=== PATIENT | female | born 1955 | race Caucasian/White ===

== ENCOUNTER 2019-03-31 16:06 | Inpatient (IN) | payer MEDICARE, MEDICAID, SELFPAY | END 2019-04-03 17:00 | disposition home or self-care (01) | DRG 65 | PROVIDERS: Admitting Provider Internal Medicine; Emergency Provider Emergency Medicine; PCP Family Medicine; Visit Provider Internal Medicine | DX: I63.50 Cerebral infarction due to unspecified occlusion or stenosis of unspecified cerebral artery (principal); I69.354 Hemiplegia and hemiparesis following cerebral infarction affecting left non-dominant side; Z91.81 History of falling; G51.0 Bell's palsy; Z79.82 Long term (current) use of aspirin; Z79.02 Long term (current) use of antithrombotics/antiplatelets; E11.42 Type 2 diabetes mellitus with diabetic polyneuropathy; I25.10 Atherosclerotic heart disease of native coronary artery without angina pectoris; I12.9 Hypertensive chronic kidney disease with stage 1 through stage 4 chronic kidney disease, or unspecified chronic kidney disease; K21.9 Gastro-esophageal reflux disease without esophagitis; N18.3 Chronic kidney disease, stage 3 (moderate); Z79.4 Long term (current) use of insulin; E89.0 Postprocedural hypothyroidism; F41.8 Other specified anxiety disorders; Z91.5 Personal history of self-harm; Z90.710 Acquired absence of both cervix and uterus; Z90.49 Acquired absence of other specified parts of digestive tract; R26.89 Other abnormalities of gait and mobility; G47.00 Insomnia, unspecified; E11.65 Type 2 diabetes mellitus with hyperglycemia; R09.89 Other specified symptoms and signs involving the circulatory and respiratory systems | CPT/HCPCS: 36415; 51701; 70450; 70551; 80048; 80053; 80061; 81001; 82085; 82550; 82607; 82746; 83874; 83918; 85025; 85652; 93005; 93880; 97110; 97116; 97162; 97165; 99283; 99284; 99285; A9270; C8929; G0378; J1815 ==

== ENCOUNTER 2019-12-19 16:38 | Emergency (ER) | payer MEDICARE, OTHER, SELFPAY ==
--- NOTE | ~2019-12-19 | XR_ITS ---
XR wrist LT min 3V 12/19/2019 19:02 INDICATION: Left wrist pain after fall PROCEDURE: 4 views left wrist COMPARISON: No prior studies for comparison. FINDINGS: Fracture, dislocation or subluxation is not identified. There is mild osteoarthritis of the triscaphe joint. The soft tissues appear within normal limits. No foreign bodies are identified. IMPRESSION: 1: NO ACUTE BONE OR JOINT ABNORMALITY IDENTIFIED. Reviewed, dictated and finalized at location A. AND PHYSICS INSTRUCTOR
--- NOTE | ~2019-12-19 | XR_ITS ---
XR shoulder LT min 2V 12/19/2019 19:02 INDICATION: Left shoulder pain after fall PROCEDURE: 4 views left shoulder COMPARISON: No prior studies for comparison. FINDINGS: Fracture, dislocation or subluxation is not identified. The soft tissues appear within norm al limits. No foreign bodies are identified. IMPRESSION: 1: NO ACUTE BONE OR JOINT ABNORMALITY IDENTIFIED. Reviewed, dictated and finalized at Location A. Reviewed, dictated and finalized at location A. R ENTRY TECHNICIAN
--- NOTE | ~2019-12-19 | XR_ITS ---
XR knee LT 3V 12/19/2019 19:02 Indication: Left knee pain after fall Procedure: 3 views left knee Comparison: No prior studies for comparison. Findings: No fracture, subluxation or dislocation. No significant joint space narrowing. No joint eff usion. No radiopaque foreign bodies. Impression: 1: No acute fracture. Reviewed, dictated and finalized at location A. IC ADMINISTRATION TEACHER Impression: 1: No acute fracture.
[2019-12-19 17:11] VITALS: BP 116/63; PULSE 74; RESP 20; TEMP 36.1; O2SAT 100
--- NOTE | 2019-12-19 18:37 | ED.FALL ---
HPI - Fall General Chief Complaint: Fall Stated Complaint: FALL L SIDED BODY PAIN Time Seen by Provider: 12/19/19 18:06 Source: patient and RN notes reviewed Mode of arrival: ambulatory Limitations: no limitations History of Present Illness HPI Narrative: Pt is a 64 y/o female who presents to the ED with c/o fall happening this evening. She notes that she was walking through a [employer], when she accidentally tripped and fell into several shelves. Pt states that she used her lt arm to brace her fall, and notes that she believes she struck her head during the fall. She denies any LOC. Pt reports lt shoulder pain, lt forearm pain, lt hip pain, lt knee pain, and abrasions on her lt coffey, lt hand, and rt fourth digit s/p the fall. She currently denies any dizziness. Pt states that she chronically takes Tramadol, and notes that she hasn't taken any further pain medications for her symptoms. MD complaint: fall Fall from: standing Place fall occurred: other (gas station) Loss of consciousness: none Symptoms prior to fall: none Context: tripped/slipped Location of injury: head Location of injury - extremities: Left: shoulder, forearm, thigh (lt hip) and knee Associated symptoms (after fall): other (abrasions on lt coffey, lt hand, and rt 4th digit) Related Data Allergies Allergy/AdvReac Type Severity Reaction Status Date / Time latex Allergy Unknown Verified 11/08/14 13:08 No Known Allergies Allergy Unverified 03/31/19 17:14 Review of Systems Review of Systems: All systems reviewed & are unremarkable except as noted in HPI and below Musculoskeletal: Musculoskeletal: Reports arthralgias (lt shoulder pain; lt hip pain; lt knee pain) and Reports other (lt forearm pain) Integumentary/Breasts: Skin/Breast: Reports wounds (abrasions on lt coffey, lt hand, and rt 4th digit) Neurologic: Denies dizziness and Reports other (Reports: head injury. Denies: LOC) [facility] Past Medical History Medical History Anxiety Arthritis CAD (coronary artery disease) CVA (cerebral vascular accident) Depression Diabetes type 2, controlled Gastric ulcer GERD (gastroesophageal reflux disease) Goiter Heart attack History of angina HLD (hyperlipidemia) HTN (hypertension) Hypothyroidism Peripheral neuropathy Renal disease TIA (transient ischemic attack) Surgical History Surgical History History of partial thyroidectomy Hx of cardiac catheterization with cardiac stent placement Hx of section Hx of cholecystectomy Family History Family History (Updated 05/30/16 @ 23:19 by DOCTOR UNKNOWN) Sibling Family history of malignant neoplasm Family history of kidney disease Family history of lung cancer Patient's sister is Mother Family history of diabetes mellitus in first degree relative Patient's mother is Father Family history of lung cancer Patient's father is Social History Social History Smoking status: Former smoker Alcohol intake: never Comments PCP is Dr. Kirkland. Exam Const: General: healthy appearing, no acute distress and other (elderly) HENMT: Head: normocephalic and atraumatic Resp: Effort & Inspection: normal respiratory effort Auscultation: clear to auscultation bilaterally Cardio: Rate: regular rate Rhythm: regular rhythm Heart sounds: no murmurs Peripheral pulses: Peripheral pulses 2+ throughout GI: GI Palp: Yes Soft to palpation and No Tenderness to palpation present (GI) Auscultation: normal bowel sounds Back/Spine/Pelvis: Back: other (Full ROM) Skin: General skin exam: normal color, dry skin and other (warm) Neuro: General: patient oriented x3 (alert) Cranial nerves: Yes Other cranial nerve findings present (rt sided facial droop (appears chronic)) Speech: normal speech Sensory Exam: n
== END 2019-12-19 20:24 | disposition home or self-care (01) ==
PROVIDERS: Emergency Provider Emergency Medicine; PCP Family Medicine
DX: S61.304A Unspecified open wound of right ring finger with damage to nail, initial encounter (principal); S40.022A Contusion of left upper arm, initial encounter; S50.12XA Contusion of left forearm, initial encounter; W01.198A Fall on same level from slipping, tripping and stumbling with subsequent striking against other object, initial encounter; S80.812A Abrasion, left lower leg, initial encounter; I25.10 Atherosclerotic heart disease of native coronary artery without angina pectoris; Z86.73 Personal history of transient ischemic attack (TIA), and cerebral infarction without residual deficits; E11.9 Type 2 diabetes mellitus without complications; K21.9 Gastro-esophageal reflux disease without esophagitis; I25.2 Old myocardial infarction; E78.5 Hyperlipidemia, unspecified; I10 Essential (primary) hypertension; E89.0 Postprocedural hypothyroidism; Z95.5 Presence of coronary angioplasty implant and graft; M19.032 Primary osteoarthritis, left wrist
CPT/HCPCS: 73030; 73110; 73562; 99284

== ENCOUNTER 2020-04-19 10:11 | Outpatient (CLI) | payer MEDICARE, MEDICAID, SELFPAY | END 2020-04-19 10:12 | disposition home or self-care (01) | LOC: ANHAUDIO 10:12 | PROVIDERS: PCP Family Medicine; Visit Provider Otolaryngology | DX: H90.3 Sensorineural hearing loss, bilateral (principal) | CPT/HCPCS: 92557; 92567 ==

== ENCOUNTER 2020-05-16 12:51 | Outpatient (RCR) | payer MEDICAID, SELFPAY | END 2020-05-16 23:59 | disposition home or self-care (01) | LOC: ANHAUDIO 12:51 | PROVIDERS: PCP Family Medicine; Visit Provider Family Medicine | DX: Z46.1 Encounter for fitting and adjustment of hearing aid (principal) | CPT/HCPCS: V5160; V5261 ==

== ENCOUNTER 2020-08-02 17:19 | Emergency (ER) | payer MEDICARE, MEDICAID, SELFPAY ==
[2020-08-02 18:03] VITALS: BP 98/60; PULSE 60; RESP 16; TEMP 35.8; O2SAT 100
[2020-08-02 18:24] VITALS: BP 128/73; PULSE 71; RESP 18; O2SAT 100
[2020-08-02 18:42] LABS: Basophils Absolute Auto 0.1 K/mm3 (0.0-0.1); Basophils Percent Auto 0.7 % (0.2-1.2); Eosinophils Absolute Auto 0.1 K/mm3 (0-0.3); Eosinophils Percent Auto 1.1 % (0-4.4); Hematocrit 36.7 % (37.0-47.0); Hemoglobin 12.3 g/dL (12.0-15.0); Immature Granulocyte Absolute 0.02 K/mm3 (0.00-0.031); Immature Granulocyte Percent A 0.2 % (0-0.5); Lymphocytes Absolute Auto 3.02 K/mm3 (0.9-3.2); Mean Corpuscular HGB Conc 33.5 g/dl (32-36); Mean Corpuscular Hemoglobin 30.1 pg (26-34); Mean Corpuscular Volume 89.7 fl (80-100); Mean Platelet Volume 9.8 fl (7.4-10.4); Monocytes Absolute Auto 0.6 K/mm3 (0.1-0.6); Monocytes Percent Auto 6.7 % (2.6-8.5); Neutrophils Absolute Auto 4.4 K/mm3 (1.3-6.7); Neutrophils Percent Auto 54.3 % (45.5-73.1); Platelet Count Result 243 k/mm3 (150-375); Red Blood Count 4.09 M/mm3 (4.2-5.4); Red Cell Distribution Width 13.3 % (11.5-14.5); White Blood Count 8.2 K/mm3 (4.5-10.0)
[2020-08-02 18:50] LABS: Alanine Aminotransferase 22 U/L (4-35); Albumin Level 4.5 g/dL (3.5-5.1); Alkaline Phosphatase 70 U/L (38-126); Anion Gap 7 mmol/L (8-16); Aspartate Amino Transferase 32 U/L (14-36); Bilirubin,Total 0.3 mg/dL (0.2-1.3); Blood Urea Nitrogen 29 mg/dL (7-17); Calcium 10.1 mg/dL (8.4-10.2); Carbon Dioxide 29 mmol/L (22-30); Chloride 102 mmol/L (98-107); Estimated CRCL calculation 40 ml/min; Estimated Glomerular Filt Rate 45; Glucose 66 mg/dL (65-105); Potassium 4.1 mmol/L (3.4-5.0); Sodium 138 mmol/L (137-145)
[2020-08-02 19:02] LABS: Troponin I < 0.012 ng/mL (0.000-0.034)
[2020-08-02 19:21] VITALS: BP 95/54; PULSE 61; RESP 18; O2SAT 99
[2020-08-02] MEDS: SODIUM CHLORIDE 0.9% IV 1,000 ML 999 ML IV CONT (19:49)
[2020-08-02 20:00] VITALS: BP 115/60; PULSE 60; RESP 18; O2SAT 100
--- NOTE | 2020-08-02 20:02 | ED.BACK ---
HPI - Back Pain/Injury General Chief Complaint: Back Pain/Injury Stated Complaint: top of back to mid back pain Time Seen by Provider: 08/02/20 19:03 History of Present Illness HPI Narrative: Patient is a 65-year-old female who presents ER with back pain. Began today. It goes from her upper thoracic region down to her lumbar back. It sharp. It comes in waves. It is worse with bending and twisting. No relief with [id number] medications. Denies fevers or chills or sweats. No known trauma. No lower extremity numbness or tingling. No difficulty with urination or defecation. No lower extremity weakness. Related Data Home Medications Medication Instructions Recorded Confirmed aspirin 81 mg tablet,delayed 81 mg PO DAILY 04/16/20 release cholecalciferol (vitamin D3) 50 50 mcg PO DAILY 04/16/20 mcg (2,000 unit) capsule glipizide 10 mg tablet 10 mg PO DAILY 04/16/20 metformin 500 mg tablet 500 mg PO BID 04/16/20 atorvastatin 80 mg tablet 80 mg PO DAILY 06/04/20 clopidogrel 75 mg tablet 75 mg PO DAILY 06/04/20 escitalopram oxalate 20 mg tablet 20 mg PO DAILY 06/04/20 ezetimibe 10 mg tablet 10 mg PO DAILY 06/04/20 gabapentin 600 mg tablet 600 mg PO TID 06/04/20 losartan 50 mg tablet 50 mg PO DAILY 06/04/20 panobinostat 10 mg capsule 10 mg PO ONCE 06/04/20 pantoprazole 20 mg tablet,delayed 20 mg PO QAM 06/04/20 release Allergies Allergy/AdvReac Type Severity Reaction Status Date / Time latex Allergy Unknown Hives Verified 08/02/20 18:06 Review of Systems Constitutional: Constitutional: Denies chills, Denies fever(s) and Denies weakness Cardiovascular: Cardiovascular: Denies chest pain Respiratory: Respiratory: Denies cough, Denies dyspnea and Denies wheezing Musculoskeletal: Musculoskeletal: Reports back pain, Denies arthralgias and Reports muscle cramps Neurologic: Denies focal weakness and Denies numbness PMFSH Social History Social History Smoking status: Former smoker Alcohol intake: never Exam Narrative: Exam Narrative: GENERAL: Well-appearing, well-nourished, and in no acute distress. HEAD: Normocephalic, atraumatic. CHEST: Clear to auscultation. No respiratory distress. HEART: Regular rate and rhythm. Normal peripheral pulses. EXTREMITIES: Normal range of motion. No edema. Back: No midline tenderness of thoracic or lumbar spine. There is bilateral paraspinal muscular tenderness mid thoracic region down to the upper lumbar region. No visual evidence of trauma. NEURO: Alert and oriented x3. PSYCH: Normal mood and affect. Course Course Emergency Course: Patient may be a little dry. She is receiving 1 L IV fluid. Will discharge with low-dose anti-inflammatories and some muscle relaxers. Follow-up with PCP. Vital Signs Vital signs: Vital Signs Temperature 96.5 F L 08/02/20 18:03 Pulse Rate 60 08/02/20 18:03 Respiratory Rate 16 08/02/20 18:03 Blood Pressure 98/60 L 08/02/20 18:03 Pulse Oximetry 100 08/02/20 18:03 Temperature 96.5 F L 08/02/20 18:03 Pulse Rate 61 08/02/20 19:21 Respiratory Rate 18 08/02/20 19:21 Blood Pressure 95/54 L 08/02/20 19:21 Pulse Oximetry 99 08/02/20 19:21 MDM - Back Pain/Injury Lab Data Result diagrams: 08/02/20 18:29 08/02/20 18:29 Labs: Lab Results 08/02/20 08/02/20 08/02/20 Range/Units 18:29 18:29 18:29 WBC 8.2 (4.5-10.0) K/mm3 RBC 4.09 L (4.2-5.4) M/mm3 Hgb 12.3 (12.0-15.0) g/dL Hct 36.7 L (37.0-47.0) % MCV 89.7 (80-100) fl MCH 30.1 (26-34) pg MCHC 33.5 (32-36) g/dl RDW 13.3 (11.5-14.5) % Plt Count 243 (150-375) k/mm3 MPV 9.8 (7.4-10.4) fl Immature Gran % (Auto) 0.2 (0-0.5) % Neut % (Auto) 54.3 (45.5-73.1) % Lymph % (Auto) 37.0 (18.3-44.2) % [place] % (Auto) 6.7 (2.6-8.5) % Eos % (Auto) 1.1 (0-4.4) % Baso % (Auto) 0.7 (0.2-1.2) % Lym
== END 2020-08-02 20:35 | disposition home or self-care (01) ==
PROVIDERS: Physician Assistant; Emergency Provider Emergency Medicine; PCP Family Medicine
DX: M62.830 Muscle spasm of back (principal); E11.42 Type 2 diabetes mellitus with diabetic polyneuropathy; I25.10 Atherosclerotic heart disease of native coronary artery without angina pectoris; Z86.73 Personal history of transient ischemic attack (TIA), and cerebral infarction without residual deficits; M19.90 Unspecified osteoarthritis, unspecified site; I21.9 Acute myocardial infarction, unspecified; I25.2 Old myocardial infarction; E78.5 Hyperlipidemia, unspecified; E89.0 Postprocedural hypothyroidism; Z79.82 Long term (current) use of aspirin; Z79.84 Long term (current) use of oral hypoglycemic drugs; Z87.891 Personal history of nicotine dependence
CPT/HCPCS: 36415; 80053; 84484; 85025; 96360; 99284; J7030

== ENCOUNTER 2021-06-03 10:03 | Outpatient (RCR) | payer MEDICARE, MEDICAID, SELFPAY | END 2021-06-03 23:59 | disposition home or self-care (01) | LOC: ANHAUDIO 10:03 | PROVIDERS: PCP Family Medicine; Visit Provider Family Medicine | DX: Z46.1 Encounter for fitting and adjustment of hearing aid (principal) | CPT/HCPCS: 99199 ==

== ENCOUNTER 2021-08-03 17:57 | Observation (INO) | payer MEDICARE, MEDICAID, SELFPAY ==
--- NOTE | ~2021-08-03 | XR_ITS ---
EXAMINATION: XR chest 2V 08/04/2021 09:01 INDICATION: TIA PROCEDURE: PA and lateral views of the chest COMPARISON: 08/22/2019 FINDINGS: The lungs are clear. The cardiomediastinal silhouette is within normal limits. There are no pleural effusions. There is no pneumothorax suspected. There are cholecystectomy clips. IMPRESSION: 1: NO ACUTE CARDIOPULMONARY DISEASE. Reviewed, dictated and finalized at location A.
--- NOTE | ~2021-08-03 | US_ITS ---
EXAMINATION: US carotid duplex BI DATE: 08/04/2021 11:53 INDICATION: TIA TECHNIQUE: Grayscale, color Doppler, and pulsed Doppler images of the cervical carotid arteries were obtained. The degree of vessel stenosis is placed in one of the following categories: normal, <50%, 5 0-69%, >=70% but less than near-occlusion, near-occlusion, or total occlusion. Note that percent sten osis relative to normal distal artery lumen diameter is indirectly measured from velocity measurement s as described by Louie, et al. Radiology 2003; 229:340-346. Notes: Normal: Peak systolic velocity <125 centimeters/sec and no plaque <50%. Peak systolic velocity <125 ( EDV <40; ICA/CCA PSV ratio <2.0; used these factors only a tandem lesions or low cardiac output or co ntralateral disease) 50-69 %: PSV 125-230 (EDV 40-100; ratio 2-4) >= 70% but less than near occlusion: PSV greater than 230 (EDV > 100; ratio> 4.0) Near Occlusion: PSV that is variable; markedly narrowed lumen Occlusion: Absent flow on color/spectral Doppler and no lumen on chacon scale. COMPARISON: None. FINDINGS: RIGHT: The right common carotid artery (CCA) peak systolic velocity (PSV) is 63 cm/s. The right internal car otid artery (ICA) PSV is 180 cm/s. The right ICA end-diastolic velocity (EDV) is 57 cm/s. The right I CA/CCA PSV ratio is 2.8. The external carotid artery (ECA) PSV is 92 cm/s. There is antegrade flow in the right vertebral artery. LEFT: The left CCA PSV is 83 cm/s. The left ICA PSV is 108 cm/s. The left ICA EDV is 38 cm/s. The left ICA/ CCA PSV ratio is 1.3. The ECA PSV is 88 cm/s. There is antegrade flow in the left vertebral artery. IMPRESSION: 1. 50-69% stenosis in the right internal carotid artery by sonographic criteria. 2. Less than 50% stenosis in the left internal carotid artery by sonographic criteria. Reviewed, dictated and finalized at location A. IMPRESSION: 1. 50-69% stenosis in the right internal carotid artery by sonographic criteria . 2. Less than 50% stenosis in the left internal carotid artery by sonographic cr iteria.
--- NOTE | ~2021-08-03 | CT_ITS ---
EXAMINATION: CT brain wo con DATE: 08/04/2021 03:30 INDICATION: Stroke. TECHNIQUE: Computed tomography (CT) of the head was performed without intravenous contrast. The dose- length product was 605.33 mGy-cm. Automated exposure control and iterative reconstruction technique w ere employed. COMPARISON: CT dated 08/22/2019 FINDINGS: There is a chronic right frontal lobe infarction with encephalomalacia. There are scattered mild periventricular and subcortical white matter changes, most likely related to small vessel ische fariha disease (microangiopathy). No ventriculomegaly or midline shift. There is a 1.3 cm calcified extr a-axial mass, consistent with meningioma. No significant mass effect. Basilar cisterns are patent. No acute intracranial hemorrhage, infarction, mass or mass effect. IMPRESSION: 1. No acute intracranial abnormality. 2: Partially calcified 1.3 cm extra-axial mass left parietal vertex, consistent with meningioma. 3: Chronic right frontal lobe infarction. Reviewed, dictated and finalized at location A.
[2021-08-03 18:29] VITALS: BP 118/70; PULSE 94; RESP 20; TEMP 36.2; O2SAT 100
[2021-08-03 18:45] LABS: Basophils Absolute Auto 0.1 K/mm3 (0.0-0.1); Basophils Percent Auto 0.7 % (0.2-1.2); Eosinophils Absolute Auto 0.1 K/mm3 (0-0.3); Eosinophils Percent Auto 1.2 % (0-4.4); Hematocrit 34.4 % (37.0-47.0); Hemoglobin 11.5 g/dL (12.0-15.0); Immature Granulocyte Absolute 0.03 K/mm3 (0.00-0.031); Immature Granulocyte Percent A 0.4 % (0-0.5); Lymphocytes Absolute Auto 2.67 K/mm3 (0.9-3.2); Lymphocytes Percent Auto 34.9 % (18.3-44.2); Mean Corpuscular HGB Conc 33.4 g/dl (32-36); Mean Corpuscular Hemoglobin 29.6 pg (26-34); Mean Corpuscular Volume 88.4 fl (80-100); Mean Platelet Volume 8.9 fl (7.4-10.4); Monocytes Absolute Auto 0.6 K/mm3 (0.1-0.6); Monocytes Percent Auto 7.7 % (2.6-8.5); Neutrophils Absolute Auto 4.2 K/mm3 (1.3-6.7); Neutrophils Percent Auto 55.1 % (45.5-73.1); Platelet Count Result 231 k/mm3 (150-375); Red Blood Count 3.89 M/mm3 (4.2-5.4); Red Cell Distribution Width 14.6 % (11.5-14.5); White Blood Count 7.6 K/mm3 (4.5-10.0)
[2021-08-03 18:55] LABS: Anion Gap 12 mmol/L (8-16); Blood Urea Nitrogen 31 mg/dL (7-17); Calcium 8.5 mg/dL (8.4-10.2); Carbon Dioxide 22 mmol/L (22-30); Chloride 98 mmol/L (98-107); Estimated CRCL calculation 35 ml/min; Estimated Glomerular Filt Rate 41; Glucose 220 mg/dL (65-110); Potassium 3.8 mmol/L (3.4-5.0); Sodium 132 mmol/L (137-145)
[2021-08-03 20:31] VITALS: BP 102/52; PULSE 56; RESP 18; TEMP 36.1; O2SAT 95
[2021-08-03 22:28] VITALS: BP 141/78; PULSE 66; RESP 14; O2SAT 100
[2021-08-03 23:30] LABS: Add Urine Microscopic? YES; Appearance Urine Clear (Clear); Bilirubin Urine Negative (Negative); Blood Urine Negative (Negative); Color Urine Straw (Yellow); Glucose Urine UA 3+ mg/dL (Negative); Ketones Urine Negative (Negative); Leukocyte Esterase Ur Negative LEU/UL (Negative); Nitrate Urine Negative (Negative); Protein Urine Negative (Negative); RBC Urine 0-2 /hpf (0-2); Urobilinogen Urine Negative mg/dL (<2.0)
[2021-08-04] VITALS (20 sets, daily range): BP systolic 97–140; BP diastolic 66–79; PULSE 61–96; RESP 13–20; TEMP 35.7–37; O2SAT 92–100; BMI 28.1
--- NOTE | 2021-08-04 00:34 | ED.GENADULT ---
HPI - General Adult General Chief complaint: Abdominal Pain Stated complaint: R sided pain, increased confusion x weeks Time Seen by Provider: 08/03/21 22:13 History of Present Illness HPI narrative: Patient is a 66-year-old female who presents ER with multiple complaints. She initially told triage that she had flank pain and back pain. At this time she reports mild low back pain. She has been seen previously for recurrent falls and muscle spasms. On my encounter with her she reports that she was playing cards with some friends tonight and did not know what the cards were or where they went in due to this confusion she was sent in here. Patient has history of multiple strokes. 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 She has no additional complaints at this time and feels like she is not as confused as she had been. Related Data Allergies Allergy/AdvReac Type Severity Reaction Status Date / Time No Known Allergies Allergy Verified 08/03/21 23:01 Review of Systems Review of Systems: All systems reviewed & are unremarkable except as noted in HPI and below Constitutional: Constitutional: Denies chills and Denies fever(s) ENT: Denies nasal congestion and Denies sore throat Gastrointestinal: Gastrointestinal: Denies abdominal pain, Denies nausea and Denies vomiting Musculoskeletal: Musculoskeletal: Reports back pain and Reports muscle cramps Neurologic: Reports confusion, Denies focal weakness, Denies numbness and Reports weakness PMFSH Past Medical History Medical History (Updated 08/04/21 @ 05:19 by Martin Dangelo MD) Anxiety CAD (coronary atherosclerotic disease) Cerebrovascular accident Depression Diabetes GERD (gastroesophageal reflux disease) History of left heart catheterization Hyperlipidemia Hypertension Hypothyroidism Surgical History Surgical History (Updated 08/04/21 @ 05:15 by Martin Dangelo MD) History of section History of cholecystectomy History of percutaneous coronary intervention History of thyroidectomy Social History Social History (Updated 08/04/21 @ 05:15 by Martin Dangelo MD) Smoking status: Former smoker Exam Narrative: GENERAL: Well-appearing, well-nourished, and in no acute distress. HEAD: Normocephalic, atraumatic. EYES: PERRL and EOMI. ENT: Mucous membranes moist. CHEST: Clear to auscultation. No respiratory distress. HEART: Regular rate and rhythm. Normal peripheral pulses. ABDOMEN: Soft, nontender, nondistendeds. EXTREMITIES: Normal range of motion. No edema. SKIN: Warm, dry, no rash. NEURO: Chronic right-sided facial droop. Unable to ambulate safely. No upper or lower extremity drift. Difficulty with finger-nose testing r left upper extremity. Patient with lipsmacking and occasional spasms of the upper and lower extremities. Alert and oriented x3. Course Course Emergency Course: Admit to hospitalist service. Observation. Patient has some polypharmacy is causing difficulty with ambulation and her spasm-like movements. Vital Signs Vital signs: Vital Signs Temperature 97.2 F L 08/03/21 18:29 Pulse Rate 94 08/03/21 18:29 Respiratory Rate 20 08/03/21 18:29 Blood Pressure 118/70 08/03/21 18:29 Pulse Oximetry 100 08/03/21 18:29 Temperature 97.0 F L 08/03/21 20:31 Pulse Rate 88 08/04/21 00:44 Respiratory Rate 13 08/04/21 00:43 Blood Pressure 136/76 08/04/21 00:44 Pulse Oximetry 96 08/04/21 00:43 Medical Decision Making Vital Signs Vital Signs: Vital Signs Temperature 97.2 F L 08/03/21 18:29 Pulse Rate 94 08/03/21 18:29 Respiratory Rate 20 08/03/21 18:29 Blood Pressure 118/70 08/03/21 18:29 Pulse Oximetry 100 08/03/21 18:29 Temperature 97.0 F L 08/03/21 20:31 Pulse Rate 88 08/04/21 00:44 Respiratory Rate 13 08/04/21 00:43 Blood Pressure 136/76 08/04/21 00:44 Pulse Oximetry 96 08/04/21 00:43 Lab Data Result diagrams: 08/03/21 18:37
[2021-08-04 03:19] LABS: Ethanol < 10 mg/dL (<10)
--- NOTE | 2021-08-04 06:58 | ADMGEN ---
This patient, Leeann Cochran, was admitted to 3 [facility] Surg Room 332-01 at 615. Patient/family oriented to hospital policies and general routines including ID bracelet, bed and alarms, visiting hours, pain management, procedures, bathroom and other care routines, personal items, smoking policy, room service/diet, and visiting hours. Information on how to activate the Rapid Response Team has been discussed. Patient/Family are encouraged to report perceived risks to care and to ask questions if they do not understand what they are told or what they should do.
--- NOTE | 2021-08-04 08:48 | PM.IMHP ---
H&P: HPI History of Present Illness Date/Time: 08/04/21 08:48 Chief Complaint: Dysarthria PMFSH Past Medical History Medical History Anxiety CAD (coronary atherosclerotic disease) Cerebrovascular accident Depression Diabetes GERD (gastroesophageal reflux disease) History of left heart catheterization Hyperlipidemia Hypertension Hypothyroidism Surgical History Surgical History (Updated 08/04/21 @ 05:15 by Martin Dangelo MD) History of section History of cholecystectomy History of percutaneous coronary intervention History of thyroidectomy Family History Family History (Updated 08/04/21 @ 07:04 by Delicia Hall RN) Mother Cerebrovascular accident Father Lung cancer Sibling Lung cancer Leukemia Sibling Kidney disease Social History Social History (Updated 08/04/21 @ 05:15 by Martin Dangelo MD) Smoking status: Never smoker Alcohol intake: never Substance use: never Spiritual care concerns: No Meds Home Medications and Allergies Home Medications Medication Instructions Recorded Confirmed Type atorvastatin 80 mg PO HS 08/04/21 08/04/21 History clopidogrel 75 mg PO DAILY 08/04/21 08/04/21 History cyclobenzaprine 5 mg PO TID PRN 08/04/21 08/04/21 History dapagliflozin [Farxiga] 10 mg PO DAILY 08/04/21 08/04/21 History escitalopram oxalate 20 mg PO DAILY PRN 08/04/21 08/04/21 History ezetimibe 10 mg PO DAILY 08/04/21 08/04/21 History gabapentin 900 mg PO TID 08/04/21 08/04/21 History glipizide 10 mg PO BID 08/04/21 08/04/21 History hydrocodone-acetaminophen 1 tablet PO Q6H PRN 08/04/21 08/04/21 History insulin glargine [Lantus U-100 30 unit SUBCUT DAILY 08/04/21 08/04/21 History Insulin] losartan 50 mg PO DAILY 08/04/21 08/04/21 History melatonin 20 mg PO HS 08/04/21 08/04/21 History metformin 500 mg PO BID 08/04/21 08/04/21 History metoprolol succinate 100 mg PO DAILY 08/04/21 08/04/21 History nitroglycerin 0.4 mg SUBLINGUAL Q5M PRN 08/04/21 08/04/21 History pantoprazole 20 mg PO QAM 08/04/21 08/04/21 History phentermine 37.5 mg PO DAILY 08/04/21 08/04/21 History Allergies Allergy/AdvReac Type Severity Reaction Status Date / Time No Known Allergies Allergy Verified 08/04/21 05:41 Vital Signs Vital Signs - 24 hr 08/03/21 18:29 08/03/21 20:31 08/03/21 22:28 Temperature 97.2 F L 97.0 F L Pulse Rate 94 56 L 66 Respiratory Rate 20 18 14 Blood Pressure 118/70 102/52 L 141/78 H Pulse Oximetry 100 95 100 08/04/21 00:08 08/04/21 00:35 08/04/21 00:40 Temperature Pulse Rate 67 96 69 Respiratory Rate 18 Blood Pressure 140/70 129/79 132/75 Pulse Oximetry 100 08/04/21 00:43 08/04/21 00:44 08/04/21 00:45 Temperature Pulse Rate 70 69 70 Respiratory Rate 13 16 13 Blood Pressure 132/75 132/75 Pulse Oximetry 96 99 96 08/04/21 01:00 08/04/21 01:01 08/04/21 01:23 Temperature Pulse Rate 70 69 70 Respiratory Rate 19 16 18 Blood Pressure 120/72 Pulse Oximetry 96 92 94 08/04/21 01:32 08/04/21 01:45 08/04/21 02:01 Temperature Pulse Rate 70 70 70 Respiratory Rate 20 20 20 Blood Pressure 122/72 Pulse Oximetry 97 96 08/04/21 02:15 08/04/21 02:30 08/04/21 02:55 Temperature Pulse Rate 61 61 Respiratory Rate 19 17 13 Blood Pressure 124/70 126/78 Pulse Oximetry 08/04/21 06:57 Temperature 98.6 F Pulse Rate 61 Respiratory Rate 20 Blood Pressure 97/67 L Pulse Oximetry 98 H&P: Results Labs Labs: Short CBC 08/03/21 Range/Units 18:37 WBC 7.6 (4.5-10.0) K/mm3 Hgb 11.5 L (12.0-15.0) g/dL Hct 34.4 L (37.0-47.0) % Plt Count 231 (150-375) k/mm3 BMP 08/03/21 18:37 Sodium 132 L Potassium 3.8 Chloride 98 Carbon Dioxide 22 BUN 31 H Creatinine 1.30 H Glucose 220 H Calcium 8.5 Urine 08/03/21 Range/Units 23:05 Urine Color Straw (Yellow) Urine Appearance Clear (Clear) Urine pH 6.0 (5.0-9.0)
[2021-08-04] MEDS: SODIUM CHLORIDE 0.9% IV 1,000 ML 75 ML IV CONT ×2 (08:56→22:52)
[2021-08-04 09:21] LABS: Glucose Point of Care 207 mg/dl (65-105)
[2021-08-04 10:18] LABS: Magnesium 1.9 mg/dL (1.6-2.3)
[2021-08-04 10:32] LABS: Troponin I < 0.012 ng/mL (0.000-0.034)
[2021-08-04] MEDS: ATORVASTATIN 40 MG TABLET 80 MG PO (10:35)
[2021-08-04 10:41] LABS: Iron 87 ug/dL (37-170)
[2021-08-04 10:51] LABS: Thyroid Stimulating Hormone 0.634 uIU/mL (0.465-4.680)
[2021-08-04 10:54] LABS: Percent Iron Saturation 28 % (20-50)
[2021-08-04 11:27] LABS: Folic Acid > 20.0 ng/mL (2.76->20)
[2021-08-04 11:56] LABS: Glucose Point of Care 233 mg/dl (65-105)
[2021-08-04] MEDS: INSULIN ASPART (*BKC) 100 UNITS/ML SUB-Q ×2 (12:11→17:23)
[2021-08-04 15:28] LABS: Troponin I < 0.012 ng/mL (0.000-0.034)
[2021-08-04 17:04] LABS: Glucose Point of Care 219 mg/dl (65-105)
[2021-08-04 21:13] LABS: Glucose Point of Care 185 mg/dl (65-105)
[2021-08-04 21:32] LABS: Troponin I < 0.012 ng/mL (0.000-0.034)
[2021-08-04] MEDS: HYDROcodone/acetaminophen (*CRX) 5-325 MG TABLET 1 TAB PO (22:54)
--- NOTE | 2021-08-05 | ECHO_ITS ---
Patient Info Name: Leeann Cochran Age: 66 years : 1955 Gender: Female Ht: 62 in Wt: 153 lbs BSA: 1.76 m2 HR: 75 bpm BP: 111 / 56 mmHg Heart Rhythm: Sinus Rhythm Technical Quality: Fair Exam Date: 08/05/2021 10:26 AM Exam Location: [facility] Pulmonary Exam Room: [facility] Patient Status: Outpatient Admit Date: 08/04/2021 Staff Ordering Physician: Isaiah Morrison DO Associate Of Science In Nursing: Jane Delgado RDCS Attending Provider: Alberto Martini MD Referring Physician: Prince BONILLA; Exam Type: CA echo doppler color flow Study Info Indications - TIA Complete two-dimensional, color flow and Doppler transthoracic echocardiogram is performed. Summary 1. Complete two-dimensional, color flow and Doppler transthoracic echocardiogram is performed. 2. Left ventricular chamber dimension is mildly enlarged. 3. Left ventricular systolic function is normal, estimated at 65-70%. 4. There is mildly increased left ventricular wall thickness. 5. The left ventricular diastolic function is grade II diastolic dysfunction. 6. Left atrial chamber dimension is mildly enlarged. 7. There is mild aortic valve stenosis with a peak velocity of 183 cm/s, mean gradient of 7 mmHg, and aortic valve area of 2.0 cm2. 8. There is moderate aortic valve calcification. 9. There is mild mitral valve regurgitation. 10. The mitral valve annulus is moderately calcified. 11. There is mild tricuspid valve regurgitation. 12. Mild pulmonary hypertension, estimated pulmonary arterial systolic pressure is 37 mmHg. Left Ventricle Left ventricular chamber dimension is mildly enlarged. Left ventricular systolic function is normal, estimated at 65-70%. There is mildly increased left ventricular wall thickness. The left ventricular diastolic function is grade II diastolic dysfunction. Right Ventricle Right ventricular chamber dimension is normal. Right ventricular systolic function is normal. Left Atria Left atrial chamber dimension is mildly enlarged. Right Atria Right atrial chamber dimension is normal. Atrial Septum Intact interatrial septum visualized by color flow imaging. Aortic Valve The aortic valve is trileaflet. There is mild aortic valve stenosis with a peak velocity of 183 cm/s, mean gradient of 7 mmHg, and aortic valve area of 2.0 cm2. There is trace aortic valve regurgitation. There is moderate aortic valve calcification. Pulmonic Valve The pulmonic valve is normal. There is no pulmonic valve stenosis. There is trace pulmonic regurgitation. Mitral Valve The mitral valve has thickened leaflets. There is no mitral valve stenosis. There is mild mitral valve regurgitation. The mitral valve annulus is moderately calcified. Tricuspid Valve The tricuspid valve leaflets are normal. There is no significant tricuspid valve stenosis. There is mild tricuspid valve regurgitation. Mild pulmonary hypertension, estimated pulmonary arterial systolic pressure is 37 mmHg. Pericardium/Pleural The pericardium appears normal. There is trivial pericardial effusion. Inferior Vena Cava Normal inferior vena cava with >50% collapse upon inspiration consistent with normal right atrial pressure, 10 mmHg. Aorta The aortic root size at the sinus of Valsalva is normal. The prox ascending aorta size is normal. There is mild aortic atherosclerosis. Left Ventricular Outflow Tract Name
[2021-08-05] MEDS: ATORVASTATIN 40 MG TABLET 80 MG PO (00:32)
[2021-08-05] MEDS: MELATONIN 5 MG TABLET 20 MG PO (00:32)
[2021-08-05] MEDS: GABAPENTIN 300 MG CAPSULE 900 MG PO ×3 (00:32→13:36)
--- NOTE | 2021-08-05 05:00 | ECG_ITS ---
Measurements Intervals [place] Rate: 68 P: 62 MA: 160 QRS: 52 QRSD: 94 T: 57 QT: 382 QTc: 409 Interpretive Statements SINUS RHYTHM BASELINE ARTIFACT- V5 NORMAL ECG Electronically Signed On 08-05-2021 11:48:32 CDT by Nasir Diehl D.O.
[2021-08-05 06:00] VITALS: BP 111/56; PULSE 75; RESP 18; TEMP 36.7; O2SAT 98
[2021-08-05 06:31] LABS: Alanine Aminotransferase 20 U/L (4-35); Albumin Level 3.6 g/dL (3.5-5.1); Alkaline Phosphatase 85 U/L (38-126); Anion Gap 6 mmol/L (8-16); Aspartate Amino Transferase 21 U/L (14-36); Bilirubin,Total 0.6 mg/dL (0.2-1.3); Blood Urea Nitrogen 20 mg/dL (7-17); Carbon Dioxide 25 mmol/L (22-30); Chloride 106 mmol/L (98-107); Cholesterol 214 mg/dL (0-200); Estimated CRCL calculation 55 ml/min; Estimated Glomerular Filt Rate > 60; Glucose 161 mg/dL (65-110); HDL Direct 70 mg/dL; Potassium 3.6 mmol/L (3.4-5.0); Sodium 137 mmol/L (137-145); Triglycerides 191 mg/dL (<150)
[2021-08-05 06:36] LABS: LDL Cholesterol Direct 98 mg/dL
--- NOTE | 2021-08-05 07:46 | PM.IMPN ---
Progress Note: A&P Additional Plan START OF DOCTOR MAY?S PROGRESS NOTE Subjective: Overnight the patient denies diplopia, blurry vision, dysphagia, dysphagia, paresis/anesthesia/minus significant part of body. Overnight she has fever, rigors, nausea, vomiting, cough, wheeze, abdominal pain, chest pain, lightheadedness, dizziness, headache, palpitations, sensory rapid heartbeat, since your heart beat. I have explained to the patient her current medical condition plan of care and answered all her questions. I had a long discussion with her regarding her reported use of narcotics of which was in denial Objective: General: -Alert -No acute distress -No dyspnea -No tachypnea Heart: -Regular rate -Regular rhythm -No murmurs -No gallops -No rubs Lungs: -No wheeze -No rhonchi -No rales Abdomen: -Normal bowel sounds in all four quadrants -No rebound -No guarding -No tenderness Extremities: -2/4 pulse in all four extremities -No clubbing -No cyanosis -No edema Additional Details / Additional Findings / Exceptions / Miscellaneous: Cranial nerves 2-12 are intact. Eyes: Pupils equally round and reactive to light and accommodation. Extraocular muscles are intact Patient has 5/5 bilateral are symmetric. Toes are bilateral upper lower extremities are equal and intact Pertinent Laboratory Results / Pertinent Radiology Results / Pertinent Diagnostic Results / Pertinent Vital Signs: Vital signs stable Assessment / Plan: TIA. Monitor patient telemetry and check serial cardiac enzymes and check TSH, free T4, B12, folate, magnesium all. In the morning will check fasting lipid panel and recheck EKG. Urinalysis unremarkable. Neuro checks q.[address] of the brain negative for acute process. Bilateral carotid Doppler demonstrates no clinically significant abnormalities r, echocardiogram, chest [id number]. Physical therapy consult. Occupational therapy consult. Aspirin 81 mg p.o. daily plus Plavix 75 mg p.o. daily plus Lipitor 80 mg p.o. q.h.s. post IV nor 7 senna 5 mL/hour Report narcotic abuse. Patient will need to be referred to narcotics anonymous upon discharge History of CVA. Aspirin 81 mg p.o. daily plus Plavix 75 mg p.o. daily Lipitor 40 mg p.o. q.h.s. Hyponatremia. Monitor sodium levels intermittently. IV normal saline 75 mL/hour History of thyroidectomy for goiter, with subsequent hypothyroidism. Check TSH, free T4 Depression. Lexapro 20 mg p.o. daily Anxiety History of seizure Acute renal insufficiency. Monitor creatinine intermittently. IV nor sounds and a 500 mL/hour Nathan's palsy Anemia. Monitor hemoglobin intermittently. Check serum ferritin, iron panel, fecal occult blood Coronary artery disease, status post LA, status post stent. Aspirin 81 mg p.o. daily plus Plavix and 5 mg p.o. daily plus Lipitor 80 mg p.o. q.h.s. plus metoprolol XL 100 mg p.o. daily Diabetes. Will check fingerstick glucose q.a.c. and HS and provide insulin sliding scale plus insulin glargine 30 units subcutaneously daily plus metformin 500 mg p.o. b.i.d. GERD. Protonix 20 mg p.o. daily Hyperlipidemia. Lipitor 80 mg p.o. q.h.s.. Check fasting lipid panel Hypertension. Cozaar 50 mg p.o. daily plus metoprolol XL 100 mg p.o. daily Hypertriglyceridemia. Tricor 145 mg p.o. daily Muscle spasm Neuropathy. Gabapentin 900 mg p.o. t.i.d. The patient takes phentermine 37.5 mg p.o. daily. I will attempt to ascertain the reason as to why DVT prophylaxis. [facility] Disposition: The patient is medically stable for discharge on this day August 05, 2021 pending results of echocardiogram END OF DOCTOR MAY?S PROGRESS NOTE Subjective Date/time seen: 08/05/21 07:46 Objective Data Vital Signs Vital Signs: Vital Signs - 24 hr 08/04/21 08:00 08/04/21 14:00 08/04/21 20:00 Temperature 96.3 F L Pulse Rate 72 82 Respiratory Rate 20 20 Blood Pressu
[2021-08-05 08:00] VITALS: O2SAT 98
[2021-08-05 08:55] VITALS: PULSE 74
[2021-08-05] MEDS: LOSARTAN POTASSIUM 50 MG TABLET PO (08:55)
[2021-08-05] MEDS: CLOPIDOGREL BISULFATE 75 MG TABLET PO (08:55)
[2021-08-05] MEDS: METOPROLOL SUCCINATE EXT REL 100 MG TABCR PO (08:55)
[2021-08-05] MEDS: metFORMIN HCL 500 MG TABLET PO (08:55)
[2021-08-05] MEDS: PANTOPRAZOLE SOD SESQUIHYDRATE 20 MG TAB PO (08:55)
[2021-08-05] MEDS: ASPIRIN 81 MG CHEWABLE TABLET PO (08:56)
[2021-08-05] MEDS: INSULIN GLARGINE (*BKC) 100 UNITS/ML 30 UNITS SUB-Q (08:58)
[2021-08-05 09:00] LABS: Glucose Point of Care 151 mg/dl (65-105)
[2021-08-05] MEDS: ACETAMINOPHEN 325 MG TABLET 650 MG PO (09:47)
[2021-08-05] MEDS: ESCITALOPRAM OXALATE 10 MG TABLET 20 MG PO (09:48)
[2021-08-05] MEDS: FENOFIBRATE NANOCRYSTALLIZED 145 MG TABLET PO (09:48)
[2021-08-05] MEDS: SODIUM CHLORIDE 0.9% IV 1,000 ML 75 ML IV CONT (11:48)
[2021-08-05 13:06] LABS: Glucose Point of Care 199 mg/dl (65-105)
[2021-08-05 14:00] VITALS: BP 137/70; PULSE 67; RESP 16; TEMP 37.3; O2SAT 100
--- NOTE | 2021-08-05 14:05 | PM.DS ---
DS: Admitting Diagnosis Discharge Date 4:08 p.m. on August 05, 2021 Admitting Diagnosis What was believed to be TIA however this may have been narcotic overdose DS: Summary Hospital Course Hospital Course: See discharge summary below Time Spent with Patient Time attestation: Total time spent providing and/or coordinating discharge services: START OF DOCTOR MAY?S DISCHARGE SUMMARY Date of Admission: August 04, 2021 Date of Discharge: 2:05 p.m. on August 05, 2021 Primary Diagnosis: TIA, ruled out. Upon further procurement of information, it is believed that the patient may have overdosed on narcotics Secondary Diagnosis: Reported history of narcotic abuse History of CVA Hyponatremia, resolved History of thyroidectomy for goiter, with subsequent hypothyroidism Depression Anxiety History of seizure Acute renal insufficiency, resolved Nathan's palsy Anemia Coronary artery disease, status post IN, status post stent Diabetes GERD Hyperlipidemia Hypertension Muscle spasm Neuropathy Consultations: None Disposition: The patient will be advised follow up with her primary care physician 7-10 days post discharge for post hospitalization evaluation The patient's will require a referral to narcotics anonymous for reported history of narcotic abuse Discharge Medications: Farxiga 10 mg p.o. daily Zetia 10 mg p.o. daily Glipizide 10 mg p.o. b.i.d. Phentermine 37.5 mg p.o. daily Lipitor 80 mg p.o. q.h.s. Plavix 75 mg p.o. daily Lexapro 20 mg p.o. daily Gabapentin 900 mg p.o. t.i.d. Lantus 30 units subcutaneously daily Cozaar 50 mg p.o. daily Melatonin 20 mg p.o. q.h.s. Metformin 500 mg p.o. b.i.d. Metoprolol XL 100 mg p.o. daily Nitroglycerin 0.4 mg sublingually Q 5 minutes p.r.n. chest pain. She is to call 911 if there is no resolution of chest pain after 3rd dose Protonix 20 mg p.o. daily Tricor 145 mg p.o. daily END OF DOCTOR MAY?S DISCHARGE SUMMARY DS: Data Data Completed and Pending Labs on day of discharge: Labs from last 24 hours 08/05/21 08/05/21 08/05/21 13:04 08:55 05:51 Sodium 137 Potassium 3.6 Chloride 106 Carbon Dioxide 25 Anion Gap 6 L BUN 20 H D Creatinine 0.80 Estim Creat Clear Calc 55 Estimated GFR > 60 Glucose 161 H POC Capillary Glucose 199 H 151 H Calcium 9.0 Total Bilirubin 0.6 AST 21 ALT 20 Alkaline Phosphatase 85 Troponin I Total Protein 6.0 L Albumin 3.6 Triglycerides 191 H Cholesterol 214 H LDL Cholesterol Direct 98 HDL Direct 70 08/04/21 08/04/21 08/04/21 21:11 20:50 16:53 Sodium Potassium Chloride Carbon Dioxide Anion Gap BUN Creatinine Estim Creat Clear Calc Estimated GFR Glucose POC Capillary Glucose 185 H 219 H Calcium Total Bilirubin AST ALT Alkaline Phosphatase Troponin I < 0.012 Total Protein Albumin Triglycerides Cholesterol LDL Cholesterol Direct HDL Direct 08/04/21 14:52 Sodium Potassium Chloride Carbon Dioxide Anion Gap BUN Creatinine Estim Creat Clear Calc Estimated GFR Glucose POC Capillary Glucose Calcium Total Bilirubin AST ALT Alkaline Phosphatase Troponin I < 0.012 Total Protein Albumin Triglycerides Cholesterol LDL Cholesterol Direct HDL Direct Discharge Plan Discharge Discharging Clinician: Dr. Morrison Patient Disposition: Home, Self-Care Activity: as tolerated Diet: heart healthy, low sodium, low cholesterol and low fat Discharge Instructions: The patient is advised follow-up with her primary care physician 7-10 days post discharge for post hospitalization evaluation. Patient will require referral to narcotics anonymous Patient Instructions: Antibiotic Form, Heparin (By injection), Deep Vein Thrombosis (DC) S
[2021-08-05 19:42] LABS: IFOB Positive Control Positive; Immunochemical Fecal Occult Bl Positive (N)
--- NOTE | 2021-08-14 06:45 | PM.IMHP ---
H&P: HPI History of Present Illness Date/Time: 08/04/21 06:45 Chief Complaint: Dysarthria [facility] Past Medical History Medical History (Updated 08/09/21 @ 11:17 by Kelly Reyes) Anxiety Anxiety Arthritis CAD (coronary artery disease) CAD (coronary atherosclerotic disease) Cerebrovascular accident CVA (cerebral vascular accident) Depression Depression Diabetes Diabetes type 2, controlled Gastric ulcer GERD (gastroesophageal reflux disease) GERD (gastroesophageal reflux disease) Goiter Heart attack History of angina History of left heart catheterization HLD (hyperlipidemia) HTN (hypertension) Hyperlipidemia Hypertension Hypothyroidism Hypothyroidism Peripheral neuropathy Renal disease TIA (transient ischemic attack) Surgical History Surgical History (Updated 08/09/21 @ 11:17 by Kelly Reyes) History of section History of cholecystectomy History of partial thyroidectomy History of percutaneous coronary intervention History of thyroidectomy Hx of cardiac catheterization with cardiac stent placement Hx of section Hx of cholecystectomy Family History Family History (System 08/09/21 @ 11:17 by Kelly Reyes) Mother Cerebrovascular accident Father Lung cancer Sibling Lung cancer Leukemia Sibling Kidney disease Sibling Family history of malignant neoplasm Family history of kidney disease Family history of lung cancer Patient's sister is Mother Family history of diabetes mellitus in first degree relative Patient's mother is Father Family history of lung cancer Patient's father is Social History Social History (System 08/09/21 @ 11:17 by Kelly Reyes) Smoking status: Never smoker Alcohol intake: never Substance use: never Spiritual care concerns: No Meds Home Medications and Allergies Home Medications Medication Instructions Recorded Confirmed Type aspirin 81 mg tablet,delayed 81 mg PO DAILY 04/16/20 History release cholecalciferol (vitamin D3) 50 50 mcg PO DAILY 04/16/20 History mcg (2,000 unit) capsule glipizide 10 mg tablet 10 mg PO DAILY 04/16/20 History metformin 500 mg tablet 500 mg PO BID 04/16/20 History atorvastatin 80 mg tablet 80 mg PO DAILY 06/04/20 History clopidogrel 75 mg tablet 75 mg PO DAILY 06/04/20 History escitalopram oxalate 20 mg tablet 20 mg PO DAILY 06/04/20 History ezetimibe 10 mg tablet 10 mg PO DAILY 06/04/20 History gabapentin 600 mg tablet 600 mg PO TID 06/04/20 History losartan 50 mg tablet 50 mg PO DAILY 06/04/20 History panobinostat 10 mg capsule 10 mg PO ONCE 06/04/20 History pantoprazole 20 mg tablet,delayed 20 mg PO QAM 06/04/20 History release cyclobenzaprine 10 mg PO TID PRN #10 tablet 08/02/20 Rx Farxiga 10 mg PO DAILY 08/04/21 08/04/21 History Lantus U-100 Insulin 30 unit SUBCUT DAILY 08/04/21 08/04/21 History atorvastatin 80 mg PO HS 08/04/21 08/04/21 History clopidogrel 75 mg PO DAILY 08/04/21 08/04/21 History escitalopram oxalate 20 mg PO DAILY 08/04/21 08/04/21 History ezetimibe 10 mg PO DAILY 08/04/21 08/04/21 History gabapentin 900 mg PO TID 08/04/21 08/04/21 History glipizide 10 mg PO BID 08/04/21 08/04/21 History losartan 50 mg PO DAILY 08/04/21 08/04/21 History melatonin 20 mg PO HS 08/04/21 08/04/21 History metformin 500 mg PO BID 08/04/21 08/04/21 History metoprolol succinate 100 mg PO DAILY 08/04/21 08/04/21 History nitroglycerin 0.4 mg SUBLINGUAL Q5M PRN 08/04/21 08/04/21 History pantoprazole 20 mg PO QAM 08/04/21 08/04/21 History phentermine 37.5 mg PO DAILY 08/04/21 08/04/21 History fenofibrate nanocrystallized 145 mg PO QAM #30 tablet 08/05/21 Rx Allergies Allergy/AdvReac Type Severity Reaction Status Date / Time latex Allergy Unknown Hives Verified 08/09/21 11:17 Assessment and Plan Additional Plan START OF DOCTOR MAY?S HISTORY AND PHYSICAL / CONSULTATION NOTE C
== END 2021-08-05 16:30 | disposition home or self-care (01) ==
LOC: ANHED 08-04 05:19 → ANH3MEDSUR 08-04 19:46
PROVIDERS: Emergency Medicine; Admitting Provider Internal Medicine; Emergency Provider Emergency Medicine; PCP Family Medicine; Visit Provider Internal Medicine
DX: R47.1 Dysarthria and anarthria (principal); F11.10 Opioid abuse, uncomplicated; I10 Essential (primary) hypertension; E78.5 Hyperlipidemia, unspecified; E03.9 Hypothyroidism, unspecified; E11.42 Type 2 diabetes mellitus with diabetic polyneuropathy; F41.8 Other specified anxiety disorders; G51.0 Bell's palsy; I25.10 Atherosclerotic heart disease of native coronary artery without angina pectoris; I25.2 Old myocardial infarction; K21.9 Gastro-esophageal reflux disease without esophagitis; N28.9 Disorder of kidney and ureter, unspecified; Z79.84 Long term (current) use of oral hypoglycemic drugs; Z95.5 Presence of coronary angioplasty implant and graft; Z79.02 Long term (current) use of antithrombotics/antiplatelets; Z79.4 Long term (current) use of insulin; Z86.73 Personal history of transient ischemic attack (TIA), and cerebral infarction without residual deficits; Z87.891 Personal history of nicotine dependence; Z79.899 Other long term (current) drug therapy
CPT/HCPCS: 36415; 51701; 70450; 71046; 80048; 80053; 80061; 80307; 81001; 82274; 82607; 82728; 82746; 82948; 83540; 83550; 83735; 84439; 84443; 84484; 85025; 93005; 93306; 93880; 96360; 96361; 97110; 97161; 97165; 99285; A9270; G0378; J1815; J7030

== ENCOUNTER 2021-08-17 10:35 | Emergency (ER) | payer MEDICARE, MEDICAID, SELFPAY ==
[2021-08-17 10:38] VITALS: BP 139/89; PULSE 100; RESP 16; TEMP 36.9; O2SAT 100
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
== END 2021-08-17 11:44 | disposition home or self-care (01) ==
LOC: ANHED 11:28
PROVIDERS: Emergency Provider Emergency Medicine; PCP Family Medicine
DX: L03.114 Cellulitis of left upper limb (principal); I25.10 Atherosclerotic heart disease of native coronary artery without angina pectoris; K21.9 Gastro-esophageal reflux disease without esophagitis; I25.2 Old myocardial infarction; E78.5 Hyperlipidemia, unspecified; I10 Essential (primary) hypertension; E11.42 Type 2 diabetes mellitus with diabetic polyneuropathy; F32.A Depression, unspecified; F41.9 Anxiety disorder, unspecified; E89.0 Postprocedural hypothyroidism; Z86.73 Personal history of transient ischemic attack (TIA), and cerebral infarction without residual deficits; Z79.4 Long term (current) use of insulin; Z79.84 Long term (current) use of oral hypoglycemic drugs; Z79.82 Long term (current) use of aspirin; Z95.5 Presence of coronary angioplasty implant and graft
CPT/HCPCS: 99283

== ENCOUNTER 2021-10-20 19:29 | Inpatient (IN) | payer MEDICARE, MEDICAID, SELFPAY ==
[2021-10-20] VITALS (10 sets, daily range): BP systolic 137–155; BP diastolic 75–89; PULSE 123–133; RESP 17–24; TEMP 36.4; O2SAT 98–100; BMI 27.3
--- NOTE | ~2021-10-20 | CT_ITS ---
EXAMINATION: CTA chest PE protocol DATE: 10/21/2021 00:33 INDICATION: Chest pain. TECHNIQUE: Computed tomography angiography (CTA) of the chest was performed with 100 mL Omnipaque-350 intravenous contrast timed to evaluate the pulmonary arteries. Coronal maximum intensity projection 3D-reconstructions were created by the technologist. Automated exposure control and iterative reconst ruction technique were employed. The dose-length product was 479.05 mGy-cm. COMPARISON: Chest CT 06/07/2014 FINDINGS: There are 3 mm and 4 mm nodules in right lung lower lobe, likely benign. There are peripher al airspace and groundglass opacities in left upper lobe, consistent with infarct. There is mild atel ectasis bilaterally. No pleural effusion. There are changes of left hemithyroidectomy. There is a chr onic multinodular goiter involving right thyroid lobe with the largest nodule measuring 1.8 cm. The h eart demonstrates right ventricular enlargement, consistent with right heart strain. No pericardial e ffusion. There are acute pulmonary emboli involving all lobes including emboli in the main right and left pulmonary arteries. There are changes of cholecystectomy. There is cortical thinning of the kidn eys. There is mild thoracic spondylosis. There are chronic compression fractures of T4 and T5. IMPRESSION: 1. Extensive acute pulmonary emboli with right heart strain. 2. Small infarct in left lung upper lobe. Reviewed, dictated and finalized at location A. 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
--- NOTE | ~2021-10-20 | US_ITS ---
EXAMINATION: US venous doppler [facility] DATE: 10/21/2021 14:09 INDICATION: Acute pulmonary emboli. TECHNIQUE: Grayscale ultrasound images without and with compression and Doppler ultrasound images of the bilateral lower extremity veins were obtained. COMPARISON: None. FINDINGS: The visualized portions of right common femoral vein, profunda (deep) femoral vein, femoral vein, per wlaker veins, and greater saphenous vein outflow are patent. There is thrombus in right popliteal and posterior tibial veins. The visualized portions of left common femoral vein, profunda femoral vein, femoral vein, popliteal v ein, peroneal veins, posterior tibial veins, and greater saphenous vein outflow are patent. IMPRESSION: 1. Deep vein thrombosis involving right popliteal and posterior tibial veins. Reviewed, dictated and finalized at location A. 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
--- NOTE | ~2021-10-20 | XR_ITS ---
EXAMINATION: XR chest 1V portable 10/20/2021 20:09 INDICATION: Chest pressure and shortness of breath PROCEDURE: AP portable chest COMPARISON: Comparison to multiple prior studies sequentially, with oldest reviewed study dated 06/29. FINDINGS: The lungs are clear. The cardiomediastinal silhouette is within normal limits. There are no pleural effusions. There is no pneumothorax suspected. IMPRESSION: 1: NO ACUTE CARDIOPULMONARY DISEASE. Reviewed, dictated and finalized at location A. RAM MANAGEMENT SPECIALIST
--- NOTE | 2021-10-20 19:34 | ECG_ITS ---
Measurements Intervals [place] Rate: 122 P: 64 IN: 145 QRS: -56 QRSD: 84 T: 69 QT: 337 QTc: 481 Interpretive Statements SINUS TACHYCARDIA LEFT AXIS DEVIATION DELAYED PRECORDIAL R/S TRANSITION CONSIDER INFERIOR INFARCT, AGE INDETERMINATE BORDERLINE ST-T WAVE ABNORMALITY- ANTEROLAT/HIGH LAT LEADS BASELINE ARTIFACT- I, II, III ABNORMAL ECG Electronically Signed On 10-20-2021 20:28:18 [employer] by Nasir Diehl D.O.
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
[2021-10-20] MEDS: ALBUTEROL SULFATE NEB 2.5 MG/0.5 ML INH 5 MG INHALATION (19:56)
[2021-10-20] MEDS: IPRATROPIUM BR 0.02% INH SOLN 0.5 MG/2.5 ML VIAL INHALATION (19:57)
--- NOTE | 2021-10-20 20:01 | PCRCNOTE ---
pt is clear of wheezing despite shortness of breath.
[2021-10-20 20:04] LABS: Basophils Absolute Auto 0.1 K/mm3 (0.0-0.1); Basophils Percent Auto 0.6 % (0.2-1.2); Eosinophils Absolute Auto 0.1 K/mm3 (0-0.3); Eosinophils Percent Auto 0.6 % (0-4.4); Hematocrit 46.3 % (37.0-47.0); Hemoglobin 15.5 g/dL (12.0-15.0); Immature Granulocyte Absolute 0.04 K/mm3 (0.00-0.031); Immature Granulocyte Percent A 0.4 % (0-0.5); Lymphocytes Absolute Auto 2.15 K/mm3 (0.9-3.2); Lymphocytes Percent Auto 21.5 % (18.3-44.2); Mean Corpuscular HGB Conc 33.5 g/dl (32-36); Mean Corpuscular Hemoglobin 29.4 pg (26-34); Mean Corpuscular Volume 87.9 fl (80-100); Mean Platelet Volume 9.8 fl (7.4-10.4); Monocytes Absolute Auto 0.8 K/mm3 (0.1-0.6); Neutrophils Absolute Auto 6.9 K/mm3 (1.3-6.7); Neutrophils Percent Auto 68.9 % (45.5-73.1); Platelet Count Result 248 k/mm3 (150-375); Red Blood Count 5.27 M/mm3 (4.2-5.4); Red Cell Distribution Width 13.2 % (11.5-14.5)
[2021-10-20 20:15] LABS: INR 0.9; Prothrombin Time 12.5 Seconds (11.1-14.7)
[2021-10-20 20:18] LABS: Alanine Aminotransferase 20 U/L (4-35); Albumin Level 4.5 g/dL (3.5-5.1); Alkaline Phosphatase 105 U/L (38-126); Anion Gap 13 mmol/L (8-16); Aspartate Amino Transferase 28 U/L (14-36); Bilirubin,Total 0.5 mg/dL (0.2-1.3); Blood Urea Nitrogen 29 mg/dL (7-17); Calcium 10.1 mg/dL (8.4-10.2); Carbon Dioxide 19 mmol/L (22-30); Chloride 98 mmol/L (98-107); Estimated CRCL calculation 40 ml/min; Estimated Glomerular Filt Rate 50; Glucose 435 mg/dL (65-110); Lipase 144 U/L (23-300); Potassium 3.9 mmol/L (3.4-5.0); Sodium 130 mmol/L (137-145)
[2021-10-20 20:27] LABS: NT Pro B Type Natriuretic Pept 6000 pg/mL (5-100)
[2021-10-20] MEDS: ENOXAPARIN 80 MG/0.8 ML SYRINGE 73 MG SUB-Q (21:29)
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
[2021-10-20] MEDS: MORPHINE SULFATE (*CRX) 4 MG/ML INJ IV PUSH (23:31)
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
[2021-10-21] VITALS (14 sets, daily range): BP systolic 95–153; BP diastolic 50–89; PULSE 85–123; RESP 16–20; TEMP 36.1–37.2; O2SAT 95–100
--- NOTE | 2021-10-21 | ECHO_ITS ---
Patient Info Name: Leeann Cochran Age: 66 years : 1955 Gender: Female Ht: 62 in Wt: 149 lbs BSA: 1.74 m2 HR: 83 bpm BP: 95 / 56 mmHg Heart Rhythm: Sinus Rhythm Exam Date: 10/21/2021 10:01 AM Exam Location: [facility] Pulmonary Patient Status: Inpatient Admit Date: 10/21/2021 Staff Ordering Physician: Mamadou James MD Range Technician: Juve Srivastava, HANK, RT Attending Provider: Mamadou James MD Exam Type: CA echo doppler color flow Study Info Indications I26.99 - Other pulmonary embolism without acute cor pulmonale Complete two-dimensional, color flow and Doppler transthoracic echocardiogram is performed. Strain analysis performed. Summary 1. Complete two-dimensional, color flow and Doppler transthoracic echocardiogram is performed. 2. Left ventricular systolic function is normal, estimated at 65-70%. 3. The left ventricular diastolic function is grade I diastolic dysfunction. 4. Right ventricular chamber dimension is severely enlarged. 5. There is mild aortic valve stenosis with a peak velocity of 175 cm/s, mean gradient of 5 mmHg, and aortic valve area of 1.9 cm2. 6. There is mild tricuspid valve regurgitation. 7. Severe pulmonary hypertension, estimated pulmonary arterial systolic pressure is 80 mmHg. 8. Compared with prior exam from August, RV is now dilated and PA pressures are severely elevated. Left Ventricle Left ventricular systolic function is normal, estimated at 65-70%. The left ventricular diastolic function is grade I diastolic dysfunction. Right Ventricle Right ventricular chamber dimension is severely enlarged. RV systolic function is reduced. Left Atria Left atrial chamber dimension is mildly enlarged. Right Atria Right atrial chamber dimension is mildly enlarged. Aortic Valve The aortic valve is trileaflet. There is mild aortic valve sclerosis. There is mild aortic valve stenosis with a peak velocity of 175 cm/s, mean gradient of 5 mmHg, and aortic valve area of 1.9 cm2. Pulmonic Valve The pulmonic valve is not well visualized. Mitral Valve The mitral valve has normal leaflets. Tricuspid Valve The tricuspid valve leaflets are normal. There is mild tricuspid valve regurgitation. Severe pulmonary hypertension, estimated pulmonary arterial systolic pressure is 80 mmHg. Pericardium/Pleural The pericardium appears normal. Aorta The aortic root size at the sinus of Valsalva is normal. Left Ventricular Outflow Tract Name Value Normal LVOT 2D LVOT Diameter 2.0 cm LVOT Doppler LVOT Peak Gradient 4 mmHg LVOT Mean Gradient 2 mmHg LVOT VTI 14 cm LVOT VTI/AV VTI Ratio 0.6 LVOT Stroke Volume 44 ml LVOT CO 4.1 l/min LVOT CI 2.4 l/min/m2 Mitral Valve Name Value Normal M
[2021-10-21 00:03] LABS: Troponin I 0.354 ng/mL (0.000-0.034)
[2021-10-21] MEDS: EZETIMIBE 10 MG TABLET PO ×2 (01:50→20:11)
[2021-10-21] MEDS: MELATONIN 5 MG TABLET 20 MG PO ×2 (01:50→20:11)
[2021-10-21] MEDS: METOPROLOL SUCCINATE EXT REL 100 MG TABCR PO (01:50)
[2021-10-21 02:16] LABS: Troponin I 0.346 ng/mL (0.000-0.034)
[2021-10-21 02:26] LABS: Hemoglobin A1C 9.7 % (<5.7)
--- NOTE | 2021-10-21 08:18 | PM.IMPN ---
Progress Note: A&P Assessment and Plan (1) Pulmonary emboli: Code(s): I26.99 - Other pulmonary embolism without acute cor pulmonale Status: Acute Assessment and Plan: Patient presents with bilateral pulmonary emboli as evidence by CT angiogram describing acute pulmonary emboli involving all lobes including emboli in the main right and left pulmonary arteries:. Although patient is relatively asymptomatic rest, she experienced significant exertional dyspnea reflecting right heart strain. Echocardiogram has been ordered and is pending at the time this dictation. Appreciate Cardiology recommendation. (2) Non-ST elevation [place] (NSTEMI): Code(s): I21.4 - Non-ST elevation (NSTEMI) myocardial infarction Status: Acute Assessment and Plan: Initially it presentation with chest pain and shortness of breath was concerning for NSTEMI. Mild troponin elevation likely reflecting cardiac strain due to pulmonary emboli. Continue to trend troponin, which elevation may portend a worse prognosis in this clinical context. (3) Renal disease: Code(s): N28.9 - Disorder of kidney and ureter, unspecified Status: Acute Assessment and Plan: Unknown baseline kidney function. Needed creatinine was 0.8 on 08/05/2021. Patient has experience some fluctuations of creatinine within the 0.8-1.9 range. Patient care several risk factors for kidneys function including hypertension and diabetes. CT scan reveals staining cortical thinning of both kidneys. Avoid additional nephrotoxic medication. Please renally dose medications. Patient risk for contrast induced nephropathy. Monitor kidney function over the next 4872 hours. Continue to hold metformin and this setting. (4) Hypothyroidism: Code(s): E03.9 - Hypothyroidism, unspecified Status: Acute Assessment and Plan: History of thyroidectomy. Hypothyroidism was supplemented. TSH is (5) Peripheral neuropathy: Code(s): G62.9 - Polyneuropathy, unspecified Status: Acute Assessment and Plan: Likely long-term consequences of uncontrolled diabetes. Continue gabapentin. (6) Goiter: Code(s): E04.9 - Nontoxic goiter, unspecified Status: Acute Assessment and Plan: Status post resection. (7) CVA (cerebral vascular accident): Code(s): I63.9 - Cerebral infarction, unspecified Status: Acute Assessment and Plan: Previously on cardioprotective regimen with aspirin and Plavix. Given current indication for therapeutic anticoagulation for at least 6 months and possibly lifelong anticoagulation, we may consider to switch to Plavix only. Will defer this decision to Cardiology. (8) CAD (coronary artery disease): Code(s): I25.10 - Atherosclerotic heart disease of [place] coronary artery without angina pectoris Status: Acute Assessment and Plan: Patient initially presented with chest pain, currently asymptomatic. Elevation of troponin reflecting right her strain. Continue cardioprotective regimen. Currently losartan and metoprolol on hold due to relative hypotension. (9) Stroke-like symptom: Code(s): R29.90 - Unspecified symptoms and signs involving the nervous system Status: Acute (10) Ambulatory dysfunction: Code(s): R26.2 - Difficulty in walking, not elsewhere classified Status: Acute Assessment and Plan: Likely reflecting stress on the circulatory system secondary to diffuse bilateral pulmonary involvement. Start physical therapy when patient stabilizes. Additional Plan # chest pain shortness of breath EKG with sinus tachycardia elevated troponin suggestive of non ST-elevation MN. chest pain relieved with nitroglycerin. Aspirin 325 given in route by EMS. Already on aspirin and Plavix at home which will be resumed. With sinus tachycardia would also like to rule out PE will order CTA PE protocol. Cardiology will be consulted in the morning and troponins w
[2021-10-21 09:13] LABS: Glucose Point of Care 319 mg/dl (65-105)
[2021-10-21] MEDS: CHOLECALCIFEROL 1,000 UNITS TABLET 2000 UNITS PO (09:28)
[2021-10-21] MEDS: ENOXAPARIN 80 MG/0.8 ML SYRINGE 70 MG SUB-Q ×2 (09:28→20:11)
[2021-10-21] MEDS: CLOPIDOGREL BISULFATE 75 MG TABLET PO (09:28)
[2021-10-21] MEDS: GABAPENTIN 300 MG CAPSULE 600 MG PO ×3 (09:28→17:06)
[2021-10-21] MEDS: ESCITALOPRAM OXALATE 10 MG TABLET 20 MG PO (09:28)
[2021-10-21] MEDS: PANTOPRAZOLE SOD SESQUIHYDRATE 20 MG TAB PO (09:28)
[2021-10-21] MEDS: ATORVASTATIN 40 MG TABLET 80 MG PO (09:28)
[2021-10-21] MEDS: ASPIRIN 81 MG CHEWABLE TABLET PO (09:28)
[2021-10-21] MEDS: FENOFIBRATE NANOCRYSTALLIZED 145 MG TABLET PO (09:28)
[2021-10-21] MEDS: MORPHINE SULFATE (*CRX) 4 MG/ML INJ IV PUSH (09:29)
[2021-10-21] MEDS: INSULIN GLARGINE (*BKC) 100 UNITS/ML 30 UNITS SUB-Q (09:29)
[2021-10-21] MEDS: INSULIN ASPART (*BKC) 100 UNITS/ML SUB-Q ×3 (09:29→17:06)
--- NOTE | 2021-10-21 10:57 | PM.CNCAR ---
Assessment and Plan Additional Plan 66-year-old lady with history of coronary disease percutaneous revascularization as detailed above. She presents to the hospital now with shortness of breath and some chest pain off and on for couple of weeks I believe the principal problem here is pulmonary embolism. She has probably been throwing clots for a few weeks but according to her history. Very concerned that she has extensive bilateral clot burden according to the radiologist and evidence of some right heart dysfunction. Her echocardiogram is pending. For the moment her vital signs are relatively stable and she is oxygenating well. She is systemically anticoagulated with Lovenox. Agree that she does not need anticoagulation along with dual anti-platelet therapy am going to stop her aspirin at this time. After IC her echocardiogram findings we will have to determine if she would benefit from more aggressive treatment in terms of removal of some of her clot burden. This will also be complicated by the fact that all of the tertiary care hospitals in the area where this is available are undoubtedly full with coronavirus pandemic surge and very limited if any bed availability at all. Sarkis Izquierdo MD [facility] History of Present Illness History of Present Illness Consult date/time: 10/21/21 10:57 Consult reason: chest pain Reason For Visit: NSTEMI, Chest Pain Narrative: This is a 66-year-old lady that I am seeing this morning at the request of the hospitalist because of chest pain and elevated troponin levels. She is in IMU in hospitalized since yesterday. I she is unknown to me prior to this encounter but apparently has coronary disease and follows with my partner in the office Dr. Garcia. The patient states that she was doing relatively well until about 2-3 weeks ago when she started to notice the onset of exertional shortness of breath. The shortness of breath was not a new complaint the office notes indicate she has been reporting symptoms like this for a while but this seemed worse than she has had in the past. In addition to this she has had intermittent episodes of chest pain which seem to come and go in an unpredictable fashion. She states about a week ago things were getting better and she thought it would resolve on its own and then last couple of days but became markedly worse and yesterday she decided to come into the hospital for evaluation. In the hospital her she was found to be in sinus tachycardia. There are no acute injury changes on her ECG. She has troponin levels done that are elevated but flat at 0.2-0.3. Unfortunately chest to recur CTA was done which demonstrates extensive bilateral pulmonary emboli. The radiologist also makes the comment in the report that there is more evidence of right heart strain. In this setting I am seeing her in consultation. In the room now she is reporting shortness of breath with modest activity but other than that appears to be in no distress. She is breathing room air and saturating at 97-98%. She has a heart rate of approximately 100-110 at does have respiratory rate of 24 breaths per minute. Echocardiogram has been ordered by the hospitalist team has actually been done but has not yet been downloaded to the reading station so I am unable to look at the images at the time of this dictation. The patient has a history of coronary artery disease and underwent percutaneous revascularization of the LAD with stenting in 2016 at [facility]. She was seen by Dr. Maisha art and had recurrent symptomatic ischemia and underwent angioplasty and stenting of the high-grade lesion in the posterior descending artery in 2018. At that time there was mild restenosis in the stented segment of the LAD but it was felt to be a relatively small caliber vessel as well. She has been followed in the office since then and has not had any additional cardiac problems that I am aware of. She is being maintained on dual
[2021-10-21 11:49] LABS: Glucose Point of Care 273 mg/dl (65-105)
[2021-10-21 16:12] LABS: Glucose Point of Care 326 mg/dl (65-105)
[2021-10-21] MEDS: HYDROcodone/acetaminophen (*CRX) 5-325 MG TABLET 1 TAB PO (17:47)
[2021-10-21 20:40] LABS: Glucose Point of Care 386 mg/dl (65-105)
[2021-10-22] VITALS (13 sets, daily range): BP systolic 98–126; BP diastolic 57–78; PULSE 76–108; RESP 16–20; TEMP 36.4–36.8; O2SAT 95–99
[2021-10-22 01:58] LABS: Glucose Point of Care 288 mg/dl (65-105)
[2021-10-22 08:55] LABS: Glucose Point of Care 268 mg/dl (65-105)
[2021-10-22] MEDS: ATORVASTATIN 40 MG TABLET 80 MG PO (09:09)
[2021-10-22] MEDS: FENOFIBRATE NANOCRYSTALLIZED 145 MG TABLET PO (09:09)
[2021-10-22] MEDS: CLOPIDOGREL BISULFATE 75 MG TABLET PO (09:09)
[2021-10-22] MEDS: ESCITALOPRAM OXALATE 10 MG TABLET 20 MG PO (09:10)
[2021-10-22] MEDS: CHOLECALCIFEROL 1,000 UNITS TABLET 2000 UNITS PO (09:10)
[2021-10-22] MEDS: ENOXAPARIN 80 MG/0.8 ML SYRINGE 70 MG SUB-Q ×2 (09:11→21:03)
[2021-10-22] MEDS: glipiZIDE 5 MG TABLET 10 MG PO (09:12)
[2021-10-22] MEDS: PANTOPRAZOLE SOD SESQUIHYDRATE 20 MG TAB PO (09:12)
[2021-10-22] MEDS: GABAPENTIN 300 MG CAPSULE 600 MG PO ×3 (09:12→16:58)
[2021-10-22] MEDS: INSULIN GLARGINE (*BKC) 100 UNITS/ML 30 UNITS SUB-Q (09:13)
[2021-10-22] MEDS: INSULIN ASPART (*BKC) 100 UNITS/ML SUB-Q ×2 (09:14→12:01)
--- NOTE | 2021-10-22 09:21 | PM.IMPN ---
Progress Note: A&P Assessment and Plan (1) Pulmonary emboli: Code(s): I26.99 - Other pulmonary embolism without acute cor pulmonale Status: Acute Assessment and Plan: Patient presents with significant bilateral pulmonary emboli as evidence by CT angiogram describing acute pulmonary emboli involving all lobes including emboli in the main right and left pulmonary arteries. Patient remains relatively asymptomatic rest, but experienced significant exertional dyspnea reflecting right heart strain. Echocardiogram confirms severe pulmonary hypertension and right ventricular dysfunction. Continue anticoagulation; there are no other therapeutic avenues per Cardiology. The service was contacted at [facility]; patient is not a candidate for any intervention. (2) Non-ST elevation [place] (NSTEMI): Code(s): I21.4 - Non-ST elevation (NSTEMI) myocardial infarction Status: Acute Assessment and Plan: Initially it presentation with chest pain and shortness of breath was concerning for NSTEMI. Patient has been having recurrent episode of shortness of breath for weeks, concerning for angina. Modest troponin elevation likely reflecting cardiac strain due to pulmonary emboli. PE service contacted [facility]; patient is not a candidate for embolectomy. (3) Renal disease: Code(s): N28.9 - Disorder of kidney and ureter, unspecified Status: Acute Assessment and Plan: Unknown baseline kidney function. Mayito creatinine was 0.8 on 08/05/2021. Patient has experience some fluctuations of creatinine within the 0.8-1.9 range. Patient carries several risk factors for kidney dysfunction including hypertension and diabetes. CT scan reveals staining cortical thinning of both kidneys. Avoid additional nephrotoxic medication. Please renally dose medications. Patient risk for contrast induced nephropathy. Monitor kidney function over the next 48-72 hours. Continue to hold metformin and this setting. (4) Hypothyroidism: Code(s): E03.9 - Hypothyroidism, unspecified Status: Acute Assessment and Plan: History of thyroidectomy. Hypothyroidism was supplemented. Follow up TSH level. (5) Peripheral neuropathy: Code(s): G62.9 - Polyneuropathy, unspecified Status: Acute Assessment and Plan: Likely long-term consequences of uncontrolled diabetes. Continue gabapentin. (6) Goiter: Code(s): E04.9 - Nontoxic goiter, unspecified Status: Acute Assessment and Plan: Status post resection. (7) CVA (cerebral vascular accident): Code(s): I63.9 - Cerebral infarction, unspecified Status: Acute Assessment and Plan: Previously on cardioprotective regimen with aspirin and Plavix. Given current indication for therapeutic anticoagulation for at least 6 months and possibly lifelong anticoagulation, we may consider to switch to Plavix only. Will defer this decision to Cardiology. (8) CAD (coronary artery disease): Code(s): I25.10 - Atherosclerotic heart disease of [place] coronary artery without angina pectoris Status: Acute Assessment and Plan: Patient initially presented with chest pain, currently asymptomatic. Elevation of troponin reflecting right her strain. Continue cardioprotective regimen. Currently losartan and metoprolol on hold due to relative hypotension. (9) Stroke-like symptom: Code(s): R29.90 - Unspecified symptoms and signs involving the nervous system Status: Acute (10) Ambulatory dysfunction: Code(s): R26.2 - Difficulty in walking, not elsewhere classified Status: Acute Assessment and Plan: Likely reflecting stress on the circulatory system secondary to diffuse bilateral pulmonary involvement. Start physical therapy when patient stabilizes. (11) Diabetes type 2, controlled: Code(s): E11.9 - Type 2 diabetes mellitus without complications Status: Acute Assessment and Plan: D
[2021-10-22] MEDS: HYDROcodone/acetaminophen (*CRX) 5-325 MG TABLET 1 TAB PO ×2 (09:22→21:18)
--- NOTE | 2021-10-22 09:39 | PC.NURSE ---
Cardiopulmonary Rehab Services flyer was given to patient in cardiac admission folder.
[2021-10-22] MEDS: INSULIN ASPART (*BKC) 100 UNITS/ML 10 UNITS SUB-Q ×2 (10:25)
--- NOTE | 2021-10-22 10:54 | PM.PNCARD ---
Progress Note: A&P Assessment and Plan (1) Pulmonary emboli: Code(s): I26.99 - Other pulmonary embolism without acute cor pulmonale Status: Acute Assessment and Plan: Presented with shortness of breath and chest pain. Chest CTA showing extensive acute pulmonary emboli with right heart strain. Currently, she is essentially asymptomatic. She is breathing comfortably room air, no shortness of breath. She has not have any chest pain. Echocardiogram showed elevated right ventricular systolic pressure (80mmHg), and severe RV enlargement. An attempt was made to transfer her to a higher level of care for possible thrombectomy. However, due to her stable condition she was not considered a candidate. Recommendation was for anticoagulation to be continued. (2) CAD (coronary artery disease): Code(s): I25.10 - Atherosclerotic heart disease of [place] coronary artery without angina pectoris Status: Acute Assessment and Plan: History of coronary disease, followed by Dr. Garcia. Underwent PCI in 2016 at [facility] (stenting to the LAD), then another intervention to the PDA in 2018. Her CAD has been stable since that time. She is maintained on DAPT with ASA and plavix. Also on atorvastatin and Zetia. ASA has been discontinued at this time as she is being anticoagulated for PE. (3) Non-ST elevation [place] (NSTEMI): Code(s): I21.4 - Non-ST elevation (NSTEMI) myocardial infarction Status: Acute Assessment and Plan: Chest pain and troponin elevation related to pulmonary emoboli not ACS. (4) DVT (deep venous thrombosis): Code(s): I82.409 - Acute embolism and thrombosis of unspecified deep veins of unspecified lower extremity Status: Acute Assessment and Plan: Lower extremity Dopplers revealed deep vein thrombosis involving right popliteal and posterior tibial veins. Continue anticoagulation. Subjective Date/time seen: 10/22/21 10:54 Interval history: Cardiology follow up for chest pain and elevated troponin Date of service 10/22/2021: Feels well today. Denies chest pain, shortness of breath. Only complaining of being fatigued. Breathing comfortably on room air. Review of Systems Constitutional: Constitutional: Reports no additional constitutional complaints Eyes: Eyes: Reports no additional eye complaints ENT: Reports system reviewed and no additional complaints, except as documented Cardiovascular: Cardiovascular: Reports as per HPI, Reports chest pain and Reports dyspnea Respiratory: Respiratory: Reports dyspnea Musculoskeletal: Musculoskeletal: Reports no additional musculoskeletal complaints Neurologic: Reports system reviewed and no additional complaints, except as documented Endocrine: Endocrine: Reports no additional endocrine complaints Hematologic/Lymphatic: Hematologic/Lymphatic: Reports no additional hematologic/lymphatic complaints Allergic/Immunologic: Allergic/Immunologic: Reports no additional allergic/immunologic complaints Exam Const: General: no acute distress Other: Well-developed older lady lying in bed. Alert and oriented. HENMT: Mouth: Yes moist mucous membranes Eyes: Sclera: sclerae normal Pupils: Equal, round and reactive pupils present Neck: Neck: no JVD Resp: Effort & Inspection: normal respiratory effort Auscultation: clear to auscultation bilaterally, no crackles and no rales Cardio: Rate: regular rate Rhythm: regular rhythm Heart sounds: Murmur heart sound present systolic I/, II/ and at the right sternal border Peripheral pulses: Peripheral pulses 2+ throughout GI: Auscultation: normal bowel sounds Skin: General skin exam: normal color Neuro: Cranial nerves: Yes Equal, round and reactive pupils present Cognition (Neuro): normal cognition Extrem: General: normal to inspection Objective Data Vital Signs Vital Signs: Vital Signs - 24 hr 10/21/21 12:00 10/21/21 14:00
[2021-10-22 10:56] LABS: EDCOVIDSCREEN Negative (Negative)
[2021-10-22 11:14] LABS: Hematocrit 37.4 % (37.0-47.0); Hemoglobin 12.6 g/dL (12.0-15.0); Mean Corpuscular HGB Conc 33.7 g/dl (32-36); Mean Corpuscular Hemoglobin 29.6 pg (26-34); Mean Corpuscular Volume 87.8 fl (80-100); Mean Platelet Volume 10.1 fl (7.4-10.4); Platelet Count Result 192 k/mm3 (150-375); Red Blood Count 4.26 M/mm3 (4.2-5.4); Red Cell Distribution Width 12.6 % (11.5-14.5); White Blood Count 5.9 K/mm3 (4.5-10.0)
[2021-10-22 11:27] LABS: Alanine Aminotransferase 19 U/L (4-35); Albumin Level 3.5 g/dL (3.5-5.1); Alkaline Phosphatase 81 U/L (38-126); Anion Gap 11 mmol/L (8-16); Aspartate Amino Transferase 25 U/L (14-36); Bilirubin,Total 0.4 mg/dL (0.2-1.3); Blood Urea Nitrogen 33 mg/dL (7-17); Calcium 9.2 mg/dL (8.4-10.2); Carbon Dioxide 20 mmol/L (22-30); Chloride 97 mmol/L (98-107); Estimated CRCL calculation 37 ml/min; Estimated Glomerular Filt Rate 45; Glucose 369 mg/dL (65-110); Potassium 3.4 mmol/L (3.4-5.0); Sodium 128 mmol/L (137-145)
[2021-10-22 11:45] LABS: Iron 52 ug/dL (37-170)
[2021-10-22 11:56] LABS: Percent Iron Saturation 17 % (20-50)
[2021-10-22 13:23] LABS: CRP 5.2 mg/dL (<1.0); Lactate Dehydrogenase 437 U/L (313-618)
[2021-10-22 13:27] LABS: Transferrin 239 mg/dL (206-381)
[2021-10-22 13:52] LABS: Thyroid Stimulating Hormone 0.229 uIU/mL (0.465-4.680)
[2021-10-22 18:21] LABS: Glucose Point of Care 147 mg/dl (65-105)
[2021-10-22 20:22] LABS: Glucose Point of Care 249 mg/dl (65-105)
[2021-10-22] MEDS: MELATONIN 5 MG TABLET 20 MG PO (21:03)
[2021-10-22] MEDS: EZETIMIBE 10 MG TABLET PO (21:03)
[2021-10-22] MEDS: INSULIN GLARGINE (*BKC) 100 UNITS/ML 15 UNITS SUB-Q (21:18)
[2021-10-23] VITALS (11 sets, daily range): BP systolic 123–160; BP diastolic 57–81; PULSE 77–105; RESP 16–20; TEMP 35.9–36.6; O2SAT 94–98
[2021-10-23 07:54] LABS: Thyroid Stimulating Hormone 0.153 uIU/mL (0.465-4.680)
[2021-10-23 08:39] LABS: Glucose Point of Care 219 mg/dl (65-105)
[2021-10-23] MEDS: GABAPENTIN 300 MG CAPSULE 600 MG PO ×3 (08:52→16:49)
[2021-10-23] MEDS: CHOLECALCIFEROL 1,000 UNITS TABLET 2000 UNITS PO (08:53)
[2021-10-23] MEDS: ESCITALOPRAM OXALATE 10 MG TABLET 20 MG PO (08:54)
[2021-10-23] MEDS: CLOPIDOGREL BISULFATE 75 MG TABLET PO (08:54)
[2021-10-23] MEDS: glipiZIDE 5 MG TABLET 10 MG PO (08:54)
[2021-10-23] MEDS: PANTOPRAZOLE SOD SESQUIHYDRATE 20 MG TAB PO (08:55)
[2021-10-23] MEDS: FENOFIBRATE NANOCRYSTALLIZED 145 MG TABLET PO (08:55)
[2021-10-23] MEDS: ATORVASTATIN 40 MG TABLET 80 MG PO (08:55)
[2021-10-23] MEDS: INSULIN ASPART (*BKC) 100 UNITS/ML SUB-Q ×2 (08:58→12:49)
[2021-10-23] MEDS: INSULIN GLARGINE (*BKC) 100 UNITS/ML 40 UNITS SUB-Q (08:59)
[2021-10-23] MEDS: APIXABAN 5 MG TABLET 10 MG PO (09:05)
[2021-10-23] MEDS: HYDROcodone/acetaminophen (*CRX) 5-325 MG TABLET 1 TAB PO ×3 (09:21→23:59)
[2021-10-23 09:48] LABS: Anion Gap 8 mmol/L (8-16); Blood Urea Nitrogen 27 mg/dL (7-17); Calcium 9.2 mg/dL (8.4-10.2); Carbon Dioxide 23 mmol/L (22-30); Chloride 102 mmol/L (98-107); Estimated CRCL calculation 44 ml/min; Estimated Glomerular Filt Rate 55; Glucose 228 mg/dL (65-110); Potassium 3.6 mmol/L (3.4-5.0); Sodium 133 mmol/L (137-145)
--- NOTE | 2021-10-23 11:28 | PM.IMPN ---
Progress Note: A&P Assessment and Plan (1) Pulmonary emboli: Code(s): I26.99 - Other pulmonary embolism without acute cor pulmonale Status: Acute Assessment and Plan: Patient presents with significant bilateral pulmonary emboli as evidence by CT angiogram describing acute pulmonary emboli involving all lobes including emboli in the main right and left pulmonary arteries. Patient remains relatively asymptomatic rest, but experienced significant exertional dyspnea reflecting right heart strain. Echocardiogram confirms severe pulmonary hypertension and right ventricular dysfunction. Continue anticoagulation; there are no other therapeutic avenues per Cardiology. The service was contacted at [facility]; patient is not a candidate for any intervention. Patient will be discharged on p.o. anticoagulation. Patient cannot afford NOAC due to her high deductible. We are resuming a therapeutic dose of Lovenox until Coumadin is therapeutic. In She will be started on Coumadin. Will discharge the patient on Coumadin when INR is therapeutic for 48 hours. (2) Non-ST elevation [place] (NSTEMI): Code(s): I21.4 - Non-ST elevation (NSTEMI) myocardial infarction Status: Acute Assessment and Plan: Initially it presentation with chest pain and shortness of breath was concerning for NSTEMI. Patient has been having recurrent episode of shortness of breath for weeks, concerning for angina. Modest troponin elevation likely reflecting cardiac strain due to pulmonary emboli. PE service contacted at [facility]; patient is not a candidate for embolectomy. Start continue anticoagulation with Coumadin. Monitor daily INR. (3) Renal disease: Code(s): N28.9 - Disorder of kidney and ureter, unspecified Status: Acute Assessment and Plan: Unknown baseline kidney function. Creatinine stable at 1 today. Mayito creatinine was 0.8 on 08/05/2021. Patient has experience some fluctuations of creatinine within the 0.8-1.9 range. Patient carries several risk factors for kidney dysfunction including hypertension and diabetes. CT scan reveals staining cortical thinning of both kidneys. Avoid additional nephrotoxic medication. Please renally dose medications. Patient risk for contrast induced nephropathy. Monitor kidney function over the next 48-72 hours. Continue to hold metformin and this setting. (4) Hypothyroidism: Code(s): E03.9 - Hypothyroidism, unspecified Status: Acute Assessment and Plan: History of thyroidectomy. Hypothyroidism was supplemented. Follow up TSH level. (5) Peripheral neuropathy: Code(s): G62.9 - Polyneuropathy, unspecified Status: Acute Assessment and Plan: Likely long-term consequences of uncontrolled diabetes. Continue gabapentin. (6) Goiter: Code(s): E04.9 - Nontoxic goiter, unspecified Status: Acute Assessment and Plan: Status post resection. (7) CVA (cerebral vascular accident): Code(s): I63.9 - Cerebral infarction, unspecified Status: Acute Assessment and Plan: Previously on cardioprotective regimen with aspirin and Plavix. Given current indication for therapeutic anticoagulation for at least 6 months and possibly lifelong anticoagulation, we may consider to switch to Plavix only. Will defer this decision to Cardiology. (8) CAD (coronary artery disease): Code(s): I25.10 - Atherosclerotic heart disease of [place] coronary artery without angina pectoris Status: Acute Assessment and Plan: Patient initially presented with chest pain, currently asymptomatic. Elevation of troponin reflecting right her strain. Continue cardioprotective regimen. Currently losartan and metoprolol on hold due to relative hypotension. (9) Stroke-like symptom: Code(s): R29.90 - Unspecified symptoms and signs involving the nervous system Status: Acute (10) Ambulatory dysfunction: Code(s): R26.2 - Difficulty in wa
[2021-10-23 12:42] LABS: Glucose Point of Care 276 mg/dl (65-105)
[2021-10-23 16:33] LABS: Glucose Point of Care 168 mg/dl (65-105)
[2021-10-23 16:39] LABS: INR 1.2; Prothrombin Time 14.6 Seconds (11.1-14.7)
[2021-10-23] MEDS: WARFARIN (*PBKC) 5 MG TABLET PO (16:49)
[2021-10-23 20:11] LABS: Glucose Point of Care 267 mg/dl (65-105)
[2021-10-23] MEDS: EZETIMIBE 10 MG TABLET PO (20:23)
[2021-10-23] MEDS: ENOXAPARIN 80 MG/0.8 ML SYRINGE 70 MG SUB-Q (20:23)
[2021-10-23] MEDS: INSULIN GLARGINE (*BKC) 100 UNITS/ML 15 UNITS SUB-Q (20:23)
[2021-10-23] MEDS: MELATONIN 5 MG TABLET 20 MG PO (20:23)
--- NOTE | 2021-10-23 22:10 | PC.NURSE ---
This patient, Leeann Cochran, was transferred to [facility] on 10/23/21 at 2210. Personal belongings sent with patient. Report given to OVIDIO Beltran . Appropriate documentation sent with patient.
[2021-10-24 06:00] VITALS: BP 128/60; PULSE 99; RESP 18; TEMP 36.1; O2SAT 97
[2021-10-24 06:53] LABS: Anion Gap 9 mmol/L (8-16); Blood Urea Nitrogen 22 mg/dL (7-17); Calcium 8.5 mg/dL (8.4-10.2); Carbon Dioxide 23 mmol/L (22-30); Chloride 103 mmol/L (98-107); Estimated CRCL calculation 34 ml/min; Estimated Glomerular Filt Rate 41; Glucose 288 mg/dL (65-110); Potassium 3.9 mmol/L (3.4-5.0); Sodium 135 mmol/L (137-145)
[2021-10-24 08:00] VITALS: BP 138/72; PULSE 101; RESP 18; TEMP 35.7; O2SAT 97
[2021-10-24 08:14] LABS: Glucose Point of Care 212 mg/dl (65-105)
[2021-10-24] MEDS: ESCITALOPRAM OXALATE 10 MG TABLET 20 MG PO (09:17)
[2021-10-24] MEDS: FENOFIBRATE NANOCRYSTALLIZED 145 MG TABLET PO (09:17)
[2021-10-24] MEDS: CHOLECALCIFEROL 1,000 UNITS TABLET 2000 UNITS PO (09:17)
[2021-10-24] MEDS: HYDROcodone/acetaminophen (*CRX) 5-325 MG TABLET 1 TAB PO ×2 (09:17→15:45)
[2021-10-24] MEDS: CLOPIDOGREL BISULFATE 75 MG TABLET PO (09:17)
[2021-10-24] MEDS: ATORVASTATIN 40 MG TABLET 80 MG PO (09:18)
[2021-10-24] MEDS: GABAPENTIN 300 MG CAPSULE 600 MG PO ×2 (09:18→12:32)
[2021-10-24] MEDS: glipiZIDE 5 MG TABLET 10 MG PO (09:18)
[2021-10-24] MEDS: INSULIN GLARGINE (*BKC) 100 UNITS/ML 40 UNITS SUB-Q (09:18)
[2021-10-24] MEDS: ENOXAPARIN 80 MG/0.8 ML SYRINGE 70 MG SUB-Q (09:18)
[2021-10-24] MEDS: PANTOPRAZOLE SOD SESQUIHYDRATE 20 MG TAB PO (09:18)
[2021-10-24] MEDS: INSULIN ASPART (*BKC) 100 UNITS/ML SUB-Q (09:20)
[2021-10-24 11:42] LABS: Glucose Point of Care 241 mg/dl (65-105)
--- NOTE | 2021-10-24 13:38 | PM.IMPN ---
Progress Note: A&P Assessment and Plan (1) Pulmonary emboli: Code(s): I26.99 - Other pulmonary embolism without acute cor pulmonale Status: Acute Assessment and Plan: Patient presents with significant bilateral pulmonary emboli as evidence by CT angiogram describing acute pulmonary emboli involving all lobes including emboli in the main right and left pulmonary arteries. Patient remains relatively asymptomatic rest, but experienced significant exertional dyspnea reflecting right heart strain. Echocardiogram confirms severe pulmonary hypertension and right ventricular dysfunction. Continue anticoagulation; there are no other therapeutic avenues per Cardiology. The service was contacted at [facility]; patient is not a candidate for any intervention. Patient will be discharged on p.o. anticoagulation. Patient insurance approve NOAC without co-pay and she will be discharged home today. (2) Non-ST elevation [place] (NSTEMI): Code(s): I21.4 - Non-ST elevation (NSTEMI) myocardial infarction Status: Acute Assessment and Plan: Initially it presentation with chest pain and shortness of breath was concerning for NSTEMI. Patient has been having recurrent episode of shortness of breath for weeks, concerning for angina. Modest troponin elevation likely reflecting cardiac strain due to pulmonary emboli. PE service contacted at [facility]; patient is not a candidate for embolectomy. Resume [employer]. Discharge on NOAC. (3) Renal disease: Code(s): N28.9 - Disorder of kidney and ureter, unspecified Status: Acute Assessment and Plan: Unknown baseline kidney function. Creatinine stable at 1 today. Mayito creatinine was 0.8 on 08/05/2021. Patient has experience some fluctuations of creatinine within the 0.8-1.9 range. Patient carries several risk factors for kidney dysfunction including hypertension and diabetes. CT scan reveals staining cortical thinning of both kidneys. Avoid additional nephrotoxic medication. Please renally dose medications. Patient risk for contrast induced nephropathy. Monitor kidney function over the next 48-72 hours. Continue to hold metformin and this setting. Patient will be discharged home on [employer]. (4) Hypothyroidism: Code(s): E03.9 - Hypothyroidism, unspecified Status: Acute Assessment and Plan: History of thyroidectomy. Hypothyroidism was supplemented. Follow up TSH level. (5) Peripheral neuropathy: Code(s): G62.9 - Polyneuropathy, unspecified Status: Acute Assessment and Plan: Likely long-term consequences of uncontrolled diabetes. Continue gabapentin. (6) Goiter: Code(s): E04.9 - Nontoxic goiter, unspecified Status: Acute Assessment and Plan: Status post resection. (7) CVA (cerebral vascular accident): Code(s): I63.9 - Cerebral infarction, unspecified Status: Acute Assessment and Plan: Previously on cardioprotective regimen with aspirin and Plavix. Given current indication for therapeutic anticoagulation for at least 6 months and possibly lifelong anticoagulation, we may consider to switch to Plavix only. Will defer this decision to Cardiology. (8) CAD (coronary artery disease): Code(s): I25.10 - Atherosclerotic heart disease of [place] coronary artery without angina pectoris Status: Acute Assessment and Plan: Patient initially presented with chest pain, currently asymptomatic. Elevation of troponin reflecting right her strain. Continue cardioprotective regimen. Currently losartan and metoprolol on hold due to relative hypotension. (9) Stroke-like symptom: Code(s): R29.90 - Unspecified symptoms and signs involving the nervous system Status: Acute (10) Ambulatory dysfunction: Code(s): R26.2 - Difficulty in walking, not elsewhere classified Status: Acute Assessment and Plan: Likely reflecting stress on the circulatory system secondary to diffuse
[2021-10-24 15:35] VITALS: O2SAT 95
[2021-10-24 15:45] VITALS: O2SAT 98
--- NOTE | 2021-10-24 15:45 | HOMEO2EVAL ---
Evaluation was performed at [facility] Home Oxygen Evaluation RC: Home Oxygen (O2) Evaluation Start: 10/23/21 09:29 Freq: ONCE Status: Active Protocol: RPE Activity Type Activity Date Activity User E-Sign Co-Sign Detail Recorded Client Recorded Date Recorded By Document 10/24/21 15:35 APOORVA [id number] 10/24/21 15:45 APOORVA Document 10/24/21 15:45 APOORVA [id number] 10/24/21 15:45 APOORVA 10/24/21 10/24/21 15:35 15:45 Home O2 Evaluation Test Phase Exercise Resting Oxygen Delivery Room Air Room Air Pulse Oximetry (90-100 %) 95 98 Home Oxygen Evaluation Comments NO HOME O2 NEEDED.
--- NOTE | 2021-10-24 15:46 | PCRCNOTE ---
HOME O2 EVAL DONE, NO HOME O2 NEEDED.
[2021-10-24 15:49] VITALS: BP 156/79; PULSE 104; RESP 18; TEMP 35.8; O2SAT 96
--- NOTE | 2021-10-24 18:44 | PM.DS ---
DS: Admitting Diagnosis Discharge Date 10/24/21 Admitting Diagnosis (1) Non-ST elevation [place] (NSTEMI): (2) Renal disease: (3) Hypothyroidism: (4) Peripheral neuropathy: (5) Goiter: (6) CVA (cerebral vascular accident): (7) CAD (coronary artery disease): (8) Stroke-like symptom: (9) Ambulatory dysfunction: DS: Discharge Diagnosis Discharge Diagnosis (1) Pulmonary emboli: Code(s): I26.99 - Other pulmonary embolism without acute cor pulmonale Status: Acute Assessment and Plan: Patient presents with significant bilateral pulmonary emboli as evidence by CT angiogram describing acute pulmonary emboli involving all lobes including emboli in the main right and left pulmonary arteries. Patient remains relatively asymptomatic rest, but experienced significant exertional dyspnea reflecting right heart strain. Echocardiogram confirms severe pulmonary hypertension and right ventricular dysfunction. Continue anticoagulation; there are no other therapeutic avenues per Cardiology. The service was contacted at [facility]; patient is not a candidate for any intervention. Patient will be discharged on p.o. anticoagulation. Patient insurance approve NOAC without co-pay and she will be discharged home today. (2) Non-ST elevation [place] (NSTEMI): Code(s): I21.4 - Non-ST elevation (NSTEMI) myocardial infarction Status: Acute Assessment and Plan: Initially it presentation with chest pain and shortness of breath was concerning for NSTEMI. Patient has been having recurrent episode of shortness of breath for weeks, concerning for angina. Modest troponin elevation likely reflecting cardiac strain due to pulmonary emboli. PE service contacted at [facility]; patient is not a candidate for embolectomy. Resume [employer]. Discharge on NOAC. (3) Renal disease: Code(s): N28.9 - Disorder of kidney and ureter, unspecified Status: Acute Assessment and Plan: Unknown baseline kidney function. Creatinine stable at 1 today. Mayito creatinine was 0.8 on 08/05/2021. Patient has experience some fluctuations of creatinine within the 0.8-1.9 range. Patient carries several risk factors for kidney dysfunction including hypertension and diabetes. CT scan reveals staining cortical thinning of both kidneys. Avoid additional nephrotoxic medication. Please renally dose medications. Patient risk for contrast induced nephropathy. Monitor kidney function over the next 48-72 hours. Continue to hold metformin and this setting. Patient will be discharged home on [employer]. (4) Hypothyroidism: Code(s): E03.9 - Hypothyroidism, unspecified Status: Acute Assessment and Plan: History of thyroidectomy. Hypothyroidism was supplemented. Follow up TSH level. (5) Peripheral neuropathy: Code(s): G62.9 - Polyneuropathy, unspecified Status: Acute Assessment and Plan: Likely long-term consequences of uncontrolled diabetes. Continue gabapentin. (6) Goiter: Code(s): E04.9 - Nontoxic goiter, unspecified Status: Acute Assessment and Plan: Status post resection. (7) CVA (cerebral vascular accident): Code(s): I63.9 - Cerebral infarction, unspecified Status: Acute Assessment and Plan: Previously on cardioprotective regimen with aspirin and Plavix. Given current indication for therapeutic anticoagulation for at least 6 months and possibly lifelong anticoagulation, we may consider to switch to Plavix only. Will defer this decision to Cardiology. (8) CAD (coronary artery disease): Code(s): I25.10 - Atherosclerotic heart disease of [place] coronary artery without angina pectoris Status: Acute Assessment and Plan: Patient initially presented with chest pain, currently asymptomatic. Elevation of troponin reflecting right her strain. Continue cardioprotective regimen. Currently losartan and metoprolol on hold due to relative hypotension. (9) Stroke-like symptom:
== END 2021-10-24 16:15 | disposition home or self-care (01) | DRG 176 ==
LOC: ANHED 21:14 → ANHIMU 22:13 → ANH3MEDSUR 10-23 22:52
PROVIDERS: Internal Medicine; Admitting Provider Internal Medicine; Emergency Provider Emergency Medicine; PCP Family Medicine; Visit Provider Internal Medicine
DX: I26.99 Other pulmonary embolism without acute cor pulmonale (principal); E87.1 Hypo-osmolality and hyponatremia; I82.431 Acute embolism and thrombosis of right popliteal vein; I82.441 Acute embolism and thrombosis of right tibial vein; I27.20 Pulmonary hypertension, unspecified; Z20.822 Contact with and (suspected) exposure to COVID-19; E11.42 Type 2 diabetes mellitus with diabetic polyneuropathy; E11.22 Type 2 diabetes mellitus with diabetic chronic kidney disease; I12.9 Hypertensive chronic kidney disease with stage 1 through stage 4 chronic kidney disease, or unspecified chronic kidney disease; N18.30 Chronic kidney disease, stage 3 unspecified; I25.10 Atherosclerotic heart disease of native coronary artery without angina pectoris; R26.2 Difficulty in walking, not elsewhere classified; R29.90 Unspecified symptoms and signs involving the nervous system; E78.5 Hyperlipidemia, unspecified; E89.0 Postprocedural hypothyroidism; K21.9 Gastro-esophageal reflux disease without esophagitis; F41.9 Anxiety disorder, unspecified; F32.A Depression, unspecified; Z28.21 Immunization not carried out because of patient refusal; Z79.02 Long term (current) use of antithrombotics/antiplatelets; Z79.4 Long term (current) use of insulin; Z79.82 Long term (current) use of aspirin; Z79.84 Long term (current) use of oral hypoglycemic drugs; Z79.899 Other long term (current) drug therapy; Z86.73 Personal history of transient ischemic attack (TIA), and cerebral infarction without residual deficits; Z87.891 Personal history of nicotine dependence; Z95.5 Presence of coronary angioplasty implant and graft
CPT/HCPCS: 36415; 71045; 71275; 80048; 80053; 82728; 82948; 83036; 83540; 83550; 83615; 83690; 83880; 84443; 84466; 84484; 85025; 85027; 85610; 85730; 86140; 87426; 93005; 93306; 93970; 94618; 94640; 96372; 96374; 96376; 97161; 99285; A9270; C9803; G0378; J1650; J1815; J2270; Q9967

== ENCOUNTER 2021-11-05 05:07 | Inpatient (IN) | payer MEDICARE, MEDICAID, SELFPAY ==
[2021-11-05] VITALS (24 sets, daily range): BP systolic 108–136; BP diastolic 45–76; PULSE 75–87; RESP 11–24; TEMP 36.6–37.2; O2SAT 92–98; BMI 29.4
--- NOTE | ~2021-11-05 | CT_ITS ---
EXAMINATION: CTA chest PE protocol DATE: 11/05/2021 08:12 INDICATION: Left-sided chest pain TECHNIQUE: Computed tomography angiography (CTA) of the chest was performed with 100 mL Omnipaque-350 intravenous contrast timed to evaluate the pulmonary arteries. Coronal maximum intensity projection 3D-reconstructions were created by the technologist. Automated exposure control and iterative reconst ruction technique were employed. Exam dose: 463.53 mGy-cm total exam DLP. COMPARISON: 11/05/2021 portable AP chest FINDINGS: There are prominent bilateral main right and main left pulmonary artery emboli and bilatera l saddle emboli. There are bilateral upper and lower lobe pulmonary emboli. There is limited improvem ent of bilateral pulmonary emboli 10/21/2021 There is patchy infiltrate in the anterior aspect of the mid left upper lobe. There is mild patchy infiltrate and/atelectasis in the left lower lobe and lesser dependent right low er lobe atelectasis. Normal heart size. No pericardial effusion. No pleural effusion. No pneumothorax. Status post cholecystectomy. Small sliding hiatal hernia. Heterogeneous density and calcification as well as enlargement of the right lobe of the thyroid gland suggesting thyroid goiter. No hilar or mediastinal mass lesion or lymphadenopathy. Mild anterior wedge compression fracture deformities of T4 and T5. Diffuse osteopenia. IMPRESSION: Extensive persistent bilateral pulmonary emboli including main left and right pulmonary arteries and bilateral saddle emboli, bilateral upper and lower pulmonary emboli, with limited improvement since 1 12/22/20 Mildly increased left upper lobe infiltrate since 10/21/2021 Dr. Mercedes telephoned the report of persistent extensive bilateral pulmonary emboli on 11/05/2021 at 0830 hours to emergency room physician Dr. Dangelo. Reviewed, dictated and finalized at [facility]. Reviewed, dictated and finalized at [facility] EL TECHNICIAN IMPRESSION: Extensive persistent bilateral pulmonary emboli including main left and right p ulmonary arteries and bilateral saddle emboli, bilateral upper and lower pulmon radha emboli, with limited improvement since 10/21/21 Mildly increased left upper lobe infiltrate since 10/21/2021 Dr. Mercedes telephoned the report of persistent extensive bilateral pulmonary embo li on 11/05/2021 at 0830 hours to emergency room physician Dr. Dangelo.
--- NOTE | ~2021-11-05 | XR_ITS ---
EXAMINATION: XR chest 1V portable DATE: 11/05/2021 06:15 INDICATION: Chest pain. TECHNIQUE: A single frontal view of the chest was obtained. COMPARISON: Chest single view 10/20/2021, chest CT 10/21/2021 FINDINGS: There are mild airspace opacities in left mid and lower lung zones. No pleural effusion or pneumothorax. The heart size is normal. Surgical clips in the right upper quadrant are likely from ch olecystectomy. IMPRESSION: 1. Mild airspace opacities in left mid and lower lung zones, consistent with atelectasis versus pneum onia versus infarct. Reviewed, dictated and finalized at location A. R RETORT IMPRESSION: 1. Mild airspace opacities in left mid and lower lung zones, consistent with at electasis versus pneumonia versus infarct.
--- NOTE | 2021-11-05 05:16 | ECG_ITS ---
Measurements Intervals [place] Rate: 77 P: 51 AL: 142 QRS: 56 QRSD: 88 T: 58 QT: 376 QTc: 426 Interpretive Statements SINUS RHYTHM BORDERLINE T WAVE ABNORMALITY- ANTERIOR LEADS BASELINE ARTIFACT- I, II, III, AVR, AVL, AVF, V1, V3-V6 BORDERLINE ECG Electronically Signed On 11-05-2021 6:26:18 DIPLOMATIC INTERPRETER/TRANSLATOR by Nasir Diehl D.O.
[2021-11-05 05:30] LABS: Basophils Absolute Auto 0.1 K/mm3 (0.0-0.1); Basophils Percent Auto 0.3 % (0.2-1.2); Eosinophils Absolute Auto 0.1 K/mm3 (0-0.3); Eosinophils Percent Auto 0.8 % (0-4.4); Hematocrit 39.3 % (37.0-47.0); Hemoglobin 12.1 g/dL (12.0-15.0); Immature Granulocyte Absolute 0.06 K/mm3 (0.00-0.031); Immature Granulocyte Percent A 0.4 % (0-0.5); Lymphocytes Absolute Auto 2.93 K/mm3 (0.9-3.2); Lymphocytes Percent Auto 20.3 % (18.3-44.2); Mean Corpuscular HGB Conc 30.8 g/dl (32-36); Mean Corpuscular Hemoglobin 30.5 pg (26-34); Mean Platelet Volume 9.1 fl (7.4-10.4); Monocytes Absolute Auto 0.6 K/mm3 (0.1-0.6); Monocytes Percent Auto 3.9 % (2.6-8.5); Neutrophils Absolute Auto 10.7 K/mm3 (1.3-6.7); Neutrophils Percent Auto 74.3 % (45.5-73.1); Platelet Count Result 251 k/mm3 (150-375); Red Blood Count 3.97 M/mm3 (4.2-5.4); Red Cell Distribution Width 13.5 % (11.5-14.5); White Blood Count 14.4 K/mm3 (4.5-10.0)
[2021-11-05 05:40] LABS: INR 1.1; Prothrombin Time 14.4 Seconds (11.1-14.7)
[2021-11-05 05:41] LABS: Partial Thromboplastin Time 23.3 SECONDS (22.3-36.8)
[2021-11-05 05:44] LABS: Alanine Aminotransferase 14 U/L (4-35); Albumin Level 4.1 g/dL (3.5-5.1); Alkaline Phosphatase 64 U/L (38-126); Anion Gap 11 mmol/L (8-16); Aspartate Amino Transferase 26 U/L (14-36); Bilirubin,Total 0.4 mg/dL (0.2-1.3); Blood Urea Nitrogen 28 mg/dL (7-17); Calcium 9.9 mg/dL (8.4-10.2); Carbon Dioxide 24 mmol/L (22-30); Chloride 99 mmol/L (98-107); Estimated Glomerular Filt Rate 41; Glucose 236 mg/dL (65-110); Lipase 67 U/L (23-300); Sodium 134 mmol/L (137-145)
[2021-11-05 05:56] LABS: Troponin I < 0.012 ng/mL (0.000-0.034)
--- NOTE | 2021-11-05 07:49 | ED.GENADULT ---
HPI - General Adult General Chief complaint: Chest Pain Stated complaint: LEFT SIDED CP, HERE 2 WEEKS AGO WITH BLOOD CLOTS Time Seen by Provider: 11/05/21 07:01 History of Present Illness HPI narrative: Patient is a 66-year-old female who presents ER with left-sided chest pain. Began at 2:30 AM. Worse with movement and deep breath and cough. Recent diagnosis of pulmonary embolism 2 weeks ago. She has been compliant with her anticoagulation. No fevers or chills or sweats. No productive cough. No known trauma. She has tried no pain medication for her discomfort. Related Data Home Medications Medication Instructions Recorded Confirmed glipizide 10 mg tablet 10 mg PO DAILY 04/16/20 11/05/21 metformin 500 mg tablet 500 mg PO BID 04/16/20 11/05/21 atorvastatin 80 mg tablet 80 mg PO DAILY 06/04/20 11/05/21 clopidogrel 75 mg tablet 75 mg PO DAILY 06/04/20 11/05/21 ezetimibe 10 mg tablet 10 mg PO HS 06/04/20 11/05/21 gabapentin 600 mg tablet 600 mg PO TID 06/04/20 11/05/21 losartan 50 mg tablet 50 mg PO DAILY 06/04/20 11/05/21 pantoprazole 20 mg tablet,delayed 20 mg PO QAM 06/04/20 11/05/21 release Lantus U-100 Insulin 30 unit SUBCUT DAILY 08/04/21 11/05/21 escitalopram oxalate 20 mg PO DAILY 08/04/21 11/05/21 melatonin 20 mg PO HS 08/04/21 11/05/21 metoprolol succinate 100 mg PO DAILY 08/04/21 11/05/21 nitroglycerin 0.4 mg SUBLINGUAL Q5M PRN 08/04/21 11/05/21 diclofenac sodium 1 ea TOPICAL DIRECTED PRN 10/20/21 11/05/21 hydrocodone-acetaminophen 1 tablet PO QID PRN 10/20/21 11/05/21 apixaban [Eliquis] 5 mg PO BID 11/05/21 11/05/21 Allergies Allergy/AdvReac Type Severity Reaction Status Date / Time latex Allergy Unknown Hives Verified 10/20/21 19:38 Review of Systems Review of Systems: All systems reviewed & are unremarkable except as noted in HPI and below Constitutional: Constitutional: Denies chills, Denies fever(s) and Denies weakness ENT: Denies nasal congestion and Denies sore throat Cardiovascular: Cardiovascular: Reports chest pain, Denies rapid heart rate and Denies radiating jaw, neck or arm pain Respiratory: Respiratory: Denies cough, Denies dyspnea and Denies wheezing Gastrointestinal: Gastrointestinal: Denies abdominal pain, Denies nausea and Denies vomiting Musculoskeletal: Musculoskeletal: Denies back pain and Denies muscle cramps PMFSH Past Medical History Medical History (Updated 11/05/21 @ 17:19 by Martin Dangelo MD) Anxiety Anxiety Arthritis CAD (coronary artery disease) CAD (coronary atherosclerotic disease) Cerebrovascular accident CVA (cerebral vascular accident) Depression Depression Diabetes Diabetes type 2, controlled Gastric ulcer GERD (gastroesophageal reflux disease) GERD (gastroesophageal reflux disease) Goiter Heart attack History of angina History of left heart catheterization HLD (hyperlipidemia) HTN (hypertension) Hyperlipidemia Hypertension Hypothyroidism Hypothyroidism Peripheral neuropathy Renal disease TIA (transient ischemic attack) Surgical History Surgical History (Updated 10/21/21 @ 00:09 by Mamadou James MD) History of section History of cholecystectomy History of partial thyroidectomy History of percutaneous coronary intervention History of thyroidectomy Hx of cardiac catheterization with cardiac stent placement Hx of section Hx of cholecystectomy Family History Family History Mother Cerebrovascular accident Father Lung cancer Sibling Lung cancer Leukemia Sibling Kidney disease Sibling Family history of malignant neoplasm Family history of kidney disease Family history of lung cancer Patient's sister is Mother Family history of diabetes mellitus in first degree relative Patient's mother is Father Family history of lung cancer Patient's father is Social History Social His
[2021-11-05] MEDS: MORPHINE SULFATE (*CRX) 4 MG/ML INJ IV PUSH ×2 (07:53→16:12)
[2021-11-05 08:56] LABS: NT Pro B Type Natriuretic Pept 822 pg/mL (5-100)
[2021-11-05] MEDS: HEPARIN SOD/D5W 100 UNITS/ML 25,000 UNITS/250 ML BAG 11 UNITS IV CONT (10:03)
[2021-11-05] MEDS: HEPARIN SODIUM 5,000 UNITS/ML VIAL 5000 UNITS IV PUSH ×2 (10:03→22:22)
[2021-11-05 12:12] LABS: Partial Thromboplastin Time > 200.0 SECONDS (22.3-36.8)
--- NOTE | 2021-11-05 12:43 | PC.NURSE ---
Dr. Gay contacted regarding patient's APTT>200. Dr. Gay notified that APTT was drawn 30 minutes following heparin bolus and the initiation of the heparin drip instead of being drawn [address] Gay states continue drip at current rate and do not titrate. Dr. Gay also states per verbal order read-back to check PTT in an hour to monitor trend. Teodora from pharmacy also contacted regarding elevated PTT that was drawn following heparin bolus.
--- NOTE | 2021-11-05 13:55 | ADMGEN ---
This patient, Leeann Cochran, was admitted to IMU Room 200-01. Patient/family oriented to hospital policies and general routines including ID bracelet, bed and alarms, visiting hours, pain management, procedures, bathroom and other care routines, personal items, smoking policy, room service/diet, and visiting hours. Information on how to activate the Rapid Response Team has been discussed. Patient/Family are encouraged to report perceived risks to care and to ask questions if they do not understand what they are told or what they should do.
[2021-11-05 14:01] LABS: Partial Thromboplastin Time 74.2 SECONDS (22.3-36.8)
--- NOTE | 2021-11-05 16:05 | PM.IMHP ---
H&P: HPI History of Present Illness Date/Time: 11/05/21 16:05 cc: left sided chest pain. HPI: This is a 66-year-old lady with a past medical history including but not limited to recently diagnosed bilateral pulmonary embolism who presents ER with left-sided chest pain. The patient was in her usual state of health until 2:30 AM. She reports sudden onset left-sided chest pain, worse with movement and deep breath and cough. There is no alleviating factor. After being recently diagnosed with pulmonary embolism 2 weeks ago, she has been compliant with her anticoagulation. She denies fevers, chills or sweats. There is no productive cough. There is no known trauma. She has tried no pain medication for her discomfort. during her recent admission, she was diagnosed on 10/21 with significant bilateral pulmonary emboli as evidence by CT angiogram describing acute pulmonary emboli involving all lobes including emboli in the main right and left pulmonary arteries. The inpatient course was relatively uneventful. Patient remains relatively asymptomatic rest, but experienced significant exertional dyspnea and tachycardia reflecting right heart strain. Echocardiogram confirms severe pulmonary hypertension and right ventricular dysfunction.She was managed with IV heparin drip and discharged on Eliquis. The pulmonary embolism service was contacted at [place]; patient was not a candidate for any intervention.On arrival the patient was stable and afebrile with a temperature of 98.6F, pulse rate 79, BP 132/76, and a pulse oximetry of 97%. Chief Complaint: Chest Prieb Review of Systems Review of Systems: All systems reviewed & are unremarkable except as noted in HPI and below Constitutional: Constitutional: Reports as per HPI, Reports no additional constitutional complaints, Denies fatigue, Denies lethargy and Denies weakness Eyes: Eyes: Reports as per HPI and Denies blurry vision ENT: Reports system reviewed and no additional complaints, except as documented, Reports as per HPI and Denies epistaxis Cardiovascular: Cardiovascular: Reports as per HPI, Reports chest pain, Denies diaphoresis, Denies pedal edema, Denies leg edema, Denies lightheadedness and Denies palpitations Respiratory: Respiratory: Reports as per HPI, Denies cough and Denies dyspnea Gastrointestinal: Gastrointestinal: Reports as per HPI, Denies abdominal pain, Denies diarrhea, Denies nausea, Denies vomiting and Denies hematemesis Genitourinary: Genitourinary: Reports no additional female genitourinary complaints and Reports as per HPI Musculoskeletal: Musculoskeletal: Reports no additional musculoskeletal complaints and Reports as per HPI Integumentary/Breasts: Skin/Breast: Reports system reviewed and no additional complaints, except as docu, Reports as per HPI and Denies rash Neurologic: Reports system reviewed and no additional complaints, except as documented and Reports as per HPI Psychiatric: Psychiatric: Reports no additional psychiatric complaints and Reports as per HPI [facility] Past Medical History Medical History Anxiety Anxiety Arthritis CAD (coronary artery disease) CAD (coronary atherosclerotic disease) Cerebrovascular accident CVA (cerebral vascular accident) Depression Depression Diabetes Diabetes type 2, controlled Gastric ulcer GERD (gastroesophageal reflux disease) GERD (gastroesophageal reflux disease) Goiter Heart attack History of angina History of left heart catheterization HLD (hyperlipidemia) HTN (hypertension) Hyperlipidemia Hypertension Hypothyroidism Hypothyroidism Peripheral neuropathy Renal disease TIA (transient ischemic attack) Surgical History Surgical History History of section History of cholecystectomy History of partial thyroidectomy History of percutaneous coronary intervention History of thyroidectomy Hx of cardiac catheteri
[2021-11-05 20:20] LABS: Partial Thromboplastin Time 37.4 SECONDS (22.3-36.8)
[2021-11-05] MEDS: HYDROcodone/acetaminophen (*CRX) 5-325 MG TABLET 1 TAB PO (20:57)
[2021-11-06] VITALS (10 sets, daily range): BP systolic 100–148; BP diastolic 44–72; PULSE 68–102; RESP 16–20; TEMP 35.6–36.8; O2SAT 95–100
[2021-11-06] MEDS: HYDROcodone/acetaminophen (*CRX) 5-325 MG TABLET 1 TAB PO ×2 (01:19→05:56)
[2021-11-06 01:32] LABS: Prothrombin Time 13.3 Seconds (11.1-14.7)
[2021-11-06 01:33] LABS: Partial Thromboplastin Time 27.3 SECONDS (22.3-36.8)
[2021-11-06] MEDS: ENOXAPARIN 80 MG/0.8 ML SYRINGE 75 MG SUB-Q (02:02)
[2021-11-06] MEDS: GABAPENTIN 300 MG CAPSULE 600 MG PO ×3 (02:03→23:12)
[2021-11-06] MEDS: MELATONIN 5 MG TABLET PO (02:03)
[2021-11-06 05:09] LABS: Basophils Percent Auto 0.3 % (0.2-1.2); Eosinophils Absolute Auto 0.1 K/mm3 (0-0.3); Eosinophils Percent Auto 1.6 % (0-4.4); Hematocrit 33.6 % (37.0-47.0); Hemoglobin 10.9 g/dL (12.0-15.0); Immature Granulocyte Absolute 0.04 K/mm3 (0.00-0.031); Immature Granulocyte Percent A 0.6 % (0-0.5); Lymphocytes Percent Auto 28.7 % (18.3-44.2); Mean Corpuscular HGB Conc 32.4 g/dl (32-36); Mean Corpuscular Hemoglobin 29.1 pg (26-34); Mean Corpuscular Volume 89.6 fl (80-100); Mean Platelet Volume 9.4 fl (7.4-10.4); Monocytes Absolute Auto 0.4 K/mm3 (0.1-0.6); Monocytes Percent Auto 6.2 % (2.6-8.5); Neutrophils Absolute Auto 4.4 K/mm3 (1.3-6.7); Neutrophils Percent Auto 62.6 % (45.5-73.1); Platelet Count Result 284 k/mm3 (150-375); Red Blood Count 3.75 M/mm3 (4.2-5.4); Red Cell Distribution Width 12.8 % (11.5-14.5)
--- NOTE | 2021-11-06 08:29 | PM.IMPN ---
Progress Note: A&P Assessment and Plan (1) Pulmonary emboli: Code(s): I26.99 - Other pulmonary embolism without acute cor pulmonale Status: Acute Assessment and Plan: Patient presented with symptomatic bilateral pulmonary emboli with chest pain. She was appropriately started on IV heparin drip. Currently she is improving symptomatically. On repeat CT angiogram therapy is extensive persistent bilateral pulmonary emboli including [place] (recommend are there is and bilateral saddle emboli, bilateral upper and lower pulmonary emboli with limited improvement since October. Patient will be treated with heparin drip while a PTT will be monitored. (2) DVT (deep venous thrombosis): Code(s): I82.409 - Acute embolism and thrombosis of unspecified deep veins of unspecified lower extremity Status: Acute Assessment and Plan: Deep vein thrombosis involving right popliteal and posterior tibial veins. Continue management with heparin drip as above. (3) HTN (hypertension): Code(s): I10 - Essential (primary) hypertension Status: Acute Assessment and Plan: Patient carries a diagnosis of chronic hypertension. She was previously on metoprolol and losartan, which have been held during last admission in view of relative hypotension. Blood pressure is stable at 136/68 Continue to hold losartan, given recent DARLEEN episode. Resume metoprolol . Hold losartan until next primary care physician visit. (4) Diabetes type 2, controlled: Code(s): E11.9 - Type 2 diabetes mellitus without complications Status: Acute Assessment and Plan: Continue Lantus and sliding scale coverage. Monitor Accu-Chek (5) Renal disease: Code(s): N28.9 - Disorder of kidney and ureter, unspecified Status: Acute Assessment and Plan: Recovered acute kidney injury. Monitor creatinine closely. Avoid nephrotoxic medication (6) Hypothyroidism: Code(s): E03.9 - Hypothyroidism, unspecified Status: Acute Assessment and Plan: Levothyroxine supplementation Subjective Date/time seen: 11/06/21 13:14 S: Patient was seen examined at the bedside chest pain is improving. She is in good spirits. Review of Systems Review of Systems: All systems reviewed & are unremarkable except as noted in HPI and below Constitutional: Constitutional: Reports as per HPI, Reports no additional constitutional complaints, Denies fatigue, Denies lethargy and Denies weakness Eyes: Eyes: Reports as per HPI and Denies blurry vision ENT: Reports system reviewed and no additional complaints, except as documented, Reports as per HPI and Denies epistaxis Cardiovascular: Cardiovascular: Reports as per HPI, Reports chest pain, Denies diaphoresis, Denies pedal edema, Denies leg edema, Denies lightheadedness, Denies palpitations and Denies dyspnea Respiratory: Respiratory: Reports as per HPI, Denies cough and Denies dyspnea Gastrointestinal: Gastrointestinal: Reports as per HPI, Denies abdominal pain, Denies diarrhea, Denies nausea, Denies vomiting and Denies hematemesis Genitourinary: Genitourinary: Reports no additional female genitourinary complaints and Reports as per HPI Musculoskeletal: Musculoskeletal: Reports no additional musculoskeletal complaints and Reports as per HPI Integumentary/Breasts: Skin/Breast: Reports system reviewed and no additional complaints, except as docu, Reports as per HPI and Denies rash Neurologic: Reports system reviewed and no additional complaints, except as documented, Reports as per HPI and Denies weakness Psychiatric: Psychiatric: Reports no additional psychiatric complaints and Reports as per HPI Endocrine: Endocrine: Denies fatigue and Denies palpitations Exam Const: General: comfortable (Patient reports chest pain) and no acute distress HENMT: Mouth: Yes moist mucous membranes Eyes: Pupils: Equal, round and reactive pupils present EOM: EOMs intact bilat
[2021-11-06 09:02] LABS: Basophils Percent Auto 0.3 % (0.2-1.2); Eosinophils Absolute Auto 0.1 K/mm3 (0-0.3); Eosinophils Percent Auto 1.8 % (0-4.4); Hematocrit 34.7 % (37.0-47.0); Hemoglobin 11.1 g/dL (12.0-15.0); Immature Granulocyte Absolute 0.03 K/mm3 (0.00-0.031); Immature Granulocyte Percent A 0.5 % (0-0.5); Lymphocytes Percent Auto 26.1 % (18.3-44.2); Mean Corpuscular Hemoglobin 28.8 pg (26-34); Mean Corpuscular Volume 90.1 fl (80-100); Mean Platelet Volume 9.6 fl (7.4-10.4); Monocytes Absolute Auto 0.4 K/mm3 (0.1-0.6); Monocytes Percent Auto 6.5 % (2.6-8.5); Neutrophils Absolute Auto 4.2 K/mm3 (1.3-6.7); Neutrophils Percent Auto 64.8 % (45.5-73.1); Platelet Count Result 291 k/mm3 (150-375); Red Blood Count 3.85 M/mm3 (4.2-5.4); Red Cell Distribution Width 12.9 % (11.5-14.5); White Blood Count 6.5 K/mm3 (4.5-10.0)
[2021-11-06 09:14] LABS: Anion Gap 11 mmol/L (8-16); Blood Urea Nitrogen 24 mg/dL (7-17); Calcium 9.2 mg/dL (8.4-10.2); Carbon Dioxide 25 mmol/L (22-30); Chloride 100 mmol/L (98-107); Estimated CRCL calculation 38 ml/min; Estimated Glomerular Filt Rate 45; Glucose 201 mg/dL (65-110); Potassium 3.7 mmol/L (3.4-5.0); Sodium 136 mmol/L (137-145)
[2021-11-06 09:27] LABS: Troponin I < 0.012 ng/mL (0.000-0.034)
[2021-11-06 12:10] LABS: Basophils Percent Auto 0.3 % (0.2-1.2); Eosinophils Absolute Auto 0.1 K/mm3 (0-0.3); Eosinophils Percent Auto 2.1 % (0-4.4); Hematocrit 32.2 % (37.0-47.0); Hemoglobin 10.5 g/dL (12.0-15.0); Immature Granulocyte Absolute 0.02 K/mm3 (0.00-0.031); Immature Granulocyte Percent A 0.3 % (0-0.5); Lymphocytes Absolute Auto 1.46 K/mm3 (0.9-3.2); Lymphocytes Percent Auto 23.7 % (18.3-44.2); Mean Corpuscular HGB Conc 32.6 g/dl (32-36); Mean Corpuscular Hemoglobin 29.1 pg (26-34); Mean Corpuscular Volume 89.2 fl (80-100); Mean Platelet Volume 8.9 fl (7.4-10.4); Monocytes Absolute Auto 0.4 K/mm3 (0.1-0.6); Neutrophils Absolute Auto 4.2 K/mm3 (1.3-6.7); Neutrophils Percent Auto 67.6 % (45.5-73.1); Platelet Count Result 247 k/mm3 (150-375); Red Blood Count 3.61 M/mm3 (4.2-5.4); Red Cell Distribution Width 12.9 % (11.5-14.5); White Blood Count 6.2 K/mm3 (4.5-10.0)
[2021-11-06 12:26] LABS: INR 1.1
[2021-11-06 12:28] LABS: Partial Thromboplastin Time 47.8 SECONDS (22.3-36.8)
[2021-11-06] MEDS: HYDROcodone/acetaminophen (*CRX) 7.5-325 MG TABLET 1 TAB PO (14:16)
[2021-11-06] MEDS: HEPARIN SOD/D5W 100 UNITS/ML 25,000 UNITS/250 ML BAG 11 UNITS IV CONT (14:26)
[2021-11-06] MEDS: MORPHINE SULFATE (*CRX) 4 MG/ML INJ IV PUSH ×2 (15:56→22:55)
[2021-11-06 16:55] LABS: Glucose Point of Care 290 mg/dl (65-105)
[2021-11-06] MEDS: INSULIN ASPART (*BKC) 100 UNITS/ML SUB-Q (18:12)
[2021-11-06] MEDS: METOPROLOL SUCCINATE EXT REL 100 MG TABCR PO (18:13)
[2021-11-06 20:51] LABS: Glucose Point of Care 223 mg/dl (65-105)
[2021-11-06 21:02] LABS: Partial Thromboplastin Time 64.3 SECONDS (22.3-36.8)
[2021-11-06] MEDS: HEPARIN SODIUM 5,000 UNITS/ML VIAL 2500 UNITS IV PUSH (21:20)
[2021-11-06] MEDS: EZETIMIBE 10 MG TABLET PO (22:53)
[2021-11-06] MEDS: MELATONIN 5 MG TABLET 20 MG PO (22:53)
[2021-11-07 03:35] VITALS: BP 134/66; PULSE 58; RESP 18; TEMP 36.4; O2SAT 96
[2021-11-07 03:44] LABS: Basophils Percent Auto 0.5 % (0.2-1.2); Eosinophils Absolute Auto 0.1 K/mm3 (0-0.3); Eosinophils Percent Auto 2.2 % (0-4.4); Hematocrit 32.9 % (37.0-47.0); Hemoglobin 10.5 g/dL (12.0-15.0); Immature Granulocyte Absolute 0.03 K/mm3 (0.00-0.031); Immature Granulocyte Percent A 0.5 % (0-0.5); Lymphocytes Absolute Auto 2.09 K/mm3 (0.9-3.2); Lymphocytes Percent Auto 35.5 % (18.3-44.2); Mean Corpuscular HGB Conc 31.9 g/dl (32-36); Mean Corpuscular Hemoglobin 28.8 pg (26-34); Mean Corpuscular Volume 90.4 fl (80-100); Mean Platelet Volume 9.5 fl (7.4-10.4); Monocytes Absolute Auto 0.4 K/mm3 (0.1-0.6); Monocytes Percent Auto 7.5 % (2.6-8.5); Neutrophils Absolute Auto 3.2 K/mm3 (1.3-6.7); Neutrophils Percent Auto 53.8 % (45.5-73.1); Platelet Count Result 281 k/mm3 (150-375); Red Blood Count 3.64 M/mm3 (4.2-5.4); Red Cell Distribution Width 12.8 % (11.5-14.5); White Blood Count 5.9 K/mm3 (4.5-10.0)
[2021-11-07] MEDS: MORPHINE SULFATE (*CRX) 4 MG/ML INJ IV PUSH ×2 (07:30→21:18)
[2021-11-07 07:44] LABS: Glucose Point of Care 165 mg/dl (65-105)
[2021-11-07 08:00] VITALS: O2SAT 96
--- NOTE | 2021-11-07 08:11 | PM.IMPN ---
Progress Note: A&P Assessment and Plan (1) Pulmonary emboli: Code(s): I26.99 - Other pulmonary embolism without acute cor pulmonale Status: Acute Assessment and Plan: Patient presented with symptomatic bilateral pulmonary emboli with chest pain. She was appropriately started on IV heparin drip. Currently she is improving symptomatically. On repeat CT angiogram therapy is extensive persistent bilateral pulmonary emboli including main left and right pulmonary arteries and bilateral saddle emboli, bilateral upper and lower pulmonary emboli, with limited improvement since 10/21/21 Patient Has been treated with heparin drip while a PTT he is being monitored, without improvement of her chest pain. (2) DVT (deep venous thrombosis): Code(s): I82.409 - Acute embolism and thrombosis of unspecified deep veins of unspecified lower extremity Status: Acute Assessment and Plan: Deep vein thrombosis involving right popliteal and posterior tibial veins. Continue management with heparin drip as above. (3) HTN (hypertension): Code(s): I10 - Essential (primary) hypertension Status: Acute Assessment and Plan: Patient carries a diagnosis of chronic hypertension. She was previously on metoprolol and losartan, which had been held during last admission in view of relative hypotension. Blood pressure is stable at 136/68 Continue to hold losartan, given recent DARLEEN episode. Continue metoprolol . Hold losartan until next primary care physician visit. (4) Diabetes type 2, controlled: Code(s): E11.9 - Type 2 diabetes mellitus without complications Status: Acute Assessment and Plan: Continue Lantus and sliding scale coverage. Monitor Accu-Chek; 165 this morning. (5) Renal disease: Code(s): N28.9 - Disorder of kidney and ureter, unspecified Status: Acute Assessment and Plan: Recovered acute kidney injury. Monitor creatinine closely. Avoid nephrotoxic medication (6) Hypothyroidism: Code(s): E03.9 - Hypothyroidism, unspecified Status: Acute Assessment and Plan: Levothyroxine supplementation Subjective Date/time seen: 11/07/21 08:22 S: patient was seen examined at the bedside. He complains of left-sided chest pain. This is improving after administration of morphine. Review of Systems Review of Systems: All systems reviewed & are unremarkable except as noted in HPI and below Constitutional: Constitutional: Reports as per HPI, Reports no additional constitutional complaints, Denies fatigue, Denies lethargy and Denies weakness Eyes: Eyes: Reports as per HPI and Denies blurry vision ENT: Reports system reviewed and no additional complaints, except as documented, Reports as per HPI and Denies epistaxis Cardiovascular: Cardiovascular: Reports as per HPI, Reports chest pain, Denies diaphoresis, Denies pedal edema, Denies leg edema, Denies lightheadedness, Denies palpitations and Denies dyspnea Respiratory: Respiratory: Reports as per HPI, Denies cough and Denies dyspnea Gastrointestinal: Gastrointestinal: Reports as per HPI, Denies abdominal pain, Denies diarrhea, Denies nausea, Denies vomiting and Denies hematemesis Genitourinary: Genitourinary: Reports no additional female genitourinary complaints and Reports as per HPI Musculoskeletal: Musculoskeletal: Reports no additional musculoskeletal complaints and Reports as per HPI Integumentary/Breasts: Skin/Breast: Reports system reviewed and no additional complaints, except as docu, Reports as per HPI and Denies rash Neurologic: Reports system reviewed and no additional complaints, except as documented, Reports as per HPI and Denies weakness Psychiatric: Psychiatric: Reports no additional psychiatric complaints and Reports as per HPI Endocrine: Endocrine: Denies fatigue and Denies palpitations Exam Const: General: comfortable (Patient reports chest pain) and no acute distress HENMT:
[2021-11-07] MEDS: ATORVASTATIN 40 MG TABLET 80 MG PO (08:12)
[2021-11-07 08:13] VITALS: PULSE 70
[2021-11-07] MEDS: PANTOPRAZOLE SOD SESQUIHYDRATE 20 MG TAB PO (08:13)
[2021-11-07] MEDS: glipiZIDE 5 MG TABLET 10 MG PO (08:13)
[2021-11-07] MEDS: CLOPIDOGREL BISULFATE 75 MG TABLET PO (08:13)
[2021-11-07] MEDS: GABAPENTIN 300 MG CAPSULE 600 MG PO ×3 (08:13→16:49)
[2021-11-07] MEDS: ESCITALOPRAM OXALATE 10 MG TABLET 20 MG PO (08:13)
[2021-11-07] MEDS: METOPROLOL SUCCINATE EXT REL 100 MG TABCR PO (08:13)
[2021-11-07] MEDS: INSULIN GLARGINE (*BKC) 100 UNITS/ML 30 UNITS SUB-Q (08:15)
--- NOTE | 2021-11-07 08:23 | ECG_ITS ---
Measurements Intervals [place] Rate: 76 P: 45 HI: 166 QRS: 40 QRSD: 87 T: 9 QT: 398 QTc: 448 Interpretive Statements SINUS RHYTHM LOW QRS VOLTAGE IN PRECORDIAL LEADS BORDERLINE T WAVE ABNORMALITY- ANT/INF LEADS BASELINE ARTIFACT- I, II, III, V5 BORDERLINE ECG Electronically Signed On 11-07-2021 9:50:06 BLUE LINE OPERATOR by Nasir Diehl D.O.
[2021-11-07 08:54] LABS: Troponin I < 0.012 ng/mL (0.000-0.034)
[2021-11-07 10:47] LABS: Partial Thromboplastin Time 65.1 SECONDS (22.3-36.8)
[2021-11-07] MEDS: NITROGLYCERIN 0.1 MG/HR PATCH 1 PATCH TRANSDERM (11:03)
[2021-11-07] MEDS: HEPARIN SODIUM 5,000 UNITS/ML VIAL 2500 UNITS IV PUSH (11:06)
[2021-11-07] MEDS: HYDROcodone/acetaminophen (*CRX) 7.5-325 MG TABLET 1 TAB PO (11:08)
[2021-11-07 11:33] LABS: Glucose Point of Care 282 mg/dl (65-105)
[2021-11-07] MEDS: INSULIN ASPART (*BKC) 100 UNITS/ML SUB-Q ×2 (11:52→16:47)
[2021-11-07] MEDS: HEPARIN SOD/D5W 100 UNITS/ML 25,000 UNITS/250 ML BAG 12 UNITS IV CONT (11:53)
[2021-11-07 14:30] VITALS: BP 111/56; PULSE 62; RESP 14; TEMP 36.8; O2SAT 96
[2021-11-07 16:31] LABS: Glucose Point of Care 233 mg/dl (65-105)
[2021-11-07 18:42] LABS: Partial Thromboplastin Time 95.3 SECONDS (22.3-36.8)
[2021-11-07 19:46] VITALS: BP 92/52; PULSE 66; RESP 20; TEMP 36.8; O2SAT 95
[2021-11-07] MEDS: MELATONIN 5 MG TABLET 20 MG PO (21:35)
[2021-11-07] MEDS: EZETIMIBE 10 MG TABLET PO (21:35)
[2021-11-07 22:37] LABS: Glucose Point of Care 241 mg/dl (65-105)
[2021-11-08] VITALS (7 sets, daily range): BP systolic 118–140; BP diastolic 50–67; PULSE 63–78; RESP 18–22; TEMP 35.8–36.9; O2SAT 94–100
[2021-11-08 00:12] LABS: Partial Thromboplastin Time 82.5 SECONDS (22.3-36.8)
[2021-11-08 06:06] LABS: Partial Thromboplastin Time 76.8 SECONDS (22.3-36.8)
[2021-11-08 07:59] LABS: Glucose Point of Care 159 mg/dl (65-105)
[2021-11-08] MEDS: glipiZIDE 5 MG TABLET 10 MG PO (08:52)
[2021-11-08] MEDS: CLOPIDOGREL BISULFATE 75 MG TABLET PO (08:52)
[2021-11-08] MEDS: ATORVASTATIN 40 MG TABLET 80 MG PO (08:53)
[2021-11-08] MEDS: ESCITALOPRAM OXALATE 10 MG TABLET 20 MG PO (08:53)
[2021-11-08] MEDS: NITROGLYCERIN 0.1 MG/HR PATCH 1 PATCH TRANSDERM (08:54)
[2021-11-08] MEDS: PANTOPRAZOLE SOD SESQUIHYDRATE 20 MG TAB PO (08:54)
[2021-11-08] MEDS: METOPROLOL SUCCINATE EXT REL 100 MG TABCR PO (08:54)
[2021-11-08] MEDS: GABAPENTIN 300 MG CAPSULE 600 MG PO ×3 (08:54→17:00)
[2021-11-08] MEDS: HYDROcodone/acetaminophen (*CRX) 7.5-325 MG TABLET 1 TAB PO (08:54)
[2021-11-08] MEDS: HEPARIN SOD/D5W 100 UNITS/ML 25,000 UNITS/250 ML BAG 12 UNITS IV CONT (09:05)
[2021-11-08] MEDS: INSULIN GLARGINE (*BKC) 100 UNITS/ML 30 UNITS SUB-Q (09:05)
[2021-11-08 11:50] LABS: Glucose Point of Care 240 mg/dl (65-105)
[2021-11-08] MEDS: INSULIN ASPART (*BKC) 100 UNITS/ML SUB-Q (12:08)
--- NOTE | 2021-11-08 13:18 | PM.IMPN ---
Progress Note: A&P Assessment and Plan (1) Pulmonary emboli: Code(s): I26.99 - Other pulmonary embolism without acute cor pulmonale Status: Acute Assessment and Plan: Patient presented with symptomatic bilateral pulmonary emboli with chest pain. She was appropriately started on IV heparin drip. Currently she is improving symptomatically. On repeat CT angiogram therapy is extensive persistent bilateral pulmonary emboli including main left and right pulmonary arteries and bilateral saddle emboli, bilateral upper and lower pulmonary emboli, with limited improvement since 10/21/21 Patient Has been treated with heparin drip while a PTT he is being monitored, without improvement of her chest pain. Will transition back to the [facility]. Patient is not a for able to afford the daughter jamilah. She will be started on Coumadin by her primary care provider after her current medications are used. (2) DVT (deep venous thrombosis): Code(s): I82.409 - Acute embolism and thrombosis of unspecified deep veins of unspecified lower extremity Status: Acute Assessment and Plan: Deep vein thrombosis involving right popliteal and posterior tibial veins. Continue management with heparin drip as above. Transition to the [place] today. (3) HTN (hypertension): Code(s): I10 - Essential (primary) hypertension Status: Acute Assessment and Plan: Patient carries a diagnosis of chronic hypertension. She was previously on metoprolol and losartan, which had been held during last admission in view of relative hypotension. Blood pressure is stable at 118/61. Continue to hold losartan, given recent DARLEEN episode. Continue metoprolol . Hold losartan until next primary care physician visit. (4) Diabetes type 2, controlled: Code(s): E11.9 - Type 2 diabetes mellitus without complications Status: Acute Assessment and Plan: Continue Lantus and sliding scale coverage. Monitor Accu-Chek; 128-240 this morning. (5) Renal disease: Code(s): N28.9 - Disorder of kidney and ureter, unspecified Status: Acute Assessment and Plan: Recovered acute kidney injury. Monitor creatinine closely. Avoid nephrotoxic medication (6) Hypothyroidism: Code(s): E03.9 - Hypothyroidism, unspecified Status: Acute Assessment and Plan: Levothyroxine supplementation Subjective Date/time seen: 11/08/21 13:18 S: Patient is examined at the bedside; chest pain is improved. She is feeling a lot better. Review of Systems Review of Systems: All systems reviewed & are unremarkable except as noted in HPI and below Constitutional: Constitutional: Reports as per HPI, Reports no additional constitutional complaints, Denies fatigue, Denies lethargy and Denies weakness Eyes: Eyes: Reports as per HPI and Denies blurry vision ENT: Reports system reviewed and no additional complaints, except as documented, Reports as per HPI and Denies epistaxis Cardiovascular: Cardiovascular: Reports as per HPI, Reports chest pain, Denies diaphoresis, Denies pedal edema, Denies leg edema, Denies lightheadedness, Denies palpitations and Denies dyspnea Respiratory: Respiratory: Reports as per HPI, Denies cough and Denies dyspnea Gastrointestinal: Gastrointestinal: Reports as per HPI, Denies abdominal pain, Denies diarrhea, Denies nausea, Denies vomiting and Denies hematemesis Genitourinary: Genitourinary: Reports no additional female genitourinary complaints and Reports as per HPI Musculoskeletal: Musculoskeletal: Reports no additional musculoskeletal complaints and Reports as per HPI Integumentary/Breasts: Skin/Breast: Reports system reviewed and no additional complaints, except as docu, Reports as per HPI and Denies rash Neurologic: Reports system reviewed and no additional complaints, except as documented, Reports as per HPI and Denies weakness Psychiatric: Psychiatric: Reports no additional psychiatric complaints
[2021-11-08 16:45] LABS: Glucose Point of Care 128 mg/dl (65-105)
[2021-11-08 21:35] LABS: Glucose Point of Care 229 mg/dl (65-105)
[2021-11-08] MEDS: APIXABAN 5 MG TABLET 10 MG PO (22:03)
[2021-11-08] MEDS: EZETIMIBE 10 MG TABLET PO (22:04)
[2021-11-08] MEDS: MELATONIN 5 MG TABLET 20 MG PO (22:04)
[2021-11-09 03:25] VITALS: BP 98/57; PULSE 62; RESP 18; TEMP 36.3; O2SAT 97
[2021-11-09 05:58] LABS: Hemoglobin 11.4 g/dL (12.0-15.0); Mean Corpuscular HGB Conc 31.7 g/dl (32-36); Mean Corpuscular Hemoglobin 28.8 pg (26-34); Mean Corpuscular Volume 90.9 fl (80-100); Mean Platelet Volume 9.3 fl (7.4-10.4); Platelet Count Result 324 k/mm3 (150-375); Red Blood Count 3.96 M/mm3 (4.2-5.4); Red Cell Distribution Width 12.6 % (11.5-14.5); White Blood Count 5.7 K/mm3 (4.5-10.0)
[2021-11-09 06:19] LABS: Anion Gap 9 mmol/L (8-16); Blood Urea Nitrogen 32 mg/dL (7-17); Calcium 9.5 mg/dL (8.4-10.2); Carbon Dioxide 29 mmol/L (22-30); Chloride 96 mmol/L (98-107); Estimated CRCL calculation 39 ml/min; Estimated Glomerular Filt Rate 45; Glucose 221 mg/dL (65-110); Partial Thromboplastin Time 24.8 SECONDS (22.3-36.8); Potassium 4.7 mmol/L (3.4-5.0); Sodium 134 mmol/L (137-145)
[2021-11-09 07:55] LABS: Glucose Point of Care 144 mg/dl (65-105)
[2021-11-09] MEDS: PANTOPRAZOLE SOD SESQUIHYDRATE 20 MG TAB PO (08:43)
[2021-11-09] MEDS: glipiZIDE 5 MG TABLET 10 MG PO (08:43)
[2021-11-09] MEDS: APIXABAN 5 MG TABLET 10 MG PO (08:43)
[2021-11-09] MEDS: ATORVASTATIN 40 MG TABLET 80 MG PO (08:43)
[2021-11-09] MEDS: ESCITALOPRAM OXALATE 10 MG TABLET 20 MG PO (08:43)
[2021-11-09 08:44] VITALS: PULSE 62
[2021-11-09] MEDS: GABAPENTIN 300 MG CAPSULE 600 MG PO (08:44)
[2021-11-09] MEDS: METOPROLOL SUCCINATE EXT REL 100 MG TABCR PO (08:44)
[2021-11-09] MEDS: CLOPIDOGREL BISULFATE 75 MG TABLET PO (08:44)
[2021-11-09] MEDS: HYDROcodone/acetaminophen (*CRX) 7.5-325 MG TABLET 1 TAB PO (08:49)
[2021-11-09] MEDS: NITROGLYCERIN 0.1 MG/HR PATCH 1 PATCH TRANSDERM (08:52)
[2021-11-09] MEDS: INSULIN GLARGINE (*BKC) 100 UNITS/ML 30 UNITS SUB-Q (08:53)
[2021-11-09 11:21] LABS: Glucose Point of Care 253 mg/dl (65-105)
--- NOTE | 2021-11-09 18:07 | PM.DS ---
DS: Admitting Diagnosis Discharge Date 11/09/21 Admitting Diagnosis Chest pain. Rule out acute coronary syndrome. Acute pulmonary embolus. DS: Discharge Diagnosis Discharge Diagnosis (1) Pulmonary emboli: Code(s): I26.99 - Other pulmonary embolism without acute cor pulmonale Status: Acute Assessment and Plan: Patient presented with symptomatic bilateral pulmonary emboli with chest pain. She was appropriately started on IV heparin drip. Currently she is improving symptomatically. On repeat CT angiogram therapy is extensive persistent bilateral pulmonary emboli including main left and right pulmonary arteries and bilateral saddle emboli, bilateral upper and lower pulmonary emboli, with limited improvement since 10/21/21 Patient has been treated with heparin drip while a PTT was monitored closely, without improvement of her chest pain. Chest pain improved with pain management with hydrocodone/acetaminophen and nitro patch. Patient had previously been discharged on Eliquis. She will be transition back to Eliquis. However she is notable to for the consult steroid P. After her current Eliquis supply is exhausted, patient will be transition to Coumadin by her primary care provider. (2) DVT (deep venous thrombosis): Code(s): I82.409 - Acute embolism and thrombosis of unspecified deep veins of unspecified lower extremity Status: Acute Assessment and Plan: Deep vein thrombosis involving right popliteal and posterior tibial veins. Continue management with heparin drip as above. Transition to the eliquis on 11/08/2021 and discharged today on eliquis with plan to transition to coumadin after current remaining eliquis supply is exhausted. (3) HTN (hypertension): Code(s): I10 - Essential (primary) hypertension Status: Acute Assessment and Plan: Patient carries a diagnosis of chronic hypertension. She was previously on metoprolol and losartan, which had been held during last admission in view of relative hypotension. Blood pressure is stable at 118/61. Continue to hold losartan, given recent DARLEEN episode. Continue metoprolol . Hold losartan until next primary care physician visit. (4) Diabetes type 2, controlled: Code(s): E11.9 - Type 2 diabetes mellitus without complications Status: Acute Assessment and Plan: Continue Lantus and sliding scale coverage. Monitor Accu-Chek; 144-253 this morning. Fasting blood glucose was 2020. (5) Renal disease: Code(s): N28.9 - Disorder of kidney and ureter, unspecified Status: Acute Assessment and Plan: Recovered acute kidney injury. Monitor creatinine closely. Creatinine stable at 1.2 at the time of discharge. Avoid nephrotoxic medication (6) Hypothyroidism: Code(s): E03.9 - Hypothyroidism, unspecified Status: Acute Assessment and Plan: TSH was 1.39. DS: Summary Hospital Course Reason for hospitalization: Chest pain. Hospital Course: Please refer to admission H&P. Briefly,this is a 66-year-old lady with a past medical history including but not limited to recently diagnosed bilateral pulmonary embolism who presents ER with left-sided chest pain. The patient was in her usual state of health until 2:30 AM. She reports sudden onset left-sided chest pain, worse with movement and deep breath and cough. There is no alleviating factor. After being recently diagnosed with pulmonary embolism 2 weeks ago, she has been compliant with her anticoagulation. She denies fevers, chills or sweats. There is no productive cough. There is no known trauma. She has tried no pain medication for her discomfort. during her recent admission, she was diagnosed on 10/21 with significant bilateral pulmonary emboli as evidence by CT angiogram describing acute pulmonary emboli involving all lobes including emboli in the main right and left pulmonary arteries. The inpatient course was relatively uneventful. Patient
== END 2021-11-09 12:05 | disposition home or self-care (01) | DRG 176 ==
LOC: ANHED 07:01 → ANHIMU 12:04 → ANH2MED 11-06 20:56
PROVIDERS: Emergency Medicine; Internal Medicine; Student in an Organized Health Care Education/Training Program; Admitting Provider Internal Medicine; Emergency Provider Emergency Medicine; PCP Family Medicine; Visit Provider Internal Medicine
DX: I26.99 Other pulmonary embolism without acute cor pulmonale (principal); I82.431 Acute embolism and thrombosis of right popliteal vein; I82.441 Acute embolism and thrombosis of right tibial vein; I25.10 Atherosclerotic heart disease of native coronary artery without angina pectoris; K21.9 Gastro-esophageal reflux disease without esophagitis; M19.90 Unspecified osteoarthritis, unspecified site; F41.9 Anxiety disorder, unspecified; F32.A Depression, unspecified; E78.5 Hyperlipidemia, unspecified; I10 Essential (primary) hypertension; N28.9 Disorder of kidney and ureter, unspecified; E03.9 Hypothyroidism, unspecified; E11.42 Type 2 diabetes mellitus with diabetic polyneuropathy; Z79.4 Long term (current) use of insulin; I25.2 Old myocardial infarction; Z86.73 Personal history of transient ischemic attack (TIA), and cerebral infarction without residual deficits; Z90.49 Acquired absence of other specified parts of digestive tract; Z95.5 Presence of coronary angioplasty implant and graft
CPT/HCPCS: 36415; 71045; 71275; 80048; 80053; 82948; 83690; 83880; 84443; 84484; 85025; 85027; 85610; 85730; 93005; 96365; 96366; 96372; 96374; 96375; 96376; 99285; A9270; G0378; J1644; J1650; J1815; J2270; Q9967

== ENCOUNTER 2021-11-27 23:49 | Inpatient (IN) | payer MEDICARE, MEDICAID, SELFPAY ==
--- NOTE | ~2021-11-27 | XR_ITS ---
EXAMINATION: XR chest 2V EXAM DATE: 11/28/2021 00:54 INDICATION: Generalized chest pain. This report pulmonary emboli. TECHNIQUE: Frontal and lateral projections of the chest obtained and reviewed. Comparison is made to prior examination from 11/05/2021. FINDINGS: Small amount of left perihilar airspace disease, probably pneumonia. The lungs are otherwis e clear. There are no pleural effusions. The cardiomediastinal silhouette is within normal limits. There is no pneumothorax suspected. There are cholecystectomy clips. There are mild bony degenerati ve changes. IMPRESSION: Subsegmental left midlung zone airspace disease probably pneumonia. Reviewed, dictated and finalized at location A. POUNDER
--- NOTE | ~2021-11-27 | CT_ITS ---
EXAMINATION: CTA chest PE protocol EXAM DATE: 11/28/2021 01:03 INDICATION: Right-sided chest pain, recent pulmonary embolism. TECHNIQUE: Spiral CTA of the chest (pulmonary arteries) was performed with 100 cc Omnipaque 350 intr avenous contrast injection. Images were acquired during the pulmonary arterial phase. Coronal maxi mum intensity projection 3D-reconstructions were created by the technologist on dedicated workstation . Axial, coronal and sagittal reformatted images were reviewed. The dose-length product (DLP) for t his examination was 759.80 mGy-cm. The exposure was tailored according to patient size (auto mA exp osure control), and iterative reconstruction (ASIR) was used as additional dose reduction technique. There is no prior study for comparison. FINDINGS: There are bilateral pulmonary emboli, moderate clot burden with improvement compared to pr evious examination. No thoracic aortic dissection. Small regions of peripheral airspace disease pro bably pulmonary infarctions. There are no pleural or pericardial effusions. Tracheobronchial tree is patent. There is no mediastinal, hilar or axillary lymphadenopathy. There is no pneumothorax. Heart normal in size. There is moderate coronary arterial calcification, arterial sclerosis. The re are cholecystectomy clips. There is thoracic spondylosis without osteoblastic or osteolytic lesio ns identified. IMPRESSION: 1. Mild improvement in subacute pulmonary emboli, moderate clot burden. 2. Small bilateral pulmonary infarctions. Reviewed, dictated and finalized at location A. R PULLER
[2021-11-27 23:48] VITALS: BP 149/75; PULSE 71; RESP 14; TEMP 36.9; O2SAT 97
[2021-11-27 23:53] VITALS: PULSE 67; RESP 12; O2SAT 99
--- NOTE | 2021-11-27 23:53 | ECG_ITS ---
Measurements Intervals [place] Rate: 66 P: -11 WV: 143 QRS: 37 QRSD: 87 T: 40 QT: 322 QTc: 338 Interpretive Statements SINUS RHYTHM NORMAL ECG Electronically Signed On 11-28-2021 6:49:10 NUCLEAR POWERPLANT SUPERVISOR by Nasir Diehl D.O.
[2021-11-27 23:58] VITALS: O2SAT 100
[2021-11-28] VITALS (69 sets, daily range): BP systolic 108–145; BP diastolic 46–76; PULSE 65–93; RESP 9–26; TEMP 36.4–37.4; O2SAT 90–100; BMI 31.1
--- NOTE | 2021-11-28 | ECHO_ITS ---
Patient Info Name: Leeann Cochran Age: 66 years : 1955 Gender: Female Ht: 62 in Wt: 169 lbs BSA: 1.86 m2 HR: 72 bpm BP: 112 / 61 mmHg Exam Date: 11/28/2021 9:22 AM Exam Location: [facility] Patient Status: Emergency Admit Date: 11/27/2021 Staff Ordering Physician: Giovanny Hoffmann MD [employer] Football Coach: Juve Srivastava, RDCS, RT Attending Provider: Giovanny Hoffmann MD Exam Type: CA echo limited Study Info Indications I27.82 - Chronic pulmonary embolism Limited two-dimensional transthoracic echocardiogram is performed with contrast. Summary 1. Severe pulmonary hypertension, estimated pulmonary arterial systolic pressure is 58 mmHg. 2. There is mild tricuspid valve regurgitation. 3. Left ventricular systolic function is normal, estimated at 55-60%. 4. Right ventricular chamber dimension is mildly enlarged. 5. Right ventricular systolic function is normal. 6. Left atrial chamber dimension is mildly enlarged. 7. Right atrial chamber dimension is mildly enlarged. 8. There is mild aortic valve sclerosis. Left Ventricle Left ventricular chamber dimension is normal. Left ventricular systolic function is normal, estimated at 55-60%. There is no increased left ventricular wall thickness. Left ventricular septal wall motion is normal. Right Ventricle Right ventricular chamber dimension is mildly enlarged. Right ventricular systolic function is normal. Left Atria Left atrial chamber dimension is mildly enlarged. Right Atria Right atrial chamber dimension is mildly enlarged. Aortic Valve The aortic valve is trileaflet. There is mild aortic valve sclerosis. Pulmonic Valve The pulmonic valve is normal. Mitral Valve The mitral valve has normal leaflets. Tricuspid Valve There is mild tricuspid valve regurgitation. Severe pulmonary hypertension, estimated pulmonary arterial systolic pressure is 58 mmHg. The tricuspid valve leaflets are normal. There is no significant tricuspid valve stenosis. Pericardium/Pleural The pericardium appears normal. There is no pericardial effusion. Inferior Vena Cava Normal inferior vena cava with >50% collapse upon inspiration consistent with normal right atrial pressure, 5 mmHg. Aorta The aortic root size at the sinus of Valsalva is normal. The prox ascending aorta size is normal. Tricuspid Valve Name Value Normal TV Regurgitation Doppler TR Peak Velocity 364 cm/s TR Peak Gradient 53 mmHg Estimated PAP/RSVP RA Pressure 5 mmHg <=5 PA Systolic Pressure 58 mmHg <36 RV Systolic Pressure 58 mmHg <36 TV Diastolic Function RV MPI 0.27 <=0.43 Atria Name Value Normal RA Dimensions RA
[2021-11-28] MEDS: HYDROmorphone HCL INJ (*CRX) 1 MG/ML SYR IV PUSH ×2 (00:20→02:38)
[2021-11-28 00:38] LABS: Basophils Absolute Auto 0.1 K/mm3 (0.0-0.1); Basophils Percent Auto 0.5 % (0.2-1.2); Eosinophils Absolute Auto 0.1 K/mm3 (0-0.3); Eosinophils Percent Auto 1.2 % (0-4.4); Hematocrit 34.4 % (37.0-47.0); Hemoglobin 10.9 g/dL (12.0-15.0); Immature Granulocyte Absolute 0.05 K/mm3 (0.00-0.031); Immature Granulocyte Percent A 0.5 % (0-0.5); Lymphocytes Absolute Auto 1.58 K/mm3 (0.9-3.2); Lymphocytes Percent Auto 15.9 % (18.3-44.2); Mean Corpuscular HGB Conc 31.7 g/dl (32-36); Mean Corpuscular Hemoglobin 28.5 pg (26-34); Mean Corpuscular Volume 89.8 fl (80-100); Mean Platelet Volume 9.4 fl (7.4-10.4); Monocytes Absolute Auto 0.8 K/mm3 (0.1-0.6); Neutrophils Absolute Auto 7.4 K/mm3 (1.3-6.7); Neutrophils Percent Auto 73.9 % (45.5-73.1); Platelet Count Result 293 k/mm3 (150-375); Red Blood Count 3.83 M/mm3 (4.2-5.4); Red Cell Distribution Width 13.3 % (11.5-14.5)
[2021-11-28 00:48] LABS: INR 1.2; Prothrombin Time 14.9 Seconds (11.1-14.7)
[2021-11-28 00:49] LABS: Partial Thromboplastin Time 23.4 SECONDS (22.3-36.8)
[2021-11-28 00:52] LABS: Alanine Aminotransferase 15 U/L (4-35); Albumin Level 4.2 g/dL (3.5-5.1); Alkaline Phosphatase 46 U/L (38-126); Anion Gap 9 mmol/L (8-16); Aspartate Amino Transferase 26 U/L (14-36); Bilirubin,Total 0.3 mg/dL (0.2-1.3); Blood Urea Nitrogen 39 mg/dL (7-17); Calcium 9.2 mg/dL (8.4-10.2); Carbon Dioxide 24 mmol/L (22-30); Chloride 100 mmol/L (98-107); Estimated CRCL calculation 37 ml/min; Estimated Glomerular Filt Rate 41; Glucose 220 mg/dL (65-110); Lipase 64 U/L (23-300); Potassium 4.3 mmol/L (3.4-5.0); Sodium 133 mmol/L (137-145)
--- NOTE | 2021-11-28 00:56 | ED.GENADULT ---
HPI - General Adult General Chief complaint: Chest Pain Stated complaint: CP HX BLOOD CLOTS AROUND HEART SINCE DAVID Time Seen by Provider: 11/27/21 23:58 History of Present Illness HPI narrative: Patient is a 66-year-old female that presents to the emergency department with chief complaint of shortness of breath and chest discomfort. Patient reports that in the last month she has had pulmonary emboli and is currently on 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. The patient reports that she has not missed any doses of her anticoagulant reports that she has had no changes in her anticoagulant and reports this feels similar to whenever she had the clot in her lungs. Patient denies fever denies hypoxia patient denies focal neurological deficit. Patient denies abdominal pain Related Data Home Medications Medication Instructions Recorded Confirmed glipizide 10 mg tablet 10 mg PO DAILY 04/16/20 11/05/21 metformin 500 mg tablet 500 mg PO BID 04/16/20 11/05/21 atorvastatin 80 mg tablet 80 mg PO DAILY 06/04/20 11/05/21 clopidogrel 75 mg tablet 75 mg PO DAILY 06/04/20 11/05/21 ezetimibe 10 mg tablet 10 mg PO HS 06/04/20 11/05/21 gabapentin 600 mg tablet 600 mg PO TID 06/04/20 11/05/21 losartan 50 mg tablet 50 mg PO DAILY 06/04/20 11/05/21 pantoprazole 20 mg tablet,delayed 20 mg PO QAM 06/04/20 11/05/21 release Lantus U-100 Insulin 30 unit SUBCUT DAILY 08/04/21 11/05/21 escitalopram oxalate 20 mg PO DAILY 08/04/21 11/05/21 melatonin 20 mg PO HS 08/04/21 11/05/21 metoprolol succinate 100 mg PO DAILY 08/04/21 11/05/21 nitroglycerin 0.4 mg SUBLINGUAL Q5M PRN 08/04/21 11/05/21 diclofenac sodium 1 ea TOPICAL DIRECTED PRN 10/20/21 11/05/21 hydrocodone-acetaminophen 1 tablet PO QID PRN 10/20/21 11/05/21 Eliquis 5 mg PO BID 11/05/21 11/05/21 Allergies Allergy/AdvReac Type Severity Reaction Status Date / Time latex Allergy Unknown Hives Verified 11/27/21 23:54 [facility] Past Medical History Medical History Anxiety Anxiety Arthritis CAD (coronary artery disease) CAD (coronary atherosclerotic disease) Cerebrovascular accident CVA (cerebral vascular accident) Depression Depression Diabetes Diabetes type 2, controlled Gastric ulcer GERD (gastroesophageal reflux disease) GERD (gastroesophageal reflux disease) Goiter Heart attack History of angina History of left heart catheterization HLD (hyperlipidemia) HTN (hypertension) Hyperlipidemia Hypertension Hypothyroidism Hypothyroidism Peripheral neuropathy Renal disease TIA (transient ischemic attack) Surgical History Surgical History History of section History of cholecystectomy History of partial thyroidectomy History of percutaneous coronary intervention History of thyroidectomy Hx of cardiac catheterization with cardiac stent placement Hx of section Hx of cholecystectomy Family History Family History Mother Cerebrovascular accident Father Lung cancer Sibling Lung cancer Leukemia Sibling Kidney disease Sibling Family history of malignant neoplasm Family history of kidney disease Family history of lung cancer Patient's sister is Mother Family history of diabetes mellitus in first degree relative Patient's mother is Father Family history of lung cancer Patient's father is Social History Social History Smoking packs per day: 0.5 Smoking cigarettes per day: 10.0 Years smoked: 2 Smoking pack-years: 1.00 Smoking status: Never smoker Alcohol intake: never Substance use: never Spiritual care concerns: No Exam Narrative: GENERAL: Well-appearing, well-nourished, and in no acute distress. HEAD: Normocephalic, atraumatic. EYES: PERRLA and EOMI. E
[2021-11-28 01:01] LABS: NT Pro B Type Natriuretic Pept 577 pg/mL (5-100)
[2021-11-28 01:03] LABS: Troponin I < 0.012 ng/mL (0.000-0.034)
[2021-11-28 02:08] LABS: SARS-CoV-2 RNA PCR Negative
[2021-11-28] MEDS: HEPARIN SODIUM 5,000 UNITS/ML VIAL 5000 UNITS IV PUSH ×2 (02:40→11:10)
[2021-11-28] MEDS: HEPARIN SOD/D5W 100 UNITS/ML 25,000 UNITS/250 ML BAG 11 UNITS IV CONT (02:42)
[2021-11-28 04:17] LABS: Troponin I < 0.012 ng/mL (0.000-0.034)
[2021-11-28 09:05] LABS: Basophils Percent Auto 0.4 % (0.2-1.2); Eosinophils Absolute Auto 0.1 K/mm3 (0-0.3); Eosinophils Percent Auto 0.7 % (0-4.4); Hematocrit 32.3 % (37.0-47.0); Hemoglobin 10.4 g/dL (12.0-15.0); Immature Granulocyte Absolute 0.04 K/mm3 (0.00-0.031); Immature Granulocyte Percent A 0.4 % (0-0.5); Lymphocytes Absolute Auto 2.16 K/mm3 (0.9-3.2); Lymphocytes Percent Auto 23.6 % (18.3-44.2); Mean Corpuscular HGB Conc 32.2 g/dl (32-36); Mean Corpuscular Hemoglobin 28.4 pg (26-34); Mean Corpuscular Volume 88.3 fl (80-100); Mean Platelet Volume 8.9 fl (7.4-10.4); Monocytes Percent Auto 11.3 % (2.6-8.5); Neutrophils Absolute Auto 5.8 K/mm3 (1.3-6.7); Neutrophils Percent Auto 63.6 % (45.5-73.1); Platelet Count Result 263 k/mm3 (150-375); Red Blood Count 3.66 M/mm3 (4.2-5.4); Red Cell Distribution Width 13.4 % (11.5-14.5); White Blood Count 9.2 K/mm3 (4.5-10.0)
[2021-11-28 09:07] LABS: INR 1.2; Prothrombin Time 15.3 Seconds (11.1-14.7)
[2021-11-28 10:55] LABS: Partial Thromboplastin Time 49.3 SECONDS (22.3-36.8)
--- NOTE | 2021-11-28 13:56 | PM.IMHP ---
H&P: HPI History of Present Illness Date/Time: 11/28/21 13:56 this is a 66-year-old female patient who came to the emergency room today because she was short of breath and having some chest discomfort. She tells me that starts on the right side her chest and came all way around. The patient stated this feels different than what she has experienced in the past with her pulmonary emboli. The patient tells me that she has been taking her blood. The patient tells me that she is also having some back which is chronic she typically takes [place] for this at home. Her creatinine was 1.3 and BUN 39 which is her baseline. Blood glucose is 220. Chest CTA shows mild improvement in subacute pulmonary emboli, moderate clot burden. Small bilateral pulmonary infarctions. Chest x-ray was read as subsegmental left mid lung zones airspace disease probably pneumonia. The patient had an echo today which shows severe pulmonary hypertension. EF 55-60%. Which is comparable to her echo that she had on 10/21/2021. The patient was started on heparin drip. Hematology has been consulted. Hematology has been consulted. Patient is complaining at this time of lower back pain. She was given Dilaudid earlier in the emergency room. The patient is being admitted to observation status on the date of service of 11/28/2021. >>>>>side note. The patient was last discharged from here on 11/09/2021. At that time the patient's chest pain still continued and she was given [place] at that time. It was noted that after Eliquis supplies exhausted the patient will transition to Coumadin by her primary care provider. Patient was also noted to have a deep vein thrombosis involving a right popliteal and posterior tibial veins. It was also noted that pulmonary was contacted at [place] and it was noted that she was not a candidate for any intervention. Chief Complaint: Chest discomfort Review of Systems Review of Systems: All systems reviewed & are unremarkable except as noted in HPI and below Constitutional: Constitutional: Reports as per HPI and Reports no additional constitutional complaints Eyes: Eyes: Reports as per HPI and Reports no additional eye complaints ENT: Reports system reviewed and no additional complaints, except as documented and Reports Normal hearing present Cardiovascular: Cardiovascular: Reports no additional cardiovascular complaints Respiratory: Respiratory: Reports no additional respiratory complaints and Reports no additional respiratory complaints Gastrointestinal: Gastrointestinal: Reports as per HPI and Reports no additional gastrointestinal complaints Musculoskeletal: Musculoskeletal: Reports no additional musculoskeletal complaints Integumentary/Breasts: Skin/Breast: Reports system reviewed and no additional complaints, except as docu and Reports as per HPI Neurologic: Reports system reviewed and no additional complaints, except as documented, Reports as per HPI and Reports Normal hearing present Psychiatric: Psychiatric: Reports no additional psychiatric complaints and Reports as per HPI Endocrine: Endocrine: Reports no additional endocrine complaints Hematologic/Lymphatic: Hematologic/Lymphatic: Reports no additional hematologic/lymphatic complaints Allergic/Immunologic: Allergic/Immunologic: Reports no additional allergic/immunologic complaints [facility] Past Medical History Medical History (Updated 11/28/21 @ 15:20 by Iva Moody NP) Anxiety Anxiety Arthritis CAD (coronary artery disease) CAD (coronary atherosclerotic disease) Cerebrovascular accident Chronic renal failure, stage 3 (moderate) CVA (cerebral vascular accident) Depression Depression Diabetes Diabetes type 2, controlled Gastric ulcer GERD (gastroesophageal reflux disease) GERD (gastroesophageal reflux disease) Goiter Heart attack History of angina History of left heart catheterization HLD (hyperlipidemia) HTN (hypertension) Hyperlipidemia Hypertension Hyp
[2021-11-28] MEDS: HYDROcodone/acetaminophen (*CRX) 7.5-325 MG TABLET 1 TAB PO ×2 (14:10→23:15)
[2021-11-28 17:50] LABS: Glucose Point of Care 78 mg/dl (65-105)
[2021-11-28 18:49] LABS: Partial Thromboplastin Time 73.1 SECONDS (22.3-36.8)
[2021-11-28] MEDS: EZETIMIBE 10 MG TABLET PO (22:18)
[2021-11-28] MEDS: MELATONIN 5 MG TABLET 20 MG PO (22:19)
[2021-11-28 23:31] LABS: Glucose Point of Care 197 mg/dl (65-105)
[2021-11-28] MEDS: HEPARIN SOD/D5W 100 UNITS/ML 25,000 UNITS/250 ML BAG 13 UNITS IV CONT (23:42)
[2021-11-29] VITALS (11 sets, daily range): BP systolic 105–143; BP diastolic 66–95; PULSE 60–83; RESP 16–20; TEMP 35.7–36.5; O2SAT 97–100
[2021-11-29 00:51] LABS: INR 1.1; Prothrombin Time 14.1 Seconds (11.1-14.7)
[2021-11-29 01:13] LABS: Partial Thromboplastin Time 63.4 SECONDS (22.3-36.8)
[2021-11-29] MEDS: HEPARIN SODIUM 5,000 UNITS/ML VIAL 2500 UNITS IV PUSH (01:28)
[2021-11-29] MEDS: HYDROcodone/acetaminophen (*CRX) 7.5-325 MG TABLET 1 TAB PO ×3 (05:24→15:45)
--- NOTE | 2021-11-29 05:57 | ADMGEN ---
This patient, Leeann Cochran, was admitted to [facility]. Patient/family oriented to hospital policies and general routines including ID bracelet, bed and alarms, visiting hours, pain management, procedures, bathroom and other care routines, personal items, smoking policy, room service/diet, and visiting hours. Information on how to activate the Rapid Response Team has been discussed. Patient/Family are encouraged to report perceived risks to care and to ask questions if they do not understand what they are told or what they should do.
[2021-11-29 07:51] LABS: Glucose Point of Care 157 mg/dl (65-105)
[2021-11-29] MEDS: ESCITALOPRAM OXALATE 10 MG TABLET 20 MG PO (08:41)
[2021-11-29] MEDS: PANTOPRAZOLE SOD SESQUIHYDRATE 20 MG TAB PO (08:41)
[2021-11-29] MEDS: glipiZIDE 5 MG TABLET 10 MG PO (08:41)
[2021-11-29] MEDS: INSULIN GLARGINE (*BKC) 100 UNITS/ML 30 UNITS SUB-Q (08:41)
[2021-11-29] MEDS: METOPROLOL SUCCINATE EXT REL 100 MG TABCR PO (08:41)
[2021-11-29] MEDS: ATORVASTATIN 40 MG TABLET 80 MG PO (08:42)
[2021-11-29 09:06] LABS: Basophils Percent Auto 0.7 % (0.2-1.2); Eosinophils Absolute Auto 0.1 K/mm3 (0-0.3); Eosinophils Percent Auto 1.8 % (0-4.4); Hematocrit 33.2 % (37.0-47.0); Hemoglobin 10.6 g/dL (12.0-15.0); Immature Granulocyte Absolute 0.03 K/mm3 (0.00-0.031); Immature Granulocyte Percent A 0.5 % (0-0.5); Lymphocytes Absolute Auto 1.55 K/mm3 (0.9-3.2); Lymphocytes Percent Auto 25.9 % (18.3-44.2); Mean Corpuscular HGB Conc 31.9 g/dl (32-36); Mean Corpuscular Hemoglobin 28.2 pg (26-34); Mean Corpuscular Volume 88.3 fl (80-100); Mean Platelet Volume 9.3 fl (7.4-10.4); Monocytes Absolute Auto 0.6 K/mm3 (0.1-0.6); Monocytes Percent Auto 10.5 % (2.6-8.5); Neutrophils Absolute Auto 3.6 K/mm3 (1.3-6.7); Neutrophils Percent Auto 60.6 % (45.5-73.1); Platelet Count Result 273 k/mm3 (150-375); Red Blood Count 3.76 M/mm3 (4.2-5.4); Red Cell Distribution Width 13.5 % (11.5-14.5)
[2021-11-29 09:15] LABS: Lactic Acid Reflex 1.1 mmol/L (0.7-2.1)
[2021-11-29 09:18] LABS: Partial Thromboplastin Time 123.8 SECONDS (22.3-36.8)
[2021-11-29 09:33] LABS: Alanine Aminotransferase 14 U/L (4-35); Albumin Level 3.9 g/dL (3.5-5.1); Alkaline Phosphatase 48 U/L (38-126); Anion Gap 6 mmol/L (8-16); Aspartate Amino Transferase 27 U/L (14-36); Bilirubin,Total 0.5 mg/dL (0.2-1.3); Blood Urea Nitrogen 25 mg/dL (7-17); Calcium 9.1 mg/dL (8.4-10.2); Carbon Dioxide 25 mmol/L (22-30); Chloride 102 mmol/L (98-107); Estimated CRCL calculation 42 ml/min; Estimated Glomerular Filt Rate 50; Glucose 271 mg/dL (65-110); Lactate Dehydrogenase 317 U/L (313-618); Magnesium 1.7 mg/dL (1.6-2.3); Sodium 133 mmol/L (137-145)
[2021-11-29 09:53] LABS: Hemoglobin A1C 9.2 % (<5.7)
[2021-11-29 10:45] LABS: Thyroid Stimulating Hormone Reflex 0.394 uIU/mL (0.465-4.68)
[2021-11-29 11:55] LABS: Free T4 Free Thyroxine Reflex 1.15 ng/dL (0.78-2.19)
[2021-11-29 12:21] LABS: Glucose Point of Care 199 mg/dl (65-105)
[2021-11-29 12:41] LABS: Total Triiodothyronine (T3) 1.16 NG/ML (0.97-1.69)
[2021-11-29 16:13] LABS: Glucose Point of Care 262 mg/dl (65-105)
[2021-11-29] MEDS: INSULIN ASPART (*BKC) 100 UNITS/ML SUB-Q (16:18)
--- NOTE | 2021-11-29 16:25 | PDONCCN ---
HPI - Date of Consult Date/Time: 11/29/21 16:25 Requesting Physician: Pamela Marie MD Primary Care Provider: Coy Kirkland, - Consult Narrative Reason for consult: Hypercoagulable state Narrative: Leeann Cochran is a 66 year old female with history of stroke and family history of blood clotting disorder in mother and the sister initially admitted to the hospital on October 29, 2021 with chest pain and shortness of breath for 1 day history. She had CT chest done that showed extensive right and left PE with right heart strain. Doppler study showed DVT involving the right popliteal and posterior tibial veins. She was treated with Lovenox and subsequently discharged home on Eliquis. Patient now came back into the hospital on November 05 with worsening of left-sided chest pain. She has been religiously taking Eliquis. CT chest showed extensive persistent bilateral PE including main left and right pulmonary arteries and bilateral saddle emboli. There was bilateral upper and lower pulmonary emboli as well. Patient came back 3rd time on November 28 with increasing chest pain and shortness of breath. CTA chest done on November 27 shows a mild improvement in subacute pulmonary emboli and moderate clot burden. Small bilateral pulmonary infarction. She denies any bleeding and bruising. No other new complaints. Review of Systems - Review of Systems All systems reviewed & are unremarkable except as noted in HPI and bel - Neurologic Reports system reviewed and no additional complaints, except as documented, Reports hearing normal [facility] Medical History: Medical History (Last Updated 11/28/21 @ 15:20 by Iva Moody NP) Anxiety Anxiety Arthritis CAD (coronary artery disease) CAD (coronary atherosclerotic disease) Cerebrovascular accident Chronic renal failure, stage 3 (moderate) CVA (cerebral vascular accident) Depression Depression Diabetes Diabetes type 2, controlled Gastric ulcer GERD (gastroesophageal reflux disease) GERD (gastroesophageal reflux disease) Goiter Heart attack History of angina History of left heart catheterization HLD (hyperlipidemia) HTN (hypertension) Hyperlipidemia Hypertension Hypothyroidism Hypothyroidism Non-ST elevation [place] (NSTEMI) Peripheral neuropathy Pulmonary emboli Pulmonary emboli Renal disease Stroke-like symptom TIA (transient ischemic attack) Surgical History: Surgical History (Last Updated 11/28/21 @ 13:57 by Iva Moody NP) History of section History of cholecystectomy History of partial thyroidectomy History of percutaneous coronary intervention History of thyroidectomy Hx of cardiac catheterization with cardiac stent placement times 2 Hx of section Hx of cholecystectomy Family History: Family History (Last Reviewed 11/28/21 @ 23:56 by Anthony Zarate RN) Mother Cerebrovascular accident Father Lung cancer Sibling Lung cancer Leukemia Sibling Kidney disease Sibling Family history of malignant neoplasm Family history of kidney disease Family history of lung cancer Patient's sister is Mother Family history of diabetes mellitus in first degree relative Patient's mother is Father Family history of lung cancer Patient's father is - Social History Social History: Social History (Last Updated 11/28/21 @ 15:08 by Iva Moody NP) Alcohol Use: Alcohol intake: never Substance Use: Substance use: never Others: Spiritual care concerns: No Smoking Status: Smoking status: Former smoker Tobacco type: cigarettes Smoking end date: 11/02/75 Smoking Pack-years: Smoking packs per day: 0.25 Smoking cigarettes per day: 5.0 Years smoked: 2 Smoking pack-years: 0.50 Meds Home Medications Medication Instructions Recorded Confirmed Type glipizide 10 mg tablet 10 mg PO BID 04/16/20
--- NOTE | 2021-11-29 16:32 | PM.TDS ---
Transfer Discharge Sum: Prov Provider Date of admission: 11/29/21 13:43 Primary care physician: Coy Kirkland, Admitting clinician: Pamela Marie MD Consults: 11/28/21 13:39 Consult to Physician Routine Comment: Consulting Provider: Beau Marmolejo Reason for consultation: pe's, ? treatment and/or prophylaxis failure Has provider been notified: No DS: Admitting Diagnosis Discharge Date 11/29/21 Admitting Diagnosis (1) Pulmonary embolism: Qualifiers: Acute cor pulmonale presence: unspecified Chronicity: unspecified Pulmonary embolism type: unspecified Qualified Code(s): I26.99 - Other pulmonary embolism without acute cor pulmonale Code(s): I26.99 - Other pulmonary embolism without acute cor pulmonale Status: Acute Assessment and Plan: Continue with heparin drip as per heparin drip protocol. According to her discharge summary the patient was going to transition to Coumadin. According to her discharge from earlier this month the patient is chest discomfort from her pulmonary emboli was not totally controlled but she had been using [place] to help with the discomfort. Will continue with the [place]. Also hematology has been consulted. According to her discharge summary from earlier this month that [facility] had been notified to discuss treatment planned and it was noted that there was no intervention required. The patient did have an echo today. It is comparable to her last echo earlier this month. (2) HTN (hypertension): Code(s): I10 - Essential (primary) hypertension Status: Acute Assessment and Plan: The patient's blood pressure is soft today however she had been receiving Dilaudid in the emergency room. I will continue with her home metoprolol but I am holding her losartan due to her renal failure. (3) Diabetes type 2, controlled: Code(s): E11.9 - Type 2 diabetes mellitus without complications Status: Acute Assessment and Plan: I will hold her metformin and use a sliding scale insulin with Accu-Cheks AC and HS. Continue with her Lantus since she uses daily. Patient's creatinine is anywhere from 1.1-1.3 and it is noted to be 1.3 today. Continue with glipizide. (4) Hypothyroidism: Code(s): E03.9 - Hypothyroidism, unspecified Status: Acute Assessment and Plan: Continue with home medication. At this point I do not see any home medication (5) CAD (coronary artery disease): Code(s): I25.10 - Atherosclerotic heart disease of [place] coronary artery without angina pectoris Status: Acute Assessment and Plan: Continue with metoprolol and Plavix (6) Chronic renal failure, stage 3 (moderate): Code(s): N18.30 - Chronic kidney disease, stage 3 unspecified Status: Acute Assessment and Plan: Appears to be at baseline. DS: Discharge Diagnosis Discharge Diagnosis (1) Pulmonary hypertension: Code(s): I27.20 - Pulmonary hypertension, unspecified Status: Acute (2) Chronic renal failure, stage 3 (moderate): Code(s): N18.30 - Chronic kidney disease, stage 3 unspecified Status: Acute (3) Pulmonary embolism: Qualifiers: Acute cor pulmonale presence: unspecified Chronicity: unspecified Pulmonary embolism type: unspecified Qualified Code(s): I26.99 - Other pulmonary embolism without acute cor pulmonale Code(s): I26.99 - Other pulmonary embolism without acute cor pulmonale Status: Acute (4) DVT (deep venous thrombosis): Code(s): I82.409 - Acute embolism and thrombosis of unspecified deep veins of unspecified lower extremity Status: Acute (5) HTN (hypertension): Code(s): I10 - Essential (primary) hypertension Status: Acute (6) Diabetes type 2, controlled: Code(s): E11.9 - Type 2 diabetes mellitus without complications Status: Acute (7) Renal disease: Code(s): N28.9 - Disorder of kidney and ure
== END 2021-11-29 18:00 | disposition short-term general hospital (02) | DRG 176 ==
LOC: ANHED 11-28 03:20 → ANHIMU 11-28 16:21 → ANHCPC 11-28 20:56
PROVIDERS: Internal Medicine Hematology & Oncology; Nurse Practitioner; Admitting Provider Internal Medicine; Emergency Provider Emergency Medicine; PCP Family Medicine; Visit Provider Hospitalist
DX: I26.99 Other pulmonary embolism without acute cor pulmonale (principal); I82.441 Acute embolism and thrombosis of right tibial vein; I82.431 Acute embolism and thrombosis of right popliteal vein; D68.59 Other primary thrombophilia; I27.20 Pulmonary hypertension, unspecified; E03.9 Hypothyroidism, unspecified; E11.22 Type 2 diabetes mellitus with diabetic chronic kidney disease; E11.42 Type 2 diabetes mellitus with diabetic polyneuropathy; I25.10 Atherosclerotic heart disease of native coronary artery without angina pectoris; I12.9 Hypertensive chronic kidney disease with stage 1 through stage 4 chronic kidney disease, or unspecified chronic kidney disease; I25.2 Old myocardial infarction; K21.9 Gastro-esophageal reflux disease without esophagitis; M54.50 Low back pain, unspecified; N18.30 Chronic kidney disease, stage 3 unspecified; Z90.49 Acquired absence of other specified parts of digestive tract; Z20.822 Contact with and (suspected) exposure to COVID-19; Z86.73 Personal history of transient ischemic attack (TIA), and cerebral infarction without residual deficits; Z87.891 Personal history of nicotine dependence; Z79.01 Long term (current) use of 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; Z79.84 Long term (current) use of oral hypoglycemic drugs; Z79.4 Long term (current) use of insulin; Z95.5 Presence of coronary angioplasty implant and graft; Z90.89 Acquired absence of other organs
CPT/HCPCS: 36415; 71046; 71275; 80053; 82948; 83036; 83605; 83615; 83690; 83735; 83880; 84439; 84443; 84480; 84484; 85025; 85610; 85730; 93005; 93308; 96365; 96366; 96375; 96376; 99285; A9270; C8924; C8929; C9803; G0378; J1170; J1644; J1815; Q9967; U0003; U0005

== ENCOUNTER 2022-02-23 21:20 | Observation (INO) | payer MEDICARE, MEDICAID, SELFPAY ==
--- NOTE | ~2022-02-23 | CT_ITS ---
EXAMINATION: CTA chest PE protocol DATE: 02/23/2022 23:34 INDICATION: Left chest pain. TECHNIQUE: Computed tomography angiography (CTA) of the chest was performed with 100 mL Omnipaque-350 intravenous contrast timed to evaluate the pulmonary arteries. Coronal maximum intensity projection 3D-reconstructions were created by the technologist. Automated exposure control and iterative reconst ruction technique were employed. The dose-length product was 642.08 mGy-cm. COMPARISON: Chest CT 11/28/2021 FINDINGS: The lungs demonstrate mild atelectasis. There are mild peripheral airspace opacities in rig ht middle lobe, right lower lobe, and left upper lobe. No pleural effusion. There is a multinodular g oiter status post left hemithyroidectomy. The heart size is normal. There are coronary artery calcifi cations. No pericardial effusion. There are bilateral pulmonary emboli including in the distal main r ight and left pulmonary arteries. The emboli are predominantly at the carmen of the vessels and show a weblike morphology in some areas. There is mild intrahepatic biliary duct dilatation, likely seconda ry to cholecystectomy. There is mild thoracic spondylosis. There are chronic compression fractures of T4 and T5. IMPRESSION: 1. Bilateral pulmonary emboli with interval improvement, likely chronic. 2. Mild peripheral airspace opacities in right middle lobe, right lower lobe, and left upper lobe in a similar distribution to the prior exam, likely infarcts. Reviewed, dictated and finalized at location A. IMPRESSION: 1. Bilateral pulmonary emboli with interval improvement, likely chronic. 2. Mild peripheral airspace opacities in right middle lobe, right lower lobe, a nd left upper lobe in a similar distribution to the prior exam, likely infarcts .
[2022-02-23 21:18] VITALS: BP 133/56; PULSE 64; RESP 16; TEMP 36.8; O2SAT 99
--- NOTE | 2022-02-23 21:41 | ECG_ITS ---
Measurements Intervals [place] Rate: 63 P: 1 VT: 150 QRS: 56 QRSD: 84 T: 54 QT: 405 QTc: 416 Interpretive Statements SINUS RHYTHM NORMAL ECG COMPARED TO ECG 11/27/2021 23:57:03 NO SIGNIFICANT CHANGES Electronically Signed On 02-24-2022 16:15:05 CDT by Sarkis Izquierdo M.D.
[2022-02-23 22:24] VITALS: PULSE 64
[2022-02-23] MEDS: MORPHINE SULFATE (*CRX) 4 MG/ML INJ IV PUSH (22:32)
--- NOTE | 2022-02-23 22:49 | ED.CHESTPAIN ---
HPI - Chest Pain General Chief Complaint: Chest Pain Stated Complaint: chest pain Time Seen by Provider: 02/23/22 21:23 History of Present Illness HPI narrative: Patient is a 66-year-old female who presents ER with left-sided chest pain. Tearing over the left breast and radiates around her left chest wall. Reports she has playing cards when symptoms began. Feels similar to previous PE. She has been compliant with her apixaban. Reports some mild swelling in her feet that is not new. No calf pain. No recent trauma. No dyspnea or hemoptysis. Mild discomfort with deep breaths. Pain waxes and wanes in intensity. Has not found alleviating factor. Related Data Home Medications Medication Instructions Recorded Confirmed glipizide 10 mg tablet 10 mg PO BID 04/16/20 02/24/22 metformin 500 mg tablet 500 mg PO BID 04/16/20 02/24/22 atorvastatin 80 mg tablet 80 mg PO DAILY 06/04/20 02/24/22 gabapentin 600 mg tablet 600 mg PO TID 06/04/20 02/24/22 losartan 50 mg tablet 50 mg PO DAILY 06/04/20 02/24/22 Lantus U-100 Insulin 30 unit SUBCUT DAILY 08/04/21 02/24/22 escitalopram oxalate 20 mg PO DAILY 08/04/21 02/24/22 melatonin 20 mg PO HS 08/04/21 02/24/22 nitroglycerin 0.4 mg SUBLINGUAL Q5M PRN 08/04/21 02/24/22 diclofenac sodium 1 ea TOPICAL Q6-8H PRN 10/20/21 02/24/22 Eliquis 5 mg PO BID 11/05/21 02/24/22 fenofibrate nanocrystallized 145 mg PO DAILY 11/29/21 02/24/22 acetaminophen 1,000 mg PO Q6H PRN 02/24/22 02/24/22 aspirin 81 mg PO DAILY 02/24/22 02/24/22 dapagliflozin [Farxiga] 10 mg PO DAILY 02/24/22 02/24/22 bdkzuzmk-[id number]-[id number]-FA-lutein 1 tablet PO DAILY 02/24/22 02/24/22 [Centrum Silver Women] omeprazole 20 mg PO DAILY 02/24/22 02/24/22 Allergies Allergy/AdvReac Type Severity Reaction Status Date / Time latex Allergy Unknown Hives Verified 11/27/21 23:54 Review of Systems Review of Systems: All systems reviewed & are unremarkable except as noted in HPI and below Constitutional: Constitutional: Denies chills, Denies fever(s) and Denies weakness ENT: Denies nasal congestion and Denies sore throat Cardiovascular: Cardiovascular: Reports chest pain, Denies rapid heart rate and Denies radiating jaw, neck or arm pain Respiratory: Respiratory: Denies cough, Denies dyspnea and Denies wheezing Gastrointestinal: Gastrointestinal: Denies abdominal pain, Denies nausea and Denies vomiting Genitourinary: Genitourinary: Denies nocturia and Denies flank pain Neurologic: Denies headache(s), Denies focal weakness and Denies numbness PMFSH Past Medical History Medical History (Updated 02/24/22 @ 07:24 by Martin Dangelo MD) Anxiety Anxiety Arthritis CAD (coronary artery disease) CAD (coronary atherosclerotic disease) Cerebrovascular accident Chronic renal failure, stage 3 (moderate) CVA (cerebral vascular accident) Depression Depression Diabetes Diabetes type 2, controlled Gastric ulcer GERD (gastroesophageal reflux disease) GERD (gastroesophageal reflux disease) Goiter Heart attack History of angina History of left heart catheterization HLD (hyperlipidemia) HTN (hypertension) Hyperlipidemia Hypertension Hypothyroidism Hypothyroidism Non-ST elevation [place] (NSTEMI) Peripheral neuropathy Pulmonary emboli Pulmonary emboli Renal disease Stroke-like symptom TIA (transient ischemic attack) Surgical History Surgical History (Updated 11/29/21 @ 16:34 by Beau Marmolejo MD) History of section History of cholecystectomy History of partial thyroidectomy History of percutaneous coronary intervention History of thyroidectomy Hx of cardiac catheterization with cardiac stent placement times 2 Hx of section Hx of cholecystectomy Family History Family History Mother Cerebrovascular accident Father Lung cancer Sibling Lung cancer Leukemia Sibling Kidney disease Sibling Family history of malignant neoplasm Family history
[2022-02-23 22:52] LABS: Basophils Absolute Auto 0.1 K/mm3 (0.0-0.1); Eosinophils Absolute Auto 0.1 K/mm3 (0-0.3); Eosinophils Percent Auto 1.8 % (0-4.4); Hemoglobin 10.9 g/dL (12.0-15.0); Immature Granulocyte Absolute 0.02 K/mm3 (0.00-0.031); Immature Granulocyte Percent A 0.3 % (0-0.5); Lymphocytes Absolute Auto 2.45 K/mm3 (0.9-3.2); Lymphocytes Percent Auto 41.1 % (18.3-44.2); Mean Corpuscular HGB Conc 31.1 g/dl (32-36); Mean Corpuscular Hemoglobin 27.6 pg (26-34); Mean Corpuscular Volume 88.6 fl (80-100); Mean Platelet Volume 9.4 fl (7.4-10.4); Monocytes Absolute Auto 0.7 K/mm3 (0.1-0.6); Monocytes Percent Auto 10.9 % (2.6-8.5); Neutrophils Absolute Auto 2.7 K/mm3 (1.3-6.7); Neutrophils Percent Auto 44.9 % (45.5-73.1); Platelet Count Result 296 k/mm3 (150-375); Red Blood Count 3.95 M/mm3 (4.2-5.4); Red Cell Distribution Width 17.5 % (11.5-14.5)
[2022-02-23 23:04] LABS: Prothrombin Time 13.2 Seconds (11.1-14.7)
[2022-02-23 23:05] LABS: Partial Thromboplastin Time 26.5 SECONDS (22.3-36.8)
[2022-02-23 23:10] LABS: Alanine Aminotransferase 20 U/L (4-35); Albumin Level 4.1 g/dL (3.5-5.1); Alkaline Phosphatase 45 U/L (38-126); Anion Gap 7 mmol/L (8-16); Aspartate Amino Transferase 30 U/L (14-36); Bilirubin,Total 0.1 mg/dL (0.2-1.3); Blood Urea Nitrogen 36 mg/dL (7-17); Carbon Dioxide 25 mmol/L (22-30); Chloride 103 mmol/L (98-107); Estimated CRCL calculation 36 ml/min; Estimated Glomerular Filt Rate 41; Glucose 205 mg/dL (65-110); Potassium 4.6 mmol/L (3.4-5.0); Sodium 135 mmol/L (137-145)
--- NOTE | 2022-02-23 23:10 | PC.NURSE ---
Assumed care of pt at this time, report taken from Anel NOLAN. Pt alert and upright stretcher, states pain has improved with medication.
[2022-02-23 23:22] LABS: Troponin I < 0.012 ng/mL (0.000-0.034)
[2022-02-24] VITALS (12 sets, daily range): BP systolic 121–146; BP diastolic 56–91; PULSE 63–82; RESP 16–20; TEMP 35.8–36; O2SAT 96–99; BMI 31.2
--- NOTE | 2022-02-24 01:11 | PM.IMHP ---
H&P: HPI History of Present Illness Date/Time: 02/24/22 01:11 Chief Complaint: Chest pain. Narrative: This is a 66-year-old female with past medical history significant for chronic pulmonary embolism, dyslipidemia, type 2 diabetes mellitus, coronary artery disease, peripheral neuropathy, chronic pain, hypertension, pulmonary hypertension, chronic kidney disease. Patient presented to emergency room due to chest pain located to the precordial area nonradiating to the Aravind or neck or shoulder, patient was sitting in by the table when the pain occurred patient was diagnosed with acute pulmonary embolism in November requiring transfer to tertiary facility. Today CT angiogram did not showed any acute pulmonary embolism. Patient has been in her usual state of health, denies any dizziness, any nausea, any vomiting, any heartburn, no shortness of breath, no cough, no sputum production, no PND, no orthopnea, no leg swelling, no calves pain. Patient was given an aspirin on route to the hospital preliminary workup has been essentially nonrevealing. Patient has been admitted for further evaluation management and treatment. Review of Systems Review of Systems: Chest pain. Constitutional: Constitutional: Denies chills, Denies fatigue, Denies fever(s) and Denies night sweats Eyes: Eyes: Denies change in vision ENT: Denies dysphagia, Denies vertigo, Denies dizziness, Denies nasal congestion, Denies nasal discharge, Denies nasal obstruction and Denies odynophagia Cardiovascular: Cardiovascular: Reports chest pain, Denies chest pain with activity, Denies diaphoresis, Denies syncope, Denies leg edema, Denies radiating jaw, neck or arm pain and Denies palpitations Respiratory: Respiratory: Denies cough and Denies dyspnea Gastrointestinal: Gastrointestinal: Denies abdominal pain, Denies dyspepsia, Denies heartburn, Denies diarrhea and Denies nausea Musculoskeletal: Musculoskeletal: Denies myalgias Integumentary/Breasts: Skin/Breast: Denies rash Neurologic: Denies focal weakness and Denies Sensory deficit (Neuro) Psychiatric: Psychiatric: Reports no additional psychiatric complaints and Reports as per HPI Endocrine: Endocrine: Denies cold intolerance, Denies heat intolerance, Denies polyphagia, Denies polydipsia and Denies palpitations Hematologic/Lymphatic: Hematologic/Lymphatic: Reports no additional hematologic/lymphatic complaints and Reports as per HPI Allergic/Immunologic: Allergic/Immunologic: Reports no additional allergic/immunologic complaints and Reports as per HPI PMFSH Past Medical History Medical History (Updated 02/24/22 @ 03:12 by Alberto Martini MD) Anxiety Anxiety Arthritis CAD (coronary artery disease) CAD (coronary atherosclerotic disease) Cerebrovascular accident Chronic renal failure, stage 3 (moderate) CVA (cerebral vascular accident) Depression Depression Diabetes Diabetes type 2, controlled Gastric ulcer GERD (gastroesophageal reflux disease) GERD (gastroesophageal reflux disease) Goiter Heart attack History of angina History of left heart catheterization HLD (hyperlipidemia) HTN (hypertension) Hyperlipidemia Hypertension Hypothyroidism Hypothyroidism Non-ST elevation [place] (NSTEMI) Peripheral neuropathy Pulmonary emboli Pulmonary emboli Renal disease Stroke-like symptom TIA (transient ischemic attack) Surgical History Surgical History (Updated 11/29/21 @ 16:34 by Beau Marmolejo MD) History of section History of cholecystectomy History of partial thyroidectomy History of percutaneous coronary intervention History of thyroidectomy Hx of cardiac catheterization with cardiac stent placement times 2 Hx of section Hx of cholecystectomy Family History Family History Mother Cerebrovascular accident Father Lung cancer Sibling Lung cancer Leukemia Sibling Kidney disease Sibling Family history of malignant neop
[2022-02-24 02:00] LABS: Troponin I < 0.012 ng/mL (0.000-0.034)
[2022-02-24] MEDS: MORPHINE SULFATE (*CRX) 4 MG/ML INJ IV PUSH (02:01)
[2022-02-24 02:13] LABS: SARS-CoV-2 RNA PCR Negative
--- NOTE | 2022-02-24 02:28 | PC.NURSE ---
Sbar faxed to .
--- NOTE | 2022-02-24 02:57 | ADMGEN ---
This patient, Leeann Cochran, was admitted to IMU Room 205-02. Patient/family oriented to hospital policies and general routines including ID bracelet, bed and alarms, visiting hours, pain management, procedures, bathroom and other care routines, personal items, smoking policy, room service/diet, and visiting hours. Information on how to activate the Rapid Response Team has been discussed. Patient/Family are encouraged to report perceived risks to care and to ask questions if they do not understand what they are told or what they should do.
[2022-02-24 05:19] LABS: Troponin I < 0.012 ng/mL (0.000-0.034)
[2022-02-24 07:59] LABS: Glucose Point of Care 99 mg/dl (65-105)
[2022-02-24 09:43] LABS: Hematocrit 35.4 % (37.0-47.0); Mean Corpuscular HGB Conc 31.1 g/dl (32-36); Mean Corpuscular Hemoglobin 27.6 pg (26-34); Mean Corpuscular Volume 88.9 fl (80-100); Mean Platelet Volume 9.7 fl (7.4-10.4); Platelet Count Result 312 k/mm3 (150-375); Red Blood Count 3.98 M/mm3 (4.2-5.4); Red Cell Distribution Width 17.7 % (11.5-14.5); White Blood Count 6.6 K/mm3 (4.5-10.0)
[2022-02-24] MEDS: HYDROcodone/acetaminophen (*CRX) 5-325 MG TABLET 1 TAB PO (10:01)
[2022-02-24 10:05] LABS: Anion Gap 9 mmol/L (8-16); Blood Urea Nitrogen 33 mg/dL (7-17); Carbon Dioxide 26 mmol/L (22-30); Chloride 102 mmol/L (98-107); Estimated CRCL calculation 40 ml/min; Estimated Glomerular Filt Rate 45; Glucose 98 mg/dL (65-110); Potassium 4.6 mmol/L (3.4-5.0); Sodium 137 mmol/L (137-145)
[2022-02-24 10:09] LABS: Hemoglobin A1C 7.3 % (<5.7)
[2022-02-24] MEDS: INSULIN GLARGINE (*BKC) 100 UNITS/ML 20 UNITS SUB-Q (11:05)
--- NOTE | 2022-02-24 11:05 | PM.CNCAR ---
Assessment and Plan Additional Plan This is a 66-year-old woman presenting with chest pain recurrent across the anterior aspect of the chest yesterday. She does have a history of coronary artery disease as detailed in my note and previous notes. Despite the symptoms there is no objective evidence of acute coronary syndrome her electrocardiogram and biomarkers are normal. It was I would conclude that these symptoms have to do with residual of pulmonary thromboembolic disease. The extensive amount of thrombus burden that was identified all in October of last year will not resolve quickly and may not resolve completely for the long-term. At this point I would not pursue further cardiac evaluation it is important to continue her systemic anticoagulation I will resume her apixaban at this time. Sarkis Izquierdo MD [facility] History of Present Illness History of Present Illness Consult date/time: 02/24/22 11:05 Consult reason: chest pain Reason For Visit: Chest Pain Narrative: This is a 66-year-old woman I am seeing at the request of the hospitalist this morning because of chest pain with which she was admitted to the hospital last evening. The patient is known to our practice with a history of coronary artery disease and follows with my partner Dr. Garcia. The patient regarding her coronary disease underwent stenting of her left anterior descending back in 2016 at another hospital. She presented with recurrent chest pain symptoms and underwent treatment of a high-grade lesion in the posterior descending with stenting in 2018. She has been followed in our office since then and has not had any clinically significant ischemic issues since then. She has been significantly ill for the last several months with a large bilateral pulmonary embolism. She came into this hospital with atypical sounding chest pain was found to have extensive pulmonary embolization in both right and left pulmonary arteries and echocardiographic evidence of pulmonary hypertension and RV systolic dysfunction. She was treated with anticoagulation and I believe has been on apixaban 5 mg twice daily up until this admission. She was subsequently hospitalized here a couple of more times with recurrent chest pain episodes and it looks like in November was transferred over to [facility] for a consultation regarding a pulmonary thromboembolectomy. I do not have the chart available to me as I dictate this but the patient states that she was there for about 48 hours and the decision was made to not perform any procedures as the risks were higher than the benefit. She continues of course to take systemic anticoagulation as described above. She came to the hospital yesterday when she noticed a recurrence of cramping pain in the center of the chest in the substernal region region radiating to both the left and right sides of the chest that occurred while she was at home. Upon arrival to the emergency room she was of course evaluated with an ECG that was normal. She has had a series of troponin levels that are also normal. I did review the patient's chart and current orders her apixaban has not been room continued for some reason. She has some mild residual discomfort this morning she states that it is improved with analgesic medication. The patient was correctly told by the consultants at [facility] that it would take the better part of a year for this amount of thrombus to resolve and for this reason I shared with her that the symptoms are not surprising and are easily attributed it to her PE. Review of Systems Constitutional: Constitutional: Reports no additional constitutional complaints Eyes: Eyes: Reports no additional eye complaints ENT: Reports system reviewed and no additional complaints, except as documented Cardiovascular: Cardiovascular: Reports as per HPI Respiratory: Respiratory: Reports no additional respiratory complaints Gastrointestinal: Gastrointestinal: Reports n
[2022-02-24] MEDS: ASPIRIN 81 MG ENTERIC TABLET PO (11:12)
[2022-02-24] MEDS: ESCITALOPRAM OXALATE 10 MG TABLET 20 MG PO (11:12)
[2022-02-24] MEDS: ATORVASTATIN 40 MG TABLET 80 MG PO (11:13)
[2022-02-24] MEDS: THERAPEUTIC MULTIVITAMINS/MINERALS TAB (*BKC) 1 TABLET PO (11:14)
[2022-02-24] MEDS: PANTOPRAZOLE 40 MG TABLET PO (11:14)
[2022-02-24] MEDS: FENOFIBRATE NANOCRYSTALLIZED 145 MG TABLET PO (11:14)
[2022-02-24] MEDS: LOSARTAN POTASSIUM 50 MG TABLET PO (11:15)
[2022-02-24] MEDS: APIXABAN 5 MG TABLET PO (12:00)
[2022-02-24] MEDS: GABAPENTIN 300 MG CAPSULE 600 MG PO (12:00)
[2022-02-24 12:05] LABS: Glucose Point of Care 101 mg/dl (65-105)
--- NOTE | 2022-02-24 14:57 | PM.DS ---
DS: Admitting Diagnosis Discharge Date 02/24/2022 Admitting Diagnosis Pleuritic chest pain DS: Discharge Diagnosis Discharge Diagnosis (1) Atypical chest pain: Code(s): R07.89 - Other chest pain Status: Acute Assessment and Plan: Presented with aching chest discomfort from the left lateral chest wall to sternum. Troponins negative. She was seen in consultation by cardiology. She has had similar pain to this in the past. [place] to be related to her pulmonary embolism with moderate clot burden. In November 2021, she was transferred for vascular evaluation to consider thrombectomy, though this was deferred. Repeat CTA performed during this admission showed bilateral pulmonary emboli with interval improvement. Also demonstrated likely small pulmonary infarcts, unchanged from prior CTA in November 2021. May benefit from pulmonology referral as an outpatient per PCP. Continue Eliquis. Oxygen saturations remained stable on room air. She had no supplemental O2 requirement. Supportive care for pleuritic discomfort including analgesics, ice, heat as needed (2) HTN (hypertension): Code(s): I10 - Essential (primary) hypertension Status: Acute Assessment and Plan: Blood pressures reviewed and were appropriate. Continue losartan (3) CAD (coronary artery disease): Code(s): I25.10 - Atherosclerotic heart disease of [place] coronary artery without angina pectoris Status: Acute Assessment and Plan: No acute issues. Continue medication regimen and Cardiology follow-up as scheduled. (4) Chronic renal failure, stage 3 (moderate): Code(s): N18.30 - Chronic kidney disease, stage 3 unspecified Status: Acute Assessment and Plan: Renal function remained consistent with baseline (5) Pulmonary embolism: Qualifiers: Acute cor pulmonale presence: unspecified Chronicity: unspecified Pulmonary embolism type: unspecified Qualified Code(s): I26.99 - Other pulmonary embolism without acute cor pulmonale Code(s): I26.99 - Other pulmonary embolism without acute cor pulmonale Status: Acute Assessment and Plan: Plan as above (6) Diabetes type 2, controlled: Code(s): E11.9 - Type 2 diabetes mellitus without complications Status: Acute Assessment and Plan: A1c is 7.3. Manage during admission with Accu-Cheks, sliding scale insulin, hypoglycemic protocol. Continue home regimen including Lantus 30 units daily, metformin and glipizide DS: Summary Hospital Course Hospital Course: Date of admission: 02/23/2022 Date of discharge: 02/24/2022 Leeann Cochran is a 66-year-old female with a history of CAD, CVA, CKD, type 2 diabetes mellitus, hypertension, hyperlipidemia, and pulmonary emboli on anticoagulation who presented to the emergency department on 02/23/2022 with complaints of left chest wall pain. On presentation to the ED, vital signs are stable, troponin negative, EKG showed normal sinus rhythm. She was admitted to the hospitalist service for further evaluation and management. Please see above for further details. Symptoms felt to be pleuritic in nature secondary to pulmonary embolism. She was seen in consultation by Cardiology and no further evaluation/intervention was required. She did have improvement in her symptoms and was comfortable with plans for discharge home given this overall improvement. She was determined to no longer require inpatient care and was discharged in hemodynamically stable condition on 02/24/2022. I discussed with the patient worrisome signs and symptoms for which to return and she was educated on her medications. She will follow-up with her primary care provider. Status at Discharge Functional status at discharge: independent ambulation Overall status at discharge: patient is progressing back to baseline Time Spent with Patient Time attestation: Total time spent providing and/or coordin
== END 2022-02-24 16:57 | disposition home or self-care (01) ==
LOC: ANHED 22:07 → ANHIMU 02-24 02:28
PROVIDERS: Physician Assistant; Admitting Provider Internal Medicine; Emergency Provider Emergency Medicine; PCP Family Medicine; Visit Provider Internal Medicine
DX: R07.89 Other chest pain (principal); I25.10 Atherosclerotic heart disease of native coronary artery without angina pectoris; N18.30 Chronic kidney disease, stage 3 unspecified; E11.22 Type 2 diabetes mellitus with diabetic chronic kidney disease; K21.9 Gastro-esophageal reflux disease without esophagitis; E78.5 Hyperlipidemia, unspecified; E03.9 Hypothyroidism, unspecified; I12.9 Hypertensive chronic kidney disease with stage 1 through stage 4 chronic kidney disease, or unspecified chronic kidney disease; Z86.73 Personal history of transient ischemic attack (TIA), and cerebral infarction without residual deficits; Z86.711 Personal history of pulmonary embolism; Z79.01 Long term (current) use of 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; Z87.891 Personal history of nicotine dependence; Z20.822 Contact with and (suspected) exposure to COVID-19
CPT/HCPCS: 36415; 71275; 80048; 80053; 82948; 83036; 84484; 85025; 85027; 85610; 85730; 93005; 96374; 96376; 99285; A9270; C9803; G0378; J1815; J2270; Q9967; U0003; U0005

== ENCOUNTER 2022-04-17 17:01 | Emergency (ER) | payer MEDICARE, MEDICAID, SELFPAY ==
--- NOTE | ~2022-04-17 | US_ITS ---
US venous doppler [facility] DATE: 04/17/2022 19:30 INDICATION: Left leg swelling. History of right lower extremity deep venous thrombosis TECHNIQUE: Real-time and color flow imaging and Doppler analysis of the of the veins of the left lowe r extremity COMPARISON: None FINDINGS: The left greater saphenous vein is patent. There is spontaneous and phasic flow and normal augmentation and color flow signal and normal compression of the deep veins of the left leg. IMPRESSION: No evidence of deep venous thrombosis of left leg Reviewed, dictated and finalized at [facility] Reviewed, dictated and finalized at [facility].
[2022-04-17 17:13] VITALS: BP 171/60; PULSE 78; RESP 18; TEMP 37; O2SAT 96
--- NOTE | 2022-04-17 17:47 | PC.NURSE ---
PT NOT FOUND IN WAITING ROOM OR OUTSIDE
[2022-04-17 19:58] VITALS: BP 144/59; PULSE 66; RESP 14; O2SAT 97
--- NOTE | 2022-04-17 20:06 | ED.EXTPRO ---
HPI - Extremity Problem General Chief complaint: Extremity Problem,Nontraumatic Stated complaint: L LEG SWELLING Time Seen by Provider: 04/17/22 19:58 History of Present Illness HPI Narrative: 66-year-old female presents emergency room secondary swelling to the left lower extremity going on for approximately 2 days. Patient had history of DVTs and pulmonary embolism. She is on Eliquis taken twice a day and she states she is compliant with taking her medication. She was first diagnosed with DVT and a pulmonary embolism back in October of last year. At that time she had a DVT in her right lower extremity. Denies any chills or fevers. No cough congestion. Denies any chest pain. No shortness of breath. Related Data Home Medications Medication Instructions Recorded Confirmed glipizide 10 mg tablet 10 mg PO BID 04/16/20 02/24/22 metformin 500 mg tablet 500 mg PO BID 04/16/20 02/24/22 atorvastatin 80 mg tablet 80 mg PO DAILY 06/04/20 02/24/22 gabapentin 600 mg tablet 600 mg PO TID 06/04/20 02/24/22 losartan 50 mg tablet 50 mg PO DAILY 06/04/20 02/24/22 escitalopram oxalate 20 mg tablet 20 mg PO DAILY 08/04/21 02/24/22 insulin glargine 100 unit/mL 30 unit subcut DAILY 08/04/21 02/24/22 subcutaneous solution (Lantus U-100 Insulin) melatonin 10 mg tablet 20 mg PO HS 08/04/21 02/24/22 nitroglycerin 0.4 mg sublingual 0.4 mg sublingual Q5M PRN Chest 08/04/21 02/24/22 tablet Pain diclofenac sodium 1 % topical gel 1 ea topical Q6-8H PRN Pain 10/20/21 02/24/22 apixaban 5 mg tablet (Eliquis) 5 mg PO BID pulmonary embolism 11/05/21 02/24/22 fenofibrate nanocrystallized 145 145 mg PO DAILY 11/29/21 02/24/22 mg tablet acetaminophen 500 mg capsule 1,000 mg PO Q6H PRN Pain 02/24/22 02/24/22 aspirin 81 mg tablet 81 mg PO DAILY 02/24/22 02/24/22 dapagliflozin 10 mg tablet 10 mg PO DAILY 02/24/22 02/24/22 (Farxiga) multivit with 1 tablet PO DAILY 02/24/22 02/24/22 uygbgnkl-[id number]-SK-lutein 8 mg iron-400 mcg-300 mcg tablet (Centrum Silver Women) omeprazole 20 mg capsule,delayed 20 mg PO DAILY 02/24/22 02/24/22 release Allergies Allergy/AdvReac Type Severity Reaction Status Date / Time latex Allergy Unknown Hives Verified 11/27/21 23:54 Review of Systems Review of Systems: CONSTITUTIONAL: Denies fever, chills, or sweats. EYES: Denies visual changes, redness, or discharge. ENT: Denies rhinorrhea, congestion, sore throat, or otalgia. CARDIOVASCULAR: Denies chest pain, palpitations, or edema. RESPIRATORY: Denies cough or dyspnea. GASTROINTESTINAL: Denies abdominal pain, nausea, vomiting, or diarrhea. GENITOURINARY: Denies dysuria or hematuria. SKIN: Denies rash or itching. MUSCULOSKELETAL: Denies back pain, joint pain, or myalgia. Swelling left lower extremity NEUROLOGIC: Denies headache, numbness, or weakness. PSYCHIATRIC: Denies anxiety or depression. [facility] Past Medical History Medical History Anxiety Anxiety Arthritis CAD (coronary artery disease) CAD (coronary atherosclerotic disease) Cerebrovascular accident Chronic renal failure, stage 3 (moderate) CVA (cerebral vascular accident) Depression Depression Diabetes Diabetes type 2, controlled Gastric ulcer GERD (gastroesophageal reflux disease) GERD (gastroesophageal reflux disease) Goiter Heart attack History of angina History of left heart catheterization HLD (hyperlipidemia) HTN (hypertension) Hyperlipidemia Hypertension Hypothyroidism Hypothyroidism Non-ST elevation [place] (NSTEMI) Peripheral neuropathy Pulmonary emboli Pulmonary emboli Renal disease Stroke-like symptom TIA (transient ischemic attack) Surgical History Surgical History History of section History of cholecystectomy History of partial thyroidectomy History of percutaneous coronary intervention History of thyroidectomy Hx of cardiac catheterization with cardiac stent
== END 2022-04-17 20:33 | disposition home or self-care (01) ==
LOC: ANHED 20:21
PROVIDERS: Emergency Provider Emergency Medicine; PCP Family Medicine
DX: R60.0 Localized edema (principal); I25.10 Atherosclerotic heart disease of native coronary artery without angina pectoris; F41.9 Anxiety disorder, unspecified; E11.22 Type 2 diabetes mellitus with diabetic chronic kidney disease; I12.9 Hypertensive chronic kidney disease with stage 1 through stage 4 chronic kidney disease, or unspecified chronic kidney disease; N18.30 Chronic kidney disease, stage 3 unspecified; E11.42 Type 2 diabetes mellitus with diabetic polyneuropathy; E78.5 Hyperlipidemia, unspecified; I25.2 Old myocardial infarction; K21.9 Gastro-esophageal reflux disease without esophagitis; M19.90 Unspecified osteoarthritis, unspecified site; E89.0 Postprocedural hypothyroidism; Z86.73 Personal history of transient ischemic attack (TIA), and cerebral infarction without residual deficits; Z86.711 Personal history of pulmonary embolism; Z86.718 Personal history of other venous thrombosis and embolism; Z79.01 Long term (current) use of 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; Z79.84 Long term (current) use of oral hypoglycemic drugs; Z79.4 Long term (current) use of insulin; Z87.891 Personal history of nicotine dependence
CPT/HCPCS: 93971; 99284

== ENCOUNTER 2022-07-16 08:37 | Emergency (ER) | payer MEDICARE, MEDICAID, SELFPAY ==
--- NOTE | ~2022-07-16 | XR_ITS ---
EXAMINATION: XR shoulder RT min 2V DATE: 07/16/2022 10:32 INDICATION: Right shoulder pain. TECHNIQUE: 4 views of right shoulder were obtained. COMPARISON: Right shoulder radiographs 01/24/2019, chest 2 views 11/28/2021 FINDINGS: Bone alignment is normal. No fracture. Glenohumeral joint is normal. There is severe osteoa rthritis of the acromioclavicular joint. There is calcific tendinitis of the rotator cuff. IMPRESSION: 1. Severe acromioclavicular joint osteoarthritis. 2. Calcific tendinitis of the rotator cuff. Reviewed, dictated and finalized at [facility].
[2022-07-16 09:02] VITALS: BP 190/86; PULSE 110; RESP 18; TEMP 36.5; O2SAT 100
--- NOTE | 2022-07-16 09:15 | PC.NURSE ---
pt observed using both L and R upper extremities to hold up and use cell phone while in lobby. pt appears to be doing so without difficulty or causing self distress.
[2022-07-16 10:13] VITALS: BP 143/78; PULSE 77; RESP 16; O2SAT 99
--- NOTE | 2022-07-16 11:45 | ED.GENADULT ---
HPI - General Adult General Chief complaint: Extremity Injury, Upper Stated complaint: R shoulder pain Time Seen by Provider: 07/16/22 10:10 History of Present Illness HPI narrative: 67-year-old female presents with right shoulder pain. Patient states she was mopping a floor and began to have soreness in the right shoulder that worsens with movement. Pain is in the entire shoulder joint and is nonradiating. Related Data Home Medications Medication Instructions Recorded Confirmed glipizide 10 mg tablet 10 mg PO BID 04/16/20 02/24/22 metformin 500 mg tablet 500 mg PO BID 04/16/20 02/24/22 atorvastatin 80 mg tablet 80 mg PO DAILY 06/04/20 02/24/22 gabapentin 600 mg tablet 600 mg PO TID 06/04/20 02/24/22 losartan 50 mg tablet 50 mg PO DAILY 06/04/20 02/24/22 escitalopram oxalate 20 mg tablet 20 mg PO DAILY 08/04/21 02/24/22 insulin glargine 100 unit/mL 30 unit subcut DAILY 08/04/21 02/24/22 subcutaneous solution (Lantus U-100 Insulin) melatonin 10 mg tablet 20 mg PO HS 08/04/21 02/24/22 nitroglycerin 0.4 mg sublingual 0.4 mg sublingual Q5M PRN Chest 08/04/21 02/24/22 tablet Pain diclofenac sodium 1 % topical gel 1 ea topical Q6-8H PRN Pain 10/20/21 02/24/22 apixaban 5 mg tablet (Eliquis) 5 mg PO BID pulmonary embolism 11/05/21 02/24/22 fenofibrate nanocrystallized 145 145 mg PO DAILY 11/29/21 02/24/22 mg tablet acetaminophen 500 mg capsule 1,000 mg PO Q6H PRN Pain 02/24/22 02/24/22 aspirin 81 mg tablet 81 mg PO DAILY 02/24/22 02/24/22 dapagliflozin 10 mg tablet 10 mg PO DAILY 02/24/22 02/24/22 [facility] multivit with 1 tablet PO DAILY 02/24/22 02/24/22 jmjlafdq-oahz-JC-lutein 8 mg iron-400 mcg-300 mcg tablet (Centrum Silver Women) omeprazole 20 mg capsule,delayed 20 mg PO DAILY 02/24/22 02/24/22 release Allergies Allergy/AdvReac Type Severity Reaction Status Date / Time latex Allergy Unknown Hives Verified 11/27/21 23:54 Review of Systems Review of Systems: CONSTITUTIONAL: Denies fever, chills, or sweats. EYES: Denies visual changes, redness, or discharge. ENT: Denies rhinorrhea, congestion, sore throat, or otalgia. CARDIOVASCULAR: Denies chest pain, palpitations, or edema. RESPIRATORY: Denies cough or dyspnea. GASTROINTESTINAL: Denies abdominal pain, nausea, vomiting, or diarrhea. GENITOURINARY: Denies dysuria or hematuria. SKIN: Denies rash or itching. MUSCULOSKELETAL: Denies back pain, joint pain, or myalgia. NEUROLOGIC: Denies headache, numbness, or weakness. PSYCHIATRIC: Denies anxiety or depression. [facility] Past Medical History Medical History Anxiety Anxiety Arthritis CAD (coronary artery disease) CAD (coronary atherosclerotic disease) Cerebrovascular accident Chronic renal failure, stage 3 (moderate) CVA (cerebral vascular accident) Depression Depression Diabetes Diabetes type 2, controlled Gastric ulcer GERD (gastroesophageal reflux disease) GERD (gastroesophageal reflux disease) Goiter Heart attack History of angina History of left heart catheterization HLD (hyperlipidemia) HTN (hypertension) Hyperlipidemia Hypertension Hypothyroidism Hypothyroidism Non-ST elevation [place] (NSTEMI) Peripheral neuropathy Pulmonary emboli Pulmonary emboli Renal disease Stroke-like symptom TIA (transient ischemic attack) Surgical History Surgical History History of section History of cholecystectomy History of partial thyroidectomy History of percutaneous coronary intervention History of thyroidectomy Hx of cardiac catheterization with cardiac stent placement times 2 Hx of section Hx of cholecystectomy Family History Family History Mother Cerebrovascular accident Father Lung cancer Sibling Lung cancer Leukemia Sibling Kidney disease Sibling Family history of malignant neoplasm Family
[2022-07-16 12:13] VITALS: BP 142/84; PULSE 76; RESP 16; O2SAT 98
[2022-07-16] MEDS: ACETAMINOPHEN 500 MG TABLET 1000 MG PO (12:13)
== END 2022-07-16 12:14 | disposition home or self-care (01) ==
PROVIDERS: Emergency Provider Emergency Medicine; PCP Family Medicine
DX: M19.011 Primary osteoarthritis, right shoulder (principal); E11.22 Type 2 diabetes mellitus with diabetic chronic kidney disease; I12.0 Hypertensive chronic kidney disease with stage 5 chronic kidney disease or end stage renal disease; N18.5 Chronic kidney disease, stage 5; I25.10 Atherosclerotic heart disease of native coronary artery without angina pectoris; I25.2 Old myocardial infarction; E78.5 Hyperlipidemia, unspecified; E11.42 Type 2 diabetes mellitus with diabetic polyneuropathy; E89.0 Postprocedural hypothyroidism; K21.9 Gastro-esophageal reflux disease without esophagitis; Z86.73 Personal history of transient ischemic attack (TIA), and cerebral infarction without residual deficits; Z86.711 Personal history of pulmonary embolism; Z87.891 Personal history of nicotine dependence; Z79.84 Long term (current) use of oral hypoglycemic drugs; Z79.82 Long term (current) use of aspirin; Z79.4 Long term (current) use of insulin; Z79.01 Long term (current) use of 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; M75.31 Calcific tendinitis of right shoulder
CPT/HCPCS: 73030; 99283; A9270

== ENCOUNTER 2023-04-28 08:10 | Emergency (ER) | payer MEDICARE, MEDICAID, SELFPAY ==
[2023-04-28] VITALS (11 sets, daily range): BP systolic 111–187; BP diastolic 76–98; PULSE 80–104; RESP 16–23; TEMP 36.4–36.8; O2SAT 96–100
--- NOTE | ~2023-04-28 | CT_ITS ---
Non-contrast Head CT History: Altered mental status COMPARISON: 08/04/2021 Technique: Axial non-contrast imaging of the brain was performed. Dose reduction technique was used on this scan by utilizing automated exposure control and iterative reconstruction technique. The dose -length product (DLP) was 605.33 mGy-cm. Findings: There is no evidence of intracranial hemorrhage, mass lesion, or acute infarct. Focal old superior right frontal lobe infarct noted, unchanged. The ventricles and subarachnoid spaces are nor mal in size. The calvarium appears normal. The visualized paranasal sinuses and mastoid air cells a re clear. Impression: No acute abnormality seen. Stable chronic superior right frontal lobe infarct. Reviewed, dictated and finalized at location . Impression: No acute abnormality seen. Stable chronic superior right frontal lobe infarct.
--- NOTE | ~2023-04-28 | XR_ITS ---
EXAMINATION: XR lumbar spine 2-3V DATE: 04/28/2023 08:50 INDICATION: Low back pain post fall TECHNIQUE: Anteroposterior and lateral views of the lumbar spine, and cone-down lateral view of the l umbosacral junction were obtained. COMPARISON: 01/24/2019 FINDINGS: Alignment is normal. Vertebral body heights are normal. Moderate disc height loss at L2-L3, L3-L4 and L5-S1, mild disc height loss at many levels from T10-T11 through L4-L5. Sacrum and bilateral sacral iliac joints are unremarkable. Cholecystectomy clips in the right upper quadrant. IMPRESSION: 1. Interval progression of now moderate lumbar spondylosis. Reviewed, dictated and finalized at location A.
--- NOTE | ~2023-04-28 | XR_ITS ---
EXAMINATION: XR chest 2V DATE: 04/28/2023 08:50 INDICATION: Shortness of breath TECHNIQUE: PA and lateral views of the chest are obtained. COMPARISON: 11/28/2021 FINDINGS: The lungs are free of acute opacities. No pleural effusion or pneumothorax. The cardiomedia stinal silhouette is normal. There is mild thoracic spondylosis. Surgical clips in the right upper qu adrant are likely from prior cholecystectomy. IMPRESSION: 1. No acute cardiopulmonary abnormality. Reviewed, dictated and finalized at location D.
--- NOTE | ~2023-04-28 | US_ITS ---
EXAMINATION: US venous doppler [facility] DATE: 04/28/2023 09:13 INDICATION: Lower limb swelling TECHNIQUE: Grayscale ultrasound images without and with compression and Doppler ultrasound images of the bilateral lower extremity veins were obtained. COMPARISON: None. FINDINGS: The visualized portions of right common femoral vein, profunda (deep) femoral vein, femoral vein, pop liteal vein, posterior tibial veins, peroneal veins, gastrocnemius vein and greater saphenous vein ou tflow are patent. The visualized portions of left common femoral vein, profunda femoral vein, femoral vein, popliteal v ein, posterior tibial veins, peroneal veins, gastrocnemius vein and greater saphenous vein outflow ar e patent. IMPRESSION: 1. No deep venous thrombosis in either lower limb. Reviewed, dictated and finalized at location A.
--- NOTE | 2023-04-28 08:44 | ED.GENADULT ---
HPI - General Adult General Chief complaint: Unspecified Stated complaint: swollen lower exremities Time Seen by Provider: 04/28/23 08:18 Source: patient, EMS, RN notes reviewed and old records reviewed Mode of arrival: EMS Limitations: other (poor historian) History of Present Illness HPI narrative: This is a 67 year old female who presents from home for evaluation of leg swelling. Patient states yesterday she had rash to her leg and bilateral leg swelling. She reports her rash has resolved and her swelling has improved. She also reports chronic back and leg pain. She denies chest pain or shortness of breath. Her son states that patient was recently started on phentermine and norco and he thinks she is acting restless. He also reports that patient did have swollen legs but they improved once patient started lasix. Related Data Home Medications Medication Instructions Recorded Confirmed glipizide 10 mg tablet 10 mg PO BID 04/16/20 07/23/22 metformin 500 mg tablet 500 mg PO BID 04/16/20 07/23/22 atorvastatin 80 mg tablet 80 mg PO DAILY 06/04/20 07/23/22 gabapentin 600 mg tablet 600 mg PO TID 06/04/20 07/23/22 escitalopram oxalate 20 mg tablet 20 mg PO DAILY 08/04/21 07/23/22 insulin glargine 100 unit/mL 30 unit subcut DAILY 08/04/21 07/23/22 subcutaneous solution (Lantus U-100 Insulin) melatonin 10 mg tablet 20 mg PO HS 08/04/21 07/23/22 nitroglycerin 0.4 mg sublingual 0.4 mg sublingual Q5M PRN Chest 08/04/21 07/23/22 tablet Pain diclofenac sodium 1 % topical gel 1 ea topical Q6-8H PRN Pain 10/20/21 07/23/22 apixaban 5 mg tablet (Eliquis) 5 mg PO BID pulmonary embolism 11/05/21 07/23/22 fenofibrate nanocrystallized 145 145 mg PO DAILY 11/29/21 07/23/22 mg tablet acetaminophen 500 mg capsule 1,000 mg PO Q6H PRN Pain 02/24/22 07/23/22 aspirin 81 mg tablet 81 mg PO DAILY 02/24/22 07/23/22 dapagliflozin propanediol 10 mg 10 mg PO DAILY 02/24/22 07/23/22 tablet (Farxiga) multivit with 1 tablet PO DAILY 02/24/22 07/23/22 kcgipffr-brbe-TZ-lutein 8 mg iron-400 mcg-300 mcg tablet (Centrum [facility] Women) omeprazole 20 mg capsule,delayed 20 mg PO DAILY 02/24/22 07/23/22 release metoprolol succinate 100 mg 100 mg PO DAILY 07/23/22 07/23/22 tablet,extended release 24 hr phentermine 37.5 mg capsule 37.5 mg PO DAILY 07/23/22 07/23/22 Allergies Allergy/AdvReac Type Severity Reaction Status Date / Time latex Allergy Unknown Hives Verified 07/23/22 13:55 Review of Systems Constitutional: Constitutional: Denies weakness Cardiovascular: Cardiovascular: Denies syncope, Denies rapid heart rate, Denies irregular heart rhythm, Denies leg edema and Denies dyspnea Respiratory: Respiratory: Denies chest congestion, Denies hemoptysis, Denies excessive phlegm production and Denies dyspnea Gastrointestinal: Gastrointestinal: Denies abdominal pain, Denies hematochezia, Denies diarrhea and Denies vomiting Genitourinary: Genitourinary: Denies hematuria and Denies dysuria Musculoskeletal: Musculoskeletal: Denies joint swelling, Denies loss of height and Denies muscle weakness Neurologic: Denies syncope, Denies focal weakness and Denies weakness PMFSH Past Medical History Medical History Anxiety Anxiety Arthritis Arthritis of right shoulder region CAD (coronary artery disease) CAD (coronary atherosclerotic disease) Calcific tendonitis of right shoulder Cerebrovascular accident Chronic renal failure, stage 3 (moderate) CVA (cerebral vascular accident) Depression Depression Diabetes Diabetes type 2, controlled Gastric ulcer GERD (gastroesophageal reflux disease) GERD (gastroesophageal reflux disease) Goiter Heart attack History of angina History of left heart catheterization HLD (hyperlipidemia) HTN (hypertension) Hyperlipidemia Hypertension Hypothyroidism Hypothyroidism Non-ST elevation [place] (NSTEMI) Peripheral neuropathy Pulmonary emboli Pulmonary embol
[2023-04-28 09:34] LABS: Basophils Percent Auto 0.6 % (0.2-1.2); Eosinophils Absolute Auto 0.1 K/mm3 (0-0.3); Eosinophils Percent Auto 1.6 % (0-4.4); Hematocrit 36.2 % (37.0-47.0); Hemoglobin 11.8 g/dL (12.0-15.0); Immature Granulocyte Absolute 0.02 K/mm3 (0.00-0.031); Immature Granulocyte Percent A 0.4 % (0-0.5); Lymphocytes Absolute Auto 1.45 K/mm3 (0.9-3.2); Lymphocytes Percent Auto 28.4 % (18.3-44.2); Mean Corpuscular HGB Conc 32.6 g/dl (32-36); Mean Corpuscular Hemoglobin 28.4 pg (26-34); Monocytes Absolute Auto 0.5 K/mm3 (0.1-0.6); Monocytes Percent Auto 9.2 % (2.6-8.5); Neutrophils Absolute Auto 3.1 K/mm3 (1.3-6.7); Neutrophils Percent Auto 59.8 % (45.5-73.1); Platelet Count Result 280 k/mm3 (150-375); Red Blood Count 4.16 M/mm3 (4.2-5.4); Red Cell Distribution Width 13.5 % (11.5-14.5); White Blood Count 5.1 K/mm3 (4.5-10.0)
[2023-04-28 09:43] LABS: Alanine Aminotransferase 31 U/L (6-35); Albumin Level 4.4 g/dL (3.5-5.1); Alkaline Phosphatase 69 U/L (38-126); Anion Gap 9 mmol/L (8-16); Aspartate Amino Transferase 37 U/L (14-36); Bilirubin,Total 0.5 mg/dL (0.2-1.3); Blood Urea Nitrogen 23 mg/dL (7-17); Calcium 9.3 mg/dL (8.4-10.2); Carbon Dioxide 27 mmol/L (22-30); Chloride 99 mmol/L (98-107); Creatine Kinase 161 U/L (30-135); Estimated CRCL calculation 54 ml/min; Estimated Glomerular Filt Rate > 60; Glucose 352 mg/dL (65-110); Potassium 3.3 mmol/L (3.4-5.0); Sodium 135 mmol/L (137-145)
[2023-04-28 09:44] LABS: INR 1.1; Prothrombin Time 14.3 Seconds (11.1-14.7)
[2023-04-28 09:45] LABS: Partial Thromboplastin Time 24.3 SECONDS (22.3-36.8)
[2023-04-28 09:52] LABS: NT Pro B Type Natriuretic Pept 812 pg/mL (19.9-100)
[2023-04-28 09:52] LABS: Appearance Urine Clear (Clear); Bacteria Urine None Seen /hpf; Bilirubin Urine Negative (Negative); Blood Urine Negative (Negative); Color Urine Yellow (Yellow); Glucose Urine UA 3+ mg/dL (Negative); Ketones Urine Negative (Negative); Leukocyte Esterase Ur 1+ LEU/UL (Negative); Nitrate Urine Negative (Negative); Non Pathogenic Casts 0-2; Protein Urine 2+ mg/dL (Negative); RBC Urine 0-2 /hpf (0-2); Specific Grav Ur 1.025 (1.001-1.035); Squamous Epithelial Cell Urine Occasional /hpf (Few); WBC Urine 21-50 /hpf
[2023-04-28 09:54] LABS: Add Urine Microscopic? YES
[2023-04-28 11:00] LABS: Ethanol < 10 mg/dL (<10)
[2023-04-28 11:06] LABS: Creatine Kinase 161 U/L (30-135)
[2023-04-28 11:09] LABS: Barbiturate Screen Urine Negative (Negative); Benzodiazepines Screen Urine Negative (Negative)
[2023-04-28 11:12] LABS: Cannabinoid Screen Urine Negative (Negative); Cocaine Screen Urine Negative (Negative); Methadone Screen Urine Negative (Negative); Opiate Screen Urine Positive (Negative); Phencyclidine Screen Urine Negative (Negative)
[2023-04-28 11:40] LABS: Amphetamine Screen Urine Positive (Negative)
== END 2023-04-28 13:10 | disposition home or self-care (01) ==
PROVIDERS: Emergency Provider General Practice; PCP Family Medicine
DX: M79.662 Pain in left lower leg (principal); M79.661 Pain in right lower leg; R22.43 Localized swelling, mass and lump, lower limb, bilateral; G89.29 Other chronic pain; N39.0 Urinary tract infection, site not specified; I25.10 Atherosclerotic heart disease of native coronary artery without angina pectoris; I12.9 Hypertensive chronic kidney disease with stage 1 through stage 4 chronic kidney disease, or unspecified chronic kidney disease; N18.30 Chronic kidney disease, stage 3 unspecified; E11.22 Type 2 diabetes mellitus with diabetic chronic kidney disease; E78.5 Hyperlipidemia, unspecified; I25.2 Old myocardial infarction; E03.9 Hypothyroidism, unspecified; F17.210 Nicotine dependence, cigarettes, uncomplicated; Z86.73 Personal history of transient ischemic attack (TIA), and cerebral infarction without residual deficits; Z86.711 Personal history of pulmonary embolism; Z79.01 Long term (current) use of 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
CPT/HCPCS: 36415; 70450; 71046; 72100; 80053; 80307; 81001; 82550; 83880; 85025; 85610; 85730; 87086; 87088; 93970; 96365; 99284; J0696

== ENCOUNTER 2023-07-10 20:37 | Emergency (ER) | payer MEDICARE, MEDICAID, SELFPAY ==
--- NOTE | ~2023-07-10 | XR_ITS ---
XR shoulder RT min 2V DATE: 07/11/2023 01:33 INDICATION: Fall. Right shoulder injury TECHNIQUE: 4 views COMPARISON: 07/16/2022 right shoulder FINDINGS: There is degenerative spurring along the superior aspect of the right acromioclavicular delmi nt. No fracture or dislocation, periosteal reaction or bone destruction or abnormal soft tissue calcifica tion of the right shoulder is detected. IMPRESSION: Superior degenerative spurring of the right acromioclavicular joint No fracture or dislocation of right shoulder Reviewed, dictated and finalized at location A.
--- NOTE | ~2023-07-10 | CT_ITS ---
EXAMINATION: CT brain wo con DATE: 07/11/2023 01:22 INDICATION: Patient fell. Weakness. Patient on blood thinners. TECHNIQUE: Computed tomography (CT) of the head was performed without intravenous contrast. The mA wa s adjusted according to patient size. Iterative reconstruction technique was employed. Exam dose: 60 5.33 mGy-cm total exam DLP. COMPARISON: 04/28/2023 CT) 08/31/2021 CT brain FINDINGS: Prominent bilateral vertebral artery and carotid siphon internal carotid artery calcificati ons. Chronic right high frontal cerebrovascular accident, present on 08/04/2021. Stable heavily calcified high left frontoparietal meningioma without significant surrounding mass eff ect effect. No intracranial mass lesion or hemorrhage or recent cerebrovascular accident, midline shift or mass e ffect is detected. Normal ventricular size. No subdural or epidural hematoma is detected. Included paranasal sinuses and mastoid air cells are unremarkable. No fracture or bone destruction of the cranial vault. IMPRESSION: No acute intracranial finding Reviewed, dictated and finalized at Location A. Reviewed, dictated and finalized at location A.
--- NOTE | ~2023-07-10 | XR_ITS ---
XR chest 1V portable DATE: 07/11/2023 01:32 INDICATION: Fall. Right shoulder pain TECHNIQUE: PA chest COMPARISON: 04/28/2023 PA and lateral chest FINDINGS: Normal heart size. No hilar or mediastinal enlargement. No pulmonary infiltrate or consolid ation, pleural effusion or pulmonary vascular congestion or pneumothorax is detected. Surgical clips, right upper quadrant, likely due to cholecystectomy. Included skeletal structures are unremarkable. IMPRESSION: No active cardiopulmonary disease Reviewed, dictated and finalized at location A.
[2023-07-10 21:06] VITALS: BP 128/46; PULSE 54; RESP 16; TEMP 36.1; O2SAT 97
[2023-07-10 23:03] VITALS: BP 114/52; PULSE 78; RESP 15; O2SAT 97
--- NOTE | 2023-07-10 23:04 | ECG_ITS ---
Measurements Intervals [place] Rate: 60 P: 37 PA: 162 QRS: 39 QRSD: 93 T: 61 QT: 438 QTc: 440 Interpretive Statements SINUS RHYTHM BORDERLINE ST-T WAVE ABNORMALITY- HIGH LATERAL LEADS BORDERLINE ECG COMPARED TO ECG 02/23/2022 21:33:49 NO SIGNIFICANT CHANGES Electronically Signed On 07-11-2023 6:58:57 CDT by Nasir Diehl D.O.
[2023-07-10 23:23] LABS: Basophils Absolute Auto 0.1 K/mm3 (0.0-0.1); Basophils Percent Auto 0.8 % (0.2-1.2); Eosinophils Absolute Auto 0.1 K/mm3 (0-0.3); Eosinophils Percent Auto 1.8 % (0-4.4); Hematocrit 37.9 % (37.0-47.0); Hemoglobin 12.1 g/dL (12.0-15.0); Immature Granulocyte Absolute 0.02 K/mm3 (0.00-0.031); Immature Granulocyte Percent A 0.3 % (0-0.5); Lymphocytes Absolute Auto 2.61 K/mm3 (0.9-3.2); Lymphocytes Percent Auto 42.1 % (18.3-44.2); Mean Corpuscular HGB Conc 31.9 g/dl (32-36); Mean Corpuscular Volume 87.7 fl (80-100); Mean Platelet Volume 9.1 fl (7.4-10.4); Monocytes Absolute Auto 0.5 K/mm3 (0.1-0.6); Monocytes Percent Auto 8.7 % (2.6-8.5); Neutrophils Absolute Auto 2.9 K/mm3 (1.3-6.7); Neutrophils Percent Auto 46.3 % (45.5-73.1); Platelet Count Result 271 k/mm3 (150-375); Red Blood Count 4.32 M/mm3 (4.2-5.4); Red Cell Distribution Width 13.6 % (11.5-14.5); White Blood Count 6.2 K/mm3 (4.5-10.0)
[2023-07-10 23:31] LABS: Appearance Urine Clear (Clear); Bilirubin Urine Negative (Negative); Blood Urine Negative (Negative); Color Urine Yellow (Yellow); Glucose Urine UA 3+ mg/dL (Negative); Ketones Urine Negative (Negative); Leukocyte Esterase Ur Negative LEU/UL (Negative); Nitrate Urine Negative (Negative); Protein Urine Negative (Negative); Urobilinogen Urine 0.2 mg/dL (<2.0)
[2023-07-10 23:35] LABS: Alanine Aminotransferase 30 U/L (6-35); Albumin Level 4.1 g/dL (3.5-5.1); Alkaline Phosphatase 49 U/L (38-126); Anion Gap 8 mmol/L (8-16); Aspartate Amino Transferase 49 U/L (14-36); Bilirubin,Total 0.4 mg/dL (0.2-1.3); Blood Urea Nitrogen 29 mg/dL (7-17); Calcium 8.8 mg/dL (8.4-10.2); Carbon Dioxide 26 mmol/L (22-30); Chloride 103 mmol/L (98-107); Estimated CRCL calculation 30 ml/min; Estimated Glomerular Filt Rate 35; Glucose 211 mg/dL (65-110); Potassium 3.5 mmol/L (3.4-5.0); Sodium 137 mmol/L (137-145)
[2023-07-10 23:45] LABS: Add Urine Microscopic? NO
[2023-07-11 00:46] VITALS: BP 132/60; PULSE 62; RESP 16; O2SAT 98
--- NOTE | 2023-07-11 02:49 | ED.GENADULT ---
HPI - General Adult General Chief complaint: Weakness Stated complaint: weakness, fall Time Seen by Provider: 07/10/23 23:55 History of Present Illness HPI narrative: This is a 60-year-old female presenting ED with a chief complaint of her her legs kicking out on her. Patient clarifies by saying that when she was walking she was having spasms in her legs. she says this caused her to fall and she landed on her shoulder. She denies some pain in her shoulder. Denies hitting her head but she is on Eliquis. Patient is denying any other complaints including visual changes, localizing weakness, fever chills nausea vomiting diarrhea chest pain difficulty breathing abdominal pain or urinary symptoms. Related Data Home Medications Medication Instructions Recorded Confirmed glipizide 10 mg tablet 10 mg PO BID 04/16/20 07/23/22 metformin 500 mg tablet 500 mg PO BID 04/16/20 07/23/22 atorvastatin 80 mg tablet 80 mg PO DAILY 06/04/20 07/23/22 gabapentin 600 mg tablet 600 mg PO TID 06/04/20 07/23/22 escitalopram oxalate 20 mg tablet 20 mg PO DAILY 08/04/21 07/23/22 insulin glargine 100 unit/mL 30 unit subcut DAILY 08/04/21 07/23/22 subcutaneous solution (Lantus U-100 Insulin) melatonin 10 mg tablet 20 mg PO HS 08/04/21 07/23/22 nitroglycerin 0.4 mg sublingual 0.4 mg sublingual Q5M PRN Chest 08/04/21 07/23/22 tablet Pain diclofenac sodium 1 % topical gel 1 ea topical Q6-8H PRN Pain 10/20/21 07/23/22 apixaban 5 mg tablet (Eliquis) 5 mg PO BID pulmonary embolism 11/05/21 07/23/22 fenofibrate nanocrystallized 145 145 mg PO DAILY 11/29/21 07/23/22 mg tablet acetaminophen 500 mg capsule 1,000 mg PO Q6H PRN Pain 02/24/22 07/23/22 aspirin 81 mg tablet 81 mg PO DAILY 02/24/22 07/23/22 dapagliflozin propanediol 10 mg 10 mg PO DAILY 02/24/22 07/23/22 tablet (Farxiga) hmfxwtbe-hple-nxhy 8 mg-folic 400 1 tablet PO DAILY 02/24/22 07/23/22 mcg-K 50 mcg-lutein 300 mcg tablet (Centrum [place] Women) omeprazole 20 mg capsule,delayed 20 mg PO DAILY 02/24/22 07/23/22 release metoprolol succinate 100 mg 100 mg PO DAILY 07/23/22 07/23/22 tablet,extended release 24 hr phentermine 37.5 mg capsule 37.5 mg PO DAILY 07/23/22 07/23/22 Allergies Allergy/AdvReac Type Severity Reaction Status Date / Time latex Allergy Unknown Hives Verified 07/10/23 22:25 [facility] Past Medical History Medical History Anxiety Anxiety Arthritis Arthritis of right shoulder region CAD (coronary artery disease) CAD (coronary atherosclerotic disease) Calcific tendonitis of right shoulder Cerebrovascular accident Chronic renal failure, stage 3 (moderate) CVA (cerebral vascular accident) Depression Depression Diabetes Diabetes type 2, controlled Gastric ulcer GERD (gastroesophageal reflux disease) GERD (gastroesophageal reflux disease) Goiter Heart attack History of angina History of left heart catheterization HLD (hyperlipidemia) HTN (hypertension) Hyperlipidemia Hypertension Hypothyroidism Hypothyroidism Non-ST elevation [place] (NSTEMI) Peripheral neuropathy Pulmonary emboli Pulmonary emboli Renal disease Stroke-like symptom TIA (transient ischemic attack) Surgical History Surgical History History of section History of cholecystectomy History of partial thyroidectomy History of percutaneous coronary intervention History of thyroidectomy Hx of cardiac catheterization with cardiac stent placement times 2 Hx of section Hx of cholecystectomy Family History Family History Mother Cerebrovascular accident Father Lung cancer Sibling Lung cancer Leukemia Sibling Kidney disease Sibling Family history of malignant neoplasm Family history of kidney disease Family history of lung cancer Patient's sister is Mother Family history o
[2023-07-11] MEDS: SODIUM CHLORIDE 0.9% IV 1,000 ML 999 ML IV CONT (03:14)
[2023-07-11 04:50] VITALS: BP 134/78; PULSE 76; RESP 15; O2SAT 99
[2023-07-11 06:21] VITALS: BP 154/56; PULSE 72; RESP 16; O2SAT 98
== END 2023-07-11 06:23 | disposition home or self-care (01) ==
PROVIDERS: Emergency Provider Emergency Medicine; PCP Family Medicine
DX: R26.9 Unspecified abnormalities of gait and mobility (principal); I25.10 Atherosclerotic heart disease of native coronary artery without angina pectoris; E03.9 Hypothyroidism, unspecified; I12.9 Hypertensive chronic kidney disease with stage 1 through stage 4 chronic kidney disease, or unspecified chronic kidney disease; E11.22 Type 2 diabetes mellitus with diabetic chronic kidney disease; N18.30 Chronic kidney disease, stage 3 unspecified; E78.5 Hyperlipidemia, unspecified; I25.2 Old myocardial infarction; F17.210 Nicotine dependence, cigarettes, uncomplicated; Z86.73 Personal history of transient ischemic attack (TIA), and cerebral infarction without residual deficits; Z79.01 Long term (current) use of 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; W19.XXXA Unspecified fall, initial encounter
CPT/HCPCS: 36415; 70450; 71045; 73030; 80053; 81003; 85025; 93005; 96360; 96361; 99284; J7030

== ENCOUNTER 2023-07-26 15:49 | Inpatient (IN) | payer MEDICARE, MEDICAID, SELFPAY ==
[2023-07-26] VITALS (34 sets, daily range): BP systolic 101–147; BP diastolic 41–90; PULSE 56–81; RESP 13–25; TEMP 36.4–36.6; O2SAT 92–100
--- NOTE | ~2023-07-26 | CT_ITS ---
EXAMINATION: CTA chest PE protocol DATE: 07/26/2023 20:13 INDICATION: sob, elevated troponin, hx PE TECHNIQUE: Computed tomography angiography (CTA) of the chest was performed with 100 mL Omnipaque-350 intravenous contrast timed to evaluate the pulmonary arteries. Coronal maximum intensity projection 3D-reconstructions were created by the technologist. The dose-length product (DLP) was 455.32 mGy-cm. Automated exposure control and iterative reconstruction technique were employed. COMPARISON: 02/23/2022. FINDINGS: Lung parenchyma and airways: Scattered areas of scarring and regions of prior presumed pulmonary infa rct. No acute lung opacities. Pleura: Unremarkable. Thoracic inlet, axillae and chest wall: Multinodular goiter. Status post left hemithyroidectomy. Thoracic aorta: Normal. Mediastinum: Normal. Heart and pericardium: Mitral and aortic valve calcification. Coronary artery calcifications: Mild. Upper abdomen: Status post cholecystectomy. Bones: No acute osseous finding. Chronic T4 and T5 compression fractures. Pulmonary arteries: Study quality: Adequate. No acute pulmonary emboli detected. Multiple bilateral w eblike pulmonary artery defects, most notably within the distal main right and left pulmonary arterie s, with interval improvement. IMPRESSION: No CT evidence of acute pulmonary embolus. Continued interval improvement in the bilateral chronic pulmonary emboli. Reviewed, dictated and finalized at location K.
--- NOTE | ~2023-07-26 | XR_ITS ---
EXAMINATION: XR chest 2V Exam Date/Time: 07/26/2023 17:58 CDT HISTORY: Shortness of breath, vaginal bleeding, hx hysterectomy Comparison: 07/11/2023. RESULT: Lines, tubes, and devices: Cholecystomy clips. Lungs and pleura: Clear. Cardiomediastinal silhouette: Stable. Other: No acute osseous or upper abdominal finding. IMPRESSION: No acute cardiopulmonary process. Reviewed, dictated and finalized at location K.
--- NOTE | 2023-07-26 17:29 | ECG_ITS ---
Measurements Intervals [place] Rate: 60 P: -8 MA: 144 QRS: 21 QRSD: 96 T: -3 QT: 416 QTc: 418 Interpretive Statements SINUS RHYTHM NONSPECIFIC ST & T-WAVE ABNORMALITY- DIFFUSE LEADS BASELINE ARTIFACT- I, III, V3 BORDERLINE ECG COMPARED TO ECG 07/10/2023 23:23:52 NO SIGNIFICANT CHANGES Electronically Signed On 07-26-2023 20:37:21 CDT by Nasir Diehl D.O.
--- NOTE | 2023-07-26 17:48 | ED.SOB ---
HPI - SOB/Dyspnea General Chief Complaint: Shortness of Breath/Dyspnea <Elyssa Bowman PA-C - Last Filed: 07/26/23 21:52> Stated Complaint: increased sob with walking/vaginal bleeding <Elyssa Bowman PA-C - Last Filed: 07/26/23 21:52> Time Seen by Provider: 07/26/23 17:36 <Elyssa Bowman PA-C - Last Filed: 07/26/23 21:52> Source: patient <Elyssa Bowman PA-C - Last Filed: 07/26/23 21:52> Mode of arrival: ambulatory <JANICE Andrade Last Filed: 07/26/23 21:52> Limitations: no limitations <Elyssa Bowman PA-C - Last Filed: 07/26/23 21:52> History of Present Illness HPI Narrative: This is a 68 year old female that presents to the ER for shortness of breath. Ongoing over the last week. Reports shortness of breath with exertion. Reports history of CHF. Reports she feels like she has gained weight and her legs were swollen yesterday. Denies fever, cough or chest pain. <Elyssa Bowman PA-C - Last Filed: 07/26/23 21:52> Related Data Home Medications: Home Medications Medication Instructions Recorded Confirmed glipizide 10 mg tablet 10 mg PO BID 04/16/20 07/23/22 metformin 500 mg tablet 500 mg PO BID 04/16/20 07/23/22 atorvastatin 80 mg tablet 80 mg PO DAILY 06/04/20 07/23/22 gabapentin 600 mg tablet 600 mg PO TID 06/04/20 07/23/22 escitalopram oxalate 20 mg tablet 20 mg PO DAILY 08/04/21 07/23/22 insulin glargine 100 unit/mL 30 unit subcut DAILY 08/04/21 07/23/22 subcutaneous solution (Lantus U-100 Insulin) melatonin 10 mg tablet 20 mg PO HS 08/04/21 07/23/22 nitroglycerin 0.4 mg sublingual 0.4 mg sublingual Q5M PRN Chest 08/04/21 07/23/22 tablet Pain diclofenac sodium 1 % topical gel 1 ea topical Q6-8H PRN Pain 10/20/21 07/23/22 apixaban 5 mg tablet (Eliquis) 5 mg PO BID pulmonary embolism 11/05/21 07/23/22 fenofibrate nanocrystallized 145 145 mg PO DAILY 11/29/21 07/23/22 mg tablet acetaminophen 500 mg capsule 1,000 mg PO Q6H PRN Pain 02/24/22 07/23/22 aspirin 81 mg tablet 81 mg PO DAILY 02/24/22 07/23/22 dapagliflozin propanediol 10 mg 10 mg PO DAILY 02/24/22 07/23/22 tablet (Farxiga) acnhbded-uhwy-pzlu 8 mg-folic 400 1 tablet PO DAILY 02/24/22 07/23/22 mcg-K 50 mcg-lutein 300 [facility]cg [facility] omeprazole 20 mg capsule,delayed 20 mg PO DAILY 02/24/22 07/23/22 release metoprolol succinate 100 mg 100 mg PO DAILY 07/23/22 07/23/22 tablet,extended release 24 hr phentermine 37.5 mg capsule 37.5 mg PO DAILY 07/23/22 07/23/22 <Elyssa Bowman PA-C - Last Filed: 07/26/23 21:52> Allergies/Adverse Reactions: Allergies Allergy/AdvReac Type Severity Reaction Status Date / Time latex Allergy Unknown Hives Verified 07/10/23 22:25 <Elyssa Bowman PA-C - Last Filed: 07/26/23 21:52> Review of Systems Review of Systems: CONSTITUTIONAL: Denies fever CARDIOVASCULAR: Denies chest pain, palpitations RESPIRATORY: Reports dyspnea. Denies cough <Elyssa Bowman PA-C - Last Filed: 07/26/23 21:52> All systems reviewed & are unremarkable except as noted in HPI and below <Elyssa Bowman PA-C - Last Filed: 07/26/23 21:52> [facility] Past Medical History Medical History: Medical History Anxiety Anxiety Arthritis Arthritis of right shoulder region CAD (coronary artery disease) CAD (coronary atherosclerotic disease) Calcific tendonitis of right shoulder Cerebrovascular accident Chronic renal failure, stage 3 (moderate) CVA (cerebral vascular accident) Depression Depression Diabetes Diabetes type 2, controlled Gastric ulcer GERD (gastroesophageal reflux disease) GERD (gastroesophageal reflux disease) Goiter Heart attack History of angina History of left heart catheterization HLD (hyperlipidemia) HTN (hypertension) Hyperlipidemia Hypertension Hypothyroidism Hypothyroidism Non-ST elevation [place] (NSTEMI) Peripheral neuropathy Pulmonary emboli Pulmonary emboli
[2023-07-26 17:49] LABS: Basophils Absolute Auto 0.1 K/mm3 (0.0-0.1); Basophils Percent Auto 1.1 % (0.2-1.2); Eosinophils Absolute Auto 0.1 K/mm3 (0-0.3); Eosinophils Percent Auto 1.4 % (0-4.4); Hematocrit 37.7 % (37.0-47.0); Hemoglobin 11.9 g/dL (12.0-15.0); Immature Granulocyte Absolute 0.02 K/mm3 (0.00-0.031); Immature Granulocyte Percent A 0.3 % (0-0.5); Lymphocytes Absolute Auto 2.04 K/mm3 (0.9-3.2); Lymphocytes Percent Auto 31.6 % (18.3-44.2); Mean Corpuscular HGB Conc 31.6 g/dl (32-36); Mean Corpuscular Hemoglobin 27.7 pg (26-34); Mean Corpuscular Volume 87.7 fl (80-100); Mean Platelet Volume 9.1 fl (7.4-10.4); Monocytes Absolute Auto 0.5 K/mm3 (0.1-0.6); Monocytes Percent Auto 8.2 % (2.6-8.5); Neutrophils Absolute Auto 3.7 K/mm3 (1.3-6.7); Neutrophils Percent Auto 57.4 % (45.5-73.1); Platelet Count Result 377 k/mm3 (150-375); Red Cell Distribution Width 14.4 % (11.5-14.5); White Blood Count 6.5 K/mm3 (4.5-10.0)
[2023-07-26 17:59] LABS: Prothrombin Time 14.1 Seconds (11.1-14.7)
[2023-07-26 18:00] LABS: Alanine Aminotransferase 24 U/L (6-35); Albumin Level 4.4 g/dL (3.5-5.1); Alkaline Phosphatase 50 U/L (38-126); Anion Gap 9 mmol/L (8-16); Aspartate Amino Transferase 33 U/L (14-36); Bilirubin,Total 0.5 mg/dL (0.2-1.3); Blood Urea Nitrogen 33 mg/dL (7-17); Calcium 8.9 mg/dL (8.4-10.2); Carbon Dioxide 26 mmol/L (22-30); Chloride 102 mmol/L (98-107); Estimated CRCL calculation 28 ml/min; Estimated Glomerular Filt Rate 32; Glucose 150 mg/dL (65-110); Partial Thromboplastin Time 25.2 SECONDS (22.3-36.8); Potassium 3.4 mmol/L (3.4-5.0); Sodium 137 mmol/L (137-145)
[2023-07-26 18:16] LABS: NT Pro B Type Natriuretic Pept 841 pg/mL (19.9-100); Troponin I 0.084 ng/mL (0.000-0.034)
[2023-07-26 18:58] LABS: Appearance Urine Clear (Clear); Bacteria Urine None Seen /hpf; Bilirubin Urine Negative (Negative); Blood Urine Negative (Negative); Color Urine Yellow (Yellow); Glucose Urine UA 3+ mg/dL (Negative); Ketones Urine Negative (Negative); Leukocyte Esterase Ur 1+ LEU/UL (Negative); Nitrate Urine Negative (Negative); Non Pathogenic Casts 0-2; Protein Urine Negative (Negative); RBC Urine 0-2 /hpf (0-2); Specific Grav Ur 1.017 (1.001-1.035); Squamous Epithelial Cell Urine None seen /hpf (Few); Urobilinogen Urine 0.2 mg/dL (<2.0); pH Urine 5.5 (5.0-9.0)
[2023-07-26 19:21] LABS: Add Urine Microscopic? YES
--- NOTE | 2023-07-26 19:31 | PC.NURSE ---
Report received from OVIDIO Stevens. Assumed care of patient at this time.
[2023-07-26 21:42] LABS: Troponin I 0.086 ng/mL (0.000-0.034)
--- NOTE | 2023-07-26 22:39 | PM.IMHP ---
H&P: HPI History of Present Illness Date/Time: 07/26/23 22:39 Chief Complaint: Patient came to the ER for evaluation due to shortness of breath with exertion and vaginal bleeding Narrative: She is a very pleasant 68 years old white female with chronic right facial palsy since and chronic medical issues, who is on long-term anticoagulation for chronic pulmonary embolisms since 2020. She is complaining of shortness of breath with exertion for the last week, which is slowly worsening. She also had some vaginal spotting today, got concerned, and came to the ER for evaluation. Workup was done, which showed minimally elevated troponin l level of 0.084 which remained stable on repetition. She has a prior history of CAD. Cardiology was consulted who plan to monitor her closely overnight with following up on her cardiac enzymes. She is already on cardiac anticoagulation with Eliquis for her chronic pulmonary embolism. Review of Systems Review of Systems: she denies any chest pain, palpitations, fever rigor chills, nausea vomiting, abdominal pain or falls All systems reviewed & are unremarkable except as noted in HPI and below PMFSH Past Medical History Medical History (Updated 07/26/23 @ 22:51 by Manjeet Sharpe MD) Anxiety Anxiety Arthritis Arthritis of right shoulder region CAD (coronary artery disease) CAD (coronary atherosclerotic disease) Calcific tendonitis of right shoulder Cerebrovascular accident Chronic renal failure, stage 3 (moderate) CVA (cerebral vascular accident) Depression Depression Diabetes Diabetes type 2, controlled Gastric ulcer GERD (gastroesophageal reflux disease) GERD (gastroesophageal reflux disease) Goiter Heart attack History of angina History of left heart catheterization HLD (hyperlipidemia) HTN (hypertension) Hyperlipidemia Hypertension Hypothyroidism Hypothyroidism Non-ST elevation [place] (NSTEMI) Peripheral neuropathy Pulmonary emboli Pulmonary emboli Pulmonary embolism on long-term anticoagulation therapy Renal disease Stroke-like symptom TIA (transient ischemic attack) Vaginal bleeding Surgical History Surgical History History of section History of cholecystectomy History of partial thyroidectomy History of percutaneous coronary intervention History of thyroidectomy Hx of cardiac catheterization with cardiac stent placement times 2 Hx of section Hx of cholecystectomy Family History Family History Mother Cerebrovascular accident Father Lung cancer Sibling Lung cancer Leukemia Sibling Kidney disease Sibling Family history of malignant neoplasm Family history of kidney disease Family history of lung cancer Patient's sister is Mother Family history of diabetes mellitus in first degree relative Patient's mother is Father Family history of lung cancer Patient's father is Social History Social History Social History: The patient quit smoking at the age of 23 . She has 3 children. 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 She is and her son Jacob is her durable power commercial real estate attorney for healthcare. She denies any alcohol marijuana or illicit drugs. Code status full code Smoking packs per day: 0.25 Smoking cigarettes per day: 5.0 Years smoked: 1 Smoking pack-years: 0.25 Smoking status: Never smoker Alcohol intake: never Substance use: never Occupation/Education: retired Gender identity (if verbalized by the patient): Female Spiritual care concerns: No Meds Home Medications and Allergies Home Medications Medication Instructions Recorded Confirmed Type glipizide 10 mg tablet 10 mg PO BID 04/16/20 07/26/23 History metformin 500 mg tablet 500 mg PO BID
--- NOTE | 2023-07-26 23:00 | ADMGEN ---
This patient, Leeann Cochran, was admitted to IMU Room 211-01 @ 2300. Patient/family oriented to hospital policies and general routines including ID bracelet, bed and alarms, visiting hours, pain management, procedures, bathroom and other care routines, personal items, smoking policy, room service/diet, and visiting hours. Information on how to activate the Rapid Response Team has been discussed. Patient/Family are encouraged to report perceived risks to care and to ask questions if they do not understand what they are told or what they should do.
[2023-07-26 23:52] LABS: Glucose Point of Care 127 mg/dl (65-105)
[2023-07-27] VITALS (16 sets, daily range): BP systolic 110–152; BP diastolic 52–73; PULSE 56–95; RESP 18–20; TEMP 35.8–36.6; O2SAT 97–100
[2023-07-27 01:34] LABS: Troponin I 0.099 ng/mL (0.000-0.034)
[2023-07-27 05:09] LABS: Basophils Absolute Auto 0.1 K/mm3 (0.0-0.1); Basophils Percent Auto 0.7 % (0.2-1.2); Eosinophils Absolute Auto 0.1 K/mm3 (0-0.3); Eosinophils Percent Auto 1.7 % (0-4.4); Hematocrit 38.1 % (37.0-47.0); Immature Granulocyte Absolute 0.03 K/mm3 (0.00-0.031); Immature Granulocyte Percent A 0.4 % (0-0.5); Lymphocytes Absolute Auto 2.52 K/mm3 (0.9-3.2); Lymphocytes Percent Auto 36.5 % (18.3-44.2); Mean Corpuscular HGB Conc 31.5 g/dl (32-36); Mean Corpuscular Hemoglobin 27.5 pg (26-34); Mean Corpuscular Volume 87.4 fl (80-100); Mean Platelet Volume 9.1 fl (7.4-10.4); Monocytes Absolute Auto 0.6 K/mm3 (0.1-0.6); Monocytes Percent Auto 8.4 % (2.6-8.5); Neutrophils Absolute Auto 3.6 K/mm3 (1.3-6.7); Neutrophils Percent Auto 52.3 % (45.5-73.1); Platelet Count Result 386 k/mm3 (150-375); Red Blood Count 4.36 M/mm3 (4.2-5.4); Red Cell Distribution Width 14.2 % (11.5-14.5); White Blood Count 6.9 K/mm3 (4.5-10.0)
[2023-07-27 05:23] LABS: Anion Gap 12 mmol/L (8-16); Blood Urea Nitrogen 32 mg/dL (7-17); Calcium 9.2 mg/dL (8.4-10.2); Carbon Dioxide 23 mmol/L (22-30); Chloride 103 mmol/L (98-107); Estimated CRCL calculation 32 ml/min; Estimated Glomerular Filt Rate 37; Glucose 77 mg/dL (65-110); Magnesium 1.8 mg/dL (1.6-2.3); Potassium 3.2 mmol/L (3.4-5.0); Sodium 138 mmol/L (137-145)
[2023-07-27 05:41] LABS: Troponin I 0.088 ng/mL (0.000-0.034)
[2023-07-27] MEDS: DEXTROSE 50% 25 GM/50 ML SYRINGE IV PUSH ×2 (08:35→11:53)
[2023-07-27 09:15] LABS: Glucose Point of Care 65 mg/dl (65-105)
[2023-07-27 09:15] LABS: Glucose Point of Care 131 mg/dl (65-105)
[2023-07-27] MEDS: ASPIRIN 81 MG ENTERIC TABLET PO (11:51)
[2023-07-27] MEDS: PANTOPRAZOLE 40 MG TABLET PO (11:52)
[2023-07-27] MEDS: ATORVASTATIN 40 MG TABLET 80 MG PO (11:52)
[2023-07-27] MEDS: FENOFIBRATE NANOCRYSTALLIZED 145 MG TABLET PO (11:52)
[2023-07-27] MEDS: APIXABAN 5 MG TABLET PO (11:52)
[2023-07-27] MEDS: METOPROLOL SUCCINATE EXT REL 100 MG TABCR PO (11:52)
[2023-07-27] MEDS: GABAPENTIN 400 MG CAPSULE 1200 MG PO ×2 (11:52→16:56)
[2023-07-27] MEDS: FUROSEMIDE 20 MG TABLET PO (11:52)
[2023-07-27] MEDS: THERAPEUTIC MULTIVITAMINS/MINERALS TAB (*BKC) 1 TABLET PO (11:52)
--- NOTE | 2023-07-27 11:54 | PM.IMPN ---
Progress Note: A&P Assessment and Plan (1) Exertional dyspnea: Code(s): R06.09 - Other forms of dyspnea Status: Acute (2) Vaginal bleeding: Code(s): N93.9 - Abnormal uterine and vaginal bleeding, unspecified Status: Acute (3) Elevated troponin: Code(s): R77.8 - Other specified abnormalities of plasma proteins Status: Acute (4) Arthritis of right shoulder region: Code(s): M19.011 - Primary osteoarthritis, right shoulder Status: Acute (5) Calcific tendonitis of right shoulder: Code(s): M75.31 - Calcific tendinitis of right shoulder Status: Acute (6) GERD (gastroesophageal reflux disease): Code(s): K21.9 - Gastro-esophageal reflux disease without esophagitis Status: Acute (7) Pulmonary hypertension: Code(s): I27.20 - Pulmonary hypertension, unspecified Status: Acute (8) Chronic renal failure, stage 3 (moderate): Code(s): N18.30 - Chronic kidney disease, stage 3 unspecified Status: Acute (9) Pulmonary embolism: Qualifiers: Acute cor pulmonale presence: unspecified Chronicity: unspecified Pulmonary embolism type: unspecified Qualified Code(s): I26.99 - Other pulmonary embolism without acute cor pulmonale Code(s): I26.99 - Other pulmonary embolism without acute cor pulmonale Status: Acute (10) HTN (hypertension): Code(s): I10 - Essential (primary) hypertension Status: Acute (11) Diabetes type 2, controlled: Code(s): E11.9 - Type 2 diabetes mellitus without complications Status: Acute (12) Hypothyroidism: Code(s): E03.9 - Hypothyroidism, unspecified Status: Acute (13) Peripheral neuropathy: Code(s): G62.9 - Polyneuropathy, unspecified Status: Acute (14) Goiter: Code(s): E04.9 - Nontoxic goiter, unspecified Status: Acute (15) CAD (coronary artery disease): Code(s): I25.10 - Atherosclerotic heart disease of [place] coronary artery without angina pectoris Status: Acute (16) Ambulatory dysfunction: Code(s): R26.2 - Difficulty in walking, not elsewhere classified Status: Acute (17) Hearing Loss: Code(s): H91.90 - Unspecified hearing loss, unspecified ear Status: Acute (18) Pulmonary embolism on long-term anticoagulation therapy: Code(s): I26.99 - Other pulmonary embolism without acute cor pulmonale; 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 Status: Acute Plan Place patient in medical unit under observation status Continuous cardiac tele-monitoring Initial EKG Shows nonspecific ST T wave changes without any myocardial ischemia 1st 2 sets of cardiac enzymes show borderline troponin levels of 0.084 and 0.086 which are flat Monitor cardiac enzymes ?3 She does not complain of any chest pain yet had exertional dyspnea can be interpreted as chest pain equivalent 2D echo reviewed from 11/28/2021 which showed severely pulmonary hypertension and preserved LVF with EF 55-60% Keep patient NPO after midnight Cardiology consultation in am for evaluation, further treatment recommendations and work up Patient had a vaginal spotting which is likely due to chronic anticoagulation Decisions regarding inpatient TILE GRINDER evaluation and/or Web[employer] Commerce Developer ultrasound versus outpatient GI evaluation as per morning hospitalist Patient had 1+ leukocyte esterase in the urine and was given 1 dose of IV ceftriaxone by ER provider Monitor urine culture May continue antibiotics if urine culture becomes positive or patient is symptomatic Patient started on gentle IV hydration with normal saline 75 cc/hour Cardiology consult Subjective Date/time seen: 07/27/23 11:54 Interval history: No complaints. Breathing is a little bit better. Exam Narrative: PHYSICAL EXAMINATION: Vital signs: Please see the chart General physical exam: 68 years old white female, lying in bed in ER, appears to be tired and fatigu
[2023-07-27] MEDS: HYDROcodone/acetaminophen (*CRX) 7.5-325 MG TABLET 1 TAB PO ×2 (11:56→18:19)
[2023-07-27 11:58] LABS: Glucose Point of Care 68 mg/dl (65-105)
[2023-07-27 12:27] LABS: Glucose Point of Care 140 mg/dl (65-105)
--- NOTE | 2023-07-27 12:41 | PM.CNCAR ---
Assessment and Plan Assessment and plan (1) Non-ST elevation [place] (NSTEMI): Code(s): I21.4 - Non-ST elevation (NSTEMI) myocardial infarction Status: Acute Assessment and Plan: Patient presents with progressive exertional dyspnea for the past 1-2 weeks and intermittent lower extremity edema but without clear evidence of decompensated heart failure. Patient also complains of intermittent chest tightness left-sided without radiation which occurs randomly overall flow after activity at times lasting up to an hour. Last chest pain was earlier this morning resolving spontaneously in which she did not notify anyone. ECG does not reveal significant new ischemic changes, however, with the lack of alternative explanation for exertional dyspnea and chest tightness given her extensive history with previous stent implantation and is stent restenosis noted on her most recent cardiac catheterization 2019 I recommended invasive angiography for definitive evaluation of her coronary anatomy. Discussed noninvasive versus invasive approach and while I initially felt noninvasive approach was of regional given her extensive history and lack of alternative explanation I do not feel stress test would be the most appropriate at this time. However, I have significant concerns regarding ongoing complaints of shortness of breath and chest pain at rest early this morning lasting 1 hour in setting of elevated troponin and known history of underlying CAD. Therefore, coronary angiography would be advised. We discussed risks, benefits and alternatives in this regard. Patient verbalized understanding and agreed to proceed. Continue aspirin 81 mg daily. Eliquis has been discontinued but will require 48 hour washout. Anticipate coronary angiography on morning to reduce bleeding risk or sooner if severe or unrelenting symptoms. Continue telemetry. No need to repeat echocardiogram as this was obtained in April 2023. She will need to remain hospitalized until coronary angiography given the progressive and limiting nature of her dyspnea and chest tightness in light of elevated troponin concerning for small non ST elevation myocardial infarction. Unable to initiate additional systemic anticoagulation given present Eliquis. (2) CAD (coronary artery disease): Qualifiers: Coronary Disease-Associated Artery/Lesion type: [place] artery [place] vs. transplanted heart: [place] heart Associated angina: with stable angina Qualified Code(s): I25.118 - Atherosclerotic heart disease of [place] coronary artery with other forms of angina pectoris Code(s): I25.10 - Atherosclerotic heart disease of [place] coronary artery without angina pectoris Status: Acute Assessment and Plan: Continue aspirin 81 mg daily, Farxiga 10 mg daily, Toprol XL 100 mg daily, atorvastatin 80 mg at bedtime. (3) Chronic renal failure, stage 3 (moderate): Code(s): N18.30 - Chronic kidney disease, stage 3 unspecified Status: Acute Assessment and Plan: Slight increase in creatinine admission improved toward baseline. I do not feel this is likely the explanation for elevated troponin given clinical picture. (4) Pulmonary embolism on long-term anticoagulation therapy: Code(s): I26.99 - Other pulmonary embolism without acute cor pulmonale; Z79.01 - roasterman (current) use of 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 Status: Acute Assessment and Plan: She has been maintained on apixaban 5 mg twice daily indefinitely. Will need to discontinue in anticipation for coronary angiography. (5) HTN (hypertension): Qualifiers: Hypertension type: secondary to endocrine disorders Qualified Code(s): I15.2 - Hypertension secondary to endocrine disorders Code(s): I10 - Essential (primary) hypertension Status: Acute Assessment and Plan: BP stable. Continue Toprol XL 100 mg daily. Continue to monitor closely. (6) Mixed hyperlipidemia due to type 2 diabet
[2023-07-27 16:53] LABS: Glucose Point of Care 267 mg/dl (65-105)
[2023-07-27] MEDS: INSULIN ASPART (*BKC) 100 UNITS/ML SUB-Q (16:56)
[2023-07-27] MEDS: glipiZIDE 5 MG TABLET 10 MG PO (16:56)
[2023-07-27] MEDS: MELATONIN 5 MG TABLET 20 MG PO (20:12)
[2023-07-27] MEDS: CYCLOBENZAPRINE HCL 10 MG TABLET PO (20:15)
[2023-07-27 20:21] LABS: Glucose Point of Care 214 mg/dl (65-105)
[2023-07-28] VITALS (20 sets, daily range): BP systolic 106–140; BP diastolic 50–64; PULSE 55–68; RESP 18–20; TEMP 35.7–36.7; O2SAT 98–100
[2023-07-28] MEDS: HYDROcodone/acetaminophen (*CRX) 7.5-325 MG TABLET 1 TAB PO ×3 (03:49→19:46)
[2023-07-28 08:28] LABS: Glucose Point of Care 104 mg/dl (65-105)
[2023-07-28] MEDS: ATORVASTATIN 40 MG TABLET 80 MG PO (09:04)
[2023-07-28] MEDS: glipiZIDE 5 MG TABLET 10 MG PO ×2 (09:04→16:35)
[2023-07-28] MEDS: PANTOPRAZOLE 40 MG TABLET PO (09:04)
[2023-07-28] MEDS: GABAPENTIN 400 MG CAPSULE 1200 MG PO ×3 (09:04→16:35)
[2023-07-28] MEDS: EMPAGLIFLOZIN 25 MG TABLET BY MOUTH (09:04)
[2023-07-28] MEDS: FUROSEMIDE 20 MG TABLET PO (09:04)
[2023-07-28] MEDS: METOPROLOL SUCCINATE EXT REL 100 MG TABCR PO (09:04)
[2023-07-28] MEDS: ASPIRIN 81 MG ENTERIC TABLET PO (09:05)
[2023-07-28] MEDS: INSULIN GLARGINE (*BKC) 100 UNITS/ML 55 UNITS SUB-Q (09:05)
[2023-07-28] MEDS: FENOFIBRATE NANOCRYSTALLIZED 145 MG TABLET PO (09:05)
[2023-07-28] MEDS: THERAPEUTIC MULTIVITAMINS/MINERALS TAB (*BKC) 1 TABLET PO (09:05)
--- NOTE | 2023-07-28 11:23 | PM.IMPN ---
Progress Note: A&P Assessment and Plan (1) Exertional dyspnea: Code(s): R06.09 - Other forms of dyspnea Status: Acute Assessment and Plan: Possible anginal equivalent. Appreciate cardiology input. Plan for left heart catheterization. (2) Vaginal bleeding: Code(s): N93.9 - Abnormal uterine and vaginal bleeding, unspecified Status: Acute Assessment and Plan: Patient reports this is improved today. Monitor lab (3) Elevated troponin: Code(s): R77.8 - Other specified abnormalities of plasma proteins Status: Acute Assessment and Plan: Appreciate cardiology input. (4) Arthritis of right shoulder region: Code(s): M19.011 - Primary osteoarthritis, right shoulder Status: Acute (5) Calcific tendonitis of right shoulder: Code(s): M75.31 - Calcific tendinitis of right shoulder Status: Acute (6) GERD (gastroesophageal reflux disease): Code(s): K21.9 - Gastro-esophageal reflux disease without esophagitis Status: Acute (7) Pulmonary hypertension: Code(s): I27.20 - Pulmonary hypertension, unspecified Status: Acute (8) Chronic renal failure, stage 3 (moderate): Code(s): N18.30 - Chronic kidney disease, stage 3 unspecified Status: Acute (9) Pulmonary embolism: Qualifiers: Acute cor pulmonale presence: unspecified Chronicity: unspecified Pulmonary embolism type: unspecified Qualified Code(s): I26.99 - Other pulmonary embolism without acute cor pulmonale Code(s): I26.99 - Other pulmonary embolism without acute cor pulmonale Status: Acute (10) HTN (hypertension): Qualifiers: Hypertension type: secondary to endocrine disorders Qualified Code(s): I15.2 - Hypertension secondary to endocrine disorders Code(s): I10 - Essential (primary) hypertension Status: Acute (11) Diabetes type 2, controlled: Code(s): E11.9 - Type 2 diabetes mellitus without complications Status: Acute (12) Hypothyroidism: Code(s): E03.9 - Hypothyroidism, unspecified Status: Acute (13) Peripheral neuropathy: Code(s): G62.9 - Polyneuropathy, unspecified Status: Acute (14) Goiter: Code(s): E04.9 - Nontoxic goiter, unspecified Status: Acute (15) CAD (coronary artery disease): Qualifiers: Coronary Disease-Associated Artery/Lesion type: [place] artery [place] vs. transplanted heart: [place] heart Associated angina: with stable angina Qualified Code(s): I25.118 - Atherosclerotic heart disease of [place] coronary artery with other forms of angina pectoris Code(s): I25.10 - Atherosclerotic heart disease of [place] coronary artery without angina pectoris Status: Acute (16) Ambulatory dysfunction: Code(s): R26.2 - Difficulty in walking, not elsewhere classified Status: Acute (17) Hearing Loss: Code(s): H91.90 - Unspecified hearing loss, unspecified ear Status: Acute (18) Pulmonary embolism on long-term anticoagulation therapy: Code(s): I26.99 - Other pulmonary embolism without acute cor pulmonale; Z79.01 - group home (current) use of 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 Status: Acute Subjective Date/time seen: 07/28/23 11:23 Interval history: No complaints Exam Narrative: PHYSICAL EXAMINATION: Vital signs: Please see the chart General physical exam: 68 years old white female, lying in bed in ER, appears to be tired and fatigued Head/eyes: Atraumatic, EOMI, PERRLA + 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
[2023-07-28 12:11] LABS: Glucose Point of Care 357 mg/dl (65-105)
[2023-07-28] MEDS: INSULIN ASPART (*BKC) 100 UNITS/ML SUB-Q (12:23)
--- NOTE | 2023-07-28 13:22 | PM.PNCARD ---
Progress Note: A&P Assessment and Plan (1) Non-ST elevation [place] (NSTEMI): Code(s): I21.4 - Non-ST elevation (NSTEMI) myocardial infarction Status: Acute Assessment and Plan: Patient presented with progressive exertional dyspnea for the past 1-2 weeks and intermittent lower extremity edema but without clear evidence of decompensated heart failure.? Patient also complains of intermittent chest tightness left-sided without radiation which occurs randomly overall at times lasting up to an hour.? ECG does not reveal significant new ischemic changes, however, with the lack of alternative explanation for exertional dyspnea and chest tightness given her extensive history with previous stent implantation and stent restenosis noted on her most recent cardiac catheterization 2018, recommended invasive angiography for definitive evaluation of her coronary anatomy.? We discussed risks, benefits and alternatives in this regard.? Patient verbalized understanding and agreed to proceed.? Continue aspirin 81 mg daily.? Eliquis has been discontinued but will require 48 hour washout.? Anticipate coronary angiography on morning to reduce bleeding risk or sooner if severe or unrelenting symptoms.? Continue telemetry.? No need to repeat echocardiogram as this was obtained in April 2023.? She will need to remain hospitalized until coronary angiography given the progressive and limiting nature of her dyspnea and chest tightness in light of elevated troponin concerning for small non ST elevation myocardial infarction.? Unable to initiate additional systemic anticoagulation given present Eliquis. (2) CAD (coronary artery disease): Qualifiers: Coronary Disease-Associated Artery/Lesion type: [place] artery [place] vs. transplanted heart: [place] heart Associated angina: with stable angina Qualified Code(s): I25.118 - Atherosclerotic heart disease of [place] coronary artery with other forms of angina pectoris Code(s): I25.10 - Atherosclerotic heart disease of [place] coronary artery without angina pectoris Status: Acute Assessment and Plan: Continue aspirin 81 mg daily, Farxiga 10 mg daily, Toprol XL 100 mg daily, atorvastatin 80 mg at bedtime. (3) Chronic renal failure, stage 3 (moderate): Code(s): N18.30 - Chronic kidney disease, stage 3 unspecified Status: Acute Assessment and Plan: Monitor renal function closely (4) Pulmonary embolism on long-term anticoagulation therapy: Code(s): I26.99 - Other pulmonary embolism without acute cor pulmonale; Z79.01 - half-way (current) use of 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 Status: Acute Assessment and Plan: She has been maintained on apixaban 5 mg twice daily indefinitely.? Will need to discontinue in anticipation for coronary angiography. (5) HTN (hypertension): Qualifiers: Hypertension type: secondary to endocrine disorders Qualified Code(s): I15.2 - Hypertension secondary to endocrine disorders Code(s): I10 - Essential (primary) hypertension Status: Acute Assessment and Plan: BP stable.? Continue Toprol XL 100 mg daily.? Continue to monitor closely. 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 Continue fenofibrate. 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 Patient not felt to be candidate for pulmonary embolectomy in the past. (8) Recurrent falls: Code(s): R29.6 - Repeated falls Status: Acute Assessment and Plan: Unclear etiology.? Patient denies associated dizziness or near syncope describing her legs just givi
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
[2023-07-28] MEDS: NITROGLYCERIN SL 0.4 MG TABLET SUBLINGUAL (14:24)
[2023-07-28 16:18] LABS: Glucose Point of Care 129 mg/dl (65-105)
[2023-07-28 20:21] LABS: Glucose Point of Care 188 mg/dl (65-105)
[2023-07-28] MEDS: MELATONIN 5 MG TABLET 20 MG PO (21:30)
[2023-07-29] VITALS (16 sets, daily range): BP systolic 107–153; BP diastolic 52–65; PULSE 50–67; RESP 16–20; TEMP 36–36.4; O2SAT 98–100
[2023-07-29] MEDS: HYDROcodone/acetaminophen (*CRX) 7.5-325 MG TABLET 1 TAB PO ×4 (05:05→23:10)
[2023-07-29 05:32] LABS: Basophils Absolute Auto 0.1 K/mm3 (0.0-0.1); Basophils Percent Auto 1.1 % (0.2-1.2); Eosinophils Absolute Auto 0.2 K/mm3 (0-0.3); Eosinophils Percent Auto 2.4 % (0-4.4); Hematocrit 39.5 % (37.0-47.0); Hemoglobin 12.6 g/dL (12.0-15.0); Immature Granulocyte Absolute 0.03 K/mm3 (0.00-0.031); Immature Granulocyte Percent A 0.4 % (0-0.5); Lymphocytes Absolute Auto 2.95 K/mm3 (0.9-3.2); Lymphocytes Percent Auto 39.2 % (18.3-44.2); Mean Corpuscular HGB Conc 31.9 g/dl (32-36); Mean Corpuscular Hemoglobin 27.8 pg (26-34); Mean Platelet Volume 9.1 fl (7.4-10.4); Monocytes Absolute Auto 0.7 K/mm3 (0.1-0.6); Monocytes Percent Auto 8.8 % (2.6-8.5); Neutrophils Absolute Auto 3.6 K/mm3 (1.3-6.7); Neutrophils Percent Auto 48.1 % (45.5-73.1); Platelet Count Result 382 k/mm3 (150-375); Red Blood Count 4.54 M/mm3 (4.2-5.4); Red Cell Distribution Width 14.2 % (11.5-14.5); White Blood Count 7.5 K/mm3 (4.5-10.0)
[2023-07-29 05:48] LABS: Anion Gap 8 mmol/L (8-16); Blood Urea Nitrogen 43 mg/dL (7-17); Calcium 9.7 mg/dL (8.4-10.2); Carbon Dioxide 31 mmol/L (22-30); Chloride 99 mmol/L (98-107); Estimated CRCL calculation 25 ml/min; Estimated Glomerular Filt Rate 28; Glucose 158 mg/dL (65-110); Potassium 4.3 mmol/L (3.4-5.0); Sodium 138 mmol/L (137-145)
[2023-07-29] MEDS: GABAPENTIN 400 MG CAPSULE 1200 MG PO ×3 (08:35→17:31)
[2023-07-29] MEDS: THERAPEUTIC MULTIVITAMINS/MINERALS TAB (*BKC) 1 TABLET PO (08:35)
[2023-07-29] MEDS: ASPIRIN 81 MG ENTERIC TABLET PO (08:35)
[2023-07-29] MEDS: FENOFIBRATE NANOCRYSTALLIZED 145 MG TABLET PO (08:35)
[2023-07-29] MEDS: glipiZIDE 5 MG TABLET 10 MG PO (08:35)
[2023-07-29] MEDS: INSULIN GLARGINE (*BKC) 100 UNITS/ML 55 UNITS SUB-Q (08:36)
[2023-07-29] MEDS: EMPAGLIFLOZIN 25 MG TABLET BY MOUTH (08:36)
[2023-07-29] MEDS: PANTOPRAZOLE 40 MG TABLET PO (08:36)
[2023-07-29] MEDS: METOPROLOL SUCCINATE EXT REL 100 MG TABCR PO (08:36)
[2023-07-29] MEDS: FUROSEMIDE 20 MG TABLET PO (08:36)
[2023-07-29] MEDS: ATORVASTATIN 40 MG TABLET 80 MG PO (08:38)
[2023-07-29] MEDS: INSULIN ASPART (*BKC) 100 UNITS/ML SUB-Q (11:40)
[2023-07-29 12:24] LABS: Glucose Point of Care 150 mg/dl (65-105)
[2023-07-29 12:24] LABS: Glucose Point of Care 240 mg/dl (65-105)
--- NOTE | 2023-07-29 13:22 | PM.PNCARD ---
Progress Note: A&P Assessment and Plan (1) Non-ST elevation [place] (NSTEMI): Code(s): I21.4 - Non-ST elevation (NSTEMI) myocardial infarction Status: Acute Assessment and Plan: Patient presented with progressive exertional dyspnea for the past 1-2 weeks and intermittent lower extremity edema but without clear evidence of decompensated heart failure.? Patient also complains of intermittent chest tightness left-sided without radiation which occurs randomly overall at times lasting up to an hour.? ECG does not reveal significant new ischemic changes, however, with the lack of alternative explanation for exertional dyspnea and chest tightness given her extensive history with previous stent implantation and stent restenosis noted on her most recent cardiac catheterization 2018, recommended invasive angiography for definitive evaluation of her coronary anatomy.? We discussed risks, benefits and alternatives in this regard.? Patient verbalized understanding and agreed to proceed.? Continue aspirin 81 mg daily.? Eliquis has been discontinued but will require 48 hour washout.? Anticipate coronary angiography on morning to reduce bleeding risk or sooner if severe or unrelenting symptoms.? Continue telemetry.? No need to repeat echocardiogram as this was obtained in April 2023.? She will need to remain hospitalized until coronary angiography given the progressive and limiting nature of her dyspnea and chest tightness in light of elevated troponin concerning for small non ST elevation myocardial infarction.? Unable to initiate additional systemic anticoagulation given present Eliquis. (2) CAD (coronary artery disease): Qualifiers: Coronary Disease-Associated Artery/Lesion type: [place] artery [place] vs. transplanted heart: [place] heart Associated angina: with stable angina Qualified Code(s): I25.118 - Atherosclerotic heart disease of [place] coronary artery with other forms of angina pectoris Code(s): I25.10 - Atherosclerotic heart disease of [place] coronary artery without angina pectoris Status: Acute Assessment and Plan: Continue aspirin 81 mg daily, Farxiga 10 mg daily, Toprol XL 100 mg daily, atorvastatin 80 mg at bedtime. (3) Chronic renal failure, stage 3 (moderate): Code(s): N18.30 - Chronic kidney disease, stage 3 unspecified Status: Acute Assessment and Plan: Monitor renal function closely (4) Pulmonary embolism on long-term anticoagulation therapy: Code(s): I26.99 - Other pulmonary embolism without acute cor pulmonale; Z79.01 - [facility] (current) use of 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 Status: Acute Assessment and Plan: She has been maintained on apixaban 5 mg twice daily indefinitely.? Will need to discontinue in anticipation for coronary angiography. (5) HTN (hypertension): Qualifiers: Hypertension type: secondary to endocrine disorders Qualified Code(s): I15.2 - Hypertension secondary to endocrine disorders Code(s): I10 - Essential (primary) hypertension Status: Acute Assessment and Plan: BP stable.? Continue Toprol XL 100 mg daily.? Continue to monitor closely. 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 Continue fenofibrate. 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 Patient not felt to be candidate for pulmonary embolectomy in the past. (8) Recurrent falls: Code(s): R29.6 - Repeated falls Status: Acute Assessment and Plan: Unclear etiology.? Patient denies associated dizziness or near syncope describing her legs just givi
--- NOTE | 2023-07-29 14:34 | PM.IMPN ---
Progress Note: A&P Assessment and Plan (1) Exertional dyspnea: Code(s): R06.09 - Other forms of dyspnea Status: Acute (2) Vaginal bleeding: Code(s): N93.9 - Abnormal uterine and vaginal bleeding, unspecified Status: Acute Assessment and Plan: Patient reports this is improved today. Monitor lab (3) Elevated troponin: Code(s): R77.8 - Other specified abnormalities of plasma proteins Status: Acute (4) Arthritis of right shoulder region: Code(s): M19.011 - Primary osteoarthritis, right shoulder Status: Acute (5) Chronic renal failure, stage 3 (moderate): Code(s): N18.30 - Chronic kidney disease, stage 3 unspecified Status: Acute (6) HTN (hypertension): Qualifiers: Hypertension type: secondary to endocrine disorders Qualified Code(s): I15.2 - Hypertension secondary to endocrine disorders Code(s): I10 - Essential (primary) hypertension Status: Acute (7) Diabetes type 2, controlled: Code(s): E11.9 - Type 2 diabetes mellitus without complications Status: Acute (8) Hypothyroidism: Code(s): E03.9 - Hypothyroidism, unspecified Status: Acute (9) CAD (coronary artery disease): Qualifiers: Coronary Disease-Associated Artery/Lesion type: [place] artery [place] vs. 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 0.084 which remained stable on repetition.? She has a prior history of CAD.? Cardiology was consulted? 1. NSTEMI: Appreciate cardiology help Plan for cardiac catheterization tomorrow Continue with aspirin, Lionel has been on hold Continue with farxiga 10 mg daily, Toprol XL 100 mg daily, atorvastatin 80 mg at bedtime 2. CKD stage 3: Bump in creatinine noted today, hold Lasix today Recheck BMP in a.m. Avoid nephrotoxic 3. Diabetes mellitus: Blood glucose checked t.i.d. a.c. and HS Continue with 55 units of Lantus Continue with mealtime insulin plus sliding scale Hold glipizide for now Obtain HGB A1c in morning 4. Right shoulder arthritis: Add Lidoderm patch 5. History of pulmonary embolism on chronic anticoagulation: Eliquis on hold as mentioned above 6. Code status: Full 7. Disposition: Pending improvement Time Spent With Patient Time with patient: 15 - 25 minutes Subjective Date/time seen: 07/29/23 14:34 Interval history: No acute events overnight Await cardiac cath in morning Review of Systems Review of Systems: All systems reviewed & are unremarkable except as noted in HPI and below Exam Const: General: comfortable HENMT: Mouth: Yes moist mucous membranes Eyes: Sclera: sclerae normal Neck: Neck: supple Resp: Effort & Inspection: normal respiratory effort Auscultation: diminished lung sounds Cardio: Rate: regular rate Rhythm: regular rhythm GI: GI Palp: Yes Soft to palpation Auscultation: normal bowel sounds Skin: General skin exam: normal color Neuro: Speech: normal speech Extrem: General: normal to inspection Psych: Mental Status: mental status grossly normal Objective Data Vital Signs Vital Signs: Vital Signs - 24 hr 07/28/23 16:09 07/28/23 16:00 07/28/23 16:00
[2023-07-29 17:14] LABS: Glucose Point of Care 167 mg/dl (65-105)
[2023-07-29 20:40] LABS: Glucose Point of Care 267 mg/dl (65-105)
[2023-07-29] MEDS: CYCLOBENZAPRINE HCL 10 MG TABLET PO (21:45)
[2023-07-30] VITALS (32 sets, daily range): BP systolic 98–150; BP diastolic 40–89; PULSE 49–73; RESP 14–20; TEMP 36.1–36.8; O2SAT 95–100
[2023-07-30 04:50] LABS: Basophils Absolute Auto 0.1 K/mm3 (0.0-0.1); Eosinophils Absolute Auto 0.2 K/mm3 (0-0.3); Eosinophils Percent Auto 2.4 % (0-4.4); Hematocrit 40.8 % (37.0-47.0); Hemoglobin 12.8 g/dL (12.0-15.0); Immature Granulocyte Absolute 0.02 K/mm3 (0.00-0.031); Immature Granulocyte Percent A 0.3 % (0-0.5); Lymphocytes Absolute Auto 2.87 K/mm3 (0.9-3.2); Lymphocytes Percent Auto 42.3 % (18.3-44.2); Mean Corpuscular HGB Conc 31.4 g/dl (32-36); Mean Corpuscular Hemoglobin 27.3 pg (26-34); Monocytes Absolute Auto 0.5 K/mm3 (0.1-0.6); Monocytes Percent Auto 7.5 % (2.6-8.5); Neutrophils Absolute Auto 3.2 K/mm3 (1.3-6.7); Neutrophils Percent Auto 46.5 % (45.5-73.1); Platelet Count Result 363 k/mm3 (150-375); Red Blood Count 4.69 M/mm3 (4.2-5.4); Red Cell Distribution Width 14.1 % (11.5-14.5); White Blood Count 6.8 K/mm3 (4.5-10.0)
[2023-07-30 05:06] LABS: Anion Gap 5 mmol/L (8-16); Blood Urea Nitrogen 43 mg/dL (7-17); Calcium 9.5 mg/dL (8.4-10.2); Carbon Dioxide 32 mmol/L (22-30); Chloride 95 mmol/L (98-107); Estimated CRCL calculation 25 ml/min; Estimated Glomerular Filt Rate 28; Glucose 107 mg/dL (65-110); Sodium 132 mmol/L (137-145)
[2023-07-30 08:11] LABS: Glucose Point of Care 83 mg/dl (65-105)
[2023-07-30] MEDS: ATORVASTATIN 40 MG TABLET 80 MG PO (08:48)
[2023-07-30] MEDS: PANTOPRAZOLE 40 MG TABLET PO (08:50)
[2023-07-30] MEDS: HYDROcodone/acetaminophen (*CRX) 7.5-325 MG TABLET 1 TAB PO ×3 (08:51→23:15)
[2023-07-30] MEDS: GABAPENTIN 400 MG CAPSULE 1200 MG PO ×2 (08:53→16:29)
[2023-07-30] MEDS: ASPIRIN 81 MG ENTERIC TABLET PO (08:53)
[2023-07-30] MEDS: LIDOCAINE 5% PATCH 1 PATCH TRANSDERM (08:56)
[2023-07-30] MEDS: THERAPEUTIC MULTIVITAMINS/MINERALS TAB (*BKC) 1 TABLET PO (09:01)
--- NOTE | 2023-07-30 10:10 | PC.NURSE ---
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
--- NOTE | 2023-07-30 10:25 | WPDMODSED ---
Moderate Sedation Note-Pt Data Patient Data Diagnosis: NSTEMI Present Complaint: NSTEMI Procedure to be performed/Plan: Coronary angiography, left heart cath, +/- PCI Allergies Allergy/AdvReac Type Severity Reaction Status Date / Time latex Allergy Unknown Hives Verified 07/10/23 22:25 Home Medications Medication Instructions Recorded Confirmed Type glipizide 10 mg tablet 10 mg PO BID 04/16/20 07/26/23 History metformin 500 mg tablet 1,000 mg PO BID 04/16/20 07/26/23 History atorvastatin 80 mg tablet 80 mg PO DAILY 06/04/20 07/26/23 History gabapentin 600 mg tablet 1,200 mg PO TID 06/04/20 07/26/23 History cyclobenzaprine 10 mg tablet 10 mg PO TID PRN muscle spasm #10 08/02/20 07/26/23 Rx tabs insulin glargine 100 unit/mL 55 unit subcut DAILY 08/04/21 07/26/23 History subcutaneous solution (Lantus U-100 Insulin) melatonin 10 mg tablet 20 mg PO HS 08/04/21 07/26/23 History apixaban 5 mg tablet (Eliquis) 5 mg PO BID pulmonary embolism 11/05/21 07/26/23 History hydrocodone 7.5 mg-acetaminophen 1 tablet PO Q6H PRN Pain Rated 11/09/21 07/26/23 Rx 325 mg tablet 7-10 #30 tabs fenofibrate nanocrystallized 145 145 mg PO DAILY 11/29/21 07/26/23 History mg tablet acetaminophen 500 mg capsule 1,000 mg PO Q6H PRN Pain (Scale 02/24/22 07/26/23 History Score 1-3) aspirin 81 mg tablet 81 mg PO DAILY 02/24/22 07/26/23 History dapagliflozin propanediol 10 mg 10 mg PO DAILY 02/24/22 07/26/23 History tablet (Farxiga) [id number]-[id number] 8 mg-folic 400 1 tablet PO DAILY 02/24/22 07/26/23 History mcg-K 50 mcg-lutein 300 mcg tablet (Centrum Silver Women) omeprazole 20 mg capsule,delayed 20 mg PO DAILY 02/24/22 07/26/23 History release metoprolol succinate 100 mg 100 mg PO DAILY 07/23/22 07/26/23 History tablet,extended release 24 hr phentermine 37.5 mg capsule 37.5 mg PO DAILY 07/23/22 07/26/23 History furosemide 20 mg tablet 20 mg PO DAILY 07/26/23 07/26/23 History Current Medications: Active Medications Acetaminophen (Acetaminophen 500 Mg Tablet) 1,000 mg PO Q6H PRN PRN Reason: Pain (Scale Score 1-3) Hydrocodone Bitart/Acetaminophen (Hydrocodone/Acetaminophen (*Crx) 7.5-325 Mg Tablet) 1 tab PO Q6H PRN PRN Reason: Pain Rated 7-10 Last Admin: 07/30/23 08:51 Dose: 1 tab Al Hydrox/Mg Hydrox/Simethicone (Mag Hydrox/Al Hydrox/Simeth 30 Ml Udc) 30 ml PO QID PRN PRN Reason: Dyspepsia Apixaban (Apixaban 5 Mg Tablet) 5 mg PO Q12HR [facility] Last Admin: 07/27/23 11:52 Dose: 5 mg Aspirin (Aspirin 81 Mg Enteric Tablet) 81 mg PO QAM [facility] Last Admin: 07/30/23 08:53 Dose: 81 mg Atorvastatin Calcium (Atorvastatin 40 Mg Tablet) 80 mg PO DAILY [facility] Last Admin: 07/30/23 08:48 Dose: 80 mg Cyclobenzaprine HCl (Cyclobenzaprine Hcl 10 Mg Tablet) 10 mg PO TID PRN PRN Reason: muscle spasm Last Admin: 07/29/23 21:45 Dose: 10 mg Dextrose (Dextrose 50% 25 Gm/50 Ml Syringe) 12.5 gm IV PUSH PRN PRN; Protocol PRN Reason: Hypoglycemia Last Admin: 07/27/23 11:53 Dose: 12.5 gm Empagliflozin (Empagliflozin 25 Mg Tablet) 25 mg BY MOUTH DAILY [facility] Last Admin: 07/30/23 08:54 Dose: Not Given Fenofibrate (Fenofibrate Nanocrystallized 145 Mg Tablet) 145 mg PO DAILY [facility] Last Admin: 07/30/23 08:56 Dose: Not Given Furosemide (Furosemide 20 Mg Tablet) 20 mg PO DAILY [facility] Last Admin: 07/29/23 08:36 Dose: 20 mg Gabapentin (Gabapentin 400 Mg Capsule) 1,200 mg PO TID [facility] Last Admin: 07/30/23 08:53 Dose: 1,200 mg Glipizide (Glipizide 5 Mg Tablet) 10 mg PO BIDWM [facility] Last Admin: 07/29/23 08:35 Dose: 10 mg Glucagon (Glucagon For Inj 1 Mg Vial) 1 mg IM PRN PRN; Protocol PRN Reason: Hypoglycemia Glucose (Glucose Oral Gel 15 Gm Of Glucse In 37.5 Gm Tube) 15 gm PO PRN PRN; Protocol PRN Reason: Hypoglycemia Dextrose (Dextrose 5% 1,000 Ml) 1,000 mls @ 100 mls/hr IVPB PRN PRN; Protocol PRN Reason: Hypoglycemia Insulin Aspart (Insulin Aspart (*Bkc) 100 Units/Ml) 2 - 5 units SUB-Q TIDWM LOTUS; Prot
--- NOTE | 2023-07-30 11:29 | ECG_ITS ---
Measurements Intervals [place] Rate: 54 P: 42 LA: 168 QRS: 48 QRSD: 89 T: -1 QT: 421 QTc: 401 Interpretive Statements SINUS BRADYCARDIA NONSPECIFIC T-WAVE ABNORMALITY- INFERIOR LEADS BASELINE WANDER- I, II, III BORDERLINE ECG COMPARED TO ECG 07/26/2023 17:54:54 SINUS BRADYCARDIA NOW PRESENT Electronically Signed On 07-30-2023 12:13:42 CDT by Nasir Diehl D.O.
--- NOTE | 2023-07-30 11:39 | WPDCARDPROC ---
Cardiac Cath Procedure Note Date of procedure:: 07/30/23 Performing physician:: CATHETERIZATION LABORATORY REPORT Procedure Date: 07/30/2023 Ssis Architect: Ezequiel Blunt M.D., [facility]? Referring Physician: Nakul Herrera M.D. ? Anesthesia: Versed and Fentanyl were ordered and given in my presence at 10:27, procedure ended at 11:23. Supervision of nurse monitored moderate sedation with Versed and Fentanyl was provided for 56 minutes. Total of Versed 2mg and Fentanyl 50mcg were administered by the Wireless Sales Manager RN Arina Bernal. Pre-op Diagnosis: Coronary artery disease Post-op Diagnosis: 1. Significant 99% stenosis in the mid RCA s/p successful IVUS-guided PCI with MARGARET x 1. 2. The mid LAD stent is patent with diffuse mild-moderate in-stent restenosis, however, the LAD distal to the stent is a small caliber vessel. 3. Patent proximal RPDA stent 4. Left ventricular end-diastolic pressure of 18mmHg Procedure(s): 1. Moderate sedation 2. Ultrasound-guided access of the right radial artery 3. Coronary angiography 4. Left heart cath 5. IVUS-guided PCI of the mid RCA with MARGARET x 1 Access Site: Right radial artery Brief History and Clinical Indications: Patient is a 68 year old female with known CAD s/p prior PCI who is referred for [facility] for NSTEMI. All risks, benefits and alternatives to left heart catheterization with or without percutaneous coronary intervention was discussed at length with the patient. Risk of complications including but not limited to bleeding, infection, arrhythmia, stroke, worsening kidney function, blood loss, groin hematoma, limb loss, emergency coronary artery bypass grafting, and even were discussed with the patient and all questions were answered. The patient understood and wished to proceed. Time out called, patient name, date of , medical record number, allergies, procedure performed, identify Ssis Architect, patient and staff member concurred with accurate data, procedure carried on. Findings: LEFT HEART CATHETERIZATION FINDINGS: 1. Left main: Large caliber vessel. The left main coronary artery is widely patent without any significant obstructive disease. 2. Left anterior descending: Large caliber vessel that tapers to small caliber distally. The ostial LAD has mild 20% stenosis. The proximal portion of the LAD has luminal irregularities. The mid LAD has a focal mild 40-50% stenosis. Distal to this stenosis, there is a patent stent in the mid portion that has diffuse mild-moderate in-stent restenosis. The LAD distal to the stent is of small caliber size and with mild diffuse disease. 3. Left circumflex: Large caliber vessel. The left circumflex is a co-dominant vessel. The proximal LCX has mild disease of 30%. Remainder of the LCX has luminal irregularities. The OM has mild 30% disease in its mid portion. 4. Right coronary artery: Large caliber vessel. The RCA is a co-dominant vessel. The proximal portion has luminal irregularities. The mid portion has a 99% stenosis. The distal portion has luminal irregularities. There is a widely patent stent in the proximal RPDA with minimal in-stent restenosis. 5. Left ventricle: A. End-diastolic pressure 18 mmHg. B. LV gram deferred. C. No significant gradient across aortic valve on catheter pullback. Description of Procedure: Informed consent signed and placed in the chart. Patient transferred to labor custodian room. Prepped and draped in usual sterile fashion. 2% lidocaine injected subcutaneously in right wrist area. 22-gauge venipuncture catheter used to access the right radial artery under ultrasound guidance. 6-FR slender sheath placed in right radial artery. Nitroglycerine and Verapamil were given intraarterial through the sheath. Versacore wire advanced under fluoroscopy 5F Tig 4 diagnostic catheter engaged Left Main Coronary Artery. 5F Tig 4 diagnostic catheter engaged Right Coronary Artery Multiple orthogonal angiogram obtained and reviewed
--- NOTE | 2023-07-30 12:02 | PM.PNCARD ---
Progress Note: A&P Assessment and Plan (1) Non-ST elevation MD (NSTEMI): Code(s): I21.4 - Non-ST elevation (NSTEMI) myocardial infarction Status: Acute Assessment and Plan: Patient presented with progressive exertional dyspnea for the past 1-2 weeks and intermittent lower extremity edema but without clear evidence of decompensated heart failure.? Patient also complains of intermittent chest tightness left-sided without radiation which occurs randomly overall at times lasting up to an hour.? ECG does not reveal significant new ischemic changes, however, with the lack of alternative explanation for exertional dyspnea and chest tightness given her extensive history with previous stent implantation and stent restenosis noted on her most recent cardiac catheterization 2018, recommended invasive angiography for definitive evaluation of her coronary anatomy.? We discussed risks, benefits and alternatives in this regard.? Patient verbalized understanding and agreed to proceed. Eliquis discontinued to allow a 48 hour washout. Cardiac catheterization 07/30: 1. Significant 99% stenosis in the mid RCA s/p successful IVUS-guided PCI with MARGARET x 1. 2. The mid LAD stent is patent with diffuse mild-moderate in-stent restenosis, however, the LAD distal to the stent is a small caliber vessel. 3. Patent proximal RPDA stent 4. Left ventricular end-diastolic pressure of 18mmHg Given PCI, will do ASA 81mg QD, Plavix 75mg QD (was loaded with 600mg prior to cath), and Eliquis 5mg BID for 30 days. After 30 days, can stop the ASA and continue with Plavix and Eliquis. Continue with high intensity statin. Referral to cardiac rehab placed. Continue beta romel, will decrease dose down to 50mg given bradycardia. (2) CAD (coronary artery disease): Qualifiers: Coronary Disease-Associated Artery/Lesion type: [place] artery [place] vs. transplanted heart: [place] heart Associated angina: with stable angina Qualified Code(s): I25.118 - Atherosclerotic heart disease of [place] coronary artery with other forms of angina pectoris Code(s): I25.10 - Atherosclerotic heart disease of [place] coronary artery without angina pectoris Status: Acute Assessment and Plan: Continue aspirin 81 mg daily, Farxiga 10 mg daily, atorvastatin 80 mg at bedtime. Decrease dose of Toprol to 50mg given sinus bradycardia with HR in the high 40s to 50s. (3) Chronic renal failure, stage 3 (moderate): Code(s): N18.30 - Chronic kidney disease, stage 3 unspecified Status: Acute Assessment and Plan: Monitor renal function closely. Agree with holding Lasix given bump in SCr. Will need to closely monitor renal function to monitor for contrast induced DARLEEN. (4) Pulmonary embolism on long-term anticoagulation therapy: Code(s): I26.99 - Other pulmonary embolism without acute cor pulmonale; Z79.01 - FPC (current) use of 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 Status: Acute Assessment and Plan: She has been maintained on apixaban 5 mg twice daily indefinitely.? Resume Eliquis 5mg BID starting 9 AM. (5) HTN (hypertension): Qualifiers: Hypertension type: secondary to endocrine disorders Qualified Code(s): I15.2 - Hypertension secondary to endocrine disorders Code(s): I10 - Essential (primary) hypertension Status: Acute Assessment and Plan: BP stable.? Continue Toprol.? Continue to monitor closely. 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 Continue fenofibrate. 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 Patient not felt to
--- NOTE | 2023-07-30 12:05 | SUR.PHASEII ---
angiomax drip stopped at 12:05
[2023-07-30] MEDS: SODIUM CHLORIDE 0.9% IV 1,000 ML 125 ML IV CONT (13:12)
--- NOTE | 2023-07-30 14:41 | PM.IMPN ---
Progress Note: A&P Assessment and Plan (1) Exertional dyspnea: Code(s): R06.09 - Other forms of dyspnea Status: Acute (2) Vaginal bleeding: Code(s): N93.9 - Abnormal uterine and vaginal bleeding, unspecified Status: Acute (3) Elevated troponin: Code(s): R77.8 - Other specified abnormalities of plasma proteins Status: Acute (4) Arthritis of right shoulder region: Code(s): M19.011 - Primary osteoarthritis, right shoulder Status: Acute (5) Chronic renal failure, stage 3 (moderate): Code(s): N18.30 - Chronic kidney disease, stage 3 unspecified Status: Acute (6) HTN (hypertension): Qualifiers: Hypertension type: secondary to endocrine disorders Qualified Code(s): I15.2 - Hypertension secondary to endocrine disorders Code(s): I10 - Essential (primary) hypertension Status: Acute (7) Diabetes type 2, controlled: Code(s): E11.9 - Type 2 diabetes mellitus without complications Status: Acute (8) Hypothyroidism: Code(s): E03.9 - Hypothyroidism, unspecified Status: Acute (9) CAD (coronary artery disease): Qualifiers: Coronary Disease-Associated Artery/Lesion type: [place] artery [place] vs. transplanted heart: [place] heart Associated angina: with stable angina Qualified Code(s): I25.118 - Atherosclerotic heart disease of [place] coronary artery with other forms of angina pectoris Code(s): I25.10 - Atherosclerotic heart disease of [place] coronary artery without angina pectoris Status: Acute (10) Pulmonary embolism on long-term anticoagulation therapy: Code(s): I26.99 - Other pulmonary embolism without acute cor pulmonale; Z79.01 - terminal operations supervisor (current) use of 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 Status: Acute Plan ?68 years old white female with chronic right facial palsy since and chronic medical issues, who is on long-term anticoagulation for chronic pulmonary embolisms since 2020 presented with worsening shortness of breath.?Workup was done, which showed minimally elevated troponin l level of? 0.084 which remained stable on repetition.? She has a prior history of CAD.? Cardiology was consulted? 1. NSTEMI: Appreciate cardiology help S/p Cardiac cath today Significant 99% stenosis in the mid RCA s/p successful IVUS-guided PCI with MARGARET x 1. The mid LAD stent is patent with diffuse mild-moderate in-stent restenosis, however, the LAD distal to the stent is a small caliber vessel. Patent proximal RPDA stent. Left ventricular end-diastolic pressure of 18mmHg As Per Cardiology Given PCI, will do ASA 81mg QD, Plavix 75mg QD (was loaded with 600mg prior to cath), and Eliquis 5mg BID for 30 days. After 30 days, can stop the ASA and continue with Plavix and Eliquis. Continue with farxiga 10 mg daily, atorvastatin 80 mg at bedtime Metoprolol changed to 50 mg due to noted bradycardia 2. CKD stage 3: Bump in creatinine noted today, holding Lasix today Recheck BMP in a.m. Avoid nephrotoxic 3. Diabetes mellitus: Blood glucose checked t.i.d. a.c. and HS Continue with 55 units of Lantus Continue with mealtime insulin plus sliding scale Hold glipizide for now HbA1c is 8 4. Right shoulder arthritis: c/w Lidoderm patch 5. History of pulmonary embolism on chronic anticoagulation: Will start Eliquis tomorrow 6. Code status: Full 7. Disposition: Pending improvement Time Spent With Patient Time with patient: 15 - 25 minutes Subjective Date/time seen: 07/30/23 14:41 Interval history: s/p cardiac cath today Review of Systems Review of Systems: All systems reviewed & are unremarkable except as noted in HPI and below Exam Const: General: comfortable HENMT: Mouth: Yes moist mucous membranes Eyes: Sclera: sclerae normal Neck: Neck: supple Resp: Effort & Inspection: normal respiratory effort Auscultation: diminished lung sounds Cardio: Rate: bradycardic Rhythm: regular rhythm GI: GI Palp: Yes
--- NOTE | 2023-07-30 15:48 | PC.NURSE ---
Pt returned from vp lab via bed. No issues noted
[2023-07-30 16:45] LABS: Glucose Point of Care 211 mg/dl (65-105)
--- NOTE | 2023-07-30 16:49 | PC.NURSE ---
On 07/30/23, the student, Alexandre QUEVEDO [facility], provided care and completed [facility] documentation on this patient. I have reviewed the student's documentation and agree with the findings.
[2023-07-30] MEDS: INSULIN ASPART (*BKC) 100 UNITS/ML SUB-Q (17:07)
[2023-07-30 20:26] LABS: Glucose Point of Care 248 mg/dl (65-105)
[2023-07-30] MEDS: MELATONIN 5 MG TABLET 20 MG PO ×2 (21:30→23:18)
[2023-07-31] VITALS (15 sets, daily range): BP systolic 115–147; BP diastolic 49–81; PULSE 63–77; RESP 14–20; TEMP 36.2–36.7; O2SAT 97–100
[2023-07-31 04:39] LABS: Basophils Absolute Auto 0.1 K/mm3 (0.0-0.1); Eosinophils Absolute Auto 0.1 K/mm3 (0-0.3); Hematocrit 37.2 % (37.0-47.0); Hemoglobin 11.8 g/dL (12.0-15.0); Immature Granulocyte Absolute 0.02 K/mm3 (0.00-0.031); Immature Granulocyte Percent A 0.3 % (0-0.5); Lymphocytes Absolute Auto 1.81 K/mm3 (0.9-3.2); Lymphocytes Percent Auto 30.1 % (18.3-44.2); Mean Corpuscular HGB Conc 31.7 g/dl (32-36); Mean Corpuscular Hemoglobin 27.4 pg (26-34); Mean Corpuscular Volume 86.3 fl (80-100); Mean Platelet Volume 8.9 fl (7.4-10.4); Monocytes Absolute Auto 0.5 K/mm3 (0.1-0.6); Monocytes Percent Auto 8.5 % (2.6-8.5); Neutrophils Absolute Auto 3.5 K/mm3 (1.3-6.7); Neutrophils Percent Auto 58.1 % (45.5-73.1); Platelet Count Result 291 k/mm3 (150-375); Red Blood Count 4.31 M/mm3 (4.2-5.4); Red Cell Distribution Width 14.2 % (11.5-14.5)
[2023-07-31 04:59] LABS: Anion Gap 7 mmol/L (8-16); Blood Urea Nitrogen 37 mg/dL (7-17); Calcium 9.1 mg/dL (8.4-10.2); Carbon Dioxide 27 mmol/L (22-30); Chloride 100 mmol/L (98-107); Estimated CRCL calculation 34 ml/min; Estimated Glomerular Filt Rate 41; Glucose 123 mg/dL (65-110); Sodium 134 mmol/L (137-145)
[2023-07-31] MEDS: HYDROcodone/acetaminophen (*CRX) 7.5-325 MG TABLET 1 TAB PO ×3 (07:58→22:17)
[2023-07-31] MEDS: ATORVASTATIN 40 MG TABLET 80 MG PO (08:02)
[2023-07-31] MEDS: METOPROLOL SUCCINATE EXT REL 50 MG TABCR PO (08:02)
[2023-07-31] MEDS: FENOFIBRATE NANOCRYSTALLIZED 145 MG TABLET PO (08:03)
[2023-07-31] MEDS: CLOPIDOGREL BISULFATE 75 MG TABLET PO (08:03)
[2023-07-31] MEDS: PANTOPRAZOLE 40 MG TABLET PO (08:03)
[2023-07-31] MEDS: GABAPENTIN 400 MG CAPSULE 1200 MG PO ×3 (08:04→16:08)
[2023-07-31] MEDS: ASPIRIN 81 MG ENTERIC TABLET PO (08:04)
[2023-07-31] MEDS: EMPAGLIFLOZIN 25 MG TABLET BY MOUTH (08:04)
[2023-07-31] MEDS: LIDOCAINE 5% PATCH 1 PATCH TRANSDERM (08:05)
[2023-07-31] MEDS: APIXABAN 5 MG TABLET PO ×2 (08:07→20:17)
[2023-07-31] MEDS: INSULIN GLARGINE (*BKC) 100 UNITS/ML 55 UNITS SUB-Q (08:07)
[2023-07-31 08:17] LABS: Glucose Point of Care 93 mg/dl (65-105)
--- NOTE | 2023-07-31 10:22 | PM.PNCARD ---
Progress Note: A&P Assessment and Plan (1) Non-ST elevation [place] (NSTEMI): Code(s): I21.4 - Non-ST elevation (NSTEMI) myocardial infarction Status: Acute Assessment and Plan: Patient presented with progressive exertional dyspnea for the past 1-2 weeks and intermittent lower extremity edema but without clear evidence of decompensated heart failure.? Patient also complains of intermittent chest tightness left-sided without radiation which occurs randomly overall at times lasting up to an hour.? ECG does not reveal significant new ischemic changes, however, with the lack of alternative explanation for exertional dyspnea and chest tightness given her extensive history with previous stent implantation and stent restenosis noted on her most recent cardiac catheterization 2018, recommended invasive angiography for definitive evaluation of her coronary anatomy.? We discussed risks, benefits and alternatives in this regard.? Patient verbalized understanding and agreed to proceed. Eliquis discontinued to allow a 48 hour washout. Cardiac catheterization 07/30: 1. Significant 99% stenosis in the mid RCA s/p successful IVUS-guided PCI with MARGARET x 1. 2. The mid LAD stent is patent with diffuse mild-moderate in-stent restenosis, however, the LAD distal to the stent is a small caliber vessel. 3. Patent proximal RPDA stent 4. Left ventricular end-diastolic pressure of 18mmHg Given PCI, will do ASA 81mg QD, Plavix 75mg QD (was loaded with 600mg prior to cath), and Eliquis 5mg BID for 30 days. After 30 days, can stop the ASA and continue with Plavix and Eliquis. Continue with high intensity statin. Referral to cardiac rehab placed. Continue metoprolol succinate 50mg daily. OK for discharge home today from a cardiac standpoint. she already has follow up with Dr Garcia scheduled on 08/29. (2) CAD (coronary artery disease): Qualifiers: Associated angina: with stable angina Coronary Disease-Associated Artery/Lesion type: [place] artery [place] vs. transplanted heart: [place] heart Qualified Code(s): I25.118 - Atherosclerotic heart disease of [place] coronary artery with other forms of angina pectoris Code(s): I25.10 - Atherosclerotic heart disease of [place] coronary artery without angina pectoris Status: Acute Assessment and Plan: Continue aspirin 81 mg daily, Farxiga 10 mg daily, atorvastatin 80 mg at bedtime. Continue Toprol 50mg daily (3) Chronic renal failure, stage 3 (moderate): Code(s): N18.30 - Chronic kidney disease, stage 3 unspecified Status: Acute Assessment and Plan: Monitor renal function closely. SCr improved today, 1.3. Can discharge with usual home dose of furosemide 20mg daily (4) Pulmonary embolism on long-term anticoagulation therapy: Code(s): I26.99 - Other pulmonary embolism without acute cor pulmonale; Z79.01 - manager intermediate (current) use of 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 Status: Acute Assessment and Plan: She has been maintained on apixaban 5 mg twice daily indefinitely.? Resume Eliquis 5mg BID starting 9 AM. (5) HTN (hypertension): Qualifiers: Hypertension type: secondary to endocrine disorders Qualified Code(s): I15.2 - Hypertension secondary to endocrine disorders Code(s): I10 - Essential (primary) hypertension Status: Acute Assessment and Plan: BP stable.? Continue Toprol.? Continue to monitor closely. 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 Continue fenofibrate. 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 Patient not felt to be candidate f
--- NOTE | 2023-07-31 10:33 | PCPTNOTE ---
Attempted to see patient for PT, however patient had cardiac catheterization yesterday and is unable to use R UE or bear weight through R UE until 15:00 this date. PT will see patient after she can use R UE again.
[2023-07-31 11:51] LABS: Glucose Point of Care 410 mg/dl (65-105)
[2023-07-31 11:51] LABS: Glucose Point of Care 424 mg/dl (65-105)
[2023-07-31] MEDS: INSULIN ASPART (*BKC) 100 UNITS/ML SUB-Q ×2 (12:12→17:21)
--- NOTE | 2023-07-31 12:17 | PM.IMPN ---
Progress Note: A&P Assessment and Plan (1) Exertional dyspnea: Code(s): R06.09 - Other forms of dyspnea Status: Acute (2) Vaginal bleeding: Code(s): N93.9 - Abnormal uterine and vaginal bleeding, unspecified Status: Acute (3) Elevated troponin: Code(s): R77.8 - Other specified abnormalities of plasma proteins Status: Acute (4) Arthritis of right shoulder region: Code(s): M19.011 - Primary osteoarthritis, right shoulder Status: Acute (5) Chronic renal failure, stage 3 (moderate): Code(s): N18.30 - Chronic kidney disease, stage 3 unspecified Status: Acute (6) HTN (hypertension): Qualifiers: Hypertension type: secondary to endocrine disorders Qualified Code(s): I15.2 - Hypertension secondary to endocrine disorders Code(s): I10 - Essential (primary) hypertension Status: Acute (7) Diabetes type 2, controlled: Code(s): E11.9 - Type 2 diabetes mellitus without complications Status: Acute (8) Hypothyroidism: Code(s): E03.9 - Hypothyroidism, unspecified Status: Acute (9) CAD (coronary artery disease): Qualifiers: Associated angina: with stable angina Coronary Disease-Associated Artery/Lesion type: [place] artery [place] vs. 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 0.084 which remained stable on repetition.? She has a prior history of CAD.? Cardiology was consulted? 1. NSTEMI: Appreciate cardiology help S/p Cardiac cath yesterday Significant 99% stenosis in the mid RCA s/p successful IVUS-guided PCI with MARGARET x 1. The mid LAD stent is patent with diffuse mild-moderate in-stent restenosis, however, the LAD distal to the stent is a small caliber vessel. Patent proximal RPDA stent. Left ventricular end-diastolic pressure of 18mmHg As Per Cardiology Given PCI, will do ASA 81mg QD, Plavix 75mg QD (was loaded with 600mg prior to cath), and Eliquis 5mg BID for 30 days. After 30 days, can stop the ASA and continue with Plavix and Eliquis. Continue with farxiga 10 mg daily, atorvastatin 80 mg at bedtime Metoprolol changed to 50 mg due to noted bradycardia Monitor for the hematoma 2. CKD stage 3: Improvement in creatinine noted Continue to hold Lasix for now Recheck BMP in a.m. Avoid nephrotoxic 3. Diabetes mellitus: Blood glucose checked t.i.d. a.c. and HS Continue with 55 units of Lantus Continue with mealtime insulin plus sliding scale Hold glipizide for now HbA1c is 8 4. Right shoulder arthritis: c/w Lidoderm patch 5. History of pulmonary embolism on chronic anticoagulation: Eliquis has been started 6. Code status: Full 7. Disposition: Pending improvement Time Spent With Patient Time with patient: 15 - 25 minutes Subjective Date/time seen: 07/31/23 12:17 Interval history: Status post cardiac catheterization yesterday Developed hematoma at the site of Cath No other acute events overnight Review of Systems Review of Systems: All systems reviewed & are unremarkable except as noted in HPI and below Exam Const: General: comfortable HENMT: Mouth: Yes moist mucous membranes Eyes: Sclera: sclerae normal Neck: Neck: supple Resp: Effort & Inspection: n
[2023-07-31 15:00] LABS: Glucose Point of Care 275 mg/dl (65-105)
[2023-07-31 16:35] LABS: Glucose Point of Care 227 mg/dl (65-105)
--- NOTE | 2023-07-31 17:49 | PC.NURSE ---
This patient, Leeann Cochran, was transferred to [facility] on 07/31/23 at 1750. Personal belongings sent with patient. Report given to OVIDIO Randall. Appropriate documentation sent with patient.
--- NOTE | 2023-07-31 17:53 | ADMGEN ---
This patient, Leeann Cochran, was admitted to Medical Room 345-01 from IMU Room 207 at 1745. Patient/family oriented to hospital policies and general routines including ID bracelet, bed and alarms, visiting hours, pain management, procedures, bathroom and other care routines, personal items, smoking policy, room service/diet, and visiting hours. Information on how to activate the Rapid Response Team has been discussed. Patient/Family are encouraged to report perceived risks to care and to ask questions if they do not understand what they are told or what they should do.
[2023-07-31] MEDS: MELATONIN 5 MG TABLET 20 MG PO (20:16)
[2023-07-31 20:19] LABS: Glucose Point of Care 313 mg/dl (65-105)
[2023-07-31] MEDS: CYCLOBENZAPRINE HCL 10 MG TABLET PO (20:21)
[2023-08-01] VITALS: PULSE 65
[2023-08-01 04:00] VITALS: PULSE 64
[2023-08-01] MEDS: HYDROcodone/acetaminophen (*CRX) 7.5-325 MG TABLET 1 TAB PO ×2 (05:49→13:19)
[2023-08-01 06:02] LABS: Basophils Absolute Auto 0.1 K/mm3 (0.0-0.1); Basophils Percent Auto 1.2 % (0.2-1.2); Eosinophils Absolute Auto 0.1 K/mm3 (0-0.3); Eosinophils Percent Auto 2.4 % (0-4.4); Hematocrit 37.8 % (37.0-47.0); Hemoglobin 11.9 g/dL (12.0-15.0); Immature Granulocyte Absolute 0.01 K/mm3 (0.00-0.031); Immature Granulocyte Percent A 0.2 % (0-0.5); Lymphocytes Percent Auto 39.8 % (18.3-44.2); Mean Corpuscular HGB Conc 31.5 g/dl (32-36); Mean Corpuscular Hemoglobin 27.7 pg (26-34); Mean Corpuscular Volume 88.1 fl (80-100); Monocytes Absolute Auto 0.5 K/mm3 (0.1-0.6); Monocytes Percent Auto 10.6 % (2.6-8.5); Neutrophils Absolute Auto 2.3 K/mm3 (1.3-6.7); Neutrophils Percent Auto 45.8 % (45.5-73.1); Platelet Count Result 281 k/mm3 (150-375); Red Blood Count 4.29 M/mm3 (4.2-5.4); Red Cell Distribution Width 14.2 % (11.5-14.5)
[2023-08-01 06:07] VITALS: BP 122/60; PULSE 64; RESP 18; TEMP 36.6; O2SAT 97
[2023-08-01 06:09] LABS: Anion Gap 6 mmol/L (8-16); Blood Urea Nitrogen 35 mg/dL (7-17); Calcium 9.6 mg/dL (8.4-10.2); Carbon Dioxide 33 mmol/L (22-30); Chloride 98 mmol/L (98-107); Estimated CRCL calculation 32 ml/min; Estimated Glomerular Filt Rate 37; Glucose 113 mg/dL (65-110); Potassium 4.1 mmol/L (3.4-5.0); Sodium 137 mmol/L (137-145)
[2023-08-01 08:00] VITALS: PULSE 67
[2023-08-01 09:05] VITALS: PULSE 71
[2023-08-01 09:05] LABS: Glucose Point of Care 110 mg/dl (65-105)
[2023-08-01] MEDS: GABAPENTIN 400 MG CAPSULE 1200 MG PO ×2 (09:05→12:34)
[2023-08-01] MEDS: PANTOPRAZOLE 40 MG TABLET PO (09:05)
[2023-08-01] MEDS: THERAPEUTIC MULTIVITAMINS/MINERALS TAB (*BKC) 1 TABLET PO (09:05)
[2023-08-01] MEDS: ATORVASTATIN 40 MG TABLET 80 MG PO (09:05)
[2023-08-01] MEDS: FENOFIBRATE NANOCRYSTALLIZED 145 MG TABLET PO (09:05)
[2023-08-01] MEDS: APIXABAN 5 MG TABLET PO (09:05)
[2023-08-01] MEDS: EMPAGLIFLOZIN 25 MG TABLET BY MOUTH (09:05)
[2023-08-01] MEDS: CLOPIDOGREL BISULFATE 75 MG TABLET PO (09:05)
[2023-08-01] MEDS: ASPIRIN 81 MG ENTERIC TABLET PO (09:05)
[2023-08-01] MEDS: METOPROLOL SUCCINATE EXT REL 50 MG TABCR PO (09:05)
[2023-08-01] MEDS: LIDOCAINE 5% PATCH 1 PATCH TRANSDERM (09:06)
[2023-08-01] MEDS: INSULIN GLARGINE (*BKC) 100 UNITS/ML 55 UNITS SUB-Q (09:07)
--- NOTE | 2023-08-01 10:19 | PM.DS ---
DS: Admitting Diagnosis Discharge Date 08/01/2023 Admitting Diagnosis exertional dyspnea, vaginal bleeding, elevated troponin, arthritis of right shoulder region, calcific tendinitis of right shoulder, egg GERD, pulmonary hypertension, chronic renal failure stage 3 moderate, pulmonary embolism, hypertension, diabetes type 2 controlled, hypo thyroidism, peripheral neuropathy, goiter, CAD, ambulatory dysfunction, hearing loss, pulmonary embolism on long-term anticoagulant therapy DS: Discharge Diagnosis Discharge Diagnosis (1) Non-ST elevation AL (NSTEMI): Code(s): I21.4 - Non-ST elevation (NSTEMI) myocardial infarction Status: Acute (2) Exertional dyspnea: Code(s): R06.09 - Other forms of dyspnea Status: Acute (3) Vaginal bleeding: Code(s): N93.9 - Abnormal uterine and vaginal bleeding, unspecified Status: Acute (4) Elevated troponin: Code(s): R77.8 - Other specified abnormalities of plasma proteins Status: Acute (5) Arthritis of right shoulder region: Code(s): M19.011 - Primary osteoarthritis, right shoulder Status: Acute (6) Chronic renal failure, stage 3 (moderate): Code(s): N18.30 - Chronic kidney disease, stage 3 unspecified Status: Acute (7) HTN (hypertension): Qualifiers: Hypertension type: secondary to endocrine disorders Qualified Code(s): I15.2 - Hypertension secondary to endocrine disorders Code(s): I10 - Essential (primary) hypertension Status: Acute (8) Diabetes type 2, controlled: Code(s): E11.9 - Type 2 diabetes mellitus without complications Status: Acute (9) Hypothyroidism: Code(s): E03.9 - Hypothyroidism, unspecified Status: Acute (10) CAD (coronary artery disease): Qualifiers: Coronary Disease-Associated Artery/Lesion type: [place] artery [place] vs. 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 Status: Acute (12) Mixed hyperlipidemia due to type 2 diabetes mellitus: Code(s): E11.69 - Type 2 diabetes mellitus with other specified complication; E78.2 - Mixed hyperlipidemia Status: Acute (13) Coronary stent restenosis: Code(s): T82.855A - Stenosis of coronary artery stent, initial encounter Status: Acute (14) RCA occlusion: Code(s): I24.0 - Acute coronary thrombosis not resulting in myocardial infarction Status: Acute (15) S/P right coronary artery (RCA) stent placement: Code(s): Z95.5 - Presence of coronary angioplasty implant and graft Status: Acute DS: Summary Hospital Course Reason for hospitalization: Positve troponin with exertional dyspnea Hospital Course: 68 years old white female with chronic right facial palsy since and chronic medical issues, who is on long-term anticoagulation for chronic pulmonary embolisms since 2020 presented with worsening shortness of breath.?Workup was done, which showed minimally elevated troponin l level of? 0.084 which remained stable on repetition.? She has a prior history of CAD.? Cardiology was consulted. cardiology took patient to the cath lab radiological technologist and she had a 99% stenosis in the right mid RCA and placed 1 drink bleeding stent. Prior LAD stent had some moderate intra stent restenosis and distal small caliber vessel. for this reason patient placed on Plavix in addition to Eliquis and aspirin for the next month. Patient to follow up with Cardiology after discharge. Patient found relief right shoulder pain with Lidod
[2023-08-01 12:00] VITALS: PULSE 65
[2023-08-01 12:13] LABS: Glucose Point of Care 357 mg/dl (65-105)
[2023-08-01] MEDS: INSULIN ASPART (*BKC) 100 UNITS/ML SUB-Q (12:33)
== END 2023-08-01 15:20 | disposition home health service (06) | DRG 247 ==
LOC: ANHED 21:48 → ANHIMU 22:30 → ANH3MED 07-31 17:39
PROVIDERS: Chiropractor; Internal Medicine; Student in an Organized Health Care Education/Training Program; Admitting Provider Family Medicine; Emergency Provider Physician Assistant; PCP Family Medicine; Visit Provider Nurse Practitioner
PROC: 4A023N7 Measurement of Cardiac Sampling and Pressure, Left Heart, Percutaneous Approach (ICD-10-PCS; CPT 93452; principal; 2023-07-30 11:30)
PROC: 027034Z Dilation of Coronary Artery, One Artery with Drug-eluting Intraluminal Device, Percutaneous Approach (ICD-10-PCS; 2023-07-30 11:30)
PROC: 027034Z Dilation of Coronary Artery, One Artery with Drug-eluting Intraluminal Device, Percutaneous Approach (ICD-10-PCS; 2023-07-30 11:30)
DX: I21.4 Non-ST elevation (NSTEMI) myocardial infarction (principal); I13.0 Hypertensive heart and chronic kidney disease with heart failure and stage 1 through stage 4 chronic kidney disease, or unspecified chronic kidney disease; I27.82 Chronic pulmonary embolism; I50.9 Heart failure, unspecified; I25.10 Atherosclerotic heart disease of native coronary artery without angina pectoris; N18.30 Chronic kidney disease, stage 3 unspecified; I27.20 Pulmonary hypertension, unspecified; E11.22 Type 2 diabetes mellitus with diabetic chronic kidney disease; E04.9 Nontoxic goiter, unspecified; E78.5 Hyperlipidemia, unspecified; E03.9 Hypothyroidism, unspecified; E11.42 Type 2 diabetes mellitus with diabetic polyneuropathy; K21.9 Gastro-esophageal reflux disease without esophagitis; P11.3 Birth injury to facial nerve; N93.9 Abnormal uterine and vaginal bleeding, unspecified; M75.31 Calcific tendinitis of right shoulder; M19.011 Primary osteoarthritis, right shoulder; H91.90 Unspecified hearing loss, unspecified ear; R29.6 Repeated falls; F32.A Depression, unspecified; F41.9 Anxiety disorder, unspecified; I25.2 Old myocardial infarction; Z79.01 Long term (current) use of 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; Z79.4 Long term (current) use of insulin; Z79.82 Long term (current) use of aspirin; Z86.73 Personal history of transient ischemic attack (TIA), and cerebral infarction without residual deficits; Z95.5 Presence of coronary angioplasty implant and graft
CPT/HCPCS: 36415; 71046; 71275; 80048; 80053; 81001; 82948; 83036; 83735; 83880; 84100; 84484; 85025; 85610; 85730; 87077; 87086; 87088; 92978; 93005; 93458; 96365; 96375; 96376; 97110; 97161; 97165; 97530; 99285; A9270; C1725; C1753; C1769; C1874; C1887; C1894; C9600; G0378; J0583; J0696; J1644; J1815; J2250; J2305; J3010; J7030; Q9967

== ENCOUNTER 2024-09-16 19:43 | Emergency (ER) | payer MEDICARE, MEDICAID, SELFPAY ==
[2024-09-16 19:48] VITALS: BP 136/57; PULSE 65; RESP 16; TEMP 36.2; O2SAT 100
--- NOTE | 2024-09-16 20:30 | PC.NURSE ---
Pt came up to the front office attendant and stated her friend was here to pick her up and asked to be wheeled out to the [address]. Pr encouraged to stay and be seen by this RN. Pt stated she was okay, pt was helped into her friends car by this RN.
== END 2024-09-16 21:27 | disposition left against medical advice (07) ==
LOC: ANHED 21:14
PROVIDERS: PCP Family Medicine
DX: S09.90XA Unspecified injury of head, initial encounter (principal)
CPT/HCPCS: 99199

== ENCOUNTER 2025-03-16 21:29 | Emergency (ER) | payer MEDICARE, MEDICAID, SELFPAY ==
--- NOTE | ~2025-03-16 | CT_ITS ---
CT brain wo con Ordering provider: Vargas Peterson MD History: 69 years Female with . FALL; ON BLOOD THINNERS . Comparison: December 11, 2023 Technique: CT of the head without contrast. Radiation reduction technique utilized.The dose-length product was 605.33 mGy-cm. 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 No midline shift, mass effect or hemorrhage. The brain parenchyma and CSF spaces are otherwis e normal. VISUALIZED PARANASAL SINUSES: Well aerated. MASTOIDS: Well aerated. BONES: The bones appear intact. Calcified meningioma is seen in the right frontal area. Calcified me ningioma also seen in the left parietal area. SOFT TISSUES: Visualized nasopharynx is normal. Parieto-occipital scalp hematoma. Otherwise, Superfi cial soft tissues are normal. IMPRESSION: No acute intracranial findings. Reviewed, dictated and finalized at location A.
--- NOTE | ~2025-03-16 | CT_ITS ---
Noncontrast CT scan of the cervical spine Technique: Multiple contiguous axial [address] images of the cervical spine were obtained and rec onstructed in 2D sagittal and coronal planes on the acquisition scanner. Dose reduction technique was used on this scan by utilizing automated exposure control, adjustment of the mA and/or kV according to patient size. The dose-length product (DLP) was 501.09 mGy-cm. Clinical History: Pain COMPARISON: 12/31/2023 Findings: No fractures or dislocations. Unremarkable visualized bony structures. The intervertebral disc spaces are preserved. No prevertebral soft tissue swelling. Impression: No fracture or subluxation of the cervical spine. Reviewed, dictated and finalized at location . Impression: No fracture or subluxation of the cervical spine.
--- OUTSIDE RECORDS SUMMARY | 2025-03-16 21:32 | XMS_ITS | Continuity of Care Document ---
Author Organization [facility] Address [address] [place] [address] [place] [address] Phone Care Team Providers Care Manager Of Software Name Role Phone Thomas Navarro MD Unavailable Unavailable Allergies, Adverse Reactions, Alerts Substance Reaction Status Criticality PLASTIC BAGS Active No Information Medications Medication Instructions Dosage Effective Dates (start - stop) Status Comments glipizide 10 mg tablet take 1 tablet by oral route 2 times every day 10 MG - Active metformin 1,000 mg tablet take 1 tablet by oral route 2 times every day with morning and evening meals 1000 MG - Active Xanax 0.5 mg tablet take 1 tablet (0.5MG) by oral route every 4 - 6 hours as needed 0.5 MG - Active PRN forr anxiety, avoid driving or operate machines Hondo 10 mg-325 mg tablet take 1 by Oral route 3 times every day as needed 1 - Active avoid drivign ro operate machines FreeStyle Lite Strips test once daily - Active losartan 50 mg tablet take 1 tablet (50MG) by oral route every day 50 MG - Active metoprolol tartrate 50 mg tablet take 1 tablet (50MG) by oral route 2 times every day with meals 50 MG - Active Procedures Procedure Date OFFICE/OUTPATIENT VISIT, EST PREV VISIT, EST, AGE 40-64 OFFICE/OUTPATIENT VISIT, EST OFFICE/OUTPATIENT VISIT, EST OFFICE/OUTPATIENT VISIT, EST OFFICE/OUTPATIENT VISIT, EST OFFICE/OUTPATIENT VISIT, NEW Advance Directives Directive Yes / No Effective Date File Name No Information Encounters Encounter Description Practice Location Reason(s) For Visit Diagnoses Date Provider Providers Copied on Encounter OFFICE/OUTPA TIENT VISIT, EST [facility], [address], [place], [place], [id number], tel:[phone] [facility] Medicine CAD (chief complaint) back pain1 (chief complaint) anxiety1 (chief complaint) DM (chief complaint) Essential (primary) hypertensionType 2 diabetes mellitus with diabetic neuropathy, unspecifiedLow back painCoronary artery disease of [place] coronary artery w/o angina pectoris 6 Ramon Guzman. [address], [place], [place], [address] , [place]. [phone] Referring Provider: [address]el[address] Caputo [address], [place], [place], [id number]. tel:[phone] PREV VISIT, EST, AGE 40-64 [facility], [address], [place], [place], [id number], [place] tel:[phone] [facility] Physical (chief complaint) Encounter for general adult medical exam w abnormal findingsType 2 diabetes mellitus with diabetic mononeuropathyEssen tial (primary) hypertensionChronic pain syndrome 6 Ramon Gibbs [address], [place], [place], [address] , [place]. [phone] Referring Provider: Joselito Caputo [address], [place], [place], [id number]. tel:[phone] [facility], [address], [place], [place], [address], [place] tel:[phone] [facility] No Information 4 Ramon Guzman. [address], [place], [place], [address] , [place]. [phone] OFFICE/OUTPA TIENT VISIT, EST [facility], [address], [place], [place], [address], [place] tel:[phone] [facility] back pain (chief complaint) HLP (chief complaint) DM (chief complaint) neuropathy (chief complaint) Dietary surveillance and counselingLumbagoHy pertension, UnspecifiedDiabetic NeuropathyOther and unspecified hyperlipidemia 4 Ramon Guzman. [address], [place], [place], [address] , [place]. [phone] Referring Provider: Joselito Caputo [address], [place], [place], [address]. tel:[phone] OFFICE/OUTPA TIENT VISIT, [facility], [place], [address], [place], [place], [address], [place] [phone] [facility] back pain (chief complaint) DM (chief complaint) Neuropathy (chief complaint) anxiety (chief complaint) Dietary surveillance and counselingLumbagoDi abetes Mellitus, Adult Onset, UncontrolledDiabeti c NeuropathyOther and unspecified hyperlipidemia 3 Ramon Guzman. [address], [place], [place], [address] , [place]. tel:[phone] Referring Provider: Joselito Caputo [address], [place], [place], [address]. tel:[phone] OFFICE/OUTPA TIENT VISIT, [facility], [place], [address], [place], [place], [address], [place] tel:[phone] [facility] back pain (chief complaint) DM (chief complaint) HTN (chief complaint) Depression (chief complaint) Dietary surveillance and counselingLumbagoHy pertension, UnspecifiedDiabetes Mellitus, Adult Onset, UncontrolledDiabeti c Neuropathy 3 Ramon Guzman. [address], [place], [place], [address] , [place]. [phone] Referring Provider: Joselito Caputo [address], [place], [place], [address]. tel:[phone] OFFICE/OUTPA TIENT VISIT, [facility], [address], [place], [place], [address], [place] tel:[phone] [facility] DM (chief complaint) HTN (chief complaint) back pain (chief complaint) anxiety (chief complaint) HLP (chief complaint) Dietary surveillance and counselingLumbagoOt her and unspecified hyperlipidemiaDiabe martinez Mellitus, Adult Onset, UncontrolledHyperte nsion, Unspecified 3 Ramon Guzamn. [address], [place], [place], [address] , [place]. tel:[phone] Family History Family Member Type Diagnosis Age At Onset Mother Problem (finding) Alive and well Father Problem (finding) Cancer, lung Sister Problem (finding) Leukemia Payers Payer name Insurance type Covered alliance party ID Authoriza tion(s) No Information Social History Type Description Quantity Date Captured Comments Alcohol Use Details No Caffeine Use Details Unknown Tobacco Use Status Never smoked tobacco 2015 Smoking Status Never smoker Sex Female Vital Signs Date / Time: Height Weight BMI Pulse Rate Blood Pressure Temperature Respiratory Rate Body Surface Area Head Circumference BMI percentile Pulse Ox Inhaled Ox 3:18 PM 160.02 cm 192.00 lbs 34.0 1 kg/m eter (2) 66 /min 121/70 mm[Hg] 98.0 F 18 /min Chief Complaint And Reason For Visit From encounter dated '10/02/2016 14:00'. CAD (chief complaint). Description: Pt recently was admitted to [facility] for ? CAD/ Pt hadstent. Pt also has blocked carotid doppler. Pt is seeing cardiology now. Pt denies any chest pain. Pt will see a different physician for the carotid stenosis. back pain1 (chief complaint). Description: Pt has chronic low back apin Pt denies any wrosenign pain. Pt has 7/10 pain daily. Pt has sciatica Pt walks with cane. anxiety1 (chief complaint). Description: Pt has chronic anxiety and depression. Pt takes cymbalta and axnax and doing ok. Pt denies any suicidal or homicdial thought. Pt denies any cyring spells. DM (chief complaint). Description: Pt is on metformin and glipidize and also actos? Pt brought in her list of meds. Pt states that her BG is around 130s Pt denies any hypoglycemia Plan Of Treatment Date Type Action Status Goal Influenza vaccine. Due on due Goal Pap/HPV testing. Due on due Goal Depression screening. Due on due Goal FOBT. Due on due Goal Zoster vaccine. Due on due Goal Colonoscopy. Due on 016 due Goal Tdap. Due on due Goal Sigmoidoscopy. Due on due Goal Td vaccine. Due on 16 due Goal Colonoscopy. Due on due Goal Depression screening. Due on due Goal FOBT. Due on due Goal Influenza vaccine. Due on due Goal Pap/HPV testing. Due on due Goal Sigmoidoscopy. Due on due Goal Td vaccine. Due on 16 due Goal Tdap. Due on due Goal Zoster vaccine. Due on due Referral Ordered: Pain Management (related to Lumbago) ordered Referral Ordered: Referral: Pain Management. ordered Referral Ordered: MAMMOGRAM, SCREENING ordered History Of Present Illness Encounter Date Complaint History Of Prese nt Illness CAD Pt recently was admitted to [facility] for ? CAD/ Pt had stent. Pt also has blocked carotid doppler. Pt is seeing cardiology now. Pt denies any chest pain. Pt will see a different physician for the carotid stenosis. back pain1 Pt has chronic l ow back apin Pt denies any wrosenign pain. Pt has 7/10 pain daily. Pt has sciatica Pt walks with cane. anxiety1 Pt has chronic a nxiety and depression. Pt takes cymbalta and axnax and doing ok. Pt denies any suicidal or homicdial thought. Pt denies any cyring spells. DM Pt is on metform in and glipidize and also actos? Pt brought in her list of meds. Pt states that her BG is around 130s Pt denies any hypoglycemia Physical Pt needs annual physical. Pt just moved here from [place]. Pt has HTN. Pt takes metoprolol and losartan. Her BP is stable. Pt has DM. Pt takes metformin and glipizide now. Her BG is around 130s per patient. Pt has chronic diabetic neuropathy and she takes amitriptyline. Pt has chornic low back pain and she takes norco for pain. Pt denies any loss of bowel or bladder control. Pt has mild sciatica and leg nuimbness. Pt also has chronic anxiety. Pt denies any depression or any suicidal thought. Pt takes xanax PRn and doing ok. Pt denies any crying spells. Instructions Date Instruction Additional Infor yi Prescribed Activity and Exercise Education Related to Dietary Surveillance and Counseling Prescribed Diet Educ ation/Lifestyle Education Regarding Diet Related to Dietary Surveillance and Counseling Prescribed Diet Educ ation/Lifestyle Education Regarding Diet Related to Dietary Surveillance and Counseling Prescribed Activity and Exercise Education Related to Dietary Surveillance and Counseling Decrease caloric intake Related to Dietary surveillance counseling Dietary counseling Related to Di etary surveillance counseling Decrease caloric intake Related to Dietary surveillance counseling Dietary counseling Related to Di etary surveillance counseling Decrease caloric intake Related to Dietary surveillance counseling Dietary counseling Related to Di etary surveillance counseling Dietary counseling Related to Di etary surveillance counseling Decrease caloric intake Related to Dietary surveillance counseling Assessments Type Assessment Date assessment Essential (primary) hypertension assessment Type 2 diabetes mellitus with di abetic neuropathy, unspecified assessment Low back pain assessment Coronary artery dise ase of [place] coronary artery w/o angina pectoris Mental Status Date Cognitive Assessment Orientation - Yut[place] ed to time, place, person, situation.
--- OUTSIDE RECORDS SUMMARY | 2025-03-16 21:32 | XMS_ITS | Clinical Summary ---
Author Organization [facility] Address [address] [place] [address] Care Team Providers Care Harness Repairer Name Role Phone Unavailable Primary Care Provider Unavailabl e Source Comments [facility],non-owned Affiliates and Associated Physician Practices is amultiple site organization consisting of ambulatory clinics and hospital sitesin [place], [place], [place] and [place]. This disclosure is being madepursuant to the Care Everywhere program and may not contain all information available regarding this patient. Last updated 18.[facility] eTipping Allergies Active Allergy Reactions Criticality Noted Date Comments Adhesive Sensitivity Skin Reactions 01/29/2021 Patient reports skin irritation with one brand of adhesive, cannot recall name Medications * Be aware that medications may not be up to date on this document. Alwaysverify current medications with the patient. aspirin (ASPIRIN) 81 MG chew tablet Take 1 (one) tablet by mouth once daily 100 tablet 3 01/30/2021 Active naproxen (NAPROSYN) 500 MG tablet Take 1 (one) tablet by mouth 2 times daily as needed 01/30/2021 Active levETIRAcetam (KEPPRA) 500 MG tablet Take 1 (one) tablet by mouth 2 times daily 60 tablet 3 01/30/2021 Active escitalopram (LEXAPRO) 10 MG tablet Take 1 (one) tablet by mouth once daily 30 tablet 3 01/30/2021 Active atorvastatin (LIPITOR) 80 MG tablet Take 1 (one) tablet by mouth at bedtime 30 tablet 3 01/30/2021 Active clopidogrel (PLAVIX) 75 MG tablet Take 1 (one) tablet by mouth once daily 30 tablet 2 01/30/2021 Active Active Problems Problem Noted Date Diagnosed Date Aphasia 01/28/2021 Hypoxia 01/28/2021 Social History Tobacco Use Types Packs/Day Years Used Date Smoking Tobacco: Former Smokeless Tobacco: Never AUDIT-C Answer Date Recorded Q1: How often do you have a drink containing alc ohol? Never 01/29/2021 Average Number of Drinks Not on file 021 Q3: How often do you have si x or more drinks on one occasion? Never 01/29/2021 PRAPARE - Transportation Answer Date Re corded In the past 12 months, has l ack of transportation kept you from medical appointments or from getting medications? No 01/02 In the past 12 months, has l ack of transportation kept you from meetings, work, or from getting things needed for daily living? No 01/29/2021 Comments Unknown Sex and Gender Information Value Date Recorded Sex Assigned at Not on file Legal Sex Female 8:12 AM CDT Gender Identity Not on file Sexual Orientation Not on file Last Filed Vital Signs Vital Sign Reading Time Taken Comments Blood Pressure 127/56 01/30/2021 8:10 AM CDT Pulse 70 01/30/2021 8:10 AM CDT Temperature 36.9 C (98.5 F) 01/30/2021 8:10 AM CDT Respiratory Rate 12 01/30/2021 8:10 AM CDT Oxygen Saturation 98% 01/30/2021 8:10 AM CDT Inhaled Oxygen Concentration - - Weight 76.9 kg (169 lb 8.5 oz) 01/28/2021 8:09 P M CDT Height 160 cm (5' 3 ) 01/28/2021 8:09 PM CDT Body Mass Index 30.03 01/28/2021 8:09 PM CDT Plan of Treatment Health Maintenance Due Date Last Done Comments BONE DENSITY TESTING 1955 COLOGUARD (AGES 45-75) - COLON CA SCREENING 1955 COLON MONITORING 1955 COLONOSCOPY - COLON CA SCREENING 1955 CT COLONOGRAPHY - COLON CA SCREENING 1955 Colorectal Cancer Screening 1955 FIT - COLON CA SCREENING 1955 FLEX SIG - COLON CA SCREENING 1955 MAMMOGRAM 1955 HEPATITIS C SCREENING 05/22/1973 DTAP/TDAP/TD VACCINES (1 - Tdap) 1974 PNEUMOCOCCAL VACCINE 50+ (1 of 1 - PCV) 2005 ZOSTER VACCINE (1 of 2) 2005 SCREENING FOR DIABETES 01/31/2024 , 01/30/2021, 01/29/2021, Additional history exists COVID-19 VACCINE ( season) 2024 04/04/2021, 03/04/2021 DEPRESSION SCREENING 11/02/2024 INFLUENZA VACCINE (Season Ended) 2025 08/17/2019, 08/09/2018, 08/05/2017, Additional history exists Respiratory Syncytial Virus (RSV) Vaccine Pt: or over 60 yrs (1 - 1-dose 75+ series) 2030 HEPATITIS B VACCINE Aged Out No longe r eligible based on patient's age to complete this topic HIB VACCINE Aged Out No longer eligi ble based on patient's age to complete this topic HPV VACCINE Aged Out No longer eligi ble based on patient's age to complete this topic MENINGOCOCCAL (Group B) VACCINE SHARED DECISION-MAKING Aged Out No longer eligible based on patient's age to complete this topic MENINGOCOCCAL GROUPS A/C/Y/W VACCINE Aged Out No longer eligible based on patient's age to complete this topic Procedures Procedure Name Priority Date/Time Associated Diagnosis Comments BASIC METABOLIC PANEL (CALCIUM TOTAL) Routine 01/30/2021 12:53 AM CDT from Last 3 Months or Most Recently Relevant to Health Maintenance Results * (ABNORMAL) BASIC METABOLIC PANEL (CALCIUM TOTAL) (01/30/2021 12:53 AM CDT) BUN 25 7 - 26 mg/dL 01/30/2021 1:28 AM [facility] Creatinine 1.3(H) 0.6 - 1.2 mg/dL 01/30/2021 1:28 AM [facility] Sodium 140 136 - 145 mmol/L 01/30/2021 1:28 AM [facility] Potassium 3.9 3.5 - 4.5 mmol/L 01/30/2021 1:28 AM [facility] Chloride 106 98 - 107 mmol/L 01/30/2021 1:28 AM [facility] CO2 22 22 - 29 mmol/L 01/30/2021 1:28 AM [facility] Glucose 103 70 - 115 mg/dL 01/30/2021 1:28 AM [facility] Calcium 8.0(L) 8.4 - 10.2 mg/dL 01/30/2021 1:28 AM [facility] Anion Gap 16 8 - 18 01/30/2021 1:28 AM [facility] BUN/Creatinine Ratio 19 7 - 23 01/30/2021 1:28 AM [facility] Osmolality Calculated 295 270 - 300 mOsm/kg 01/30/2021 1:28 AM [facility] eGFR 41(L) >60 mL/min/1.7 3 m2 01/30/2021 1:28 AM [facility] Blood BLOOD SPECIMEN / Unknown Lab Venipuncture / Unknown 01/30/2021 12:53 AM T 01/30/2021 1:03 AM [facility] Gopal Goldman MD LAB - CHEMISTRY ORDERABLES Final Result [facility] [address] [place] [address], [facility] [phone] from Last 3 Months or Most Recently Relevant to Health Maintenance Insurance [address] MANAGED MEDICARE ADV MEDICAID [facility] MEDICAID - [place] UHC MANAGED MEDICARE ADV Advance Directives * Full Code (Latest Code Status on File) Date Activated Date Inactivated Comments 01/28/2021 8:10 PM 01/30/2021 11:56 AM
--- OUTSIDE RECORDS SUMMARY | 2025-03-16 21:33 | XMS_ITS | Continuity of Care Document ---
Author Organization [facility] Address [address] [place] [address] Phone Care Team Providers Care As400 Operator Name Role Phone Palma OD, Lane Unavailable Unavailable Advance Directives Directive Yes / No Effective Date File Name No Information Encounters Encounter Description Practice Location Reason(s) For Visit Diagnoses Date Provider Providers Copied on Encounter [facility], [address], [place], [place], [id number], [place] tel:[phone] [facility] No Information Jan- 9-[address] , [address], [place], [address], [place]. tel:[phone] Family History Family Member Type Diagnosis Age At Onset No Information Payers Payer name Insurance type Covered democrat ID Authoriza tion(s) Medicaid [facility] [id number] Social History Type Description Quantity Date Captured Comments Sex Female Smoking Status No Information Chief Complaint And Reason For Visit No Information Reason For Referral Reason For Referral No Information History Of Present Illness Encounter Date Complaint History Of Prese nt Illness No Information Functional Status Date Functional Assessmen t No Information Instructions Date Instruction Additional Infor mation No Information Assessments Type Assessment Date No Information Patient Care Teams Name Effective Dates (start - stop) Status Members No Information
--- OUTSIDE RECORDS SUMMARY | 2025-03-16 21:33 | XMS_ITS | Patient Health Record ---
Author Organization [facility] Address [address] [place] [address] Care Team Providers Care Fleet Technician Name Role Phone Brennan Rocha, Shoaib Primary Care Provider Unavailab Delta Bernabe Unavailable [phone] Allergies No Known Allergies Reason For Referral No Information Medications Medication SIG (Take, Route, Frequency, Duration) Notes Start Date End Date Status levETIRAcetam 500 MG Oral for 30 Not-Taking Atorvastatin Calcium 80 MG Oral for 90 Active Lantus SoloStar 100 UNIT/ML 55 units Subcutaneous once per day for 50 days Active Farxiga 10 MG Oral for 90 Acti ve Nitroglycerin 0.4 MG Sublingual for 9 Active traMADol HCl 50 MG null Diagnosis Unavailable Oral for 30 Not-Taking Clopidogrel Bisulfate 75 MG Oral for 30 Not-Taking metFORMIN HCl 1000 MG 2 tabs Oral twice per day for 90 days Active Phentermine HCl 37.5 MG null Diagnosis Unavailable Oral for 30 Active Gabapentin 600 MG Oral for 30 Active HYDROcodone-Acetaminophen 5-325 MG null Diagnosis Unavailable Oral for 30 Active Eliquis Active Fenofibrate 145 MG Oral for 30 Active Metoprolol Succinate ER 100 MG Oral for 90 Active Losartan Potassium 50 MG Oral for 90 Active Cyclobenzaprine HCl 5 MG null Diagnosis Unavailable Oral for 30 Active Escitalopram Oxalate 20 MG Oral for 90 Active Social History Tobacco Use: Social History Observation Description Date Details (start date - stop date) Former Smoker NA - NA Tobacco Use/Smoking Question Answer Notes Are you a former smoker How long has it been since you last smoked? 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 [address] [place] [address] [id number] A[employer] Leeann Moore Self - patient is the insured Medical (General) History Medical History History ICD Code A. Fib., diabetes, heart att ack ([place]), High Cholosterol, HTN, Kidney Disease, Neuropathy of feet Seizures, Stroke (CVA/TIA) Thyroid Probl ems blood clots in lungs and around heart Surgical History Surgery Date(Month/Year)
--- OUTSIDE RECORDS SUMMARY | 2025-03-16 21:33 | XMS_ITS | Encounter Summary ---
Author Organization [facility] Facility Care Team Providers Care Vacuum Cleaner Mechanic Name Role Phone Coy Kirkland MD Primary Care Provider [phone] Coy Kirkland MD Unavailable [phone] Coy Smith MD PhD Unavailable [phone] Georgia Rosa LPN Unavailable [phone] She Garcia [facility] Unavailable [phone] Izabela Mathew MD Unavailable [phone] Xavier Callahan Primary Care Provider [phone] Shoaib Amin MD Primary Care Provider [phone] Lachelle Vee RN Unavailable Lachelle Vee RN Unavailable Georgia Rosa LPN Unavailable [phone] Marian Nathan MA Unavailable Encounter Details Date Type Department Care Team (Latest Contact Info) Description 09/19/2016 Orders Only [facility] CLINCONV ProviderIsak MD [address] [place] [address] Social History Tobacco Use Types Packs/Day Years Used Date Smoking Tobacco: Never Assessed Comments Unknown Sex and Gender Information Value Date Recorded Sex Assigned at Not on file Legal Sex Female 3:22 AM REGIONAL DIRECTOR Gender Identity Not on file Sexual Orientation Not on file documented as of this encounter Plan of Treatment Not on file documented as of this encounter Procedures Procedure Name Priority Date/Time Associated Diagnosis Comments CARDIOLOGY REPORT 09/29/2016 12: 00 AM REGIONAL DIRECTOR documented in this encounter Results * CARDIOLOGY REPORT (09/29/2016 12:00 AM REGIONAL DIRECTOR) Anatomical Region Laterality Modality Other Narrative 09/29/2016 12:00 AM REGIONAL DIRECTOR Ordered by an unspecified provider. us Historical Provider [facility] Final Result documented in this encounter Visit Diagnoses Not on filedocumented in this encounter Care Teams Vacuum Cleaner Mechanic Relationship Specialty Start Date End Date Coy Kirkland MD PCP - General Family Medicine 08/31/18 08/20/22 Coy Kirkland MD PCP - [facility] Attributed PCP 12/03/1910/03 Xavier Callahan PA [address] [place] [address] PCP - General Family Medicine 08/21/22 10/27/22 Shoaib Amin MD [address] [place] [address] PCP - General Family Medicine 10/28/22 Coy Smith MD PhD Fellow Neurology 04/30/20 Georgia Rosa LPN [employer] Social Science Teacher 10/30/21 10/30/21 She Garcia, [address] [place] [address] Pharmacist Pharmacy 11/13/21 10/23/22 Izabela Mathew MD [address] [place] [address] Medical Oncologist/Prison Psychiatrist Hematology and Oncology 12/06/21 Lachelle Vee RN [address] [place] [address] [address] [place] [address] High School Social Science Teacher 08/05/23 10/22/23 Lachelle Vee RN [address] [place] [address] [address] [place] [address] High School Social Science Teacher 10/23/23 04/21/24 Georgia Rosa LPN [address] [place] [address] [address] [place] [address] High School Social Science Teacher 09/02/24 09/02/24 Marian Nathan MA [address] [place] [address] [address] [place] [address] [employer] Sales Representative 09/15/24 10/10/24 documented as of this encounter
--- OUTSIDE RECORDS SUMMARY | 2025-03-16 21:33 | XMS_ITS | Encounter Summary ---
Author Organization [facility] Care Team Providers Care Ssds Mk 2 Advanced Operator Name Role Phone Coy Kirkland MD Primary Care Provider [phone] Coy Kirkland MD Unavailable [phone] Coy Smith MD PhD Unavailable [phone] Georgia Rosa LPN Unavailable [phone] [facility] Unavailable [phone] Izabela Mathew MD Unavailable [phone] Xavier Callahan Primary Care Provider [phone] Shoaib Amin MD Primary Care Provider [phone] Lachelle Vee RN Unavailable Lachelle Vee RN Unavailable Georgia Rosa LPN Unavailable [phone] Marian Nathan MA Unavailable Encounter Details Date Type Department Care Team (Latest Contact Info) Description 09/21/2016 Orders Only [facility] CLINCONV ProviderIsak MD [address] [place] [address] Social History Tobacco Use Types Packs/Day Years Used Date Smoking Tobacco: Never Assessed Comments Unknown Sex and Gender Information Value Date Recorded Sex Assigned at Not on file Legal Sex Female 3:22 AM DEVELOPMENT EDUCATOR Gender Identity Not on file Sexual Orientation Not on file documented as of this encounter Plan of Treatment Not on file documented as of this encounter Procedures Procedure Name Priority Date/Time Associated Diagnosis Comments CARDIOLOGY REPORT 09/29/2016 12: 00 AM DEVELOPMENT EDUCATOR documented in this encounter Results * CARDIOLOGY REPORT (09/29/2016 12:00 AM DEVELOPMENT EDUCATOR) Anatomical Region Laterality Modality Other Narrative 09/29/2016 12:00 AM DEVELOPMENT EDUCATOR Ordered by an unspecified provider. us Historical Provider [facility] Final Result documented in this encounter Visit Diagnoses Not on filedocumented in this encounter Care Teams Ssds Mk 2 Advanced Operator Relationship Specialty Start Date End Date Coy Kirkland MD PCP - General Family Medicine 08/31/18 08/20/22 Coy iKrkland MD PCP - [facility] Attributed PCP 12/03/1910/03 Xavier Callahan PA [address] [place] [address] PCP - General Family Medicine 08/21/22 10/27/22 Shoaib Amin MD [address] [place] [address] PCP - General Family Medicine 10/28/22 Coy Smith MD PhD Fellow Neurology 04/30/20 Georgia Rosa LPN Molder Punch 10/30/21 10/30/21 She Garcia, [address] [place] [address] Pharmacist Pharmacy 11/13/21 10/23/22 Izabela Mathew MD [address] [place] [address] Medical Oncologist/Pollution Control Technician Hematology and Oncology 12/06/21 Lachelle Vee RN [address] [place] [address] [address] [place] [address] Molder Punch 08/05/23 10/22/23 Lachelle Vee RN [address] [place] [address] [address] [place] [address] Molder Punch 10/23/23 04/21/24 Georgia Rosa LPN [address] [place] [address] [address] [place] [address] Molder Punch 09/02/24 09/02/24 Marian Nathan MA [address] [place] [address] [address] [place] [address] [employer] Care Submarine Cable Equipment Technician 09/15/24 10/10/24 documented as of this encounter
--- OUTSIDE RECORDS SUMMARY | 2025-03-16 21:33 | XMS_ITS | Clinical Summary ---
Author Organization [facility] [address] Address [address] [place] [address] 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[employer] Name Role Phone Coy Smith MD PhD Unavailable [phone] Izabela Mathew MD Unavailable [phone] Shoaib Amin MD Primary Care Provider [phone] Allergies Active Allergy Reactions Criticality Noted Date Comments Adhesive Tape-Silicones Rash Medium Medications blood-gluc transmitter-sensor miscIndications:Unc ontrolled stage 2 hypertension Dexcom G6 CGM system. Dispense all required components. Use as directed. Change sensor every 10 days. Change transmitter every 90 days. 9 each 3 09/18/20 22 Active lancets miscIndications:Unc ontrolled diabetes mellitus with hyperglycemia (HCC) 1 each by other route as directed BID 200 each 3 07/13/20 23 Active aspirin 81 mg chewable tablet Take 1 tablet (81 mg total) by mouth daily 02/03/20 24 Active fenofibrate nanocrystallized (TRICOR) 145 mg tablet TAKE ONE TABLET BY MOUTH DAILY AT 9 AM 100 tablet 11 07/05/20 24 Active atorvastatin (LIPITOR) 80 mg tabletIndications:E levated lipids TAKE ONE TABLET (80 MG TOTAL) BY MOUTH DAILY AT 5 PM 100 tablet 11 07/05/20 24 Active omeprazole (PriLOSEC) 20 mg capsuleIndications: Gastroesophageal reflux disease, unspecified whether esophagitis present TAKE ONE CAPSULE BY MOUTH DAILY AT 9 AM 90 capsule 11 08/03/20 24 Active metoprolol XL (TOPROL-XL) 100 mg 24 hr tabletIndications:E ssential hypertension Take 1 tablet (100 mg total) by mouth daily 30 tablet 09/15/20 24 Active OneTouch Delica Plus Lancet 33 gauge miscIndications:Typ e 2 diabetes mellitus with diabetic polyneuropathy, with long-term current use of insulin ([facility]) Inject 1 Stick under the skin 4 (four) times a day 100 each 3 09/15/20 24 Active OneTouch Ultra2 Meter miscIndications:Typ e 2 diabetes mellitus with diabetic polyneuropathy, with long-term current use of insulin ([facility]) Glucose meter to check blood sugar 4 times per day and prn 1 each 09/15/20 24 Active blood glucose diagnostic stripIndications:Ty pe 2 diabetes mellitus with diabetic polyneuropathy, with long-term current use of insulin ([facility]) Test glucose 4 times per day and prn 100 each 3 09/15/20 24 Active miscellaneous medical supply miscIndications:Ess ential hypertension Blood pressure cuff 1 each 09/15/20 24 Active cyclobenzaprine (FLEXERIL) 10 mg tabletIndications:C hronic insomnia TAKE ONE TABLET BY MOUTH DAILY AT 9 PM NIGHTLY 90 tablet 1 10/03/20 24 Active gabapentin (Neurontin) 600 mg tabletIndications:C hronic midline low back pain without sciatica Take 600 mg in am, 900 mg in afternoon and evening 360 tablet 3 10/03/20 24 Active losartan (COZAAR) 25 mg tablet Take 1 tablet (25 mg total) by mouth daily 90 tablet 10/07/20 24 025 Active clotrimazole 1 % cream Apply topically 2 (two) times a day 30 g 11/08/19 25 Active furosemide (LASIX) 20 mg tablet TAKE ONE TABLET BY MOUTH DAILY AT 9 AM 90 tablet 3 11/30/19 25 Active apixaban (Eliquis) 5 mg tabletIndications:O ther chronic pulmonary embolism without acute cor pulmonale (HCC) Take 1 tablet (5 mg total) by mouth 2 (two) times a day 180 tablet 11 12/30/19 25 Active lidocaine (LIDODERM) 5 % Place 1 patch on the skin daily Remove & discard patch within 12 hours or as directed by . 5 patch 1 01/07/20 25 Active pen needle, diabetic (UltiCare Pen Needle) 32 gauge x /32 needleIndications:U ncontrolled type 2 diabetes mellitus with hyperglycemia (HCC) USE DIRECTED TO INJECT INSULIN TWICE DAILY 100 each 3 01/14/20 25 Active metFORMIN (GLUCOPHAGE) 1,000 mg tabletIndications:T ype 2 diabetes mellitus with stage 3a chronic kidney disease, with long-term current use of insulin ([facility]) Take 1 tablet (1,000 mg total) by mouth 2 (two) times a day with meals 180 tablet 01/28/20 25 026 Active dapagliflozin propanediol (Farxiga) 10 mg tabletIndications:C ontrolled type 2 diabetes mellitus with stage 3 chronic kidney disease, with long-term current use of insulin ([facility]) Take 1 tablet (10 mg total) by mouth manager membership before breakfast 90 tablet 3 02/09/20 25 026 Active insulin glargine 100 unit/mL (3 mL) pen for injectionIndication s:Type 2 diabetes mellitus with stage 3a chronic kidney disease, with long-term current use of insulin ([facility]) Inject 60 Units under the skin daily 54 mL 3 02/10/20 25 026 Active semaglutide (OZEMPIC) 0.25 mg or 0.5 mg (2 mg/3 mL) pen injector injectionIndication s:Type 2 diabetes mellitus with stage 3a chronic kidney disease, with long-term current use of insulin ([facility]) Inject 0.25 mg under the skin every 7 days for 28 days, THEN 0.5 mg every 7 days for 28 days. 4.5 mL 02/10/20 25 025 Active HYDROcodone-acetami nophen (NORCO) 7.5-325 mg per tabletIndications:P ain Take 1 tablet by mouth every 8 (eight) hours as needed for pain 90 tablet 03/08/20 25 025 Active nitroglycerin (NITROSTAT) 0.4 mg SL tabletIndications:C oronary artery disease involving [place] coronary artery of [place] heart without angina pectoris Place 1 tablet (0.4 mg total) under the tongue every 5 (five) minutes as needed for chest pain May repeat every 5 minutes for up to 3 doses. 30 tablet 11 03/13/20 25 Active miscellaneous medical supply miscIndications:DELFINO (obstructive sleep apnea) CPAP machine with supplies 1 each 01/22/20 22 025 Discontin ued(Thera py completed ) nitroglycerin (NITROSTAT) 0.[address] 1 tablet (0.4 mg total) under the tongue every 5 (five) minutes as needed for chest pain 025 Discontin ued(Thera py completed ) HYDROcodone-acetami nophen (NORCO) 7.5-325 mg per tabletIndications:P ain Take 1 tablet by mouth every 8 (eight) hours as needed for pain 90 tablet 02/09/20 025 Discontin ued(Reord er) Active Problems Problem Noted Date Diagnosed Date Recurrent falls while walking 01/27/2025 Assessment & Plan (01/27/2025 11:18 AM CDT): Chronic. Uncontrolled. Due to Complex Medical Problems (Severe LE OA, Uncontrolled diabetes with peripheral neuropathy). Recommend Walker with Seat. There is a mobility limitation that significantly impairs the ability to participate in mobility related activities of daily living (MRADL) in the home such as ambulating to kitchen and bath. Pt is unable to ambulate with a cane due to fall risk. Pt is safe to us a walker, will help this patient complete MRADL in reasonable timeframe and risk of falls, mobility deficit will be resolved with use of walker. A seated walker will aid patient if the need to sit arises during prolonged ambulation. 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 She asked that her [place] script be changed from every 8 hours p.r.n. every 4 hours p.r.n.. I recommend continuing her gabapentin as scripted, I have ordered hydrocodone with acetaminophen 7.5/325 every 4 hours p.r.n. pain and a script has been sent to [facility] TIA (transient ischemic attack) 08/31/2024 Left-sided weakness 08/30/2024 Assessment & Plan (09/03/2024 7:55 AM CDT): Consult physical and occupational therapy. Abnormal leg movement 08/29/2024 Assessment & Plan (09/03/2024 7:55 AM CDT): Consult physical and occupational therapy. The symptom is now improved. 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 Continue post stroke prophylaxis with blood pressure control, atorvastatin, Eliquis, aspirin. Follow up as an outpatient with Neurology Assessment & Plan (09/07/2024 1:57 PM BRAKE OPERATOR HEAVY DUTY): no new neurologic findings, continue post stroke prophylaxis with Eliquis, aspirin, atorvastatin, blood pressure control Assessment & Plan (09/03/2024 7:56 AM CDT): Her most recent MRI imaging report indicates findings of multiple old CVA and microvascular disease. History of pulmonary embolus (PE) 08/28/2024 Assessment & Plan (09/03/2024 7:54 AM CDT): She is chronically anticoagulated we will continue scripted apixaban 5 mg p.o. b.i.d.. Swelling of lower extremity 05/06/2023 Overweight with body mass in dex (BMI) of 29 to 29.9 in adult 04/10/2023 Overview (04/10/2023): Chronic. Uncontrolled. Cont. Phentermine. Chronic right shoulder pain 01/27/2023 Overview (01/27/2023): Chronic. Uncontrolled. Ortho for Inj. Class 1 obesity due to exces s calories with serious comorbidity and body mass index (BMI) of 30.0 to 30.9 in adult 09/29/2022 Assessment & Plan (09/29/2022 3:21 PM BRAKE OPERATOR HEAVY DUTY): Chronic and not at goal Continue and refill adipex. Pulmonary hypertension 11/30/2021 Assessment & Plan (11/30/2021 2:40 PM BRAKE OPERATOR HEAVY DUTY): In setting of PE Will need repeat tte in 3 months and f/u with pulm. RHC and eval for cteph if remains elevated at that time Family history of factor V Leiden mutation 11/30 Assessment & Plan (11/30/2021 2:39 PM BRAKE OPERATOR HEAVY DUTY): Heme to send testing Chronic pulmonary embolism without acute cor pul monale 11/29/2021 Assessment & Plan (09/09/2024 1:06 PM BRAKE OPERATOR HEAVY DUTY): Stable, continue Eliquis 5 mg b.i.d. Assessment & Plan (11/30/2021 2:38 PM BRAKE OPERATOR HEAVY DUTY): With decreased clot burden on repeat ct Pain likely explained by pulm infarcts Cont heparin gtt for now. Le duplex ordered by pulm, if no new clot will resume eliquis Chest pain on breathing 11/29/2021 History of transient ischemic attack (TIA) 11/29 Assessment & Plan (11/30/2021 2:39 PM BRAKE OPERATOR HEAVY DUTY): Cont statin Resume asa Controlled type 2 diabetes hazel gonzalez with stage 3 chronic kidney disease, with long-term current use of insulin 11/14/2021 Diabetic neuropathy 11/14/2021 Dysphagia due to recent cerebrovascular accident 05/21/2021 Fall 05/21/2021 NSTEMI, initial episode of care 05/21/2021 Post-concussion vertigo 05/21/2021 Syncope due to sick sinus syndrome 05/21/2021 Witnessed seizure 05/21/2021 Uncontrolled diabetes mellitus with hyperglycemi a 05/21/2021 Assessment & Plan (09/05/2024 4:03 PM BRAKE OPERATOR HEAVY DUTY): She asked to stop her insulin 70 30 insulin and this is completed. She asked to take insulin glargine. I have ordered 35 units of glargine b.i.d., follow Accu-Cheks. Otherwise continue dapagliflozin, glipizide, metformin all as scripted. Hypoglycemia 05/21/2021 Uncontrolled stage 2 hypertension 05/21/2021 Dyslipidemia, goal LDL below 100 05/21/2021 Medicare annual wellness visit, subsequent 05/21 Assessment & Plan (02/09/2025 12:01 PM CDT): Patient here for annual Medicare wellness visit and for review of complete medical problem list. All the elements of the plan were completed as outlined by CMS. A copy of the prevention plan was given to the patient. I reviewed Medicare Wellness Questionnaire (other physicians involved in care, depression screen, advanced directives), cognitive/memory, and functional assessment. Forms scanned in progress notes. I reviewed and updated the complete problem list, medication list, family history, and immunization records with the patient. I provided preventive counseling and early detection interventions to the patient through health maintenance update and summary of today's office visit. Personalized Prevention Plan Services (PPPS): Immunization: [id number]: UTD. [id number]: UTD. Influenza: UTD. HepatitisB: Not Applicable. Tetanus: Highly Recommended Shingles: UTD. Cancer Screening: Mammogram: Not Applicable. PAP Smear: Not Applicable. Prostate Cancer Screening: Not Applicable. Colorectal Cancer Screening: Performed on 10/29/2018. with DR. Haile . and UTD. Lung Cancer Screening: Not Applicable. Others: Diet: Lifestyle education regarding diet discussed. Exercise: Encouraged regular daily exercise. Medication Use: Aspirin use discussion. DEXA Scan: Not Applicable. Glaucoma Screening: Recommended Annually. Audio Screen ordered? No Diabetes: Not Applicable. Annual Labs: UTD. Abdominal Aortic Aneurysm Screening: Not Applicable. HIV Screening: Not Applicable. Smoking cessation Counselling: Not Applicable. Subsequent Annual Wellness Visit: Annually Assessment & Plan (02/29/2024 11:39 AM CDT): Patient here for annual Medicare wellness visit and for review of complete medical problem list. All the elements of the plan were completed as outlined by CMS. A copy of the prevention plan was given to the patient. I reviewed Medicare Wellness Questionnaire (other physicians involved in care, depression screen, advanced directives), cognitive/memory, and functional assessment. Forms scanned in progress notes. I reviewed and updated the complete problem list, medication list, family history, and immunization records with the patient. I provided preventive counseling and early detection interventions to the patient through health maintenance update and summary of today's office visit. Personalized Prevention Plan Services (PPPS): Immunization: [id number]: UTD. [id number]: UTD. Influenza: UTD. HepatitisB: Not Applicable. Tetanus: Highly Recommended Shingles: UTD. Cancer Screening: Mammogram: Not Applicable. PAP Smear: Not Applicable. Prostate Cancer Screening: Not Applicable. Colorectal Cancer Screening: Performed on 10/29/2018. with DR. Haile . and UTD. Lung Cancer Screening: Not Applicable. Others: Diet: Lifestyle education regarding diet discussed. Exercise: Encouraged regular daily exercise. Medication Use: Aspirin use discussion. DEXA Scan: Not Applicable. Glaucoma Screening: Recommended Annually. Audio Screen ordered? No Diabetes: Not Applicable. Annual Labs: UTD. Abdominal Aortic Aneurysm Screening: Not Applicable. HIV Screening: Not Applicable. Smoking cessation Counselling: Not Applicable. Subsequent Annual Wellness Visit: Annually Assessment & Plan (01/27/2023 1:52 PM CDT): Patient here for annual Medicare wellness visit and for review of complete medical problem list. All the elements of the plan were completed as outlined by CMS. A copy of the prevention plan was given to the patient. I reviewed Medicare Wellness Questionnaire (other physicians involved in care, depression screen, advanced directives), cognitive/memory, and functional assessment. Forms scanned in progress notes. I reviewed and updated the complete problem list, medication list, family history, and immunization records with the patient. I provided preventive counseling and early detection interventions to the patient through health maintenance update and summary of today's office visit. Personalized Prevention Plan Services (PPPS): Immunization: [id number]: UTD. [id number]: UTD. Influenza: UTD. HepatitisB: Not Applicable. Tetanus: Highly Recommended Shingles: UTD. Cancer Screening: Mammogram: Not Applicable. PAP Smear: Not Applicable. Prostate Cancer Screening: Not Applicable. Colorectal Cancer Screening: Performed on 10/29/2018. with DR. Haile . and UTD. Lung Cancer Screening: Not Applicable. Others: Diet: Lifestyle education regarding diet discussed. Exercise: Encouraged regular daily exercise. Medication Use: Aspirin use discussion. DEXA Scan: Not Applicable. Glaucoma Screening: Recommended Annually. Audio Screen ordered? No Diabetes: Not Applicable. Annual Labs: UTD. Abdominal Aortic Aneurysm Screening: Not Applicable. HIV Screening: Not Applicable. Smoking cessation Counselling: Not Applicable. Subsequent Annual Wellness Visit: Annually Aphasia 01/28/2021 Hypoxia 01/28/2021 Daytime sleepiness 04/30/2020 Hemiparesis affecting left side as late effect o f stroke 07/15/2019 Assessment & Plan (09/20/2024 4:58 PM BRAKE OPERATOR HEAVY DUTY): Recommend Power Mobility Scooter: Pt would benefit from a pmd for her adl to assist from getting from bedroom to bathroom and kitchen. Pt cannot use a standard walker or cane, gait is too unsteady. A scooter will significantly improve patients ability to to participate in MRADL. Pt is unable to use a standard wheelchair due to Severe Arthritis of Bilateral shoulder, Left hemiparesis and Lumbar Radiculopathy. Pt home is adequate for a pmd. Pt is able and willing to use a pmd. U. Pt is able and willing to use a scooter. Bilateral carotid artery stenosis 07/15/2019 Assessment & Plan (03/15/2025 10:26 AM CDT): Remains asymptomatic. Continue aspirin Eliquis statin therapy continues to have mild stenosis bilaterally. No vascular intervention indicated at this time. Follow-up in 1 year for routine surveillance with carotid duplex. Assessment & Plan (09/09/2024 1:05 PM BRAKE OPERATOR HEAVY DUTY): Recent MRI negative, recent CTA correlates with carotid duplex. Patient should follow up with Neurology and follow-up for routine surveillance with vascular for carotid duplex. Continue aspirin, statin, Eliquis. Assessment & Plan (09/09/2024 10:05 AM BRAKE OPERATOR HEAVY DUTY): Bilateral carotid stenosis. Recent MRI was negative recent CTA correlates with carotid duplex. Reviewed with Dr. Darryl Garcia. We will have the patient follow- up with Neurology regarding her recent hospital visit and will have the patient follow-up for routine surveillance with carotid duplex. No indications for vascular intervention at this time. Continue aspirin and statin therapy and Eliquis. Nonrheumatic aortic valve stenosis 04/18/2019 Stage 3a chronic kidney disease 03/10/2019 Assessment & Plan (09/09/2024 1:08 PM BRAKE OPERATOR HEAVY DUTY): Renal function overall stable, BUN/creatinine 49/1.21 with a GFR of 49. Avoid nephrotoxic agents, monitor closely as patient remains on metformin Assessment & Plan (09/03/2024 7:54 AM CDT): Follow up labs were ordered. 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 Anemia in stage 3 chronic kidney disease 019 NSAID long-term use 03/10/2019 Chronic insomnia 10/12/2018 Assessment & Plan (09/29/2022 3:21 PM BRAKE OPERATOR HEAVY DUTY): Chronic and not well controlled D/c flexeril Start trazadone 50mg Assessment & Plan (12/14/2019 4:21 PM BRAKE OPERATOR HEAVY DUTY): Increase elavil 25mg qhs Coronary artery disease invo lving [facility] coronary artery of [place] heart without angina pectoris 09/10/2018 Assessment & Plan (09/09/2024 1:06 PM BRAKE OPERATOR HEAVY DUTY): Stable, no chest pain. Continue blood pressure management, aspirin, statin Assessment & Plan (09/03/2024 7:53 AM CDT): This is chronic and stable. Continue aspirin and atorvastatin as scripted Assessment & Plan (11/30/2021 2:39 PM BRAKE OPERATOR HEAVY DUTY): Cont asa, statin, bb Assessment & Plan (09/10/2018 8:54 AM BRAKE OPERATOR HEAVY DUTY): Continue aspirin, Plavix, beta-romel. Arrange for cardiac catheterization Essential hypertension 09/10/2018 Assessment & Plan (09/09/2024 1:06 PM BRAKE OPERATOR HEAVY DUTY): Blood pressure well controlled, continue metoprolol, Lasix Assessment & Plan (09/07/2024 1:50 PM BRAKE OPERATOR HEAVY DUTY): Blood pressure is well controlled, continue Lasix 20 mg daily, metoprolol 100 mg b.i.d. Assessment & Plan (09/03/2024 7:53 AM CDT): This is chronic and stable. Continue to monitor vital signs for trending pattern. Continue furosemide as scripted, continue metoprolol 100 mg p.o. b.i.d.. Assessment & Plan (11/30/2021 2:39 PM BRAKE OPERATOR HEAVY DUTY): bp low this afternoon Cont nitro patch, bb Will hold losartan and follow repeat bp's Assessment & Plan (09/10/2018 8:55 AM BRAKE OPERATOR HEAVY DUTY): Blood pressure is controlled. Continue current treatment Mixed hyperlipidemia 09/10/2018 Assessment & Plan (09/03/2024 7:52 AM CDT): This is chronic, currently stable. Continue atorvastatin 80 mg daily and dietary will follow. Continue fenofibrate 145 mg daily. Assessment & Plan (11/30/2021 2:39 PM BRAKE OPERATOR HEAVY DUTY): Cont statin Assessment & Plan (09/10/2018 8:55 AM BRAKE OPERATOR HEAVY DUTY): Continue Lipitor 80 milligram daily. Lipid panel today shows that the LDL is well controlled. Could discontinue Vytorin Type 2 diabetes mellitus wit h diabetic polyneuropathy, with long-term current use of insulin ([facility]) 09/10/2018 Assessment & Plan (09/09/2024 1:07 PM BRAKE OPERATOR HEAVY DUTY): A1c 10.7, glipizide discontinued, blood sugar were a little lower this a.m.. We will reduce Lantus to 20 units b.i.d., continue metformin 1000 mg b.i.d.. Recommend patient monitor blood sugars t.i.d. and return information to PCP for further dose adjustments. Assessment & Plan (09/07/2024 1:56 PM BRAKE OPERATOR HEAVY DUTY): A1c 10.7, Accu-Cheks labile ranging from 69 to 206. Continue metformin 1000 mg b.i.d., Lantus 35 units b.i.d.. We will place glipizide on hold to avoid hypoglycemia. Assessment & Plan (09/03/2024 7:54 AM CDT): This is chronic, currently stable. Continue glipizide as scripted, continue insulin 70 /30 as scripted 40 units b.i.d., continue metformin a 1000 mg p.o. b.i.d.. Assessment & Plan (11/30/2021 2:40 PM BRAKE OPERATOR HEAVY DUTY): Cont insulin Assessment & Plan (09/10/2018 8:56 AM BRAKE OPERATOR HEAVY DUTY): Will ask patient to do better job at controlling her blood sugars. If her blood sugars remain elevated then 1 option here is to add Victoza that has shown to reduce cardiovascular complications in patient with type 2 diabetes. Peripheral polyneuropathy 07/13/2018 Assessment & Plan (09/03/2024 7:55 AM CDT): Continue gabapentin as scripted Assessment & Plan (11/30/2021 2:39 PM BRAKE OPERATOR HEAVY DUTY): Cont gabapentin Stented coronary artery 10/14/2016 Carotid arterial disease 10/14/2016 Assessment & Plan (09/03/2024 7:53 AM CDT): Her hospital workup indicates 70% stenosis of the right internal carotid artery. She is to follow up with vascular. She is to continue her apixaban, aspirin, and atorvastatin as scripted. Palpitations 08/17/2012 Chronic midline low back pain without sciatica 0 01/28/2012 Assessment & Plan (09/09/2024 1:09 PM BRAKE OPERATOR HEAVY DUTY): Pain is well controlled, continue p.r.n. [place]. Gabapentin increased to 700 mg t.i.d. Assessment & Plan (09/29/2022 3:24 PM BRAKE OPERATOR HEAVY DUTY): Chronic condition persistent symptoms Decreased hydrocodone from 122 to 90 pills. Resolved Problems Problem Noted Date Diagnosed Date Resolved Date Murmur, heart 12/20/2018 07/10/2022 Abnormal stress test 09/10/2018 019 Assessment & Plan (09/10/2018 8:54 AM BRAKE OPERATOR HEAVY DUTY): Will arrange for cardiac catheterization to define the coronary anatomy. She did have a stent in the LAD in 2015 and now the ischemia is in the LAD territory. Type 2 diabetes mellitus wit h hyperglycemia, without long-term current use of insulin 12/16/2016 04/12/2020 Assessment & Plan (08/18/2019 11:31 AM CDT): Will in place the early brain instructed on how to use this download at 4 on her phone. Encounters Date Type Department Care Team Description 03/13/2025 2:00 PM CDT Office Visit [facility] Vascular and Vein Surgery [address] [place] [address] [address] [place] [address] Anel Cervantes, GURJIT Type 2 diabetes mellitus with diabetic polyneuropathy, with long-term current use of insulin ([facility]) (HCC) (Primary Dx); Essential hypertension; Dyslipidemia, goal LDL below 100; Bilateral carotid artery stenosis; Uncontrolled stage 2 hypertension 03/13/2025 Orders Only [facility] Vascular and Vein Surgery [facility] [facility] [address] [place] [address] Dorcas Vaughan MA Bilateral carotid artery stenosis (Primary Dx) 03/10/2025 Telephone [facility] Family Medicine at [place] [id number] [facility] [address] [place] [address] Shoaib Amin MD Med Refill 03/07/2025 9:16 AM CDT - 03/07/2025 11:59 PM CDT Hospital Encounter [facility] Medical Office Building 2 Vascular [address] [facility] [address] [place] [address] Bilateral carotid artery stenosis Discharge Disposition: Discharge to home or self care 02/24/[address] [facility] Family Medicine at [address] [place] [address] Teodora Alaniz MA Chart Review (Formerly [facility]) 02/21/2025 9:00 AM CDT Office Visit [facility] - [facility] [address] [place] [address] 11th [place] [address] [place] [address] Asia Garcia PA Urinary retention 02/21/[address] [facility] Family Medicine at [address] [place] [address] Shoaib Amin MD Med Refill 02/20/[address] [facility] Medical [facility] Family Medicine at [address] [place] [address] Teodora Alaniz MA Unsuccessful Phone Call 1 ([facility] med [facility]) 02/09/2025 11:15 AM CDT Office Visit [facility] Medical [facility] Family Medicine at [address] [place] [address] Shoaib Amin MD Medicare annual wellness visit, subsequent (Primary Dx); Fall, initial encounter; Left-sided muscle weakness; Hemiparesis affecting left side as late effect of stroke (HCC); Peripheral polyneuropathy; Recurrent falls while walking; Type 2 diabetes mellitus with stage 3a chronic kidney disease, with long-term current use of insulin (HCC) 02/09/[address] [facility] Family Medicine at [address] [place] [address] Shoaib Amin MD Request For Order(s) (Walker w/ seat) 01/27/2025 11:00 AM CDT Office Visit [facility] Family Medicine at [address] [place] [address] Shoaib Amin MD Type 2 diabetes mellitus with stage 3a chronic kidney disease, with long-term current use of insulin (HCC) (Primary Dx); Encounter for annual health examination; Encounter for screening mammogram for malignant neoplasm of breast; Menopause; Recurrent falls while walking; Urinary retention 01/25/[address] [facility] Care Organization [address] [place] [address] Zully Elliott Chart Review ([facility] Med Adherence ) 01/20/2025 Telephone [facility] Medicine at [address] [place] [address] Shoaib Amin MD Additional Services Or Orders 12/19/2024 Telephone [facility] Medicine at [address] [place] [address] Shoaib Amin MD Medical Records Request from Last 3 Months Immunizations Immunization Administration Dates Next Due Influenza, Quadrivalent, Gladys l Culture-based MDCK, Preservative Free, Antibiotic Free, Intramuscular 08/17/2019 Influenza, Quadrivalent, Hig h Dose, Preservative Free, Intrr 10/08/2022,08/28/2021,08/08/2020 Influenza, Quadrivalent, Spl it, Intramuscular 08/09/2018 Influenza, Quadrivalent, Spl it, Preservative Free, Intramuscular 10/01/2023,08/09/2018,08/05/2017 Influenza, Trivalent, High D ose, Split, Preservative Free, Intramuscular 07/07/2024 Influenza, Trivalent, Preser vative Free, Intramuscular 09/19/2015,07/11/2011,09/04/2010 Influenza, Unspecified 07/03/2022 Moderna SARS-CoV-2 Monovalen t Vaccination (12+ YRS) 04/04/2021,03/04/2021 PPD TEST 01/14/2010 Pneumococcal Conjugate PCV 13 11/15/2020 Pneumococcal Conjugate Pcv20 10/08/2022 Pneumococcal Polysaccharide PPV23 05/22/2022,09/2015 RSV Vaccine, Pref, Recombina nt, Subunit, Adjuvanted, PF, IM (Arexvy) 10/01/2023 ZOSTER LIVE 08/20/2015 ZOSTER Recombinant 11/15/2020,08/08/2020 Surgical History Surgery Date Site/Laterality Comments THYROID SURGERY GOITERS REMOVED HYSTERECTOMY 11/02/1984 - 11/01/1985 GALLBLADDER SURGERY REMOVED CARDIAC STENT PLACEMENT X's 2 CHOLECYSTECTOMY EYE SURGERY Bilateral artificial lens Medical History Medical History Date Comments Hypertension Thyroid disease History of heart attack Primary insomnia Hyperlipidemia Peripheral polyneuropathy Acute renal failure Stroke (HCC) Coronary artery disease invo lving [facility] coronary artery of [place] heart without angina pectoris 09/10/2018 TIA (transient ischemic attack) per patient she has had 7 TIA's, no strokes though. 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 Family History Medical History Relation Name Comments Cancer Brother 1 Stroke Brother 2 No Known Problems Daughter Cancer Father brain tumor Maternal Grandfather No Known Problems Maternal Grandmother Diabetes Mother Stomach cancer Mother Stroke Mother No Known Problems Paternal Grandfather Stomach cancer Paternal Grandmother Diabetes Sister 1 Kidney failure Sister 1 Leukemia Sister 2 No Known Problems Sister 3 No Known Problems Son 1 No Known Problems Son 2 Relation Name Status Comments Brother 1 Alive CANCER Brother 2 Alive Brother 3 Alive Brother 4 Alive Brother 5 Alive Brother 6 Daughter Alive Father (Age 75) Maternal Grandfather Maternal Grandmother Mother (Age 85) Paternal Grandfather Paternal Grandmother Sister 1 (Age 17) Sister 2 Sister 3 Alive Son 1 Alive Son 2 Alive Social History Tobacco Use Types Packs/Day Years Used Date Smoking Tobacco: Former Cigarettes Q uit: 10/03/1975 Smokeless Tobacco: Never Comments:weekend smoker Alcohol Use Standard Drinks/Week Comments No 0 (1 standard drink = 0.6 oz pur e alcohol) [facility] Utilities Answer Date Recorded In the past 12 months has e [employer], gas, oil, or water [employer] threatened to shut off services in your home? No 08/29/2024 Social Connection and Isolat ion Panel [NHANES] Answer Date Recorded In a typical week, how many times do you talk on the phone with family, friends, or neighbors? More than three times a week 08/29/2024 How often do you get togethe r with friends or relatives? More than three times a week 08/29/2024 How often do you attend chur ch or latter-day services? More than 4 times per year 08/29/2024 Do you belong to any clubs o r organizations such as christianity groups, unions, fraternal or athletic groups, or school groups? No 08/29/2024 How often do you attend meet ings of the clubs or organizations you belong to? Never 08/29/2024 Are you , , di vorced, , never , or living with a partner? 08/29/2024 AUDIT-C Answer Date Recorded Q1: How often do you have a drink containing alcohol? Never 01/27/2025 Q2: How many drinks containi ng alcohol do you have on a typical day when you are drinking? Patient does not drink Q3: How often do you have si x or more drinks on one occasion? Never 01/27/2025 Overall Financial Resource Strain (CARDIA) Answe r Date Recorded How hard is it for you to pa y for the very basics like food, housing, medical care, and heating? Not hard at all 08/29/2024 PHQ-2 Answer Date Recorded PHQ-2 Total Score (If total score is 3 or more points, staff should administer the PHQ-9) 4 02/09/2025 Hunger Vital Sign Answer Date Recorded Within the past 12 months, y ou worried that your food would run out before you got the money to buy more. Never true 08/29/20 24 Within the past 12 months, t he food you bought just didn't last and you didn't have money to get more. Never true 08/29/2024 PRAPARE - Transportation Answer Date Re corded In the past 12 months, has l ack of transportation kept you from medical appointments or from getting medications? No 08/03 In the past 12 months, has l ack of transportation kept you from meetings, work, or from getting things needed for daily living? No 08/29/2024 Housing Stability Vital Sign Answer Cipriano e Recorded In the last 12 months, was t here a time when you were not able to pay the mortgage or rent on time? No 10/23/2023 In the last 12 months, how many places have you lived? 1 10/23/2023 In the last 12 months, was t here a time when you did not have a steady place to sleep or slept in a fdc (including now)? No 10/23/2023 PHQ-9 Answer Date Recorded PHQ-9 Total Score 9 02/09/2025 Housing Stability Vital Sign Answer Cipriano e Recorded In the last 12 months, was t here a time when you were not able to pay the mortgage or rent on time? No 08/29/2024 In the past 12 months, how m any times have you moved where you were living? 0 08/29/2024 At any time in the past 12 m [facility], were you homeless or living in a fdc (including now)? No 08/29/2024 Personal Safety Answer Date Recorded Have you ever been in or are you currently in a harmful physical or emotional relationship or is someone making you feel afraid or unsafe? 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[employer] Gender Identity Not on file Sexual Orientation Not on file Obstetrics History Para Term AB IAB SAB Ectopic Multiple Livin g Live Births 3 Date Outcome GA Total Labor Labor/2nd/3rd Weight Sex Type Anes PTL Maliha A1 A5 Name Clin [id number]|2025-03-16 21:33:00|2025-03-16 21:33:00|XMS_ITS|BKG DAEMON|External Medical Summaries|[id number]|" Referral Summary Created on: March 16, 2025 Leeann Cochran : 1955 Sex: Female Author Organization [id number] [place] [address] 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[employer] Name Role Phone Coy Smith MD PhD Unavailable [phone] Izabela Mathew MD Unavailable [phone] Shoaib Amin MD Primary Care Provider [phone] Encounters Date Type Department Care Team Description 03/13/2025 Orders Only [facility] Vascular and Vein Surgery [address] [place] [address] [address] [place] [phone] Dorcas Vaughan MA Bilateral carotid artery stenosis (Primary Dx) 03/13/2025 2:00 PM CDT Office Visit [facility] Vascular and Vein Surgery [address] [place] [address] [address] [place] [phone] Anel Cervantes NP Type 2 diabetes mellitus with diabetic polyneuropathy, with long-term current use of insulin ([facility] ([facility]) (Primary Dx); Essential hypertension; Dyslipidemia, goal LDL below 100; Bilateral carotid artery stenosis; Uncontrolled stage 2 hypertension 03/10/[address] [facility] Medical [facility] Family Medicine at [address] [place] [address] Shoaib Amin MD Med Refill 03/07/2025 9:16 AM CDT - 03/07/2025 11:59 PM CDT Hospital Encounter [facility] Medical Office Building [address] [place] [address] [address] [place] [address] Bilateral carotid artery stenosis Discharge Disposition: Discharge to home or self care 02/24/2025 Telephone [facility] Family Medicine at [address] [place] [address] Teodora Alaniz MA Chart Review ([facility] med sdh) 02/21/[address] [facility] Medical [facility] Family Medicine at [address] [place] [address] Shoaib Amin MD Med Refill 02/21/2025 9:00 AM CDT Office Visit [facility] ([facility] Urology [address] [facility] 11th [place] [address] [place] [address] Asia Garcia PA Urinary retention 02/20/[address] [facility] Medical [facility] Family Medicine at [address] [place] [address] Teodora Alaniz MA Unsuccessful Phone Call 1 ([facility] med adh) 02/09/2025 Telephone [facility] Family Medicine at [address] [place] [address] Shoaib Amin MD Request For Order(s) (Walker w/ seat) 02/09/2025 11:15 AM CDT Office Visit [facility] Family Medicine at [address] [place] [address] Shoaib Amin MD Medicare annual wellness visit, subsequent (Primary Dx); Fall, initial encounter; Left-sided muscle weakness; Hemiparesis affecting left side as late effect of stroke (HCC); Peripheral polyneuropathy; Recurrent falls while walking; Type 2 diabetes mellitus with stage 3a chronic kidney disease, with long-term current use of insulin (HCC) 01/27/2025 11:00 AM CDT Office Visit [facility] Family Medicine at [address] [place] [address] Shoaib Amin MD Type 2 diabetes mellitus with stage 3a chronic kidney disease, with long-term current use of insulin (HCC) (Primary Dx); Encounter for annual health examination; Encounter for screening mammogram for malignant neoplasm of breast; Menopause; Recurrent falls while walking; Urinary retention 01/25/[address] [facility] Accountable Care Organization [address] [place] [address] Zully Elliott Chart Review ([facility] Med Adherence ) 01/20/2025 Telephone [facility] Family Medicine at [address] [place] [phone] Shoaib Amin MD Additional Services Or Orders 12/19/[address] [facility] Family Medicine at [address] [place] [address] Shoaib Amin MD Medical Records Request from Last 3 Months Allergies Active Allergy Reactions Criticality Noted Date Comments Adhesive Tape-Silicones Rash Medium Medications blood-gluc transmitter-sensor miscIndications:Unc ontrolled stage 2 hypertension Dexcom G6 CGM system. Dispense all required components. Use as directed. Change sensor every 10 days. Change transmitter every 90 days. 9 each 3 09/18/20 22 Active lancets miscIndications:Unc ontrolled diabetes mellitus with hyperglycemia (HCC) 1 each by other route as directed BID 200 each 3 07/13/20 23 Active aspirin 81 mg chewable tablet Take 1 tablet (81 mg total) by mouth daily 02/03/20 24 Active fenofibrate nanocrystallized (TRICOR) 145 mg tablet TAKE ONE TABLET BY MOUTH DAILY AT 9 AM 100 tablet 11 07/05/20 24 Active atorvastatin (LIPITOR) 80 mg tabletIndications:E levated lipids TAKE ONE TABLET (80 MG TOTAL) BY MOUTH DAILY AT 5 PM 100 tablet 11 07/05/20 24 Active omeprazole (PriLOSEC) 20 mg capsuleIndications: Gastroesophageal reflux disease, unspecified whether esophagitis present TAKE ONE CAPSULE BY MOUTH DAILY AT 9 AM 90 capsule 11 08/03/20 24 Active metoprolol XL (TOPROL-XL) 100 mg 24 hr tabletIndications:E ssential hypertension Take 1 tablet (100 mg total) by mouth daily 30 tablet 09/15/20 24 Active OneTouch Delica Plus Lancet 33 gauge miscIndications:Typ e 2 diabetes mellitus with diabetic polyneuropathy, with long-term current use of insulin ([facility]) Inject 1 Stick under the skin 4 (four) times a day 100 each 3 09/15/20 24 Active OneTouch Ultra2 Meter miscIndications:Typ e 2 diabetes mellitus with diabetic polyneuropathy, with long-term current use of insulin ([facility]) Glucose meter to check blood sugar 4 times per day and prn 1 each 09/15/20 24 Active blood glucose diagnostic stripIndications:Ty pe 2 diabetes mellitus with diabetic polyneuropathy, with long-term current use of insulin (HCC) Test glucose 4 times per day and prn 100 each 3 09/15/20 24 Active miscellaneous medical supply miscIndications:Ess ential hypertension Blood pressure cuff 1 each 09/15/20 24 Active cyclobenzaprine (FLEXERIL) 10 mg tabletIndications:C hronic insomnia TAKE ONE TABLET BY MOUTH DAILY AT 9 PM NIGHTLY 90 tablet 1 10/03/20 24 Active gabapentin (Neurontin) 600 mg tabletIndications:C hronic midline low back pain without sciatica Take 600 mg in am, 900 mg in afternoon and evening 360 tablet 3 10/03/20 24 Active losartan (COZAAR) 25 mg tablet Take 1 tablet (25 mg total) by mouth daily 90 tablet 10/07/20 24 025 Active clotrimazole 1 % cream Apply topically 2 (two) times a day 30 g 11/08/19 25 Active furosemide (LASIX) 20 mg tablet TAKE ONE TABLET BY MOUTH DAILY AT 9 AM 90 tablet 3 11/30/19 25 Active apixaban (Eliquis) 5 mg tabletIndications:O ther chronic pulmonary embolism without acute cor pulmonale (HCC) Take 1 tablet (5 mg total) by mouth 2 (two) times a day 180 tablet 11 12/30/19 25 Active lidocaine (LIDODERM) 5 % Place 1 patch on the skin daily Remove & discard patch within 12 hours or as directed by . 5 patch 1 01/07/20 25 Active pen needle, diabetic (UltiCare Pen Needle) 32 gauge x 5/32 needleIndications:U ncontrolled type 2 diabetes mellitus with hyperglycemia (HCC) USE DIRECTED TO INJECT INSULIN TWICE DAILY 100 each 3 01/14/20 25 Active metFORMIN (GLUCOPHAGE) 1,000 mg tabletIndications:T ype 2 diabetes mellitus with stage 3a chronic kidney disease, with long-term current use of insulin (HCC) Take 1 tablet (1,000 mg total) by mouth 2 (two) times a day with meals 180 tablet 3 01/28/20 25 026 Active dapagliflozin propanediol (Farxiga) 10 mg tabletIndications:C ontrolled type 2 diabetes mellitus with stage 3 chronic kidney disease, with long-term current use of insulin ([facility]) Take 1 tablet (10 mg total) by mouth manager membership before breakfast 90 tablet 3 02/09/20 25 026 Active insulin glargine 100 unit/mL (3 mL) pen for injectionIndication s:Type 2 diabetes mellitus with stage 3a chronic kidney disease, with long-term current use of insulin ([facility]) Inject 60 Units under the skin daily 54 mL 3 02/10/20 25 026 Active semaglutide (OZEMPIC) 0.25 mg or 0.5 mg (2 mg/3 mL) pen injector injectionIndication s:Type 2 diabetes mellitus with stage 3a chronic kidney disease, with long-term current use of insulin ([facility]) Inject 0.25 mg under the skin every 7 days for 28 days, THEN 0.5 mg every 7 days for 28 days. 4.5 mL 02/10/20 25 025 Active HYDROcodone-acetami nophen (NORCO) 7.5-325 mg per tabletIndications:P ain Take 1 tablet by mouth every 8 (eight) hours as needed for pain 90 tablet 03/08/20 25 025 Active nitroglycerin (NITROSTAT) 0.4 mg SL tabletIndications:C oronary artery disease involving [facility] coronary artery of [facility] heart without angina pectoris Place 1 tablet (0.4 mg total) under the tongue every 5 (five) minutes as needed for chest pain May repeat every 5 minutes for up to 3 doses. 30 tablet 11 03/13/20 25 Active miscellaneous medical supply miscIndications:DELFINO (obstructive sleep apnea) CPAP machine with supplies 1 each 01/22/20 22 025 Discontin ued(Thera py completed ) nitroglycerin (NITROSTAT) 0.[address] 1 tablet (0.4 mg total) under the tongue every 5 (five) minutes as needed for chest pain 025 Discontin ued(Thera py completed ) HYDROcodone-acetami nophen (NORCO) 7.5-325 mg per tabletIndications:P ain Take 1 tablet by mouth every 8 (eight) hours as needed for pain 90 tablet 02/09/20 25 025 Discontin ued(Reord er) Active Problems Problem Noted Date Diagnosed Date Recurrent falls while walking 01/27/2025 Assessment & Plan (01/27/2025 11:18 AM CDT): Chronic. Uncontrolled. Due to Complex Medical Problems (Severe LE OA, Uncontrolled diabetes with peripheral neuropathy). Recommend Walker with Seat. There is a mobility limitation that significantly impairs the ability to participate in mobility related activities of daily living (MRADL) in the home such as ambulating to kitchen and bath. Pt is unable to ambulate with a cane due to fall risk. Pt is safe to us a walker, will help this patient complete MRADL in reasonable timeframe and risk of falls, mobility deficit will be resolved with use of walker. A seated walker will aid patient if the need to sit arises during prolonged ambulation. 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 She asked that her [place] script be changed from every 8 hours p.r.n. every 4 hours p.r.n.. I recommend continuing her gabapentin as scripted, I have ordered hydrocodone with acetaminophen 7.5/325 every 4 hours p.r.n. pain and a script has been sent to [facility] TIA (transient ischemic attack) 08/31/2024 Left-sided weakness 08/30/2024 Assessment & Plan (09/03/2024 7:55 AM CDT): Consult physical and occupational therapy. Abnormal leg movement 08/29/2024 Assessment & Plan (09/03/2024 7:55 AM CDT): Consult physical and occupational therapy. The symptom is now improved. 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 Continue post stroke prophylaxis with blood pressure control, atorvastatin, Eliquis, aspirin. Follow up as an outpatient with Neurology Assessment & Plan (09/07/2024 1:57 PM BRAKE OPERATOR HE[employer] DUTY): no new neurologic findings, continue post stroke prophylaxis with Eliquis, aspirin, atorvastatin, blood pressure control Assessment & Plan (09/03/2024 7:56 AM CDT): Her most recent MRI imaging report indicates findings of multiple old CVA and microvascular disease. History of pulmonary embolus (PE) 08/28/2024 Assessment & Plan (09/03/2024 7:54 AM CDT): She is chronically anticoagulated we will continue scripted apixaban 5 mg p.o. b.i.d.. Swelling of lower extremity 05/06/2023 Overweight with body mass in dex (BMI) of 29 to 29.9 in adult 04/10/2023 Overview (04/10/2023): Chronic. Uncontrolled. Cont. Phentermine. Chronic right shoulder pain 01/27/2023 Overview (01/27/2023): Chronic. Uncontrolled. Ortho for Inj. Class 1 obesity due to exces s calories with serious comorbidity and body mass index (BMI) of 30.0 to 30.9 in adult 09/29/2022 Assessment & Plan (09/29/2022 3:21 PM BRAKE OPERATOR [employer] DUTY): Chronic and not at goal Continue and refill adipex. Pulmonary hypertension 11/30/2021 Assessment & Plan (11/30/2021 2:40 PM BRAKE OPERATOR HE[employer] DUTY): In setting of PE Will need repeat tte in 3 months and f/u with pulm. RHC and eval for cteph if remains elevated at that time Family history of factor V Leiden mutation 11/30 Assessment & Plan (11/30/2021 2:39 PM BRAKE OPERATOR HE[employer] DUTY): Heme to send testing Chronic pulmonary embolism without acute cor pul monale 11/29/2021 Assessment & Plan (09/09/2024 1:06 PM BRAKE OPERATOR HEAV[employer] DUTY): Stable, continue Eliquis 5 mg b.i.d. Assessment & Plan (11/30/2021 2:38 PM BRAKE OPERATOR HEAVY DUTY): With decreased clot burden on repeat ct Pain likely explained by pulm infarcts Cont heparin gtt for now. Le duplex ordered by pulm, if no new clot will resume eliquis Chest pain on breathing 11/29/2021 History of transient ischemic attack (TIA) 11/29 Assessment & Plan (11/30/2021 2:39 PM BRAKE OPERATOR HEAVY DUTY): Cont statin Resume asa Controlled type 2 diabetes m carlos with stage 3 chronic kidney disease, with long-term current use of insulin 11/14/2021 Diabetic neuropathy 11/14/2021 Dysphagia due to recent cerebrovascular accident 05/21/2021 Fall 05/21/2021 NSTEMI, initial episode of care 05/21/2021 Post-concussion vertigo 05/21/2021 Syncope due to sick sinus syndrome 05/21/2021 Witnessed seizure 05/21/2021 Uncontrolled diabetes mellitus with hyperglycemi a 05/21/2021 Assessment & Plan (09/05/2024 4:03 PM BRAKE OPERATOR [employer]Y): She asked to stop her insulin 70 30 insulin and this is completed. She asked to take insulin glargine. I have ordered 35 units of glargine b.i.d., follow Accu-Cheks. Otherwise continue dapagliflozin, glipizide, metformin all as scripted. Hypoglycemia 05/21/2021 Uncontrolled stage 2 hypertension 05/21/2021 Dyslipidemia, goal LDL below 100 05/21/2021 Medicare annual wellness visit, subsequent 05/21 Assessment & Plan (02/09/2025 12:01 PM CDT): Patient here for annual Medicare wellness visit and for review of complete medical problem list. All the elements of the plan were completed as outlined by CMS. A copy of the prevention plan was given to the patient. I reviewed Medicare Wellness Questionnaire (other physicians involved in care, depression screen, advanced directives), cognitive/memory, and functional assessment. Forms scanned in progress notes. I reviewed and updated the complete problem list, medication list, family history, and immunization records with the patient. I provided preventive counseling and early detection interventions to the patient through health maintenance update and summary of today's office visit. Personalized Prevention Plan Services (PPPS): Immunization: [id number]: UTD. [id number]: UTD. Influenza: UTD. HepatitisB: Not Applicable. Tetanus: Highly Recommended Shingles: UTD. Cancer Screening: Mammogram: Not Applicable. PAP Smear: Not Applicable. Prostate Cancer Screening: Not Applicable. Colorectal Cancer Screening: Performed on 10/29/2018. with DR. Haile . and UTD. Lung Cancer Screening: Not Applicable. Others: Diet: Lifestyle education regarding diet discussed. Exercise: Encouraged regular daily exercise. Medication Use: Aspirin use discussion. DEXA Scan: Not Applicable. Glaucoma Screening: Recommended Annually. Audio Screen ordered? No Diabetes: Not Applicable. Annual Labs: UTD. Abdominal Aortic Aneurysm Screening: Not Applicable. HIV Screening: Not Applicable. Smoking cessation Counselling: Not Applicable. Subsequent Annual Wellness Visit: Annually Assessment & Plan (02/29/2024 11:39 AM CDT): Patient here for annual Medicare wellness visit and for review of complete medical problem list. All the elements of the plan were completed as outlined by CMS. A copy of the prevention plan was given to the patient. I reviewed Medicare Wellness Questionnaire (other physicians involved in care, depression screen, advanced directives), cognitive/memory, and functional assessment. Forms scanned in progress notes. I reviewed and updated the complete problem list, medication list, family history, and immunization records with the patient. I provided preventive counseling and early detection interventions to the patient through health maintenance update and summary of today's office visit. Personalized Prevention Plan Services (PPPS): Immunization: [id number]: UTD. [id number]: UTD. Influenza: UTD. HepatitisB: Not Applicable. Tetanus: Highly Recommended Shingles: UTD. Cancer Screening: Mammogram: Not Applicable. PAP Smear: Not Applicable. Prostate Cancer Screening: Not Applicable. Colorectal Cancer Screening: Performed on 10/29/2018. with DR. Haile . and UTD. Lung Cancer Screening: Not Applicable. Others: Diet: Lifestyle education regarding diet discussed. Exercise: Encouraged regular daily exercise. Medication Use: Aspirin use discussion. DEXA Scan: Not Applicable. Glaucoma Screening: Recommended Annually. Audio Screen ordered? No Diabetes: Not Applicable. Annual Labs: UTD. Abdominal Aortic Aneurysm Screening: Not Applicable. HIV Screening: Not Applicable. Smoking cessation Counselling: Not Applicable. Subsequent Annual Wellness Visit: Annually Assessment & Plan (01/27/2023 1:52 PM CDT): Patient here for annual Medicare wellness visit and for review of complete medical problem list. All the elements of the plan were completed as outlined by CMS. A copy of the prevention plan was given to the patient. I reviewed Medicare Wellness Questionnaire (other physicians involved in care, depression screen, advanced directives), cognitive/memory, and functional assessment. Forms scanned in progress notes. I reviewed and updated the complete problem list, medication list, family history, and immunization records with the patient. I provided preventive counseling and early detection interventions to the patient through health maintenance update and summary of today's office visit. Personalized Prevention Plan Services (PPPS): Immunization: [id number]: UTD. [id number]: UTD. Influenza: UTD. HepatitisB: Not Applicable. Tetanus: Highly Recommended Shingles: UTD. Cancer Screening: Mammogram: Not Applicable. PAP Smear: Not Applicable. Prostate Cancer Screening: Not Applicable. Colorectal Cancer Screening: Performed on 10/29/2018. with DR. Haile . and UTD. Lung Cancer Screening: Not Applicable. Others: Diet: Lifestyle education regarding diet discussed. Exercise: Encouraged regular daily exercise. Medication Use: Aspirin use discussion. DEXA Scan: Not Applicable. Glaucoma Screening: Recommended Annually. Audio Screen ordered? No Diabetes: Not Applicable. Annual Labs: UTD. Abdominal Aortic Aneurysm Screening: Not Applicable. HIV Screening: Not Applicable. Smoking cessation Counselling: Not Applicable. Subsequent Annual Wellness Visit: Annually Aphasia 01/28/2021 Hypoxia 01/28/2021 Daytime sleepiness 04/30/2020 Hemiparesis affecting left side as late effect o f stroke 07/15/2019 Assessment & Plan (09/20/2024 4:58 PM BRAKE OPERATOR HEAVY DUTY): Recommend Power Mobility Scooter: Pt would benefit from a pmd for her adl to assist from getting from bedroom to bathroom and kitchen. Pt cannot use a standard walker or cane, gait is too unsteady. A scooter will significantly improve patients ability to to participate in [facility]AD[facility]. Pt is unable to use a standard wheelchair due to Severe Arthritis of Bilateral shoulder, Left hemiparesis and Lumbar Radiculopathy. Pt home is adequate for a pmd. Pt is able and willing to use a pmd. U. Pt is able and willing to use a scooter. Bilateral carotid artery stenosis 07/15/2019 Assessment & Plan (03/15/2025 10:26 AM CDT): Remains asymptomatic. Continue aspirin Eliquis statin therapy continues to have mild stenosis bilaterally. No vascular intervention indicated at this time. Follow-up in 1 year for routine surveillance with carotid duplex. Assessment & Plan (09/09/2024 1:05 PM BRAKE OPERATOR HEAVY DUTY): Recent MRI negative, recent CTA correlates with carotid duplex. Patient should follow up with Neurology and follow-up for routine surveillance with vascular for carotid duplex. Continue aspirin, statin, Eliquis. Assessment & Plan (09/09/2024 10:05 AM BRAKE OPERATOR HEAVY DUTY): Bilateral carotid stenosis. Recent MRI was negative recent CTA correlates with carotid duplex. Reviewed with Dr. Darryl Garcia. We will have the patient follow- up with Neurology regarding her recent hospital visit and will have the patient follow-up for routine surveillance with carotid duplex. No indications for vascular intervention at this time. Continue aspirin and statin therapy and Eliquis. Nonrheumatic aortic valve stenosis 04/18/2019 Stage 3a chronic kidney disease 03/10/2019 Assessment & Plan (09/09/2024 1:08 PM BRAKE OPERATOR HEAVY DUTY): Renal function overall stable, BUN/creatinine 49/1.21 with a GFR of 49. Avoid nephrotoxic agents, monitor closely as patient remains on metformin Assessment & Plan (09/03/2024 7:54 AM CDT): Follow up labs were ordered. 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 Anemia in stage 3 chronic kidney disease 019 NSAID long-term use 03/10/2019 Chronic insomnia 10/12/2018 Assessment & Plan (09/29/2022 3:21 PM BRAKE OPERATOR HEAVY DUTY): Chronic and not well controlled D/c flexeril Start trazadone 50mg Assessment & Plan (12/14/2019 4:21 PM BRAKE OPERATOR HEAVY DUTY): Increase elavil 25mg qhs Coronary artery disease invo lving [place] coronary artery of [place] heart without angina pectoris 09/10/2018 Assessment & Plan (09/09/2024 1:06 PM BRAKE OPERATOR HEAVY DUTY): Stable, no chest pain. Continue blood pressure management, aspirin, statin Assessment & Plan (09/03/2024 7:53 AM CDT): This is chronic and stable. Continue aspirin and atorvastatin as scripted Assessment & Plan (11/30/2021 2:39 PM BRAKE OPERATOR HEAVY DUTY): Cont asa, statin, bb Assessment & Plan (09/10/2018 8:54 AM BRAKE OPERATOR HEAVY DUTY): Continue aspirin, Plavix, beta-romel. Arrange for cardiac catheterization Essential hypertension 09/10/2018 Assessment & Plan (09/09/2024 1:06 PM BRAKE OPERATOR HEAVY DUTY): Blood pressure well controlled, continue metoprolol, Lasix Assessment & Plan (09/07/2024 1:50 PM BRAKE OPERATOR HEAVY DUTY): Blood pressure is well controlled, continue Lasix 20 mg daily, metoprolol 100 mg b.i.d. Assessment & Plan (09/03/2024 7:53 AM CDT): This is chronic and stable. Continue to monitor vital signs for trending pattern. Continue furosemide as scripted, continue metoprolol 100 mg p.o. b.i.d.. Assessment & Plan (11/30/2021 2:39 PM BRAKE OPERATOR HEAVY DUTY): bp low this afternoon Cont nitro patch, bb Will hold losartan and follow repeat bp's Assessment & Plan (09/10/2018 8:55 AM BRAKE OPERATOR HEAVY DUTY): Blood pressure is controlled. Continue current treatment Mixed hyperlipidemia 09/10/2018 Assessment & Plan (09/03/2024 7:52 AM CDT): This is chronic, currently stable. Continue atorvastatin 80 mg daily and dietary will follow. Continue fenofibrate 145 mg daily. Assessment & Plan (11/30/2021 2:39 PM BRAKE OPERATOR HEAVY DUTY): Cont statin Assessment & Plan (09/10/2018 8:55 AM BRAKE OPERATOR HEAVY DUTY): Continue Lipitor 80 milligram daily. Lipid panel today shows that the LDL is well controlled. Could discontinue Vytorin Type 2 diabetes mellitus wit h diabetic polyneuropathy, with long-term current use of insulin ([facility]) 09/10/2018 Assessment & Plan (09/09/2024 1:07 PM BRAKE OPERATOR HEAVY DUTY): A1c 10.7, glipizide discontinued, blood sugar were a little lower this a.m.. We will reduce Lantus to 20 units b.i.d., continue metformin 1000 mg b.i.d.. Recommend patient monitor blood sugars t.i.d. and return information to PCP for further dose adjustments. Assessment & Plan (09/07/2024 1:56 PM BRAKE OPERATOR HEAVY DUTY): A1c 10.7, Accu-Cheks labile ranging from 69 to 206. Continue metformin 1000 mg b.i.d., Lantus 35 units b.i.d.. We will place glipizide on hold to avoid hypoglycemia. Assessment & Plan (09/03/2024 7:54 AM CDT): This is chronic, currently stable. Continue glipizide as scripted, continue insulin 70 /30 as scripted 40 units b.i.d., continue metformin a 1000 mg p.o. b.i.d.. Assessment & Plan (11/30/2021 2:40 PM BRAKE OPERATOR HEAVY DUTY): Cont insulin Assessment & Plan (09/10/2018 8:56 AM BRAKE OPERATOR HEAVY DUTY): Will ask patient to do better job at controlling her blood sugars. If her blood sugars remain elevated then 1 option here is to add Victoza that has shown to reduce cardiovascular complications in patient with type 2 diabetes. Peripheral polyneuropathy 07/13/2018 Assessment & Plan (09/03/2024 7:55 AM CDT): Continue gabapentin as scripted Assessment & Plan (11/30/2021 2:39 PM BRAKE OPERATOR HEAVY DUTY): Cont gabapentin Stented coronary artery 10/14/2016 Carotid arterial disease 10/14/2016 Assessment & Plan (09/03/2024 7:53 AM CDT): Her hospital workup indicates 70% stenosis of the right internal carotid artery. She is to follow up with vascular. She is to continue her apixaban, aspirin, and atorvastatin as scripted. Palpitations 08/17/2012 Chronic midline low back pain without sciatica 0 01/28/2012 Assessment & Plan (09/09/2024 1:09 PM BRAKE OPERATOR HEAVY DUTY): Pain is well controlled, continue p.r.n. [place]. Gabapentin increased to 700 mg t.i.d. Assessment & Plan (09/29/2022 3:24 PM BRAKE OPERATOR HEAVY DUTY): Chronic condition persistent symptoms Decreased hydrocodone from 122 to 90 pills. Resolved Problems Problem Noted Date Diagnosed Date Resolved Date Murmur, heart 12/20/2018 07/10/2022 Abnormal stress test 09/10/2018 019 Assessment & Plan (09/10/2018 8:54 AM BRAKE OPERATOR HEAVY DUTY): Will arrange for cardiac catheterization to define the coronary anatomy. She did have a stent in the LAD in 2016 and now the ischemia is in the LAD territory. Type 2 diabetes mellitus wit h hyperglycemia, without long-term current use of insulin 12/16/2016 04/12/2020 Assessment & Plan (08/18/2019 11:31 AM CDT): Will in place the early brain instructed on how to use this download at 4 on her phone. Immunizations Immunization Administration Dates Next Due Influenza, Quadrivalent, Gladys l Culture-based MDCK, Preservative Free, Antibiotic Free, Intramuscular 08/17/2019 Influenza, Quadrivalent, Hig h Dose, Preservative Free, Intrr 10/08/2022,08/28/2021,08/08/2020 Influenza, Quadrivalent, Spl it, Intramuscular 08/09/2018 Influenza, Quadrivalent, Spl it, Preservative Free, Intramuscular 10/01/2023,08/09/2018,08/05/2017 Influenza, Trivalent, High D ose, Split, Preservative Free, Intramuscular 07/07/2024 Influenza, Trivalent, Preser vative Free, Intramuscular 09/19/2015,07/11/2011,09/04/2010 Influenza, Unspecified 07/03/2022 Moderna SARS-CoV-2 Monovalen t Vaccination (12+ YRS) 04/04/2021,03/04/2021 PPD TEST 01/14/2010 Pneumococcal Conjugate PCV 13 11/15/2020 Pneumococcal Conjugate Pcv20 10/08/2022 Pneumococcal Polysaccharide PPV23 05/22/2022,09/2015 RSV Vaccine, Pref, Recombina nt, Subunit, Adjuvanted, PF, IM (Arexvy) 10/01/2023 ZOSTER LIVE 08/20/2015 ZOSTER Recombinant 11/15/2020,08/08/2020 Social History Tobacco Use Types Packs/Day Years Used Date Smoking Tobacco: Former Cigarettes Q uit: 10/03/1975 Smokeless Tobacco: Never Comments:weekend smoker Alcohol Use Standard Drinks/Week Comments No 0 (1 standard drink = 0.6 oz pur e alcohol) [facility] Utilities Answer Date Recorded In the past 12 months has e [employer], gas, oil, or water [employer] threatened to shut off services in your home? No 08/29/2024 Social Connection and Isolat ion Panel [NHANES] Answer Date Recorded In a typical week, how many times do you talk on the phone with family, friends, or neighbors? More than three times a week 08/29/2024 How often do you get togethe r with friends or relatives? More than three times a week 08/29/2024 How often do you attend chur ch or latter-day services? More than 4 times per year 08/29/2024 Do you belong to any clubs o r organizations such as christianity groups, unions, fraternal or athletic groups, or school groups? No 08/29/2024 How often do you attend meet ings of the clubs or organizations you belong to? Never 08/29/2024 Are you , , di vorced, , never , or living with a partner? 08/29/2024 AUDIT-C Answer Date Recorded Q1: How often do you have a drink containing alcohol? Never 01/27/2025 Q2: How many drinks containi ng alcohol do you have on a typical day when you are drinking? Patient does not drink Q3: How often do you have si x or more drinks on one occasion? Never 01/27/2025 Overall Financial Resource Strain (CARDIA) Answe r Date Recorded How hard is it for you to pa y for the very basics like food, housing, medical care, and heating? Not hard at all 08/29/2024 PHQ-2 Answer Date Recorded PHQ-2 Total Score (If total score is 3 or more points, staff should administer the PHQ-9) 4 02/09/2025 Hunger Vital Sign Answer Date Recorded Within the past 12 months, y ou worried that your food would run out before you got the money to buy more. Never true 08/29/20 24 Within the past 12 months, t he food you bought just didn't last and you didn't have money to get more. Never true 08/29/2024 PRAPARE - Transportation Answer Date Re corded In the past 12 months, has l ack of transportation kept you from medical appointments or from getting medications? No 08/03 In the past 12 months, has l ack of transportation kept you from meetings, work, or from getting things needed for daily living? No 08/29/2024 Housing Stability Vital Sign Answer Cipriano e Recorded In the last 12 months, was t here a time when you were not able to pay the mortgage or rent on time? No 10/23/2023 In the last 12 months, how many places have you lived? 1 10/23/2023 In the last 12 months, was t here a time when you did not have a steady place to sleep or slept in a fdc (including now)? No 10/23/2023 PHQ-9 Answer Date Recorded PHQ-9 Total Score 9 02/09/2025 Housing Stability Vital Sign Answer Cipriano e Recorded In the last 12 months, was t here a time when you were not able to pay the mortgage or rent on time? No 08/29/2024 In the past 12 months, how m any times have you moved where you were living? 0 08/29/2024 At any time in the past 12 m [facility], were you homeless or living in a fdc (including now)? No 08/29/2024 Personal Safety Answer Date Recorded Have you ever been in or are you currently in a harmful physical or emotional relationship or is someone making you feel afraid or unsafe? 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HEAVY DUTY Gender Identity Not on file Sexual Orientation Not on file Last Filed Vital Signs Vital Sign Reading Time Taken Comments Blood Pressure 118/75 03/13/2025 2:04 PM CDT Pulse 80 03/13/2025 2:04 PM CDT Temperature 36.7 C (98 F) 02/09/2025 11:33 AM CDT Respiratory Rate 16 02/09/2025 11:33 AM CDT Oxygen Saturation 96% 02/09/2025 11:33 AM CDT Inhaled Oxygen Concentration - - Weight 67.1 kg (148 lb) 03/13/2025 2:04 PM CDT Height 154.9 cm (5' 1 ) 03/13/2025 2:04 PM CDT Body Mass Index 27.96 03/13/2025 2:04 PM CDT Plan of Treatment Not on file Goals Goal Patient Goal Type Associated Problems Recent Progress Patient-Stated? Author ADAM General Goal - Patient schedules and keeps appointments with all recommended providers ACO Care Management No Srivastava-Ump Lachelle roche, OVIDIO Note: Problem: Potential for medical complications and readmission if follow-up appointments are not scheduled Interventions: - Ensure all follow-up appointments are scheduled, all prescribed medications have been received. - Address any barriers for keeping scheduled appointment. - Coordinate with patient/caregiver(s) to ensure patient is able to keep scheduled appointment. - Emphasize importance of keeping scheduled appointments. - Identify and discuss questions for next provider visit. - Follow up with patient after scheduled appointment(s) to review any new orders or changes made to medication regimen. Procedures Procedure Name Priority Date/Time Associated Diagnosis Comments US CAROTIDS DUPLEX BILATERAL Schedule Routine, Read Routine (OP Routine) 03/07/2025 10:00 AM CDT Bilateral carotid artery stenosis POCT URINALYSIS DIPSTICK Routine 02/21/2025 9:50 AM CDT Urinary retention MEASURE POST VOID RESIDUAL Routine 02/21/2025 8:32 AM CDT Urinary retention POCT HEMOGLOBIN A1C Routine 01/27/2025 11:20 AM CDT Type 2 diabetes mellitus with stage 3a chronic kidney disease, with long-term current use of insulin (HCC) EGFR Routine 09/12/2024 7:05 AM BRAKE OPERATOR HEAVY DUTY LIPID PANEL Routine 08/29/2024 7:09 AM CDT DIABETIC EYE EXAM Routine 07/18/2024 4:4 2 PM CDT ALBUMIN CREATININE RATIO, URINE Routine 05/11/2023 9:15 AM CDT Uncontrolled diabetes mellitus with hyperglycemia (HCC) DIAGNOSTIC MAMMOGRAM BILATERAL W RUBINA Schedule Routine, Read Routine (OP Routine)
--- OUTSIDE RECORDS SUMMARY | 2025-03-16 21:33 | XMS_ITS | Encounter Summary ---
Author Organization [facility] Facility Care Team Providers Care Resawyer Name Role Phone Coy Kirkland MD Primary Care Provider [phone] Coy Kirkland MD Unavailable [phone] Coy Smith MD PhD Unavailable [phone] Georgia Rosa LPN Unavailable [phone] She Garcia [facility] Unavailable [phone] Izabela Mathew MD Unavailable [phone] Xavier Callahan Primary Care Provider [phone] Shoaib Amin MD Primary Care Provider [phone] Lachelle Vee RN Unavailable Lachelle Vee RN Unavailable Georgia Rosa LPN Unavailable [phone] Marian Nathan MA Unavailable Encounter Details Date Type Department Care Team (Latest Contact Info) Description 11/01/2018 Orders Only [facility] ProviderIsak MD [address] [place] [id number] Social History Tobacco Use Types Packs/Day Years Used Date Smoking Tobacco: Never Smokeless Tobacco: Never Alcohol Use Standard Drinks/Week Comments No 0 (1 standard drink = 0.6 oz pur e alcohol) Comments Unknown Sex and Gender Information Value Date Recorded Sex Assigned at Not on file Legal Sex Female 3:22 AM LOCKSTITCH SLEEVE MAKER Gender Identity Not on file Sexual Orientation Not on file documented as of this encounter Plan of Treatment Not on file documented as of this encounter Procedures Procedure Name Priority Date/Time Associated Diagnosis Comments COLONOSCOPY - SCAN 11/01/2018 12 :00 AM LOCKSTITCH SLEEVE MAKER documented in this encounter Results * COLONOSCOPY - SCAN (11/01/2018 12:00 AM LOCKSTITCH SLEEVE MAKER) Narrative 11/01/2018 12:00 AM LOCKSTITCH SLEEVE MAKER Ordered by an unspecified provider. Historical Provider Final Res ult documented in this encounter Visit Diagnoses Not on filedocumented in this encounter Care Teams Resawyer Relationship Specialty Start Date End Date Coy Kirkland MD PCP - General Family Medicine 08/31/18 08/20/22 Coy Kirkland MD PCP - [facility] Attributed PCP 12/[birth year]10[birth year]03 Xavier Callahan PA [address] [address] PCP - General Family Medicine 08/21/22 10/27/22 Shoaib Amin MD [address] [place] [address] PCP - General Family Medicine 10/28/22 Coy Smith MD PhD Fellow Neurology 04/30/20 Georgia Rosa LPN Secondary Connector Armature 10/30/21 10/30/21 She Garcia [address] [place] [address] Pharmacist Pharmacy 11/13/21 10/23/22 Izabela Mathew MD [address] [place] [address] Medical Oncologist/Whirley Operator Hematology and Oncology 12/06/21 Lachelle Vee, OVIDIO [address] [place] [address] [address] [place] [address] Secondary Connector Armature 08/05/23 10/22/23 Lachelle Vee RN [address] [place] [address] [address] [place] [address] Secondary Connector Armature 10/23/23 04/21/24 Georgia Rosa LPN [address] [place] [address] [address] [place] [address] Secondary Connector Armature 09/02/24 09/02/24 Marian Nathan MA [address] [place] [address] [address] [place] [address] ACO Care Wastewater Treatment Engineer 09/15/24 10/10/24 documented as of this encounter
--- OUTSIDE RECORDS SUMMARY | 2025-03-16 21:33 | XMS_ITS | Encounter Summary ---
Author Organization [facility] Facility Care Team Providers Care Mud Boss Name Role Phone Coy Kirkland MD Primary Care Provider [phone] Coy Kirkland MD Unavailable [phone] Coy Smith MD PhD Unavailable [phone] Georgia Rosa LPN Unavailable [phone] She Garcia [facility] Unavailable [phone] Izabela Mathew MD Unavailable [phone] Xavier Callahan Primary Care Provider [phone] Shoaib Amin MD Primary Care Provider [phone] Lachelle Vee RN Unavailable Lachelle Vee RN Unavailable Georgia Rosa LPN Unavailable [phone] Marian Nathan MA Unavailable Encounter Details Date Type Department Care Team (Latest Contact Info) Description 09/20/2016 Orders Only [facility] CLINCONV ProviderIsak MD [address] [place] [address] Social History Tobacco Use Types Packs/Day Years Used Date Smoking Tobacco: Never Assessed Comments Unknown Sex and Gender Information Value Date Recorded Sex Assigned at Not on file Legal Sex Female 3:22 AM AIR CONDITIONING EQUIPMENT MECHANIC Gender Identity Not on file Sexual Orientation Not on file documented as of this encounter Plan of Treatment Not on file documented as of this encounter Procedures Procedure Name Priority Date/Time Associated Diagnosis Comments CARDIOLOGY REPORT 09/29/2016 12: 00 AM AIR CONDITIONING EQUIPMENT MECHANIC documented in this encounter Results * CARDIOLOGY REPORT (09/29/2016 12:00 AM AIR CONDITIONING EQUIPMENT MECHANIC) Anatomical Region Laterality Modality Other Narrative 09/29/2016 12:00 AM AIR CONDITIONING EQUIPMENT MECHANIC Ordered by an unspecified provider. us Historical Provider [facility] NOAM TORRES Final Result documented in this encounter Visit Diagnoses Not on filedocumented in this encounter Care Teams Mud Boss Relationship Specialty Start Date End Date Coy Kirkland MD PCP - General Family Medicine 08/31/18 08/20/22 Coy Kirkland MD PCP - [facility] Attributed PCP 12/03/1910/03 Xavier Callahan PA [address] [place] [address] PCP - General Family Medicine 08/21/22 10/27/22 Shoaib Amin MD [address] [place] [address] PCP - General Family Medicine 10/28/22 Coy Smith MD PhD Fellow Neurology 04/30/20 Georgia Rosa LPN Vice President Payment 10/30/21 10/30/21 She Garcia, [address] [place] [address] Pharmacist Pharmacy 11/13/21 10/23/22 Izabela Mathew MD [address] [place] [address] Medical Oncologist/Embossing Unit Operator Hematology and Oncology 12/06/21 Lachelle Vee RN [address] [place] [address] [address] [place] [address] Vice President Payment 08/05/23 10/22/23 Lachelle Vee RN [address] [place] [address] [address] [place] [address] Vice President Payment 10/23/23 04/21/24 Georgia Rosa LPN [address] [place] [address] [address] [place] [address] Vice President Payment 09/02/24 09/02/24 Marian Nathan MA [address] [place] [address] [address] [place] [address] ACO Care Environmental Intern 09/15/24 10/10/24 documented as of this encounter
--- OUTSIDE RECORDS SUMMARY | 2025-03-16 21:33 | XMS_ITS | Encounter Summary ---
Author Organization [facility] Facility Care Team Providers Care Decorating Machine Tender Name Role Phone Coy Kirkland MD Primary Care Provider [phone] Coy Kirkland MD Unavailable [phone] Coy Smith MD PhD Unavailable [phone] Georgia Rosa LPN Unavailable [phone] She Garcia [facility] Unavailable [phone] Izabela Mathew MD Unavailable [phone] Xavier Callahan Primary Care Provider [phone] Shoaib Amin MD Primary Care Provider [phone] Lachelle Vee RN Unavailable Lachelel Vee RN Unavailable Georgia Rosa LPN Unavailable [phone] Marian Nathan MA Unavailable Encounter Details Date Type Department Care Team (Latest Contact Info) Description 09/22/2016 Orders Only [facility] CLINCONV ProviderIsak MD [address] [place] [address] Social History Tobacco Use Types Packs/Day Years Used Date Smoking Tobacco: Never Assessed Comments Unknown Sex and Gender Information Value Date Recorded Sex Assigned at Not on file Legal Sex Female 3:22 AM DIRECTOR PRODUCT Gender Identity Not on file Sexual Orientation Not on file documented as of this encounter Plan of Treatment Not on file documented as of this encounter Procedures Procedure Name Priority Date/Time Associated Diagnosis Comments CARDIOLOGY REPORT 09/29/2016 12: 00 AM DIRECTOR PRODUCT CARDIOLOGY REPORT 09/29/2016 12: 00 AM DIRECTOR PRODUCT CARDIOLOGY REPORT 09/29/2016 12: 00 AM DIRECTOR PRODUCT documented in this encounter Results * CARDIOLOGY REPORT (09/29/2016 12:00 AM DIRECTOR PRODUCT) Anatomical Region Laterality Modality Other Narrative 09/29/2016 12:00 AM DIRECTOR PRODUCT Ordered by an unspecified provider. Historical Provider [facility] PROCE DURES Final Result * CARDIOLOGY REPORT (09/29/2016 12:00 AM DIRECTOR PRODUCT) Anatomical Region Laterality Modality Other Narrative 09/29/2016 12:00 AM DIRECTOR PRODUCT Ordered by an unspecified provider. Historical Provider [facility] PROCE DURES Final Result * CARDIOLOGY REPORT (09/29/2016 12:00 AM DIRECTOR PRODUCT) Anatomical Region Laterality Modality Other Narrative 09/29/2016 12:00 AM DIRECTOR PRODUCT Ordered by an unspecified provider. Historical Provider [facility] PROCE DURES Final Result documented in this encounter Visit Diagnoses Not on filedocumented in this encounter Care Teams Decorating Machine Tender Relationship Specialty Start Date End Date Coy Kirkland MD PCP - General Family Medicine 08/31/18 08/20/22 Coy Kirkland MD PCP - [facility] Attributed PCP 12/03/1910/03 Xavier Callahan PA [address] [place] [address] PCP - General Family Medicine 08/21/22 10/27/22 Shoaib Amin MD [address] [place] [address] PCP - General Family Medicine 10/28/22 Coy Smith MD PhD Fellow Neurology 04/30/20 Georgia Rosa LPN Wirer Maintenance 10/30/21 10/30/21 She Garcia [address] [address] Pharmacist Pharmacy 11/13/21 10/23/22 Izabela Mathew MD [address] [place] [address] Medical Oncologist/Quality Internship Hematology and Oncology 12/06/21 Lachelle Vee RN [address] [place] [address] [address] [address] Wirer Maintenance 08/05/23 10/22/23 Lachelle Vee RN [address] [place] [address] [address] [address] Wirer Maintenance 10/23/23 04/21/24 Georgia Rosa LPN [address] [place] [address] [address] [address] Wirer Maintenance 09/02/24 09/02/24 Marian Nathan MA [address] [place] [address] [address] [address] ACO Care Manager Product Support 09/15/24 10/10/24 documented as of this encounter
--- OUTSIDE RECORDS SUMMARY | 2025-03-16 21:33 | XMS_ITS | Encounter Summary ---
Author Organization [facility] Facility Care Team Providers Care Database Tester Name Role Phone Coy Kirkland MD Primary Care Provider [phone] Coy Kirkland MD Unavailable [phone] Coy Smith MD PhD Unavailable [phone] Georgia Rosa LPN Unavailable [phone] She Garcia [facility] Unavailable [phone] Izabela Mathew MD Unavailable [phone] Xavier Callahan Primary Care Provider [phone] Shoaib Amin MD Primary Care Provider [phone] Lachelle Vee RN Unavailable Lachelle Vee RN Unavailable Georgia Rosa LPN Unavailable [phone] Marian Nathan MA Unavailable Encounter Details Date Type Department Care Team (Latest Contact Info) Description 09/23/2016 Orders Only [facility] CLINCONV ProviderIsak MD [address] [place] [address] Social History Tobacco Use Types Packs/Day Years Used Date Smoking Tobacco: Never Assessed Comments Unknown Sex and Gender Information Value Date Recorded Sex Assigned at Not on file Legal Sex Female 3:22 AM AUTO JOB ESTIMATOR Gender Identity Not on file Sexual Orientation Not on file documented as of this encounter Plan of Treatment Not on file documented as of this encounter Procedures Procedure Name Priority Date/Time Associated Diagnosis Comments CARDIOLOGY REPORT 09/29/2016 12: 00 AM AUTO JOB ESTIMATOR documented in this encounter Results * CARDIOLOGY REPORT (09/29/2016 12:00 AM AUTO JOB ESTIMATOR) Anatomical Region Laterality Modality Other Narrative 09/29/2016 12:00 AM AUTO JOB ESTIMATOR Ordered by an unspecified provider. us Historical Provider [facility] NOAM TORRES Final Result documented in this encounter Visit Diagnoses Not on filedocumented in this encounter Care Teams Database Tester Relationship Specialty Start Date End Date Coy Kirkland MD PCP - General Family Medicine 08/31/18 08/20/22 Coy Kirkland MD PCP - [facility] Attributed PCP 12/03/1910/03 Xavier Callahan PA [address] [place] [address] PCP - General Family Medicine 08/21/22 10/27/22 Shoaib Amin MD [address] [place] [address] PCP - General Family Medicine 10/28/22 Coy Smith MD PhD Fellow Neurology 04/30/20 Georgia Rosa LPN Emery Grinder 10/30/21 10/30/21 She Garcia, [address] [place] [address] Pharmacist Pharmacy 11/13/21 10/23/22 Izabela Mathew MD [address] [place] [address] Medical Oncologist/Incident Manager Hematology and Oncology 12/06/21 Lachelle Vee RN [address] [place] [address] [address] [place] [address] Emery Grinder 08/05/23 10/22/23 Lachelle Vee RN [address] [place] [address] [address] [place] [address] Emery Grinder 10/23/23 04/21/24 Georgia Rosa LPN [address] [place] [address] [address] [place] [address] Emery Grinder 09/02/24 09/02/24 Marian Nathan MA [address] [place] [address] [address] [place] [address] ACO Care Punch Press Operator 09/15/24 10/10/24 documented as of this encounter
--- OUTSIDE RECORDS SUMMARY | 2025-03-16 21:33 | XMS_ITS ---
Author Organization 1 OF Daniel givens [facility] Address [address] [place] [address] Care Team Providers Care Die Barber Name Role Phone Brennan Rocha Shoaib Primary Care Provider Delta Hendrickson Unavailable [phone] REASON FOR VISIT DFC (Diabetic foot care) Encounters Encounter Location Date Provider Diagnosis 1 OF Daniel Escamilla [facility] [address] [facility] [address] [place] [address] 10/08/2023 Delta Escamilla Onychogryphosis L60.2 ; Type 2 diabetes mellitus with other diabetic neurological complication E11.49 and Lumbosacral radiculopathy M54.17 Assessments Encounter Date Diagnosis (ICD Code) Assessment Notes Treatment Notes Treatment Clinical Notes Section Notes 10/08/2023 Onychogryphosis (ICD-10 - L60.2) 10/08/2023 Type 2 diabetes mellitus with other diabetic neurological complication (ICD-10 - E11.49) Considering the associated comorbidities and physical exam findings today, this patient is at substantial risk of developing serious foot complications in the absence of regular and professional palliative foot care. 10/08/2023 Lumbosacral radiculopathy (ICD-10 - M54.17) Plan Of Treatment Treatment Notes Assessment Notes Type 2 diabetes mellitus wit h other diabetic neurological complication Considering the associated comorbidities and physical exam findings today, this patient is at substantial risk of developing serious foot complications in the absence of regular and professional palliative foot care. Next Appt Details Follow Up: 10-12 weeks or co ntact office PRN with any concerns, Reason: Procedure Notes * Category Sub-Category Detail Notes PALLIATIVE FOOT CARE: Nail debride (54607): Debr idement of at least six mycotic and/or hypertrophic nails performed:, utilizing manual and electric debridement the affected nails were reduced the nails in length and thickness with curettage of debris from nail margins performed as needed. Nail thickness reduced by:, 10% Progress Notes * Leeann SINGHDOB:1955 (69 yo F)Acc No.[id number]:10/08/2023 Progress Note Patient: Leeann STRATTON Provider: Daniel Escamilla DPM :1955 A ge:68 Y S ex:Female Date:10/08/2023 Address:[address] [place] [address], [address] Pcp:Shoaib Amin M.D. Subjective: * Chief Complaints: * 1 . DFC (Diabetic foot care). * HPI: Alexei Clark assisting with visit:: HPI/Rooming: . ..... [facility] reason for visit:: 68 year old diabetic female RTO for diabetic foot care. Pt reports no acute issues with nails or calluses today. Pt also RTO for f/u of lumbosacral radiculopathy. At last visit pt was recommended to see a back specialist. O ther pertinent information:: Diabetes Hx: L ast known A1c: XXXX. * Medical History: Objective: * Vitals: * Examination: G eneral Examination: Constitutional / Appearance: N o acute distress , Well nourished, Appropriate personal hygiene. Mental status: C ooperative, Oriented to person, place and time, Mood and affect: normal, Judgement and intellect: normal with appropriate response to questions. Shoes today: X XXXXX. L ower Extremity VASCULAR: : Pulses: D P pulse palpable b/l, PT pulse palpable b/l. Temperature gradient: w arm from proximal to distal, bilateral. Pedal hair: s parse / absent bilateral. L ower Extremity DERM: : Skin: w ell hydrated , no suspicious lesions, without interdigital maceration, bilateral. Hyperkeratotic lesions LEFT foot: no significant hpk lesions noted. Hyperkeratotic lesions RIGHT foot: no significant hpk lesions noted. L ower Extremity NEURO: : Neurological status: n ormal sensation to sharp/ dull, normal and symmetric muscle tone, no paresthesias with palpation of, tarsal tunnel, intermetatarsal spaces, bilateral. Monofilament test (10 gram pressure) E xam of 07/23/2023:. Vibration perception: E xam of 07/23/2023:. L ower Extremity MSK: : Foot type: Bilateral lower extremity exhibits, pes cavus foot type with increased medial arch. Left lower extremity inspection and palpation: L eft hallux exhibits mild edema with evidence of contusion of the nail plate. No drainage or paronychia. Mild pain with palpation. Hallux remains in good alignment. No pain with range of motion of the first MPJ. Remainder of left foot is unremarkable with no acute findings or pain with palpation or range of motion.. Right lower extremity inspection and palpation: unremarkable with no palpable masses, nodules, significant edema or areas of tenderness. ROM of pedal joints is pain free with no crepitus noted. . Assessment: * Assessment: 1. O nychogryphosis - L60.2 2 . T ype 2 diabetes mellitus with other diabetic neurological complication - E11.49 3 . L umbosacral radiculopathy - M54.17 Plan: * Treatment: * Procedures: P ALLIATIVE FOOT CARE:: Nail debride (57588): D ebridement of at least six mycotic and/or hypertrophic nails performed:, utilizing manual and electric debridement the affected nails were reduced the nails in length and thickness with curettage of debris from nail margins performed as needed. Nail thickness reduced by:, 10%. * Follow Up: 1 0-12 weeks or contact office PRN with any concerns * Images: * Electronic signature of Karen Escamilla DPM on 03/16/2025 at 09:32 PM CDT Sign off status: Pending * Provider: Dnaiel Escamilla DPM Date: 12/09/2022 Generated for Betty ordoñez/Clare/Diana on: 0 03/16/2025 09:32 PM CDT History and Physical Notes * HPI (History of Present Illness) Category Sub-Category Detail Notes Category Not es Primary reason for visit: 68 year old diabetic female RTO for diabetic foot care. Pt reports no acute issues with nails or calluses today. Pt also RTO for f/u of lumbosacral radiculopathy. At last visit pt was recommended to see a back specialist. Other pertinent information: Diabetes Hx: Last known A1c: XXXX MA assisting with visit: HPI/Rooming: ..... Examination Category Sub-Category Detail Notes Category Not es General Examination Mental status: Cooperative, Oriented to person, place and time, Mood and affect: normal, Judgement and intellect: normal with appropriate response to questions Shoes today: XXXXXX Constitutional / Appearance: No acute di stress , Well nourished, Appropriate personal hygiene Lower Extremity VASCULAR: Pulses: DP pulse palpab le b/l, PT pulse palpable b/l Temperature gradient: warm from proximal to distal, bilateral Pedal hair: sparse / absent bila teral Lower Extremity NEURO: Monofilament test (10 gra m pressure) Exam of 07/23/2023: Vibration perception: Exam of 07/23/2023 : Neurological status: normal sensation to sharp/ dull, normal and symmetric muscle tone, no paresthesias with palpation of, tarsal tunnel, intermetatarsal spaces, bilateral Lower Extremity MSK: Foot type: Bilateral l ower extremity exhibits, pes cavus foot type with increased medial arch Left lower extremity inspect ion and palpation: Left hallux exhibits mild edema with ivan dence of contusion of the nail plate. No drainage or paronychia. Mild pain with palpation. Hallux remains in good alignment. No pain with range of motion of the first MPJ. Remainder of left foot is unremarkable with no acute findings or pain with palpation or range of motion. Right lower extremity inspec tion and palpation: unremarkable with no palpable masses, no dules, significant edema or areas of tenderness. ROM of pedal joints is pain free with no crepitus noted. Lower Extremity DERM: Skin: well hydra jessica , no suspicious lesions, without interdigital maceration, bilateral Hyperkeratotic lesions LEFT foot: no sig nificant hpk lesions noted Hyperkeratotic lesions RIGHT foot: no si gnificant hpk lesions noted
--- OUTSIDE RECORDS SUMMARY | 2025-03-16 21:33 | XMS_ITS | Encounter Summary ---
Author Organization [facility] Facility Care Team Providers Care Cutter First Name Role Phone Coy Kirkland MD Primary Care Provider [phone] Coy Kirkland MD Unavailable [phone] Coy Smith MD PhD Unavailable [phone] Georgia Rosa LPN Unavailable [phone] She Garcia [facility] Unavailable [phone] Izabela Mathew MD Unavailable [phone] Xavier Callahan Primary Care Provider [phone] Shoaib Amin MD Primary Care Provider [phone] Lachelle Vee RN Unavailable Lachelle Vee RN Unavailable Georgia Rosa LPN Unavailable [phone] Marian Nathan MA Unavailable Encounter Details Date Type Department Care Team (Latest Contact Info) Description 10/18/2018 Orders Only [facility] CLINCONV ProviderIsak MD [address] [place] [address] Social History Tobacco Use Types Packs/Day Years Used Date Smoking Tobacco: Never Smokeless Tobacco: Never Alcohol Use Standard Drinks/Week Comments No 0 (1 standard drink = 0.6 oz pur e alcohol) Comments Unknown Sex and Gender Information Value Date Recorded Sex Assigned at Not on file Legal Sex Female 3:22 AM SUPERVISOR OF OFFICIALS Gender Identity Not on file Sexual Orientation Not on file documented as of this encounter Plan of Treatment Not on file documented as of this encounter Procedures Procedure Name Priority Date/Time Associated Diagnosis Comments CARDIOLOGY REPORT 10/18/2018 12: 00 AM SUPERVISOR OF OFFICIALS documented in this encounter Results * CARDIOLOGY REPORT (10/18/2018 12:00 AM SUPERVISOR OF OFFICIALS) Anatomical Region Laterality Modality Other Narrative 10/18/2018 12:00 AM SUPERVISOR OF OFFICIALS Ordered by an unspecified provider. us Historical Provider [facility] NOAM TORRES Final Result documented in this encounter Visit Diagnoses Not on filedocumented in this encounter Care Teams Cutter First Relationship Specialty Start Date End Date Coy Kirkland MD PCP - General Family Medicine 08/31/18 08/20/22 Coy Kirkland MD PCP - [facility] Attributed PCP 12/03/1910/03 Xavier Callahan PA [address] [place] [address] PCP - General Family Medicine 08/21/22 10/27/22 Shoaib Amin MD [address] [place] [address] PCP - General Family Medicine 10/28/22 Coy Smith MD PhD Fellow Neurology 04/30/20 Georgia Rosa LPN Sorting Machine Operator 10/30/21 10/30/21 She Garcia [address] [place] [address] Pharmacist Pharmacy 11/13/21 10/23/22 Izabela Mathew MD [address] [place] [address] Medical Oncologist/Organizational Development Director Hematology and Oncology 12/06/21 Lachelle Vee, OV[place] [address] [place] [address] [address] [place] [address] Sorting Machine Operator 08/05/23 10/22/23 Lachelle Vee, [place] [place] [address] [address] [place] [address] Sorting Machine Operator 10/23/23 04/21/24 Georgia Rosa LPN [address] [place] [address] [address] [place] [address] Sorting Machine Operator 09/02/24 09/02/24 Marian Nathan MA [address] [place] [address] [address] [place] [address] ACO Care Final Assembly Inspector 09/15/24 10/10/24 documented as of this encounter
--- OUTSIDE RECORDS SUMMARY | 2025-03-16 21:33 | XMS_ITS | Encounter Summary ---
Author Organization [facility] Facility Care Team Providers Care Dental Office Manager Name Role Phone Coy Kirkland MD Primary Care Provider [phone] Coy Kirkland MD Unavailable [phone] Coy Smith MD PhD Unavailable [phone] Georgia Rosa LPN Unavailable [phone] She Garcia [facility] Unavailable [phone] Izabela Mathew MD Unavailable [phone] Xavier Callahan Primary Care Provider [phone] Shoaib Amin MD Primary Care Provider [phone] Lachelle Vee RN Unavailable Lachelle Vee RN Unavailable Georgia Rosa LPN Unavailable [phone] Marian Nathan MA Unavailable Encounter Details Date Type Department Care Team (Latest Contact Info) Description 09/17/2016 Orders Only [facility] CLINCONV ProviderIsak MD [address] [place] [address] Social History Tobacco Use Types Packs/Day Years Used Date Smoking Tobacco: Never Assessed Comments Unknown Sex and Gender Information Value Date Recorded Sex Assigned at Not on file Legal Sex Female 3:22 AM EDUCATIONAL PROGRAM ASSISTANT Gender Identity Not on file Sexual Orientation Not on file documented as of this encounter Plan of Treatment Not on file documented as of this encounter Procedures Procedure Name Priority Date/Time Associated Diagnosis Comments CARDIOLOGY REPORT 09/29/2016 12: 00 AM EDUCATIONAL PROGRAM ASSISTANT CARDIOLOGY REPORT 09/29/2016 12: 00 AM EDUCATIONAL PROGRAM ASSISTANT documented in this encounter Results * CARDIOLOGY REPORT (09/29/2016 12:00 AM EDUCATIONAL PROGRAM ASSISTANT) Anatomical Region Laterality Modality Other Narrative 09/29/2016 12:00 AM EDUCATIONAL PROGRAM ASSISTANT Ordered by an unspecified provider. [facility] Provider CV CARDIAC SERVICES PROCE DURES Final Result * CARDIOLOGY REPORT (09/29/2016 12:00 AM EDUCATIONAL PROGRAM ASSISTANT) Anatomical Region Laterality Modality Other Narrative 09/29/2016 12:00 AM EDUCATIONAL PROGRAM ASSISTANT Ordered by an unspecified provider. Historical Provider CV CARDIAC SERVICES PROCE DURES Final Result documented in this encounter Visit Diagnoses Not on filedocumented in this encounter Care Teams Dental Office Manager Relationship Specialty Start Date End Date Coy Kirkland MD PCP - General Family Medicine 08/31/18 08/20/22 Coy Kirkland MD PCP - [facility] Attributed PCP 12/03/1910/03 Xavier Callahan PA [address] [place] [address] PCP - General Family Medicine 08/21/22 10/27/22 Shoaib Amin MD [address] [place] [address] PCP - General Family Medicine 10/28/22 Coy Smith MD PhD Fellow Neurology 04/30/20 Georgia Rosa LPN Hooker Laster 10/30/21 10/30/21 She Garcia [address] [place] [address] Pharmacist Pharmacy 11/13/21 10/23/22 Izabela Mathew MD [address] [place] [address] Medical Oncologist/Business Practices Officer Hematology and Oncology 12/06/21 Lachelle Vee RN [address] [place] [address] [address] [place] [address] Hooker Laster 08/05/23 10/22/23 Lachelle Vee RN [address] [place] [address] [address] [place] [address] Hooker Laster 10/23/23 04/21/24 Georgia Rosa LPN [address] [place] [address] [address] [place] [address] Hooker Laster 09/02/24 09/02/24 Marian Nathan MA [address] [place] [address] [address] [place] [address] ACO Care Podiatry Teacher 09/15/24 10/10/24 documented as of this encounter
--- OUTSIDE RECORDS SUMMARY | 2025-03-16 21:33 | XMS_ITS | Encounter Summary ---
Author Organization [facility] Facility Care Team Providers Care Manager Property Name Role Phone Coy Kirkland MD Primary Care Provider [phone] Coy Kirkland MD Unavailable [phone] Coy Smith MD PhD Unavailable [phone] Georgia Rosa LPN Unavailable [phone] She Garcia [facility] Unavailable [phone] Izabela Mathew MD Unavailable [phone] Xavier Callahan Primary Care Provider [phone] Shoaib Amin MD Primary Care Provider [phone] Lachelle Vee RN Unavailable Lachelle Vee RN Unavailable Georgia Rosa LPN Unavailable [phone] Marian Nathan MA Unavailable Encounter Details Date Type Department Care Team (Latest Contact Info) Description 09/18/2016 Orders Only [facility] CLINCONV ProviderIsak MD [address] [place] [address] Social History Tobacco Use Types Packs/Day Years Used Date Smoking Tobacco: Never Assessed Comments Unknown Sex and Gender Information Value Date Recorded Sex Assigned at Not on file Legal Sex Female 3:22 AM SETTER MACHINE Gender Identity Not on file Sexual Orientation Not on file documented as of this encounter Plan of Treatment Not on file documented as of this encounter Procedures Procedure Name Priority Date/Time Associated Diagnosis Comments CARDIOLOGY REPORT 09/29/2016 12: 00 AM SETTER MACHINE CARDIOLOGY REPORT 09/29/2016 12: 00 AM SETTER MACHINE documented in this encounter Results * CARDIOLOGY REPORT (09/29/2016 12:00 AM SETTER MACHINE) Anatomical Region Laterality Modality Other Narrative 09/29/2016 12:00 AM SETTER MACHINE Ordered by an unspecified provider. [facility] Provider CV CARDIAC SERVICES PROCE DURES Final Result * CARDIOLOGY REPORT (09/29/2016 12:00 AM SETTER MACHINE) Anatomical Region Laterality Modality Other Narrative 09/29/2016 12:00 AM SETTER MACHINE Ordered by an unspecified provider. Historical Provider CV CARDIAC SERVICES PROCE DURES Final Result documented in this encounter Visit Diagnoses Not on filedocumented in this encounter Care Teams Manager Property Relationship Specialty Start Date End Date Coy Kirkland MD PCP - General Family Medicine 08/31/18 08/20/22 Coy Kirkland MD PCP - [facility] Attributed PCP 12/03/1910/03 Xavier Callahan PA [address] [place] [address] PCP - General Family Medicine 08/21/22 10/27/22 Shoaib Amin MD [address] [place] [address] PCP - General Family Medicine 10/28/22 Coy Smith MD PhD Fellow Neurology 04/30/20 Georgia Rosa LPN Stem Threshing Machine Operator 10/30/21 10/30/21 She Garcia [address] [place] [address] Pharmacist Pharmacy 11/13/21 10/23/22 Izabela Mathew MD [address] [place] [address] Medical Oncologist/Wood Drill Operator Hematology and Oncology 12/06/21 Lachelle Vee RN [address] [place] [address] [address] [place] [address] Stem Threshing Machine Operator 08/05/23 10/22/23 Lachelle Vee RN [address] [place] [address] [address] [place] [address] Stem Threshing Machine Operator 10/23/23 04/21/24 Georgia Rosa LPN [address] [place] [address] [address] [place] [address] Stem Threshing Machine Operator 09/02/24 09/02/24 Marian Nathan MA [address] [place] [address] [address] [place] [address] ACO Care Messaging Architect 09/15/24 10/10/24 documented as of this encounter
--- OUTSIDE RECORDS SUMMARY | 2025-03-16 21:33 | XMS_ITS | Encounter Summary ---
Author Organization [facility] Address [address] [place] [address] Phone Care Team Providers Care Facing Grinder Name Role Phone Coy Kirkland MD Primary Care Provider [phone] Coy Kirkland MD Unavailable [phone] Coy Smith MD PhD Unavailable [phone] Georgia Rosa LPN Unavailable [phone] She Garcia [facility] Unavailable [phone] Izabela Mathew MD Unavailable [phone] Xavier Callahan Primary Care Provider [phone] Shoaib Amin MD Primary Care Provider [phone] Lachelle Vee RN Unavailable Lachelle Vee RN Unavailable Georgia Rosa LPN Unavailable [phone] Marian Nathan MA Unavailable Encounter Details Date Type Department Care Team (Late st Contact Info) Description 06/08/2020 Telephone [facility] [address] [place] [id number] Kristina Holloway, RPSGT Social History Tobacco Use Types Packs/Day Years Used Date Smoking Tobacco: Former Smokeless Tobacco: Never Alcohol Use Standard Drinks/Week Comments No 0 (1 standard drink = 0.6 oz pur e alcohol) PHQ-2 Answer Date Recorded PHQ-2 Score 0 03/29/2020 Comments Unknown Sex and Gender Information Value Date Recorded Sex Assigned at Not on file 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 Gender Identity Not on file Sexual Orientation Not on file documented as of this encounter Plan of Treatment Not on file documented as of this encounter Visit Diagnoses Not on filedocumented in this encounter Care Teams Facing Grinder Relationship Specialty Start Date End Date Coy Kirkland MD PCP - General Family Medicine 08/31/18 08/20/22 Coy Kirkland MD PCP - [facility] Attributed PCP 12/03/1910/03 Xavier Callahan PA [address] [place] [address] PCP - General Family Medicine 08/21/22 10/27/22 Shoaib Amin MD [address] [place] [address] PCP - General Family Medicine 10/28/22 Coy Smith MD PhD Fellow Neurology 04/30/20 Georgia Rosa LPN Health Insurance Adjuster 10/30/21 10/30/21 She Garcia, [address] [place] [address] Pharmacist Pharmacy 11/13/21 10/23/22 Izabela Mathew MD [address] [place] [address] Medical Oncologist/Rubber Belt Splicer Hematology and Oncology 12/06/21 Lachelle Vee RN [address] [place] [address] [address] [place] [address] Health Insurance Adjuster 08/05/23 10/22/23 Lachelle Vee RN [address] [place] [address] [address] [place] [address] Health Insurance Adjuster 10/23/23 04/21/24 Georgia Rosa LPN [address] [place] [place] [address] [address] [place] [address] Health Insurance Adjuster 09/02/24 09/02/24 Marian Nathan MA [address] [place] [address] [address] [place] [address] ACO Care Piece Cutter 09/15/24 10/10/24 documented as of this encounter
[2025-03-16 21:37] VITALS: BP 157/71; PULSE 80; RESP 16; TEMP 36.3; O2SAT 100
--- OUTSIDE RECORDS SUMMARY | 2025-03-17 00:11 | XMS_ITS | Patient Health Record ---
Author Organization 1 OF Daniel givens [facility] Address [address] 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 [address] [address] [place] [address] [phone] [id number] [employer] Leeann Moore Self - patient is the insured Medical (General) History Medical History History ICD Code A. Fib., diabetes, heart [place] ([place]), High Cholosterol, HTN, Kidney Disease, Neuropathy of feet Seizures, Stroke (CVA/TIA) Thyroid Probl ems blood clots in lungs and around heart Surgical History Surgery Date(Month/Year)
--- OUTSIDE RECORDS SUMMARY | 2025-03-17 00:11 | XMS_ITS ---
Author Organization 1 OF Daniel givens [facility] Address [address] [place] [address] Care Team Providers Care Hvac Service Tech Name Role Phone Brennan Rocha Shoaib Primary Care Provider Delta Hendrickson Unavailable [phone] REASON FOR VISIT DFC (Diabetic foot care) Encounters Encounter Location Date Provider Diagnosis 1 OF Daniel Escamilla [facility] [address] [facility] [address] [place] [address] 10/08/2023 Delta Escamilla Onychogryphosis L60.2 ; Type [...] Detail Notes PALLIATIVE FOOT CARE: Nail debride (90303): Debr idement of at least six mycotic and/or hypertrophic nails performed:, utilizing manual and electric debridement the affected nails were reduced the nails in length and thickness with curettage of debris from nail margins performed as needed. Nail thickness reduced by:, 10% Progress Notes * Leeann SINGHDOB:1955 (69 yo F)Acc No.[id number]:10/08/2023 Progress Note Patient: Leeann STRATTON Provider: Daniel Escamilla DPM :1955 A ge:68 Y S ex:Female Date:10/08/2023 Address:[address] [place] [address], [address] Pcp:Shoaib Amin M.D. Subjective: * Chief Complaints: * 1 . DFC (Diabetic foot care). * HPI: Alexei Clark assisting with visit:: HPI/Rooming: . ..... P [facility] reason for visit:: 68 year old [...] Procedures: P ALLIATIVE FOOT CARE:: Nail debride (06535): D ebridement of at least six mycotic [...] Electronic signature of Karen Escamilla DPM on 03/17/2025 at 12:11 AM CDT Sign off status: Pending * Provider: Daniel Escamilla DPM Date: 12/09/2022 Generated for Betty ordoñez/Clare/Diana on: 0 03/17/2025 12:11 AM CDT History and Physical Notes * HPI [...]
--- NOTE | 2025-03-17 00:20 | ED.FALL ---
HPI - Fall General Chief Complaint: Fall Stated Complaint: GLF, Head(hematoma)/Neck pain, skin tear Time Seen by Provider: 03/17/25 00:03 History of Present Illness HPI Narrative: Patient is a 69-year-old female who presents to the ER after falling at home. She reports she was walking the dog around 9:30 p.m., started backing up off the grass, stumbled over concrete and tripped backwards. Patient reports she had the back of her head on concrete. She endorses a mild headache at this time. Patient denies any nausea, dizziness, neck pain. She endorses a history of strokes, diabetes and I'm on blood thinners. Related Data Home Medications Medication Instructions Recorded Confirmed Last Taken Type glipizide 10 mg tablet 10 mg PO BID 04/16/20 07/26/23 02/23/22 History metformin 500 mg tablet 1,000 mg PO BID 04/16/20 07/26/23 02/23/22 History atorvastatin 80 mg tablet 80 mg PO DAILY 06/04/20 07/26/23 02/23/22 History gabapentin 600 mg tablet 1,200 mg PO TID 06/04/20 07/26/23 02/23/22 History insulin glargine 100 unit/mL 55 unit subcut DAILY 08/04/21 07/26/23 02/23/22 History subcutaneous solution (Lantus U-100 Insulin) melatonin 10 mg tablet 20 mg PO HS 08/04/21 07/26/23 07/25/23 History apixaban 5 mg tablet (Eliquis) 5 mg PO BID pulmonary embolism 11/05/21 07/26/23 02/23/22 19:00 History fenofibrate nanocrystallized 145 145 mg PO DAILY 11/29/21 07/26/23 02/23/22 History mg tablet acetaminophen 500 mg capsule 1,000 mg PO Q6H PRN Pain (Scale 02/24/22 07/26/23 Unknown History Score 1-3) aspirin 81 mg tablet 81 mg PO DAILY 02/24/22 07/26/23 02/23/22 History dapagliflozin propanediol 10 mg 10 mg PO DAILY 02/24/22 07/26/23 02/23/22 History tablet (Farxiga) ikaodbal-keon-jdwf 8 mg-folic 400 1 tablet PO DAILY 02/24/22 07/26/23 02/23/22 08:00 History mcg-K 50 mcg-lutein 300 mcg tablet (Centrum Silver Women) omeprazole 20 mg capsule,delayed 20 mg PO DAILY 02/24/22 07/26/23 02/23/22 History release metoprolol succinate 100 mg 100 mg PO DAILY 07/23/22 07/26/23 Unknown History tablet,extended release 24 hr phentermine 37.5 mg capsule 37.5 mg PO DAILY 07/23/22 07/26/23 Unknown History furosemide 20 mg tablet 20 mg PO DAILY 07/26/23 07/26/23 Unknown History Allergies Allergy/AdvReac Type Severity Reaction Status Date / Time latex Allergy Unknown Hives Verified 03/16/25 21:30 Review of Systems Review of Systems: All systems reviewed & are unremarkable except as noted in HPI and below PMFSH Past Medical History Medical History Pulmonary embolism on long-term anticoagulation therapy Vaginal bleeding Arthritis of right shoulder region Calcific tendonitis of right shoulder Chronic renal failure, stage 3 (moderate) Pulmonary emboli Pulmonary emboli Non-ST elevation HI (NSTEMI) Goiter Anxiety Depression Hypothyroidism Diabetes type 2, controlled Arthritis Renal disease GERD (gastroesophageal reflux disease) Gastric ulcer HTN (hypertension) HLD (hyperlipidemia) CAD (coronary artery disease) History of angina Heart attack Peripheral neuropathy TIA (transient ischemic attack) CVA (cerebral vascular accident) Stroke-like symptom History of left heart catheterization Hypothyroidism Hyperlipidemia Hypertension GERD (gastroesophageal reflux disease) Diabetes Depression Cerebrovascular accident CAD (coronary atherosclerotic disease) Anxiety Surgical History Surgical History History of partial thyroidectomy Hx of section Hx of cholecystectomy Hx of cardiac catheterization with cardiac stent placement times 2 History of cholecystectomy History of section History of percutaneous coronary intervention History of thyroidectomy Family History Family History Mother Family history of diabetes mellitus in first degree relative Cerebrovascular accident Father Family history of malignant neoplasm Lung cancer Sibling Leukemia Lung cancer Cerebrovascular accident Sibling Family history of kidney disease Family history of malignant neoplasm Patient's sister is Cerebrovascular accident Mother Patient's mother is Father Family history of lung cancer Patient's father is Social History Social History Social History: The patient quit smoking at the age of 23 . She has 3 children. 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 She is and her son Jacob is her durable power medical physiologist for healthcare. She denies any alcohol marijuana or illicit drugs. Code status full code Smoking packs per day: 0.25 Smoking cigarettes per day: 5.0 Years smoked: 1 Smoking pack-years: 0.25 Smoking status: Former smoker Tobacco type: cigarettes Second hand tobacco smoke exposure: No Alcohol intake: never Substance use: never Lack of Transportation: No Lack of Food: Never True Current Housing: I Have Housing Concerned About Future Housing: No Difficulty Paying Gas/Electric Bills: YES Difficulty Paying for Meds: No Currently Unemployed: No Education: Trade/Vocational Certificate Difficulty w/ Childcare or Family Care: No Occupation/Education: retired Gender identity (if verbalized by the patient): Female Spiritual care concerns: No Exam Narrative: GENERAL: Well appearing, well-nourished, non-toxic, in no acute distress. HEAD: Normocephalic, atraumatic. NECK: Supple. No adenopathy, no masses. RESPIRATORY: Airway patent, respirations nonlabored. Clear to auscultation bilaterally, no rales, rhonchi, wheezing. CARDIOVASCULAR: Regular rate and rhythm without murmurs, rubs, or gallops. Peripheral pulses 2+ and equal bilaterally. ABDOMINAL: Soft, nontender, nondistended, no hepatosplenomegaly. Normoactive BS. MUSCULOSKELETAL: Moves all extremities. Strength/ROM intact without gross deformities. SKIN: Warm, dry, normal color. No rashes. Small Parieto-occipital scalp hematoma, no bleeding to site. NEURO: A&O X3. Speech clear. Cranial nerves II-XII intact. No ataxic movements. PSYCHIATRIC: Appropriate mood and affect. Normal interaction. Course Vital Signs Vital signs: Vital Signs Temperature 36.3 C L 03/16/25 21:37 Pulse Rate 80 03/16/25 21:37 Respiratory Rate 16 03/16/25 21:37 Blood Pressure 157/71 H 03/16/25 21:37 Pulse Oximetry 100 05/15/25 21:37 Oxygen Delivery Room Air 03/16/25 21:37 Temperature 36.3 C L 03/16/25 21:37 Pulse Rate 79 03/17/25 00:24 Respiratory Rate 17 03/17/25 00:24 Blood Pressure 129/81 03/17/25 00:24 Pulse Oximetry 98 03/17/25 00:24 Oxygen Delivery Room Air 03/16/25 21:37 MDM - Fall MDM Narrative Medical decision making narrative: Patient is a 69-year-old female who presents to the ER after falling at home. She reports she was walking the dog around 9:30 p.m., started backing up off the grass, stumbled over concrete and tripped backwards. Patient reports she had the back of her head on concrete. She endorses a mild headache at this time. Patient denies any nausea, dizziness, neck pain or loss of consciousness. She endorses a history of strokes, diabetes and I'm on blood thinners. Imaging Ordered: CT cervical spine, CT brain Medications Ordered: Morphine 2 mg IV Results: Pt's CT brain indicates No acute intracranial findings. Diagnosis: Concussion without loss of consciousness Patient Education/Shared MDM: Results of imaging shared with patient. She endorses improvement of symptoms following medication administration. Patient strongly advised to follow-up with their PCP as soon as possible. She will be discharged home with a prescription for Zofran. Strict return precautions provided. Patient verbalized understanding and is in agreement with plan. Vital signs stable at time of discharge. All questions answered. Differential Diagnosis Differential diagnosis: Likely compression fracture, concussion without loss of consciousness and other (Subdural hematoma) Imaging Data Attestation: I personally reviewed and interpreted this imaging study as follows: Radiologist's impression: Impressions Head CT 03/16/25 23:25 IMPRESSION: No acute intracranial findings. Discharge Plan Discharge Clinical Impression: Concussion without loss of consciousness, initial encounter, Head injury due to trauma Patient Disposition: Home Condition: Stable Instructions: Antibiotic Form, Concussion (ED) Additional Instructions: Please return to the ER with any worsening symptoms. Follow-up with primary care provider as soon as possible. Take all medications as prescribed, including regularly scheduled medications. He may use Tylenol for pain control. Patient Language: Gambian Prescriptions: No Action metoprolol succinate 100 mg tablet extended release 24 hr 100 mg PO DAILY phentermine 37.5 mg capsule 37.5 mg PO DAILY Patient Comments: on provided med list Rx Instructions: must administer 30 minutes before or 1-2 hours after breakfast metformin 500 mg tablet 1,000 mg PO BID glipizide 10 mg tablet 10 mg PO BID gabapentin 600 mg tablet 1,200 mg PO TID atorvastatin 80 mg tablet 80 mg PO DAILY insulin glargine [Lantus U-100 Insulin] 100 unit/mL Solution 55 unit SUBCUT DAILY melatonin 10 mg Tablet 20 mg PO HS fenofibrate nanocrystallized 145 mg tablet 145 mg PO DAILY Centrum Silver Women 8 mg iron-400 mcg-300 mcg Tablet 1 tablet PO DAILY aspirin 81 mg Tablet 81 mg PO DAILY Farxiga 10 mg Tablet 10 mg PO DAILY omeprazole 20 mg Capsule,Delayed Release(Dr/Ec) 20 mg PO DAILY acetaminophen 500 mg Capsule 1,000 mg PO Q6H PRN (Reason: Pain (Scale Score 1-3)) cyclobenzaprine 10 mg tablet 10 mg PO TID PRN (Reason: muscle spasm) Qty: 10 0RF Eliquis 5 mg tablet 5 mg PO BID Rx Instructions: Take 2 tablets twice daily for 7 days, followed by 1 tablet twice daily. hydrocodone-acetaminophen 7.5-325 mg Tablet 1 tablet PO Q6H PRN (Reason: Pain Rated 7-10) Qty: 30 0RF furosemide 20 mg tablet 20 mg PO DAILY clopidogrel 75 mg Tablet 75 mg PO QAM Qty: 90 0RF nitroglycerin [Nitrostat] 0.4 mg Tablet, Sublingual 0.4 mg sublingual Q5MIN PRN (Reason: Chest Pain) Qty: 60 0RF lidocaine [Lidoderm] 5 % Adhesive Patch,Medicated 1 patch transdermal DAILY Qty: 30 0RF Follow-up/Referrals: Brennan,MD Shoaib [Primary Care Provider] -
[2025-03-17 00:24] VITALS: BP 129/81; PULSE 79; RESP 17; O2SAT 98
[2025-03-17] MEDS: HYDROcodone/acetaminophen (*CRX) 5-325 MG TABLET 1 TAB PO (00:43)
[2025-03-17 02:30] VITALS: BP 111/48; PULSE 70; RESP 16; O2SAT 97
[2025-03-17 04:00] VITALS: BP 118/57; PULSE 70; RESP 19; O2SAT 97
== END 2025-03-17 04:15 | disposition home or self-care (01) ==
PROVIDERS: Emergency Provider Registered Nurse; PCP Family Medicine
DX: S06.0X0A Concussion without loss of consciousness, initial encounter (principal); W18.30XA Fall on same level, unspecified, initial encounter; Z79.4 Long term (current) use of insulin; Z79.01 Long term (current) use of 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; Z86.711 Personal history of pulmonary embolism; N18.30 Chronic kidney disease, stage 3 unspecified; E11.22 Type 2 diabetes mellitus with diabetic chronic kidney disease; F41.8 Other specified anxiety disorders; E03.9 Hypothyroidism, unspecified; K21.9 Gastro-esophageal reflux disease without esophagitis; I12.9 Hypertensive chronic kidney disease with stage 1 through stage 4 chronic kidney disease, or unspecified chronic kidney disease; E78.5 Hyperlipidemia, unspecified; I25.10 Atherosclerotic heart disease of native coronary artery without angina pectoris; Z86.73 Personal history of transient ischemic attack (TIA), and cerebral infarction without residual deficits; Z87.891 Personal history of nicotine dependence
CPT/HCPCS: 70450; 72125; 99284; A9270